=== PATIENT | male | born 1960 | race Caucasian/White ===

== ENCOUNTER 2023-08-14 10:33 | Outpatient (OUT) | payer MEDICAID, SELFPAY ==
--- NOTE | 2023-08-14 | XR_ITS ---
[facility] [id number] Patient Name: MACARENA MEYERS MRN: [id number] date: 1960 Sex: M Assigned Patient Location: [facility] Current Patient Location: [facility] Accession/Order Number: [id number] Exam Date: 08/14/2023 10:15 Report Date: 08/14/2023 11:20 At the request of: CALISTA RODRIGUEZ Procedure: XR ankle LT min 3V PROCEDURE: XR ankle LT min 3V COMPARISON: 07/29/2023. HISTORY: LEFT ANKLE PAIN FINDINGS: BONES:Severe degenerative changes of the midfoot with plantar rotation of the posterior midfoot and hindfoot in relation to the anterior midfoot and midfoot bony destruction of the partial midfoot. Moderate enthesopathic spurring of the calcaneus. SOFT TISSUES:Moderate diffuse soft tissue swelling EFFUSION:None visible. OTHER: Negative. XR/XR ankle LT min 3V IMPRESSION: Severe degenerative changes. No plain film evidence of osteomyelitis Electronically authenticated by: SISSY UPENTES Date: 08/14/2023 11:20
== END 2023-08-14 10:34 | disposition home or self-care (01) ==
LOC: RAD 10:33
PROVIDERS: Visit Provider Podiatrist Foot & Ankle Surgery
DX: S91.002A Unspecified open wound, left ankle, initial encounter (principal)
CPT/HCPCS: 73610

== ENCOUNTER 2023-08-28 07:55 | Outpatient (OUT) | payer MEDICAID, SELFPAY ==
--- OUTSIDE RECORDS SUMMARY | 2023-08-28 08:00 | XMS_ITS | CCD ---
Author Name Unknown Address [id number] [place] [address] Organization [facility] Care Team Providers Care Hide Handler Name Role Phone PLANK, GERARD Unavailable Unavailable PLANK, GERARD Unavailable Unavailable CHARLIE, RENATO Unavailable Unavailable PLANK, GERARD Unavailable Unavailable CHARLIE, RENATO Unavailable Unavailable PLANK, GERARD Unavailable Unavailable HAND, ALLYSON Unavailable Unavailable HAND, ALLYSON Unavailable Unavailable DEXTER, ROMERO Unavailable Unavailable HAND, ALLYSON Unavailable Unavailable DEXTER, ROMERO Unavailable Unavailable HAND, ALLYSON Unavailable Unavailable Dexter, Romero Unavailable Unavailable Hand, Allyson A Unavailable Unavailable Charlie, Renato Chimanbhai Unavailable Unavail able Zahira, Allyson A Primary Care Provider [phone] Allyson Hand MD A Primary Care Provider [phone] Unavailable Primary Care Provider Allyson Rausch MD A Primary Care Provider [phone] Allyson Hand MD A Primary Care Provider [phone] Allyson Hand MD A Primary Care Provider [phone] Allyson Hand MD A Primary Care Provider Zahira Allyson A Unavailable Unavailable Unavailable Unavailable Primary Care Provider Allyson Rausch MD A Primary Care Provider [phone] Dr. Allyson Hand Primary Care Delmi Briscoe Jr, Dr. Mitch Martínez Attending Leisa Hand, Dr. Allsyon Anthony Primary Care Delmi Briscoe Jr, Dr. Mitch Martínez Attending Leisa Hand, Dr. Allyson Anthony Primary Care Unavailabl e Luis Felipe Ryder, Dr. Mtich Martínez Attending Unava ilable Luis Felipe Ryder, Dr. Mitch Martínez Attending Unava ilable Zahira, Dr. Allyson Anthony Primary Care Unavailabl e HAND, ALLYSON A Primary Care Unavailable ELY, MARIELOS Referring Unavailable MARIELOS ELY Attending Unavailable VIV LUIS Referring Unavailable HAND, ALLYSON A Primary Care Unavailable ELYMARIELOS PEREZ Referring Unavailable HAND, ALLYSON A Primary Care Unavailable ELYMARIELOS PEREZ Referring Unavailable HAND, ALLYSON A Primary Care Unavailable ELY, MARIELOS Referring Unavailable HAND, ALLYSON A Primary Care Unavailable HAND, ALLYSON A Primary Care Unavailable MARIELOS ELY Referring Unavailable AIDA CANO Attending Unavailable ARASH KRAUSE Referring Unavailable HAND, ALLYSON A Primary Care Unavailable ELY, MARIELOS Referring Unavailable HAND, ALLYSON A Primary Care Unavailable HAND, ALLYSON A Primary Care Unavailable CHO ISAIROCHELLE Attending Unavailable CHO I, ROCHELLE Referring Unavailable HAND, ALLYSON A Primary Care Unavailable CHO I, ROCHELLE Attending Unavailable CHO I, ROCHELLE Referring Unavailable HAND, ALLYSON A Primary Care Unavailable CHO I, ROCHELLE Attending Unavailable CHO I, ROCHELLE Referring Unavailable HAND, ALLYSON A Primary Care Unavailable CHO I, ROCHELLE Referring Unavailable CHO I, ROCHELLE Attending Unavailable ELY, MARIELOS Referring Unavailable HAND, ALLYSON A Primary Care Unavailable ELY, MARIELOS Referring Unavailable HAND, ALLYSON A Primary Care Unavailable SOLIS, MARIELOS Referring Unavailable HAND, ALLYSON A Primary Care Unavailable ELY, MARIELOS Referring Unavailable HAND, ALLYSON A Primary Care Unavailable HAND, ALLYSON A Primary Care Unavailable ELY, MARIELOS Referring Unavailable MARIELOS ELY Attending Unavailable MARIELOS ELY Referring Unavailable HAND, ALLYSON A Primary Care Unavailable ELY, MARIELOS Referring Unavailable HAND, ALLYSON A Primary Care Unavailable ELY, MARIELOS Referring Unavailable HAND, ALLYSON A Primary Care Unavailable HAND, ALLYSON A Primary Care Unavailable DRAIEL ELYNDAN Referring Unavailable TORI MART Referring Unavailable HAND, ALLYSON A Primary Care Unavailable MART, TORI Referring Unavailable HAND, ALLYSON A Primary Care Unavailable MART, TORI Referring Unavailable HAND, ALLYSON A Primary Care Unavailable MART, TORI Referring Unavailable HAND, ALLYSON A Primary Care Unavailable JIMI, ARASH Attending Unavailable JIMI, ARASH Referring Unavailable HAND, ALLYSON A Primary Care Unavailable RACHAEL, LLEOWELL Attending Unavailable HAND, ALLYSON A Primary Care Unavailable ELY, MARIELOS Referring Unavailable MAISHA, GALE Attending Unavailable MAISHA, GALE Referring Unavailable HAND, ALLYSON A Primary Care Unavailable ELY, MARIELOS Attending Unavailable HAND, ALLYSON A Primary Care Unavailable ELY, MARIELOS Referring Unavailable ELY, MARIELOS Attending Unavailable HAND, ALLYSON A Primary Care Unavailable ELY, MARIELOS Referring Unavailable HAND, ALLYSON A Primary Care Unavailable ELY, MARIELOS Attending Unavailable ELY, MARIELOS Referring Unavailable RACHAEL, LLEOWELL Attending Unavailable RACHAEL, LLEOWELL Referring Unavailable HAND, ALLYSON A Primary Care Unavailable ELY, MARIELOS Referring Unavailable HAND, ALLYSON A Primary Care Unavailable HAND, ALLYSON A Primary Care Unavailable ELY, MARIELOS Referring Unavailable HAND, ALLYSON A Primary Care Unavailable ELY, MARIELOS Referring Unavailable ELY, MARIELOS Referring Unavailable HAND, ALLYSON A Primary Care Unavailable Allergies Allergy Classification Reported Allergen(s) Allergy Type Date of Onset Reaction(s) Facility (5 sources) Amoxicillin / Clavulanate; Translations: [Augmentin TABS] Drug Allergy [facility] Work Phone: (5 sources) influenza A virus (H1N1) antigen / influenza A virus (H3N2) antigen / influenza B virus antigen; Translations: [Fluzone SUSP] Drug Allergy [facility] Work Phone: (20 sources) moxifloxacin Drug Allergy 7 Other (See Comments), Nausea, Vomiting [facility] Phone: (20 sources) Amoxicillin-Pot Clavulanate Propensity to adverse reactions to drug 7 Nausea And Vomiting [facility] Work Phone: Medications Current Medications Medication Drug Class(es) Dates Sig (Normalized) Sig (Original) Acetaminophen (1 source) Start: 05-25-2022 acetaminophen (TYLENOL) tablet 650 mg acetaminophen 325 mg / HYDROcodone bitartrate 7.5 mg oral tablet (20 sources) Opioid Agonist Start: 04-20-2023 End: 05-20-2023 HYDROcodone-acetamin ophen (NORCO) 7.5-325 MG per tablet Indications: Chronic pain syndrome , Lumbar radiculopathy , Lumbosacral spondylosis without myelopathy Take 1 tablet by mouth every 6 hours as needed for Pain for up to 30 days. Max Daily Amount: 4 tablets 120 tablet 0 04/20/2023 05/20/2023 Active Start: 08-09-2022 End: 01-26-2023 HYDROcodone-acetaminophen (N ORCO) 7.5-325 MG per tablet Indications: Chronic pain syndrome , Lumbar radiculopathy , Lumbosacral spondylosis without myelopathy Take 1 tablet by mouth 3 times daily as needed for Pain for up to 30 days. Max Daily Amount: 3 tablets 90 tablet 0 12/27/2022 01/26/2023 Active Start: 07-23-2022 End: 08-10-2022 take 1 tablet by mouth every six hours as needed for pain HYDROcodone-acetaminophen (NORCO) 7.5-32 5 MG per tablet Indications: Chronic pain syndrome , Lumbosacral spondylosis without myelopathy , Lumbar radiculopathy Take 1 tablet by mouth every 6 hours as needed for Pain for up to 18 days. 72 tablet 0 07/23/2022 08/10/2022 Active Start: 05-24-2022 End: 05-26-2022 HYDROcodone-acetaminophen (N ORCO) 5-325 MG per tablet 1.5 tablet Start: 05-24-2022 End: 05-31-2022 take 1 tablet by mouth every six hours as needed 1 tablet, Oral, EVERY 6 HOURS PRN, Start ing on 05/26/22 at 0859, Until Discontinued, Pain Severe (7-10), Pain Moderate (4-6) Maximum dose of acetaminophen is 4000 mg from all sources in 24 hours. Start: 04-22-2022 End: 05-22-2022 HYDROcodone-acetaminophen (N ORCO) 7.5-325 MG per tablet Indications: Chronic pain syndrome , Lumbosacral spondylosis without myelopathy , Lumbar radiculopathy Take 1 tablet by mouth every 6 hours as needed for Pain for up to 30 days. Intended supply: 30 days 120 tablet 0 04/22/2022 05/22/2022 Active Start: 01-12-2022 End: 02-11-2022 HYDROcodone-acetaminophen (N ORCO) 5-325 MG per tablet Indications: Spinal stenosis of lumbar region with neurogenic claudication , Acquired spondylolisthesis of lumbosacral region , Paraparesis of both lower limbs (HCC) Take 1 tablet by mouth every 6 hours as needed for Pain for up to 30 days. Intended supply: 30 days 120 tablet 0 01/12/2022 02/11/2022 Active Start: 12-30-2021 End: 01-29-2022 HYDROcodone-acetaminophen (N ORCO) 7.5-325 MG per tablet Indications: Chronic pain syndrome , Lumbosacral spondylosis without myelopathy , Lumbar radiculopathy Take 1 tablet by mouth every 6 hours as needed for Pain for up to 30 days. Intended supply: 30 days 120 tablet 0 12/30/2021 01/29/2022 Active Start: 09-02-2021 End: 10-02-2021 take 1 tablet by mouth every eight hours as needed for pain HYDROcodone-acetaminophen (NORCO) 5-325 MG per tablet Indications: Chronic pain syndrome , Lumbosacral spondylosis without myelopathy , Primary osteoarthritis of right knee , Lumbar radiculopathy , Spinal stenosis of lumbar region, unspecified whether neurogenic claudication present Take 1 tablet by mouth every 8 hours as needed for Pain for up to 30 days. 90 tablet 0 09/02/2021 10/02/2021 Active Start: 11-13-2019 HYDROcodone-Ac etaminophen 5-325 MG Oral Tablet Quantity: 75 Refills: 0 Ordered: 20-Nov-2019 DO Start : 13-Nov-2019 Active Start: 07-29-2006 take 1 tablet by jamie th every four to six hours as needed VICODIN 5-500 MG OR TABS 1 TABLET EVERY 4 TO 6 HOURS NEEDED 60 0 07/29/2006 Active acetaminophen 325 mg / oxyCODONE hydrochloride 5 mg oral tablet (5 sources) Opioid Agonist Start: 05-31-2022 End: 06-03-2022 oxyCODONE-acetaminophen (PERCOCET) 5-325 MG per tablet Indications: Ulcer of left foot, with necrosis of muscle (HCC) Take 1 tablet by mouth every 6 hours as needed for Pain for up to 3 days. Intended supply: 3 days. Take lowest dose possible to manage pain 12 tablet 0 05/31/2022 06/03/2022 Active Start: 01-13-2020 take 1 tablet by jamie every four to six hours as needed for pain oxyCODONE-Acetaminophen 10-325 MG Oral Tablet TAKE 1 TABLET BY MOUTH EVERY 4 TO 6 HOURS NEEDED FOR PAIN Quantity: 8 Refills: 0 Ordered: 13-Jan-2020 DO Start : 13-Jan-2020 Active amLODIPine 5 mg oral tablet (18 sources) Dihydropyridine Calcium Channel [place] Start: 06-12-2021 End: 05-25-2022 amLODIPine (NORVASC) 5 MG tablet Indications: takes with elevated BP reading -- with sx headache & flushed feeling Indications: takes with elevated BP reading -- with sx headache & flushed feeling 0 06/12/2021 Active aspirin 81 mg chewable tablet (2 sources) Platelet Aggregation Inhibitor, Nonsteroidal Anti-inflammatory Drug Start: 05-25-2022 aspirin chewable tablet 81 mg Start: 05-24-2022 End: 05-24-2022 aspirin chewable tablet 324 mg atorvastatin 10 mg oral tablet (2 sources) HMG-CoA Reductase Inhibitor Start: 05-28-2022 atorvastatin (LIPITO R) tablet 10 mg Start: 05-25-2022 End: 05-28-2022 atorvastatin (LIPITOR) table t 20 mg busPIRone hydrochloride 10 mg oral tablet (1 source) Start: 05-26-2022 busPIRone (BUSPAR) tablet 10 mg calcipotriene 0.76240 mg/mg topical ointment (2 sources) Vitamin D Analog Start: 08-26-2006 DOVONEX 0.005 % EX OINT psoriasis BID 50 5 08/26/2006 Active carvedilol 12.5 mg oral tablet (4 sources) alpha-Adrenergic [place], beta-Adrenergic [place] Start: 03-04-2023 take 1 tablet by mouth twice daily carvedilol (COREG) 12.5 MG tablet Take 1 tablet by mouth 2 times daily 180 tablet 3 03/04/2023 Active cephalexin 500 mg oral capsule (12 sources) Cephalosporin Antibacterial Start: 09-20-2022 End: 11-05-2022 take 1 capsule by mouth four times daily cephALEXin (KEFLEX) 500 MG capsule Take 1 capsule by mouth 4 times daily 40 capsule 0 09/20/2022 Active Start: 07-09-2022 End: 08-08-2022 take 10 mL by mouth three times daily cephALEXin (KEFLEX) 250 MG/5ML suspension Take 10 mLs by mouth 3 times daily 900 mL 0 07/09/2022 08/08/2022 Active Start: 05-25-2022 End: 05-26-2022 500 mg, Oral, 4 TIMES DAILY, 28 doses, First dose on Sat05/25/22 at 0900, Last dose on Sat05/31/22 at 2100 Antimicrobial Indications: Skin and Soft Tissue Infection Skin duration of therapy: 7 days Start: 05-18-2022 End: 05-31-2022 cephALEXin (KEFLEX) capsule 500 mg clobetasol propionate 0.0005 mg/mg topical ointment (2 sources) Corticosteroid Start: 08-26-2006 CLOBETASOL PROPIONATE 0.05 % EX OINT to psoriasis s alp and legs BID avoid face armpit groin, under breast 60 g 3 08/26/2006 Active cyclobenzaprine hydrochloride 10 mg oral tablet (20 sources) Muscle Relaxant Start: 04-20-2023 End: 05-20-2023 take 1 tablet by mouth once daily as needed for muscle spasms cyclobenzaprine (FLEXERIL) 10 MG tablet Indications: Chronic pain syndrome Take 1 tablet by mouth daily as needed for Muscle spasms 30 tablet 0 04/20/2023 05/20/2023 Active Start: 02-14-2023 End: 03-16-2023 take 1 tablet by mouth once daily as needed for muscle spasms cyclobenzaprine (FLEXERIL) 10 MG tablet Indications: Chronic pain syndrome Take 1 tablet by mouth daily as needed for Muscle spasms 30 tablet 0 02/14/2023 03/16/2023 Active Start: 07-23-2022 End: 01-26-2023 take 1 tablet by mouth once daily as needed for muscle spasms cyclobenzaprine (FLEXERIL) 10 MG tablet Indications: Chronic pain syndrome Take 1 tablet by mouth daily as needed for Muscle spasms 30 tablet 0 12/27/2022 01/26/2023 Active Start: 2022 End: 06-23-2022 take 1 tablet by mouth once daily as needed for muscle spasms cyclobenzaprine (FLEXERIL) 10 MG tablet Indications: Chronic pain syndrome Take 1 tablet by mouth daily as needed for Muscle spasms 30 tablet 0 05/24/2022 06/23/2022 Active Start: 12-29-2021 End: 02-28-2022 take 1 tablet by mouth once daily as needed for muscle spasms cyclobenzaprine (FLEXERIL) 10 MG tablet Indications: Chronic pain syndrome TAKE 1 TABLET BY MOUTH DAILY NEEDED FOR MUSCLE SPASMS 30 tablet 0 01/29/2022 02/28/2022 Active Start: 08-28-2021 End: 09-27-2021 take 1 tablet by mouth once daily as needed for muscle spasms cyclobenzaprine (FLEXERIL) 10 MG tablet Indications: Chronic pain syndrome Take 1 tablet by mouth daily as needed for Muscle spasms 30 tablet 0 08/28/2021 09/27/2021 Active Start: 05-15-2019 Cyclobenzaprin e HCl - 10 MG Oral Tablet Quantity: 30 Refills: 0 Ordered: 09-Aug-2019 DO Start : 15-May-2019 Active Start: 12-22-2002 take 1 tablet by jamie th three times daily FLEXERIL 10 MG OR TABS 1 TABLET 3 TIMES DAILY 90 0 12/22/2002 Active desonide 0.5 mg/ml topical lotion (2 sources) Corticosteroid Start: 08-26-2006 DESONIDE 0.05 % EX LOTN BID face armpit groin 4 oz 5 08/26/2006 Active ertapenem (INVANZ) infusion (3 sources) Start: 05-31-2022 End: 07-10-2022 take 1000 mg intravenously every twenty-four hours ertapenem (INVANZ) infusion Infuse 1,000 mg intravenously every 24 hours Compound per protocol. 40 g 0 05/31/2022 07/10/2022 Active furosemide 40 mg oral tablet (17 sources) Loop Diuretic Start: 03-04-2023 take 1 tablet by mouth once daily furosemide (LASIX) 40 MG tablet Take 1 tablet by mouth daily 90 tablet 3 03/04/2023 Active Start: 06-02-2022 take 1 tablet by jamie th once daily furosemide (LASIX) 20 MG tablet Take 1 tablet by mouth daily 30 tablet 3 06/02/2022 Active Start: 05-28-2022 furosemide (LA SIX) tablet 20 mg Start: 05-25-2022 End: 05-28-2022 40 mg, IntraVENous, 2 TIMES DAILY, First dose on Sat05/25/22 at 0900, Until Discontinued gabapentin 300 mg oral capsule (18 sources) Anti-epileptic Agent Start: 07-23-2022 End: 01-26-2023 take 1 capsule by mouth three times daily gabapentin (NEURONTIN) 300 MG capsule Indications: Lumbar radiculopathy Take 1 capsule by mouth 3 times daily for 19 days. 57 capsule 0 01/26/2023 Active Start: 05-03-2022 End: 06-02-2022 take 1 capsule by mouth three times daily gabapentin (NEURONTIN) 300 MG capsule Indications: Lumbar radiculopathy Take 1 capsule by mouth 3 times daily for 30 days. 90 capsule 0 05/03/2022 Active Start: 12-30-2021 End: 02-22-2022 take 1 capsule by mouth three times daily gabapentin (NEURONTIN) 300 MG capsule Indications: Lumbar radiculopathy Take 1 capsule by mouth 3 times daily for 30 days. 90 capsule 0 01/23/2022 02/22/2022 Active 1 ml HYDROmorphone hydrochloride 1 mg/ml cartridge (2 sources) Opioid Agonist Start: 05-29-2022 End: 05-29-2022 HYDROmorphone (DILAUDID) injection 0.5 mg sodium hypochlorite 1.25 mg/ml topical spray (9 sources) Start: 10-22-2022 Sodium Hypochlorite 0.0125 % SOLN Apply 10 mLs topically as needed (Cleanse with each dressing change.) 1000 mL 5 10/22/2022 Active 1 ml ketorolac tromethamine 30 mg/ml cartridge (1 source) Nonsteroidal Anti-inflammatory Drug, Cyclooxygenase Inhibitor Start: 05-30-2022 End: 06-01-2022 ketorolac (TORADOL) injection 30 mg 24 hr metoprolol succinate 50 mg extended release oral tablet (16 sources) beta-Adrenergic [place] Start: 05-29-2022 take 1 tablet by mouth once daily metoprolol succinate (TOPROL XL) 50 MG extended release tablet Take 1 tablet by mouth daily 30 tablet 0 06/01/2022 Active Start: 05-25-2022 End: 05-28-2022 metoprolol succinate (TOPROL XL) extended release tablet 25 mg Start: 05-24-2022 End: 05-24-2022 metoprolol (LOPRESSOR) injec tion 5 mg naloxone hydrochloride 40 mg/ml nasal spray (2 sources) Opioid Antagonist Start: 07-05-2021 naloxone 4 MG/0.1ML LIQD nasal spray 1 spray by Nasal route as needed for Opioid Reversal 2 each 1 07/05/2021 Active 24 hr naproxen 500 mg extended release oral tablet (20 sources) Nonsteroidal Anti-inflammatory Drug Start: 09-06-2022 End: 01-26-2023 take 1 tablet by mouth twice daily as needed for pain naproxen (NAPRELAN) 500 MG extended release tablet Take 1 tablet by mouth 2 times daily as needed for Pain 60 tablet 3 12/27/2022 Active Start: 02-20-2022 End: 05-31-2022 take 1 tablet by mouth twice daily as needed for pain naproxen (NAPRELAN) 500 MG extended release tablet Take 1 tablet by mouth 2 times daily as needed for Pain 60 tablet 3 02/20/2022 05/31/2022 Discontinued (Stop Taking at Discharge) Start: 12-29-2021 take 1 tablet by jamie th twice daily at mealtime naproxen (EC NAPROSYN) 500 MG EC tablet Indications: Lumbosacral spondylosis without myelopathy , Primary osteoarthritis of right knee , Spinal stenosis of lumbar region, unspecified whether neurogenic claudication present TAKE 1 TABLET BY MOUTH TWICE DAILY WITH MEALS 60 tablet 0 12/29/2021 Active Start: 08-28-2021 take 1 tablet by jamie th twice daily at mealtime naproxen (EC NAPROSYN) 500 MG EC tablet Indications: Lumbosacral spondylosis without myelopathy , Primary osteoarthritis of right knee , Spinal stenosis of lumbar region, unspecified whether neurogenic claudication present TAKE 1 TABLET BY MOUTH TWICE DAILY WITH MEALS 60 tablet 0 08/28/2021 Active Start: 11-13-2019 Naproxen 500 M G Oral Tablet Delayed Release Quantity: 60 Refills: 0 Ordered: 6-Apr-2020 DO Start : 13-Nov-2019 Active omeprazole 40 mg delayed release oral capsule (20 sources) Proton Pump Inhibitor Start: 12-22-2002 PRILOSEC 40 MG OR CPDR 1 CAPSULE DAILY 30 0 12/22/2002 Active take 1 capsule by mouth once mark ly omeprazole (PRILOSEC) 20 MG delayed release capsule Take 1 capsule by mouth daily 0 Active ondansetron (ZOFRAN-ODT) disintegrating tablet 4 mg (1 source) Start: 05-25-2022 ondansetron (ZOFRAN-ODT) disintegrating tablet 4 mg potassium chloride 20 meq extended release oral tablet (3 sources) take 1 tablet by mouth once daily at breakfast potassium chloride (KLOR-CON M) 20 MEQ TBCR extended release tablet Take 1 tablet by mouth daily (with breakfast) 0 Active spironolactone 25 mg oral tablet (1 source) Aldosterone Antagonist Start: 05-28-2022 spironolactone (ALDACTONE) tablet 25 mg traMADol hydrochloride 50 mg oral tablet (5 sources) Opioid Agonist Start: 09-06-2021 End: 10-06-2021 take 1 tablet by mouth every eight hours as needed for pain traMADol (ULTRAM) 50 MG tablet Indications: Chronic pain syndrome , Lumbosacral spondylosis without myelopathy , Primary osteoarthritis of right knee , Lumbar radiculopathy , Spinal stenosis of lumbar region, unspecified whether neurogenic claudication present Take 1 tablet by mouth every 8 hours as needed for Pain for up to 30 days. Fill date 09/06/21. 90 tablet 0 09/06/2021 10/06/2021 Active Start: 11-13-2019 traMADol HCl - 50 MG Oral Tablet Quantity: 90 Refills: 0 Ordered: 20-Nov-2019 DO Start : 13-Nov-2019 Active Completed/Discontinued Medications Medication Drug Class(es) Dates Sig (Normalized) Sig (Original) azithromycin 250 mg oral tablet (4 sources) Macrolide Antimicrobial Start: 01-01-2020 Azithromycin 250 MG Oral Tablet TAKE 2 TABLETS by mouth today, THEN take 1 TABLET once a day FOR the n Quantity: 6 Refills: 0 Ordered: 01-Jan-2020 DO Start : 01-Jan-2020 Active candesartan cilexetil 32 mg oral tablet (20 sources) Angiotensin 2 Receptor [place] Start: 02-27-2019 Candesartan Cilexetil 32 MG Oral Tablet Quantity: 30 Refills: 0 Ordered: 24-Nov-2019 DO Start : 27-Feb-2019 Active 0.4 ml enoxaparin sodium 100 mg/ml prefilled syringe (1 source) Low Molecular Weight Heparin Start: 05-25-2022 inject 40 mg by subcutaneous injection once daily 40 mg, SubCUTAneous, DAILY, First dose on Sat05/25/22 at 0900, Until Discontinued Indication of Use: Prophylaxis-DVT/PE ertapenem (INVanz) 1000 mg IVPB minibag (1 source) Start: 05-31-2022 End: 05-31-2022 ertapenem (INVanz) 1000 mg IVPB minibag famotidine 40 mg oral tablet (4 sources) Histamine-2 Receptor Antagonist Start: 04-04-2019 Famotidine 40 MG Oral Tablet Quantity: 30 Refills: 0 Ordered: 11-Aug-2019 DO Start : 04-Apr-2019 Active 2 ml fentaNYL 0.05 mg/ml injection (3 sources) Opioid Agonist Start: 05-29-2022 End: 05-29-2022 fentaNYL (SUBLIMAZE) injection 50 mcg Start: 01-13-2022 End: 02-12-2022 fentaNYL (DURAGESIC) 25 MCG/ HR Indications: Spinal stenosis of lumbar region with neurogenic claudication , Acquired spondylolisthesis of lumbosacral region Place 1 patch onto the skin every 3 days for 30 days. Intended supply: 30 days 10 patch 0 01/13/2022 02/12/2022 Active Start: 01-13-2022 End: 02-12-2022 fentaNYL (DURAGESIC) 25 MCG/ HR Indications: Acquired spondylolisthesis of lumbosacral region , Spinal stenosis of lumbar region with neurogenic claudication Place 1 patch onto the skin every 72 hours for 30 days. 10 patch 0 01/13/2022 02/12/2022 Active gadoteridol (PROHANCE) injec tion 20 mL (1 source) Start: 05-27-2022 End: 05-27-2022 gadoteridol (PROHANCE) injection 20 mL 2 ml sodium hyaluronate 10 m g/ml prefilled syringe (3 sources) Start: 04-25-2023 Euflexxa 20 MG /2ML Intra-articular Solution Prefilled Syringe Right knee Quantity: 0 Refills: 0 Ordered: 25-Apr-2023 Mitch Briscoe MD Start : 25-Apr-2023 Complete Start: 04-18-2023 Euflexxa 20 MG /2ML Intra-articular Solution Prefilled Syringe Right knee Quantity: 0 Refills: 0 Ordered: 18-Apr-2023 Mitch Briscoe MD Start : 18-Apr-2023 Complete Start: 04-11-2023 Euflexxa 20 MG /2ML Intra-articular Solution Prefilled Syringe Right knee Quantity: 0 Refills: 0 Ordered: 11-Apr-2023 Mitch Briscoe MD Start : 11-Apr-2023 Complete ibuprofen 600 mg oral tablet (4 sources) Nonsteroidal Anti-inflammatory Drug Start: 01-12-2020 Ibuprofen 600 MG Oral Tablet Quantity: 30 Refills: 0 Ordered: 13-Jan-2020 DO Start : 12-Jan-2020 Active iopamidol (ISOVUE-300) 61 % injection 125 mL (1 source) Start: 05-30-2022 End: 05-30-2022 iopamidol (ISOVUE-300) 61 % injection 125 mL iopamidol (ISOVUE-300) 61 % injection 75 mL (1 source) Start: 05-24-2022 End: 05-24-2022 iopamidol (ISOVUE-300) 61 % injection 75 mL lidocaine hydrochloride 0.02 mg/mg topical gel (20 sources) Antiarrhythmic, Amide Local Anesthetic Start: 05-06-2023 End: 05-06-2023 lidocaine (XYLOCAINE) 2 % uro-jet Start: 04-29-2023 lidocaine (LID ODERM) 5 % Indications: Lumbar radiculopathy Place 2 patches onto the skin daily 12 hours on, 12 hours off. 60 patch 2 04/29/2023 Active Start: 01-14-2023 End: 01-14-2023 lidocaine (LMX) 4 % cream Start: 12-17-2022 End: 12-17-2022 lidocaine (LMX) 4 % cream Start: 12-03-2022 End: 12-03-2022 lidocaine (LMX) 4 % cream Start: 11-05-2022 End: 11-05-2022 lidocaine (LMX) 4 % cream Start: 10-22-2022 End: 10-22-2022 lidocaine (LMX) 4 % cream Start: 10-08-2022 End: 10-08-2022 lidocaine (LMX) 4 % cream Start: 09-17-2022 End: 09-17-2022 lidocaine (LMX) 4 % cream Start: 09-03-2022 End: 09-03-2022 lidocaine (XYLOCAINE) 2 % ur o-jet Start: 05-28-2022 End: 05-28-2022 lidocaine 2 % injection 5 mL Start: 05-25-2022 apply 1 dose topical ly once daily 1 patch, Topical, Administer over 12 Hours, DAILY, First dose on Sat05/25/22 at 0900 Substituted for Lidocaine 5% Patch. Start: 2022 lidocaine (LID ODERM) 5 % Indications: Lumbar radiculopathy Place 2 patches onto the skin daily 12 hours on, 12 hours off. 60 patch 2 2022 Active Start: 01-23-2022 lidocaine (LID ODERM) 5 % Indications: Lumbar radiculopathy Place 2 patches onto the skin daily 12 hours on, 12 hours off. 60 patch 2 01/23/2022 Active Start: 11-30-2021 lidocaine (LID ODERM) 5 % Indications: Lumbar radiculopathy Place 2 patches onto the skin daily 12 hours on, 12 hours off. 60 patch 2 11/30/2021 Active Start: 08-10-2021 lidocaine (LID ODERM) 5 % Indications: Lumbar radiculopathy Place 2 patches onto the skin daily 12 hours on, 12 hours off. 60 patch 2 08/10/2021 Active Start: 06-15-2020 Lidocaine 5 % External Patch Quantity: 60 Refills: 0 Ordered: 15-Jun-2020 DO Start : 15-Jun-2020 Active melatonin 5 mg disintegrating oral tablet (1 source) Start: 05-26-2022 take 5 mg by mouth once daily 5 mg, Oral, NIGHTLY, First dose on Sat05/26/22 at 2100, Until Discontinued meloxicam 15 mg oral tablet (4 sources) Nonsteroidal Anti-inflammator y Drug Start: 08-03-2020 take 1 tablet by mouth once daily as needed Meloxicam 15 MG Oral Tablet TAKE 1 TABLET DAILY NEEDED. Quantity: 30 Refills: 2 Ordered: 03-Aug-2020 Romero Renteria MD Start : 03-Aug-2020 Active methylPREDNISolone 4 MG Oral Tablet Therapy Pack (4 sources) Start: 12-03-2019 methylPREDNISolone 4 MG Oral Tablet Therapy Pack Quantity: 21 Refills: 0 Ordered: 03-Dec-2019 DO Start : 03-Dec-2019 Active ondansetron 4 mg oral tablet (7 sources) Serotonin-3 Receptor Antagonist Start: 09-07-2019 Ondansetron HCl - 4 MG Oral Tablet Quantity: 30 Refills: 0 Ordered: 07-Sep-2019 DO Start : 07-Sep-2019 Active take 1 tablet by jamie th every six hours as needed for nausea ondansetron (ZOFRAN) 4 MG tablet Take 4 mg by mouth every 6 hours as needed for Nausea or Vomiting 0 Active pantoprazole 40 mg delayed release oral tablet (1 source) Proton Pump Inhibitor Start: 05-25-2022 take 40 mg by mouth once daily before breakfast 40 mg, Oral, DAILY BEFORE BREAKFAST, First dose on Sat05/25/22 at 0700, Until Discontinued Do not crush or break. Substituted for Omeprazole (PRILOSEC). piperacillin-tazoba ctam (ZOSYN) 3,375 mg in dextrose 5 % 50 mL IVPB extended infusion (mini-bag) (1 source) Start: 05-26-2022 End: 05-31-2022 piperacillin-tazob actam (ZOSYN) 3,375 mg in dextrose 5 % 50 mL IVPB extended infusion (mini-bag) polyethylene glycol 3350 26153 mg powder for oral solution (1 source) Osmotic Laxative Start: 05-25-2022 17 g, Oral, D AILY PRN, Starting on Sat05/25/22 at 0128, Until Discontinued, Constipation First line therapy for constipation 1000 ml sodium chloride 9 mg/ml injection (9 sources) Start: 05-28-2022 End: 05-28-2022 0.9 % sodium chloride infusion Start: 05-27-2022 sodium chlorid e flush 0.9 % injection 5-40 mL Start: 05-25-2022 take 1 dose intraven ously twice daily 5-40 mL, IntraVENous, EVERY 12 HOURS SCHEDULED (2 times per day), First dose on Sat05/25/22 at 0900, Until Discontinued For Line Patency: Peripheral IV = 5 mL; Midline or Central Line = 10 mL/lumen. If following IV push medication, administer flush at same rate as the IV push. Flush volume is determined by type of infusion therapy being given. For non-viscous solutions use: Peripheral IV = 5 mL Midline or Central Line = 10 mL/lumen For viscous solutions (i.e. blood components, parenteral nutrition, contrast media, or after obtaining blood sample) use: Peripheral IV = 10 mL Midline or Central Line = 20 mL/lumen Start: 05-25-2022 IntraVENous, a t 5-250 mL/hr, PRN, if patient receiving piggyback infusions and maintenance fluids are not ordered OR KVO fluids to protect IV site / prevent frequent line interruptions/ long duration, Starting on Sat05/25/22 at 0128 For piggyback infusion, administer at same rate as piggyback for a total of 25 mL. Enter 25 mL into dose field and piggyback rate into rate field of order. If piggyback is infusing at a rate less than 100 mL/hr, enter 25 mL into dose field and 100 mL/hr into rate field of order. For KVO fluids, enter rate of 20 mL/hr or less into rate field of order. Start: 05-25-2022 take 5-40 mL intrave nously once as needed 5-40 mL, IntraVENous, PRN, Starting on Sat05/25/22 at 0128, Until Discontinued, Line Care, After every IV line use For Line Patency: Peripheral IV = 5 mL; Midline or Central Line = 10 mL/lumen. If following IV push medication, administer flush at same rate as the IV push. Flush volume is determined by type of infusion therapy being given. For non-viscous solutions use: Peripheral IV = 5 mL Midline or Central Line = 10 mL/lumen For viscous solutions (i.e. blood components, parenteral nutrition, contrast media, or after obtaining blood sample) use: Peripheral IV = 10 mL Midline or Central Line = 20 mL/lumen sulfamethoxazole 800 mg / trimethoprim 160 mg oral tablet (3 sources) Dihydrofolate Reductase Inhibitor Antibacterial, Sulfonamide Antimicrobial Start: 05-24-2022 End: 05-24-2022 sulfamethoxazole-trimethopri m (BACTRIM DS;SEPTRA DS) 800-160 MG per tablet 1 tablet Start: 05-18-2022 End: 06-01-2022 take 1 tablet by mouth twice daily 1 tablet, Oral, 2 TIMES DAILY, 14 doses, First dose on Sat05/25/22 at 0900, Last dose on Sat05/31/22 at 2100 Antimicrobial Indications: Skin and Soft Tissue Infection Skin duration of therapy: 7 days traZODone hydrochloride 100 mg oral tablet (20 sources) Serotonin Reuptake Inhibitor Start: 05-24-2022 take 100 mg by mouth once daily 100 mg, Oral, NIGHTLY, First dose on Sat05/26/22 at 2100, Until Discontinued Start: 06-03-2019 traZODone HCl - 100 MG Oral Tablet Quantity: 30 Refills: 0 Ordered: 03-Aug-2019 DO Start : 03-Jun-2019 Active valsartan 80 mg oral tablet (1 source) Angiotensin 2 Receptor [place] Start: 05-25-2022 take 80 mg by mouth once daily 80 mg, Oral, DAILY, First dose on Sat05/25/22 at 0900, Until Discontinued Substituted for Candesartan (ATACAND) Problems Active Problems Problem Classification Problem Date Documented Date Episodic/Chronic Chronic ulcer of skin (20 sources) Non-pressure chronic ulcer of other part of left foot with unspecified severity; Translations: [Ulcer of other part of foot] Onset: 2 Chronic Congestive heart failure; nonhypertensive (20 sources) Acute heart failure co-occurrent with normal ejection fraction; Translations: [Acute diastolic (congestive) heart failure] Onset: 2 Chronic Essential hypertension (20 sources) Essential (primary) hypertension; Translations: [Hypertensive disorder] Onset: 8 11-11-2011 Chronic Essential hypertension (2 sources) Essential hypertension Onset: 8 Infective arthritis and osteomyelitis (except that caused by tuberculosis or sexually transmitted disease) (18 sources) Acute osteomyelitis of ankle and/or foot; Translations: [Other acute osteomyelitis, left ankle and foot] Onset: 2 Chronic Osteoarthritis (20 sources) Exacerbation of osteoarthritis; Translations: [Unspecified osteoarthritis, unspecified site] Onset: 1 07-05-2021 Chronic Other acquired deformities (1 source) Varus deformity, not elsewhere classified, right knee; Translations: [Varus deformity, not elsewhere classified, right knee] Onset: 3 Episodic Other and unspecified benign neoplasm (1 source) Lipoma of trunk; Translations: [Lipoma of torso] Onset: 8 04-29-2018 Other circulatory disease (5 sources) H/O: hypertension; Translations: [Personal history of other diseases of circulatory system] Episodic Other connective tissue disease (5 sources) H/O: arthritis; Translations: [Personal history of arthritis] Episodic Other connective tissue disease (1 source) Swelling of limb; Translations: [Swelling of limb] Episodic Other diseases of veins and lymphatics (8 sources) Lymphedema; Translations: [Lymphedema, not elsewhere classified] Onset: 3 11-19-2022 Chronic Other diseases of veins and lymphatics (1 source) Lymphedema, not elsewhere classified; Translations: [Lymphedema, not elsewhere classified] Onset: 3 Chronic Other diseases of veins and lymphatics (1 source) Venous insufficiency (chronic) (peripheral); Translations: [Venous insufficiency (chronic) (peripheral)] Onset: 3 Episodic Other inflammatory condition of skin (2 sources) Psoriasis; Translations: [Other psoriasis] Onset: 7 08-26-2006 Chronic Other nervous system disorders (20 sources) Chronic pain syndrome; Translations: [Chronic pain syndrome] Onset: 7 12-26-2016 Chronic Other nervous system disorders (20 sources) Hydrocephalus; Translations: [Hydrocephalus, unspecified] Onset: 5 08-31-2021 Chronic Other nervous system disorders (2 sources) Obstructive hydrocephalus; Translations: [Obstructive hydrocephalus] Onset: 5 03-12-2005 Chronic Other nervous system disorders (20 sources) Idiopathic peripheral neuropathy; Translations: [Hereditary and idiopathic neuropathy, unspecified] Onset: 2 Chronic Other nervous system disorders (17 sources) Ventriculoperitoneal shunt in situ; Translations: [Presence of cerebrospinal fluid drainage device] 11-11-2011 Chronic Other nervous system disorders (1 source) Hereditary and idiopathic neuropathy, unspecified; Translations: [Hereditary and idiopathic neuropathy, unspecified] Onset: 3 Chronic Other nervous system disorders (1 source) Other chronic pain; Translations: [Other chronic pain] Onset: 3 Chronic Other nervous system disorders (1 source) Chronic pain syndrome; Translations: [Chronic pain syndrome] Onset: 7 Chronic Other nervous system disorders (1 source) Presence of cerebrospinal fluid drainage device; Translations: [Presence of cerebrospinal fluid drainage device] Onset: 3 Chronic Other nervous system disorders (5 sources) Numbness and tingling sensation of skin; Translations: [Disturbance of skin sensation] Episodic Other non-traumatic joint disorders (20 sources) Charcot's joint of foot; Translations: [Charcot's joint, left ankle and foot] Onset: 2 02-15-2022 Chronic Other non-traumatic joint disorders (1 source) Charcot's joint, left ankle and foot; Translations: [Charcot's joint, left ankle and foot] Onset: 3 Chronic Other non-traumatic joint disorders (1 source) Knee pain; Translations: [Knee pain] Episodic Other nutritional; endocrine; and metabolic disorders (20 sources) Body mass index 30+ - obesity; Translations: [Obesity, unspecified] 11-11-2011 Chronic Other nutritional; endocrine; and metabolic disorders (1 source) Obesity, unspecified; Translations: [Obesity, unspecified] Onset: 2 Chronic Paralysis (20 sources) Paraparesis; Translations: [Paraplegia, unspecified] Onset: 2 Chronic Residual codes; unclassified (1 source) H/O: surgery; Translations: [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 (ventriculoperitoneal) shunt status] 11-11-2011 Episodic Spondylosis; intervertebral disc disorders; other back problems (20 sources) Lumbosacral spondylosis without myelopathy; Translations: [Spondylosis without myelopathy or radiculopathy, lumbosacral region] Onset: 5 04-20-2015 Chronic Sprains and strains (4 sources) Sprain of knee; Translations: [Sprains and strains of unspecified site of knee and leg] Episodic Unclassified (2 sources) Encntr for general adult medical exam w/o abnormal findings / Z00.00(ICD-9) Onset: 8 Unclassified (2 sources) Complex tear of medial mensc, current injury, r knee, subs / S83.231D(ICD-9) Onset: 8 Unclassified (2 sources) Unilateral primary osteoarthritis, right knee / M17.11(ICD-9) Onset: 8 Unclassified (1 source) Pain in right knee / M25.561(ICD-9) Onset: 8 Unclassified (2 sources) Hypokalemia / E87.6(ICD-9) Onset: 8 Unclassified (1 source) Encounter for screening for malignant neoplasm of prostate / Z12.5(ICD-9) Onset: 8 Unclassified (1 source) Encounter for screening for lipoid disorders / Z13.220(ICD-9) Onset: 8 Unclassified (1 source) Encounter for screening for oth suspected endocrine disorder / Z13.29(ICD-9) Onset: 8 Unclassified (1 source) Transfusion-associated dyspnea (tad); Translations: [Transfusion-associated dyspnea (tad)] Onset: 2 Past or Other Problems Problem Classification Problem Date Documented Date Episodic/Chronic Abdominal hernia (20 sources) Umbilical hernia; Translations: [Umbilical hernia without obstruction or gangrene] Onset: 07-30-2006 07-05-2021 Episodic Deficiency and other anemia (17 sources) Anemia; Translations: [Anemia, unspecified] Onset: 05-25-2022 Episodic Headache; including migraine (2 sources) Headache; Translations: [Headache] Onset: 03-12-2005 11-17-2018 Episodic Other acquired deformities (20 sources) Acquired spondylolisthesis; Translations: [Spondylolisthesis, lumbosacral region] Onset: 08-31-2021 Episodic Other acquired deformities (1 source) Spondylolisthesis, lumbosacral region; Translations: [Spondylolisthesis, lumbosacral region] Onset: 01-12-2022 Episodic Other and unspecified benign neoplasm (20 sources) Lipoma of trunk; Translations: [Benign lipomatous neoplasm of skin and subcutaneous tissue of trunk] Onset: 04-29-2018 04-29-2018 Episodic Other and unspecified benign neoplasm (2 sources) Lipoma (clinical); Translations: [Benign lipomatous neoplasm of other sites] Onset: 08-26-2006 08-26-2006 Episodic Other and unspecified benign neoplasm (1 source) Benign lipomatous neoplasm of skin and subcutaneous tissue of trunk; Translations: [Benign lipomatous neoplasm of skin and subcutaneous tissue of trunk] Onset: 04-29-2018 Episodic Other connective tissue disease (4 sources) History of lumbar fusion; Translations: [Arthrodesis status] Onset: 01-31-2023 01-31-2023 Episodic Other connective tissue disease (1 source) Arthrodesis status; Translations: [Arthrodesis status] Onset: 01-31-2023 Episodic Other diseases of veins and lymphatics (10 sources) Peripheral venous insufficiency; Translations: [Venous insufficiency (chronic) (peripheral)] Onset: 11-19-2022 Episodic Other hematologic conditions (17 sources) Raised cardiac enzyme or marker; Translations: [Other specified abnormalities of plasma proteins] Onset: 05-25-2022 Resolved: 06-24-2022 Episodic Other inflammatory condition of skin (2 sources) Seborrheic dermatitis; Translations: [Seborrheic dermatitis, unspecified] Onset: 08-26-2006 08-26-2006 Episodic Other lower respiratory disease (17 sources) Dyspnea; Translations: [Dyspnea, unspecified] Onset: 05-25-2022 Episodic Other nervous system disorders (1 source) Chronic pain syndrome; Translations: [Chronic pain syndrome] Onset: 12-26-2016 12-26-2016 Episodic Other non-traumatic joint disorders (20 sources) Pain in right knee; Translations: [Pain in joint, lower leg] Onset: 02-15-2022 02-15-2022 Episodic Other non-traumatic joint disorders (1 source) Pain in left knee; Translations: [Pain in left knee] Onset: 03-07-2023 Episodic Other skin disorders (2 sources) Sebaceous cyst of skin; Translations: [Sebaceous cyst] Onset: 08-26-2006 08-26-2006 Episodic Residual codes; unclassified (17 sources) Peripheral edema; Translations: [Edema, unspecified] Onset: 05-26-2022 Episodic Residual codes; unclassified (1 source) Edema, unspecified; Translations: [Edema, unspecified] Onset: 05-26-2022 Episodic Residual codes; unclassified (1 source) Pain, unspecified; Translations: [Pain, unspecified] Onset: 04-01-2023 Episodic Respiratory failure; insufficiency; arrest (adult) (18 sources) Acute respiratory failure; Translations: [Acute respiratory failure with hypoxia] Onset: 05-25-2022 Episodic Spondylosis; intervertebral disc disorders; other back problems (20 sources) Spinal stenosis of lumbar region; Translations: [Spinal stenosis, lumbar region with neurogenic claudication] Onset: 08-31-2021 Episodic Unclassified (1 source) Encntr for general adult medical exam w/o abnormal findings; Translations: [Encntr for general adult medical exam w/o abnormal findings] Onset: 02-11-2018 Unclassified (1 source) Unilateral primary osteoarthritis, right knee; Translations: [Unilateral primary osteoarthritis, right knee] Onset: 05-27-2018 Unclassified (1 source) Complex tear of medial mensc, current injury, r knee, subs; Translations: [Complex tear of medial mensc, current injury, r knee, subs] Onset: 06-18-2018 Unclassified (1 source) Other and unspecified misadventures during medical care; Translations: [Hypokalemia] Onset: 04-15-2018 NEGATED: Highlighted row has not occurred!Residual codes; unclassified (2 sources) Disease Episodic Results Test Name Value Interpretation Reference Range Facility MRI FOOT LEFT W WO CONTRASTo n 08-06-2023 MRI FOOT LEFT W WO CONTRAST EXAMINATION: MRI OF THE LEFT FOOT WITH AND WITHOUT CONTRAST, 08/06/2023 6:24 pm TECHNIQUE: Multiplanar multisequence MRI of the left foot was performed with and without the administration of intravenous contrast. COMPARISON: Radiographs from July 29, 2023 and MRI from 05/27/2022 HISTORY: ORDERING SYSTEM PROVIDED HISTORY: Chronic ulcer of left foot, with necrosis of bone ([facility]) TECHNOLOGIST PROVIDED HISTORY: STAT Creatinine as needed:->Yes Reason for exam:->osteomyelitis What reading provider will be dictating this exam?->CRC FINDINGS: LISFRANC JOINT: Visualized Lisfranc ligament is intact. No significant Lisfranc interval widening or significant periligamentous edema. BONE MARROW: Severe patchy bone marrow edema throughout the midfoot. Patchy bone fragments demonstrating low T1 signal adjacent best seen on page 15 of series 3, favoring sequela of chronic osteomyelitis at the dorsal midfoot bones with adjacent bony destruction. This involves the fragmented cuneiforms. Some marrow replacement seen at the base of the 5th metatarsal on page 33 of series 4 and some sclerosis at the base of the 4th metatarsal. Osseous coalition at the medial cuneiform and navicular. GREATER AND LESSER MTP JOINTS: Severe degenerative disease as above at the midfoot. SOFT TISSUES: Generalized soft tissue edema. Large sinus tract extending from the plantar lateral midfoot towards the midfoot soft tissues. Possible associated phlegmon. Previous resection in this location with postoperative change and granulation tissue is also possible. TENDONS: Low-grade partial-thickness tear of the distal Achilles tendon without high-grade tear or rupture. Grossly intact peroneal tendons, posterior tibial, flexor digitorum and flexor hallucis longus tendons. Grossly intact anterior tendons. Grossly intact lateral collateral ligaments of the ankle. Postcontrast imaging demonstrates heterogeneous enhancement of the subcutaneous soft tissues. There is some enhancement at the dorsum aspect of the talonavicular joint and soft tissues near the fragmented bones at the lateral hindfoot. This may be soft tissue ulcer and or postoperative in nature. No well-defined drainable abscess. Possible phlegmon coursing from the plantar surface of the hindfoot towards the peroneal tendons best seen on page 21 of series 11 extending to 24 of series 11. IMPRESSION: Heterogeneous enhancement with soft tissue ulcer at the plantar lateral hindfoot with multiple adjacent bone fragments demonstrating abnormal marrow replacement, sclerosis and enhancement. Findings favor chronic osteomyelitis of what remains of the cuneiforms and cuboid, base of the 4th and 5th metatarsals. Additional foci of fragmentation, disorganization and edema throughout what remains of the midfoot is favored to be related to Charcot arthropathy. Interpreted by: Ghazal Corley DO Signed by: Ghazal Corley DO 08/09/23 Final result Normal [facility] Basic Metabolic Panelon 12-2 Anion gap [Moles/Vol] 13 mmol/L Normal 9-15 [facility] Comment on above: Performed By: #### B MP #### [facility] [address] [facility] [address] Calcium [Mass/Vol] 9.1 mg/dL Normal 8.5-9.9 [facility] Comment on above: Performed By: #### B MP #### [facility] [address] [place] [address] Chloride [Moles/Vol] 98 mmol/L Normal 95-107 [facility] Comment on above: Performed By: #### B MP #### [facility] [address] [place] [address] CO2 [Moles/Vol] 28 mmol/L Normal 20-31 [facility] Comment on above: Performed By: #### B MP #### [facility] [address] [place] [address] Creatinine [Mass/Vol] 0.70 mg/dL Normal 0.70-1.20 [facility] Comment on above: Performed By: #### B MP #### [facility] [address] [place] [address] GFR >60.0 Normal >60 [facility] Comment on above: Result Comment: Pedi atric calculator link [email or web address].[email or web address].org/professionals/kdoqi/gfr_[email or web address] Effective May 14, 2022 These results are not intended for use in patients <18 years of age. eGFR results are calculated without a race factor using the 2020 CKD-EPI equation. Careful clinical correlation is recommended, particularly when comparing to results calculated using previous equations. The CKD-EPI equation is less accurate in patients with extremes of muscle mass, extra-renal metabolism of creatinine, excessive creatinine ingestion, or following therapy that affects renal tubular secretion. Performed By: #### B MP #### [facility] [address] [place] [address] Glucose [Mass/Vol] 119 mg/dL Critically high 70-99 [facility] Comment on above: Performed By: #### B MP #### [facility] [address] [place] [address] Potassium [Moles/Vol] 4.1 mmol/L Normal 3.4-4.9 [facility] Comment on above: Performed By: #### B MP #### [facility] [address] [place] [address] Sodium [Moles/Vol] 139 mmol/L Normal 135-144 [facility] Comment on above: Performed By: #### B MP #### [facility] [address] [place] [address] Urea nitrogen [Mass/Vol] 12 mg/dL Normal 8-23 [facility] Comment on above: Performed By: #### B MP #### [facility] [address] [place] [address] Bacterial susceptibility camacho el by [facility] 07-29-2023 Bacterial susceptibility panel JULIANA (Isol) ORDER#: [id number] ORDERED BY: YASHIRA CANO SOURCE: Foot COLLECTED: 07/29/23 09:44 ANTIBIOTICS AT [facility].: RECEIVED : 07/29/23 09:44 Culture, Wound Aerobic, Anaerobic FINAL 08/04/23 07:25 Direct Exam: MODERATE GRAM POSITIVE COCCI IN PAIRS Direct Exam: FEW NEUTROPHILS Cult,Aerobe/Anaerobe: NORMAL SKIN ANITA Cult,Aerobe/Anaerobe: No anaerobic organisms isolated at 5 days. Performed at [address] [address] ([phone] Enterococcus faecalis MODERATE GROWTH __ E. faecalis ANTIBIOTICS [facility]ULIANA Interp __ Ampicillin <=2 S Vancomycin 1 S __ S=SUSCEPTIBLE I=INTERMEDIATE R=RESISTANT __ Normal [facility] Comment on above: Performed By: #### 5 0545-3 #### [facility] [address] [place] [address] Culture, Wound Aerobic, Anae robicon 07-29-2023 Culture, Wound Aerobic, Anaerobic ORDER#: [id number] ORDERED BY: YASHIRA CANO SOURCE: Foot COLLECTED: 07/29/23 09:44 ANTIBIOTICS AT [facility].: RECEIVED : 07/29/23 09:44 Culture, Wound Aerobic, Anaerobic PRELIM 07/31/23 13:23 Direct Exam: MODERATE GRAM POSITIVE COCCI IN PAIRS Direct Exam: FEW NEUTROPHILS Cult,Aerobe/Anaerobe: CULTURE IN [place] [address] Normal [facility] Comment on above: Performed By: #### I CWAN #### [facility] [address] [place] [address] XR FOOT LEFT (MIN 3 VIEWS)on 07-29-2023 XR FOOT LEFT (MIN 3 VIEWS) EXAMINATION: THREE XRAY VIEWS OF THE LEFT FOOT 07/29/2023 2:41 pm COMPARISON: None. HISTORY: ORDERING SYSTEM PROVIDED HISTORY: osteo TECHNOLOGIST PROVIDED HISTORY: Reason for exam:->osteo What reading provider will be dictating this exam?->CRC FINDINGS: Three views of the left foot reveal amputation of the 5th digit including the distal aspect of the 5th metatarsal. There is irregularity identified of the bases of the metatarsals with surgical removal of the cuboid. There is irregularity seen of the tarsal bones. Chronic osteomyelitis cannot be completely excluded. Findings suggesting early Charcot joint formation. Consider MRI or 3 phase bone scan for further evaluation. Calcaneal spurring present. IMPRESSION: Removal the cuboid with 5th digit amputation. There is severe degenerative changes seen within the midfoot suggesting possible early Charcot joint formation. There is sclerosis with some cortical irregularity favoring erosive degenerative change however mild chronic osteomyelitis cannot be completely excluded. Consider three-phase bone scan or MRI for further evaluation if clinical symptoms exist. Interpreted by: Jerrica Chávez MD Signed by: Jerrica Chávez MD 07/30/23 Final result Normal [facility] Culture, Wound Aerobicon Culture, Wound Aerobic ORDER#: [id number] ORDERED BY: MARIELOS ELY SOURCE: Foot L COLLECTED: 07/12/23 10:35 ANTIBIOTICS AT [facility].: RECEIVED : 07/12/23 12:58 Culture, Wound Aerobic FINAL 07/14/23 08:13 Direct Exam: NO NEUTROPHILS SEEN Direct Exam: NO ORGANISMS SEEN Cult,Wound: NORMAL SKIN ANITA Performed at [address] [address] ([phone] Normal [facility] Comment on above: Performed By: #### C XWND #### [facility] [address] [place] [address] FL GUIDED FOR SPINE INJECTon 07-01-2023 FL GUIDED FOR SPINE INJECT Final result Normal [facility] Established Visit (Orthopaed ic Surgery)on 04-25-2023 Established Visit (Orthopaedic Surgery) Chief Complaint Right knee Euflexxa injection #3 History of Present Illness History of Present Illness The patient is here for the third Euflexxa on the right, he is tolerated the first 2 Review of Systems GENERAL: Negative for malaise, significant weight loss, fever MUSCULOSKELETAL: see HPI NEURO: Negative Physical Exam This is a male in no acute distress Right knee: The skin is intact, there is no erythema or warmth Imaging None today Assessment Osteoarthrosis right knee Plan Third Euflexxa injection Follow-up in 2 months for recheck, sooner if there is any problems Questions answered Procedure: Right knee Euflexxa injection Timeout performed. Patient identified and site confirmed. Allergies reviewed. Potential risks including but not limited to infection,pseudoseptic response, injection site pain and/or local reaction were discussed with the patient and they consented to the procedure. After sterilely prepping, using the sterile, no touch technique I aspirated 0 cc of normal-appearing joint fluid from the right knee then injected Euflexxa, (20 mg/ 2 mL) into the right knee. The patient tolerated the procedure well. There were no apparent complications. Postinjection instructions were given to the patient to ice the injection site as needed and to avoid strenuous activities for the rest of the day. The patient was instructed to call if any problems arise . Active Problems Problems Exacerbation of osteoarthritis (715.90) (M19.90) Knee pain (719.46) (M25.569) Primary osteoarthritis of right knee (715.16) (M17.11) Right knee sprain (844.9) (S83.91XA) Past Medical History Problems History of arthritis (V13.4) (Z87.39) History of hypertension (V12.59) (Z86.79) History of Numbness and tingling (782.0) (R20.0,R20.2) Family History Mother No pertinent family history Social History Problems Never a smoker Allergies Medication Augmentin TABS Recorded By: Karen Mcmanus MA; 03/16/2020 8:21:31 AM Fluzone SUSP Recorded By: Karen Mcmanus MA; 03/16/2020 8:21:31 AM Current Meds Medication NameInstruction Azithromycin 250 MG Oral TabletTAKE 2 TABLETS by mouth today, THEN take 1 TABLET once a day FOR the n Candesartan Cilexetil 32 MG Oral Tablet Cyclobenzaprine HCl - 10 MG Oral Tablet Famotidine 40 MG Oral Tablet HYDROcodone-Acetaminophen 5-325 MG Oral Tablet Ibuprofen 600 MG Oral Tablet Lidocaine 5 % External Patch Meloxicam 15 MG Oral TabletTAKE 1 TABLET DAILY NEEDED. methylPREDNISolone 4 MG Oral Tablet Therapy Pack Naproxen 500 MG Oral Tablet Delayed Release Ondansetron HCl - 4 MG Oral Tablet oxyCODONE-Acetaminophen 10-325 MG Oral TabletTAKE 1 TABLET BY MOUTH EVERY 4 TO 6 HOURS NEEDED FOR PAIN traMADol HCl - 50 MG Oral Tablet traZODone HCl - 100 MG Oral Tablet Signatures Electronically signed by : Mitch Briscoe MD; Apr 25 2023 8:26AM EST (Author) Normal [facility] No Panel InformationOrdered By: Manuel Garces on 04-19-2023 Baseline Diastolic BP 85 mmHg [employer] [employer] Phone: Baseline HR 81 bpm MADINA SCOTT [employer] Work Phone: Baseline ST Depression 0 mm MADINA SCOTT [employer] Work Phone: Baseline Systolic BP 176 mmHg MADINA SCOTT [employer] Phone: Nuc Stress EF 74 % MADINA SCOTT [employer] Phone: Stress Diastolic BP 95 mmHg [facility]ON [facility] [employer] Work Phone: Stress Estimated Workload 1.0 METS MADINA SCOTT [employer] Phone: Stress Peak HR 90 BPM MADINA STEELE S [employer] Phone: Stress Percent HR Achieved 57 % MADINA SCOTT [employer] Phone: Stress Rate Pressure Product 85867 BPM*mmHg MADINA SCOTT [employer] Phone: Stress ST Depression 0 mm MADINA SCOTT [employer] Work Phone: Stress Systolic BP 184 mmHg [facility]ON [employer] Work Phone: Stress Target HR 159 bpm BON SASK[place] [employer] Work Phone: TID 0.87 MADINA SCOTT [employer] Phone: MADINA [employer] Phone: No Panel Informationon 04-19 Stress Combined Conclusion: Normal pharmacological myocardial perfusion study. Findings suggest a low risk of cardiac events. Stress Function: Left ventricular function post-stress is normal. Post-stress ejection fraction is 74%. Perfusion Comments: LV perfusion is normal. Perfusion Defect: There is a mild severity left ventricular stress perfusion defect that is small in size present in the basal inferior segment(s) that is fixed. The defect appears to be probable artifact. The possibility of ischemia cannot be excluded. Perfusion Conclusion: TID ratio is 0.87. ECG: The ECG was negative for ischemia. Stress Test: A pharmacological stress test was performed using lexiscan. The patient reported no symptoms during the stress test. Blood pressure demonstrated a normal response and heart rate demonstrated a normal response to stress. Resting ECG ECG is normal. Resting ECG shows no ST-segment deviation. Stress Findings A pharmacological stress test was performed using lexiscan. The patient reported no symptoms during the stress test. The patient reached the end of the protocol. Blood pressure demonstrated a normal response and heart rate demonstrated a normal response to stress. Stress ECG There were no arrhythmias during stress. No ST deviation was noted. There were no noted arrhythmias during recovery. There were no ST changes during recovery. The ECG was negative for ischemia. Nuclear Study Quality Nuclear Cardiac SPECT rest then gated stress with tomographic imaging/tomography utilized for the myocardial perfusion procedure. Lexiscan was used as the stressing method and agent. (Lexiscan given via a 10 - 20 sec injection). This Single Photon Emission Computer Tomography (SPECT) study utilized tomographic imaging/tomography for the tomographic myocardial perfusion imaging performed during this study. Overall image quality is good. Perfusion Comments LV perfusion is normal. Perfusion Defect There is a mild severity left ventricular stress perfusion defect that is small in size present in the basal inferior segment(s) that is fixed. The defect appears to be probable artifact. The possibility of ischemia cannot be excluded. Perfusion Defect Conclusion TID ratio is 0.87. Stress Function Comments Left ventricular function post-stress is normal. Post-stress ejection fraction is 74%. Stress Combined Conclusion Normal pharmacological myocardial perfusion study. Findings suggest a low risk of cardiac events. [facility] CV [facility] STRESS Radiology Study observation (narrative) [facility] Established Visit (Orthopaed ic Surgery)on 04-18-2023 Established Visit (Orthopaedic Surgery) Diagnoses/Problems Assessed Primary osteoarthritis of right knee (715.16) (M17.11) Orders Primary osteoarthritis of right knee Administered: Euflexxa 20 MG/2ML Intra-articular Solution Prefilled Syringe You have received a Hyaluronan injection today.; Status:Complete - Retrospective Authorization; Done: 18Apr2023 Chief Complaint Right knee Euflexxa 2 of 3 History of Present Illness History of Present Illness Right knee Euflexxa injection 2 of 3 Review of Systems GENERAL: Negative for malaise, significant weight loss, fever MUSCULOSKELETAL: see HPI NEURO: Negative Physical Exam Right knee Skin is intact without any evidence of erythema ecchymosis or effusion Imaging None today Assessment Right knee osteoarthritis Plan Procedure note: Right knee Euflexxa injection Timeout performed. Patient identified and site confirmed. Allergies reviewed. Potential risks including but not limited to infection,pseudoseptic response, injection site pain and/or local reaction were discussed with the patient and they consented to the procedure. After sterilely prepping, using the sterile, no touch technique I aspirated 0 cc of normal-appearing joint fluid from the right knee then injected Euflexxa, (10 mg/mL) into the left knee. The patient tolerated the procedure well. There were no apparent complications. Postinjection instructions were given to the patient to ice the injection site as needed and to avoid strenuous activities for the rest of the day. The patient was instructed to call if any problems arise Follow-up next week for injection 3 of 3. All questions answered. Active Problems Problems Exacerbation of osteoarthritis (715.90) (M19.90) Knee pain (719.46) (M25.569) Primary osteoarthritis of right knee (715.16) (M17.11) Right knee sprain (844.9) (S83.91XA) Past Medical History Problems History of arthritis (V13.4) (Z87.39) History of hypertension (V12.59) (Z86.79) History of Numbness and tingling (782.0) (R20.0,R20.2) Family History Mother No pertinent family history Social History Problems Never a smoker Allergies Medication Augmentin TABS Recorded By: Karen Mcmanus MA; 03/16/2020 8:21:31 AM Fluzone SUSP Recorded By: Karen Mcmanus MA; 03/16/2020 8:21:31 AM Current Meds Medication NameInstruction Azithromycin 250 MG Oral TabletTAKE 2 TABLETS by mouth today, THEN take 1 TABLET once a day FOR the n Candesartan Cilexetil 32 MG Oral Tablet Cyclobenzaprine HCl - 10 MG Oral Tablet Famotidine 40 MG Oral Tablet HYDROcodone-Acetaminophen 5-325 MG Oral Tablet Ibuprofen 600 MG Oral Tablet Lidocaine 5 % External Patch Meloxicam 15 MG Oral TabletTAKE 1 TABLET DAILY NEEDED. methylPREDNISolone 4 MG Oral Tablet Therapy Pack Naproxen 500 MG Oral Tablet Delayed Release Ondansetron HCl - 4 MG Oral Tablet oxyCODONE-Acetaminophen 10-325 MG Oral TabletTAKE 1 TABLET BY MOUTH EVERY 4 TO 6 HOURS NEEDED FOR PAIN traMADol HCl - 50 MG Oral Tablet traZODone HCl - 100 MG Oral Tablet Signatures Electronically signed by : Mitch Briscoe MD; Apr 18 2023 8:46AM EST (Author) Normal [facility] Established Visit (Orthopaed ic Surgery)on 04-11-2023 Established Visit (Orthopaedic Surgery) Chief Complaint Right knee - #1 Euflexxa History of Present Illness History of Present Illness The patient is here for his first Euflexxa injection to the right knee Review of Systems GENERAL: Negative for malaise, significant weight loss, fever MUSCULOSKELETAL: see HPI NEURO: Negative Physical Exam This is a male in no acute distress Right knee: The skin is intact, there is no erythema or warmth Imaging None today Assessment Osteoarthrosis right knee Plan First Euflexxa injection, follow-up next week for the second Procedure: Right knee Euflexxa injection Timeout performed. Patient identified and site confirmed. Allergies reviewed. Potential risks including but not limited to infection,pseudoseptic response, injection site pain and/or local reaction were discussed with the patient and they consented to the procedure. After sterilely prepping, using the sterile, no touch technique I aspirated 0 cc of normal-appearing joint fluid from the right knee then injected Euflexxa, (20 mg/ 2 mL) into the right knee. The patient tolerated the procedure well. There were no apparent complications. Postinjection instructions were given to the patient to ice the injection site as needed and to avoid strenuous activities for the rest of the day. The patient was instructed to call if any problems arise . Active Problems Problems Exacerbation of osteoarthritis (715.90) (M19.90) Knee pain (719.46) (M25.569) Primary osteoarthritis of right knee (715.16) (M17.11) Right knee sprain (844.9) (S83.91XA) Past Medical History Problems History of arthritis (V13.4) (Z87.39) History of hypertension (V12.59) (Z86.79) History of Numbness and tingling (782.0) (R20.0,R20.2) Family History Mother No pertinent family history Social History Problems Never a smoker Allergies Medication Augmentin TABS Recorded By: Karen Mcmanus MA; 03/16/2020 8:21:31 AM Fluzone SUSP Recorded By: Karen Mcmanus MA; 03/16/2020 8:21:31 AM Current Meds Medication NameInstruction Azithromycin 250 MG Oral TabletTAKE 2 TABLETS by mouth today, THEN take 1 TABLET once a day FOR the n Candesartan Cilexetil 32 MG Oral Tablet Cyclobenzaprine HCl - 10 MG Oral Tablet Famotidine 40 MG Oral Tablet HYDROcodone-Acetaminophen 5-325 MG Oral Tablet Ibuprofen 600 MG Oral Tablet Lidocaine 5 % External Patch Meloxicam 15 MG Oral TabletTAKE 1 TABLET DAILY NEEDED. methylPREDNISolone 4 MG Oral Tablet Therapy Pack Naproxen 500 MG Oral Tablet Delayed Release Ondansetron HCl - 4 MG Oral Tablet oxyCODONE-Acetaminophen 10-325 MG Oral TabletTAKE 1 TABLET BY MOUTH EVERY 4 TO 6 HOURS NEEDED FOR PAIN traMADol HCl - 50 MG Oral Tablet traZODone HCl - 100 MG Oral Tablet Signatures Electronically signed by : Mitch Briscoe MD; Apr 11 2023 8:20AM EST (Author) Normal [facility] [place] GUIDED FOR SPINE INJECTon 04-01-2023 FL GUIDED FOR SPINE INJECT Final result Normal [facility] XR LUMBAR SPINE (MIN 4 VIEWS )on 02-15-2023 XR LUMBAR SPINE (MIN 4 VIEWS) EXAMINATION: XRAY VIEWS OF THE LUMBAR SPINE 02/15/2023 12:46 pm COMPARISON: January 29, 2022 1527 hours. HISTORY: ORDERING SYSTEM PROVIDED HISTORY: Acquired spondylolisthesis of lumbosacral region, History of lumbar fusion TECHNOLOGIST PROVIDED HISTORY: What reading provider will be dictating this exam?->CRC FINDINGS: Four views of the lumbar spine including flexion extension views are submitted. There is a partially visualized ventricular shunt with tip ending in the pelvis noted. There is a diffuse generalized osteopenia superimposed upon a rotatory levoscoliosis. Again note is made of pedicle screw and rona spanning the L4-L5 level with associated interbody fusion and posterior decompression at L4. No significant interval change.. There is some degenerative changes the posterior facets of lower lumbar spine as well some anterior spondylosis. Again note is made of narrowing of the 5 to L2-3 level. In the neutral position there is satisfactory aligned. Flexion and extension view show no significant anterior or retrolisthesis. SI joints are intact Again identified is some anterior wedging of the T11 vertebra. Unchanged. No acute fractures IMPRESSION: STATUS POST PEDICLE SCREW AND RONA L4-L5 WITH INTERBODY FUSION. NO SIGNIFICANT INTERVAL CHANGE. NO SIGNIFICANT LISTHESIS NO SIGNIFICANT INTERVAL CHANGE Interpreted by: Jorge Titus MD Signed by: Jorge Titus MD 02/15/23 Final result Normal [facility] Initial Visit (Orthopaedic [facility])on 01-24-2023 Initial Visit (Orthopaedic Surgery) Diagnoses/Problems Assessed Primary osteoarthritis of right knee (715.16) (M17.11) Orders Right knee sprain Xray Knee Complete 4 or more View; Status:Resulted - Preliminary,Retrospective Authorization; Done: 24Jan2023 09:48AM Laterality : Right Radiologist to Determine Optimal Study : Y What are the patient's signs and symptoms? : , Chief Complaint New pt right knee pain, xrays today History of Present Illness History of Present Illness The patient presents with right knee pain for several years. The patient complains of worsening pain over the past 6 months. Recently there has been concern for falls and instability. There is increasing difficulty with activities of daily living and significant disability related to the knee pain. The patient endorses the following non-operative treatments: Meloxicam, corticosteroid injections. There is increasing frustration with persistent pain and swelling and decreasing distance of ambulation. The patient has difficulty with stairs as well as getting up from the floor. The patient has difficulty putting on their socks and shoes as well as getting in and out of a car. He has a history of a Charcot foot on the left foot with osteomyelitis and wound healing issues. He states the wound is not closed and he is working with podiatry/wound care on getting this resolved. His last corticosteroid injection into the right knee was roughly 30 days ago. Pain is described as aching sore stiff. Location: Anterior medial right knee Pain level: 7 Assistive device: No History of surgery: No Review of Systems GENERAL: Negative for malaise, significant weight loss, fever MUSCULOSKELETAL: see HPI NEURO: Negative Exam Right knee: Skin healthy and intact No gross swelling or ecchymosis Alignment: Varus, partially correctable effusion: Mild ROM: 5 to 110 degrees Moderate crepitus with range of motion Tenderness to palpation over medial and lateral joint line and with patellar compression No laxity to valgus stress No laxity to varus stress Negative Lachmans test Negative posterior drawer test Mild pain with McMurrays test Logrolling of hip negative No pain with internal rotation of the hip Straight leg raise negative Neurovascular exam normal distally 2+ DP pulse and good cap refill Radiographs See dictated report from today. Assessment Osteoarthrosis right knee Plan We discussed with the patient the diagnosis of degenerative joint disease of the knee. We reviewed an evidence-based approach to osteoarthritis of the knee. We strongly encouraged low-impact aerobic activity and non-opioid analgesics. We discussed temporary pain relief with corticosteroid injections and the associated risks. We also discussed the conflicting evidence regarding viscosupplementation and potential long-term risks with NSAIDs. We reviewed the role of bracing for instability and physical therapy for atrophy and gait abnormalities. We reviewed that the only curative process is for a joint arthroplasty. The patient elected for unfortunately his wound healing issues seem to be a priority at this time. I advised he cannot have any future joint arthroplasty surgery until his left foot wound is healed and clear of infection. He wishes to try a round of the viscosupplementation injections. We will submit for these and he will be contacted once they are approved. I will see her in 1 month for recheck, sooner if there is any problems. Questions were answered. Active Problems Problems Exacerbation of osteoarthritis (715.90) (M19.90) Knee pain (719.46) (M25.569) Right knee sprain (844.9) (S83.91XA) Past Medical History Problems History of arthritis (V13.4) (Z87.39) History of hypertension (V12.59) (Z86.79) History of Numbness and tingling (782.0) (R20.0,R20.2) Family History Mother No pertinent family history Social History Problems Never a smoker Allergies Augmentin TABS Recorded By: Karen Mcmanus MA; 03/16/2020 8:21:31 AM Fluzone SUSP Recorded By: Karen Mcmanus MA; 03/16/2020 8:21:31 AM Current Meds Medication NameInstruction Azithromycin 250 MG Oral TabletTAKE 2 TABLETS by mouth today, THEN take 1 TABLET once a day FOR the n Candesartan Cilexetil 32 MG Oral Tablet Cyclobenzaprine HCl - 10 MG Oral Tablet Famotidine 40 MG Oral Tablet HYDROcodone-Acetaminophen 5-325 MG Oral Tablet Ibuprofen 600 MG Oral Tablet Lidocaine 5 % External Patch Meloxicam 15 MG Oral TabletTAKE 1 TABLET DAILY NEEDED. methylPREDNISolone 4 MG Oral Tablet Therapy Pack Naproxen 500 MG Oral Tablet Delayed Release Ondansetron HCl - 4 MG Oral Tablet oxyCODONE-Acetaminophen 10-325 MG Oral TabletTAKE 1 TABLET BY MOUTH EVERY 4 TO 6 HOURS NEEDED FOR PAIN traMADol HCl - 50 MG Oral Tablet traZODone HCl - 100 MG Oral Tablet Results/Data Xray Knee Complete 4 or more [id number] 09:48Mitch Howard Test NameResultFlagReference Xray Knee Complete 4 or more View (more content not included)... Normal [facility] KNEE CMPLT, 4 OR MORE VIEWSo n 01-24-2023 KNEE CMPLT, 4 OR MORE VIEWS Patient Name: MACARENA COLEMAN STUDY: KNEE; COMPLT, 4 OR MORE VIEWS; Right; 01/24/2023 9:48 am INDICATION: , S83.91XA: Right knee sprain. ACCESSION NUMBER(S): [id number] ORDERING CLINICIAN: MITCH BRISCOE FINDINGS: Right knee films are negative for fracture, dislocation or destructive lesion. There is severe medial compartment arthrosis with loss of joint space, [id number] changes spurring. There is a varus deformity. There is moderate to severe degenerative change of the patellofemoral and lateral compartments. Electronically signed by: MITCH BRISCOE MD Normal [facility] Radiologyon 01-24-2023 XR Knee 4 Views Normal [facility] Work Phone: [place] GUIDED NEEDLE PLACEMENTon 12-10-2022 [place] GUIDED NEEDLE PLACEMENT Radiology exam is complete. No Radiologist dictation. Please follow up with ordering provider. Final result Normal [facility] Culture, Wound Aerobicon Culture, Wound Aerobic ORDER#: [id number] ORDERED BY: MARIELOS ELY SOURCE: Foot Foot COLLECTED: 12/03/22 13:31 ANTIBIOTICS AT [facility].: RECEIVED : 12/03/22 13:31 Culture, Wound Aerobic FINAL 12/05/22 07:24 Direct Exam: FEW NEUTROPHILS Direct Exam: FEW GRAM POSITIVE COCCI IN PAIRS Direct Exam: FEW GRAM POSITIVE RODS Direct Exam: RARE GRAM POSITIVE COCCI IN CLUSTERS Cult,Wound: NORMAL SKIN ANITA Performed at [employer] [address] [place] [id number] ([phone] Normal [facility] Comment on above: Performed By: #### C XWND ####[facility] [place] [phone] [place] GUIDED NEEDLE PLACEMENTon 10-29-2022 [place] GUIDED NEEDLE PLACEMENT Radiology exam is complete. No Radiologist dictation. Please follow up with ordering provider. Final result Normal [facility] Culture, Wound Aerobicon Culture, Wound Aerobic ORDER#: [id number] ORDERED BY: MARIELOS ELY SOURCE: Foot COLLECTED: 10/22/22 12:32 ANTIBIOTICS AT [facility].: RECEIVED : 10/22/22 12:32 Culture, Wound Aerobic FINAL 10/24/22 11:37 Direct Exam: FEW NEUTROPHILS Direct Exam: FEW GRAM NEGATIVE RODS Cult,Wound: NORMAL SKIN ANITA Performed at [address] [id number] ([phone] Normal [facility] Comment on above: Performed By: #### C XWND #### [facility] [address] [place] [address] Culture, Wound Aerobicon Culture, Wound Aerobic ORDER#: [id number] ORDERED BY: MARIELOS ELY SOURCE: Foot Left Foot COLLECTED: 09/17/22 12:16 ANTIBIOTICS AT [place].: RECEIVED : 09/17/22 12:16 Culture, Wound Aerobic FINAL 09/19/22 08:51 Direct Exam: NO NEUTROPHILS SEEN Direct Exam: MODERATE GRAM POSITIVE RODS Direct Exam: MODERATE GRAM POSITIVE COCCI IN PAIRS Cult,Wound: NORMAL SKIN ANITA Performed at [address] [id number] ([phone] [facility] Group B (Strep agalacticae) MODERATE GROWTH Normal [facility] Comment on above: Performed By: #### C XWND #### [facility] [address] [place] [address] Basic Metabolic Panelon 05-13 Anion gap [Moles/Vol] 13 mmol/L [facility] Comment on above: Corrected result; pr eviously reported as 12 on 05/31/2022 at 07:54 by FEDE Calcium [Mass/Vol] 8.4 mg/dL Low 8.5 - 9.9 mg/dL [facility] Chloride [Moles/Vol] 96 mmol/L [facility] CO2 [Moles/Vol] 24 mmol/L [facility] Creatinine [Mass/Vol] 0.86 mg/dL 0.70 - 1.20 mg/dL [facility] GFR/1.73 sq M.predicted MDRD (S/P/Bld) [Vol rate/Area] 60 - PINF [facility] Comment on above: Pediatric calculator link https://www.kidney.org/professionals/kdoqi/gfr_calculatorped Effective May 14, 2022 These results are not intended for use in patients <18 years of age. eGFR results are calculated without a race factor using the 2020 CKD-EPI equation. Careful clinical correlation is recommended, particularly when comparing to results calculated using previous equations. The CKD-EPI equation is less accurate in patients with extremes of muscle mass, extra-renal metabolism of creatinine, excessive creatinine ingestion, or following therapy that affects renal tubular secretion. Glucose [Mass/Vol] 113 mg/dL High 70 - 99 mg/dL [facility] Interpretation and review of laboratory results Abnormal [facility] Potassium [Moles/Vol] 3.8 mmol/L [facility] Sodium [Moles/Vol] 133 mmol/L Low [facility] Urea nitrogen (BldV) [Mass/Vol] 11 mg/dL 8 - 23 mg/dL [facility] CBC with Auto Differentialon 05-31-2022 Basophils (Bld) [#/Vol] 0.1 10*3/uL 0.0 - 0.2 K/uL [facility] Basophils/100 WBC (Bld) 1.0 % [facility] Eosinophils (Bld) [#/Vol] 0.3 10*3/uL 0.0 - 0.7 K/uL [facility] Eosinophils/100 WBC (Bld) 3.4 % [facility] Hematocrit (Bld) [Volume fraction] 31.3 % Low 42.0 - 52.0 % [facility] Hemoglobin (Bld) [Mass/Vol] 10.2 g/dL Low 14.0 - 18.0 g/dL [facility] Interpretation and review of laboratory results Abnormal [facility] Lymphocytes (Bld) [#/Vol] 1.1 10*3/uL 1.0 - 4.8 K/uL [facility] Lymphocytes/100 WBC (Bld) 12.9 % [facility] MCH (RBC) [Entitic mass] 24.3 pg Low 27.0 - 31.3 pg [facility] MCHC (RBC) [Mass/Vol] 32.5 % Low 33.0 - 37.0 % [facility] MCV (RBC) [Entitic vol] 74.7 fL Low 79.0 - 92.2 fL [facility] Monocytes (Bld) [#/Vol] 1.0 10*3/uL High 0.2 - 0.8 K/uL [facility] Monocytes/100 WBC (Bld) 12.1 % [facility] Neutrophils Absolute 5.8 K/uL 1.4 - 6 .5 K/uL [facility] Neutrophils/100 WBC (Bld) 70.6 % [facility] Platelet distribution width (Bld) [Ratio] 14.7 % High 11.5 - 14.5 % [facility] Platelets (Bld) [#/Vol] 276 10*3/uL 130 - 400 K/uL [facility] RBC (Bld) [#/Vol] 4.19 10*6/uL Low [facility] WBC (Bld) [#/Vol] 8.2 10*3/uL 4.8 - 10.8 K/uL [facility] Culture, Anaerobic and Aerob icon 05-31-2022 CULTURE WOUND Direct Exam: NO NEUTROPHILS SEEN Cult,Aerobe/Anaerobe: NORMAL SKIN ANITA Cult,Aerobe/Anaerobe: No anaerobic organisms isolated at 5 days. Performed at [employer] [address] [place] [id number] ([phone] [facility] ORDER#: [id number] OR DERED BY: SOURCE: Foot COLLECTED: 05/25/22 16:32 ANTIBIOTICS AT [place].: RECEIVED : 05/25/22 16:32 [facility] CBC with Auto Differentialon 05-30-2022 Basophils (Bld) [#/Vol] 0.1 10*3/uL 0.0 - 0.2 K/uL [facility] Basophils/100 WBC (Bld) 0.9 % [facility] Eosinophils (Bld) [#/Vol] 0.2 10*3/uL 0.0 - 0.7 K/uL [facility] Eosinophils/100 WBC (Bld) 2.4 % [facility] Hematocrit (Bld) [Volume fraction] 30.1 % Low 42.0 - 52.0 % [facility] Hemoglobin (Bld) [Mass/Vol] 10.2 g/dL Low 14.0 - 18.0 g/dL [facility] Interpretation and review of laboratory results Abnormal [facility] Lymphocytes (Bld) [#/Vol] 1.0 10*3/uL 1.0 - 4.8 K/uL [facility] Lymphocytes/100 WBC (Bld) 10.9 % [facility] MCH (RBC) [Entitic mass] 25.3 pg Low 27.0 - 31.3 pg [facility] MCHC (RBC) [Mass/Vol] 33.9 % 33.0 - 37.0 % [facility] MCV (RBC) [Entitic vol] 74.7 fL Low 79.0 - 92.2 fL [facility] Monocytes (Bld) [#/Vol] 1.3 10*3/uL High 0.2 - 0.8 K/uL [facility] Monocytes/100 WBC (Bld) 13.6 % [facility] Neutrophils Absolute 7.0 K/uL High 1.4 - 6 .5 K/uL [facility] Neutrophils/100 WBC (Bld) 72.2 % [facility] Platelet distribution width (Bld) [Ratio] 14.5 % 11.5 - 14.5 % [facility] Platelets (Bld) [#/Vol] 282 10*3/uL 130 - 400 K/uL [facility] RBC (Bld) [#/Vol] 4.03 10*6/uL Low [facility] WBC (Bld) [#/Vol] 9.7 10*3/uL 4.8 - 10.8 K/uL [facility] CTA ABDOMINAL AORTA W BILAT RUNOFF W WO CONTRASTon 05-30-2022 1.There is extensive soft tissue edema and swelling in the left foot and left calf. The osseous structures of the left foot including tarsals and metatarsals demonstrate some lysis with gas pockets, if there is no recent surgery, then this would be concerning for osteomyelitis. 2.Mild ectasia of the infrarenal abdominal aorta with a large plaque mixed calcified and soft plaque leading to 40% luminal stenosis of the distal aorta. 3.Mild ectasia of the right common iliac artery with 50% luminal stenosis due to plaque. 4.The right anterior tibial artery is occluded after the trifurcation in the proximal calf and reconstitutes at the level of the foot through collateral arteries. 5.The right posterior tibial artery becomes diminutive at the level of the ankle and reconstitutes at the calcaneus. 6.The left anterior tibial artery is occluded shortly after the trifurcation. The left posterior tibial artery and peroneal arteries are patent. COMPARISON: No prior studies available for comparison. DIAGNOSIS: Peripheral edema COMMENTS: R60.9 Peripheral edema ICD10 TECHNIQUE: Spiral scanning of the abdomen and pelvis was performed after administration of oral and intravenous contrast. CT Dose-Length Product (estimate related to radiation exposure from this exam): 1711.16 mGy*cm. CTA ABDOMEN, PELVIS AND RUNOFF: The abdominal aorta demonstrates ectasia in the infrarenal region measuring 1.9 cm in diameter. At this level there is a large plaque which is mixed calcified and soft leading to 40% luminal stenosis of the distal aorta. Right lower extremity: The right common iliac artery demonstrates mild ectasia measuring approximately 1.5 cm in diameter. At this location there is a mixed calcified and soft plaque causing approximately 50% luminal stenosis of the right common iliac artery and short segment. The right common femoral artery is patent. The right superficial femoral artery is patent. The right popliteal artery is patent. The right anterior tibial artery becomes occluded shortly after the trifurcation in the proximal calf. The right anterior tibial artery reconstitutes at the level of the foot through collaterals and continues into the dorsum of the foot with the dorsalis pedis widely patent. The right peroneal artery is patent. The right posterior tibial artery becomes diminutive at the level of the ankle with calcifications and reconstitutes at the level of the calcaneus in the heel from collateral arteries. Left lower extremity: There is an extensive amount of soft tissue edema in the left calf and particularly in the left foot. There is extensive degenerative disease and soft tissue and osseous gas seen near the tarsals and metatarsals, findings concerning for osteomyelitis. The left common iliac artery demonstrates mild plaque, though the lumen remains grossly patent. The left external iliac, common femoral artery, and superficial femoral artery are patent. The left anterior tibial artery becomes occluded shortly after the trifurcation. The left posterior tibial artery and peroneal arteries are patent. CT ABDOMEN: The visualized portions of lung bases are clear. The liver is of normal size and attenuation without focal lesions. The spleen is of normal size and attenuation without focal lesions. Pancreas shows no signs of focal mass or peripancreatic fluid collection. Kidneys are normal in size. There is no hydronephrosis. No renal mass is identified. Adrenal glands are unremarkable. No significant retroperitoneal adenopathy or ascites is identified. The visualized bowel loops are unremarkable. Osseous structures demonstrate degenerative change of the visualized spine with fixation screws at the L5 and S1. CT PELVIS: Scanning of the pelvis shows no signs of pelvic mass or pelvic fluid collection. Pelvic bowel loops are unremarkable. A lower pelvic peritoneal shunt is seen, the upper portion of this shunt is not visualized as to the origin. [facility] Ras Mendez MD - 05/30/2022 IMPRESSION: 1.There is extensive soft tissue edema and swelling in the left foot and left calf. The osseous structures of the left foot including tarsals and metatarsals demonstrate some lysis with gas pockets, if there is no recent surgery, then this would be concerning for osteomyelitis. 2.Mild ectasia of the infrarenal abdominal aorta with a large plaque mixed calcified and soft plaque leading to 40% luminal stenosis of the distal aorta. 3.Mild ectasia of the right common iliac artery with 50% luminal stenosis due to plaque. 4.The right anterior tibial artery is occluded after the trifurcation in the proximal calf and reconstitutes at the level of the foot through collateral arteries. 5.The right posterior tibial artery becomes diminutive at the level of the ankle and reconstitutes at the calcaneus. 6.The left anterior tibial artery is occluded shortly after the trifurcation. The left posterior tibial artery and peroneal arteries are patent. COMPARISON: No prior studies available for comparison. DIAGNOSIS: Peripheral edema COMMENTS: R60.9 Peripheral edema ICD10 TECHNIQUE: Spiral scanning of the abdomen and pelvis was performed after administration of oral and intravenous contrast. CT Dose-Length Product (estimate related to radiation exposure from this exam): 1711.16 mGy*cm. CTA ABDOMEN, PELVIS AND RUNOFF: The abdominal aorta demonstrates ectasia in the infrarenal region measuring 1.9 cm in diameter. At this level there is a large plaque which is mixed calcified and soft leading to 40% luminal stenosis of the distal aorta. Right lower extremity: The right common iliac artery demonstrates mild ectasia measuring approximately 1.5 cm in diameter. At this location there is a mixed calcified and soft plaque causing approximately 50% luminal stenosis of the right common iliac artery and short segment. The right common femoral artery is patent. The right superficial femoral artery is patent. The right popliteal artery is patent. The right anterior tibial artery becomes occluded shortly after the trifurcation in the proximal calf. The right anterior tibial artery reconstitutes at the level of the foot through collaterals and continues into the dorsum of the foot with the dorsalis pedis widely patent. The right peroneal artery is patent. The right posterior tibial artery becomes diminutive at the level of the ankle with calcifications and reconstitutes at the level of the calcaneus in the heel from collateral arteries. Left lower extremity: There is an extensive amount of soft tissue edema in the left calf and particularly in the left foot. There is extensive degenerative disease and soft tissue and osseous gas seen near the tarsals and metatarsals, findings concerning for osteomyelitis. The left common iliac artery demonstrates mild plaque, though the lumen remains grossly patent. The left external iliac, common femoral artery, and superficial femoral artery are patent. The left anterior tibial artery becomes occluded shortly after the trifurcation. The left posterior tibial artery and peroneal arteries are patent. CT ABDOMEN: The visualized portions of lung bases are clear. The liver is of normal size and attenuation without focal lesions. The spleen is of normal size and attenuation without focal lesions. Pancreas shows no signs of focal mass or peripancreatic fluid collection. Kidneys are normal in size. There is no hydronephrosis. No renal mass is identified. Adrenal glands are unremarkable. No significant retroperitoneal adenopathy or ascites is identified. The visualized bowel loops are unremarkable. Osseous structures demonstrate degenerative change of the visualized spine with fixation screws at the L5 and S1. CT PELVIS: Scanning of the pelvis shows no signs of pelvic mass or pelvic fluid collection. Pelvic bowel loops are unremarkable. A lower pelvic peritoneal shunt is seen, the upper portion of this shunt is not visualized as to the origin. [employer] Phone: [employer] Phone: Radiology Study observation (narrative) [employer] Phone: Culture, Blood 1on 2 Blood Culture, Routine No growth after 5 days of incubation. [employer] ORDER#: [id number] ORDERED BY: KEVON GERARDO SOURCE: Blood COLLECTED: 05/24/22 23:01 ANTIBIOTICS AT [place].: RECEIVED : 05/24/22 23:07 [facility] Culture, Blood 2on 2 Culture, Blood 2 No growth after 5 da ys of incubation. [employer] ORDER#: [id number] OR DERED BY: KEVON GERARDO SOURCE: Blood COLLECTED: 05/24/22 23:01 ANTIBIOTICS AT [place].: RECEIVED : 05/24/22 23:07 [facility] EKG 12 Leadon 05-30-2022 Atrial Rate 88 BPM [employer] Phone: P [place] 56 degrees [employer] Phone: [phone] P-R Interval 168 ms [employer] Phone: [phone] Q-T Interval 380 ms [employer] Phone: [phone] QRS Duration 94 ms [employer] Phone: [phone] QTc Calculation (Bazett) 459 ms [employer] Phone: [phone] R [place] 15 degrees [employer] Phone: [phone] T [place] 34 degrees [employer] Phone: Ventricular Rate 88 BPM MADINA GARCIA [employer] Work Phone: Normal sinus rhythm Possible Left atrial enlargement Borderline ECG When compared with ECG of 25-MAY-2022 03:09, Minimal criteria for Inferior infarct are no longer present Non-specific change in ST segment in Inferior leads T wave inversion no longer evident in Inferior leads T wave inversion no longer evident in Lateral leads Confirmed by Kirk Motta ([id number]) on 05/30/2022 10:12:35 AM Kirk Rai DO - 05/30/2022 Normal sinus rhythm Possible Left atrial enlargement Borderline ECG When compared with ECG of 25-MAY-2022 03:09, Minimal criteria for Inferior infarct are no longer present Non-specific change in ST segment in Inferior leads T wave inversion no longer evident in Inferior leads T wave inversion no longer evident in Lateral leads Confirmed by Kirk Motta ([id number]) on 05/30/2022 10:12:35 AM [facility] [employer] Work Phone: [employer] Work Phone: No Panel Informationon 05-30 [facility] [employer] Basic Metabolic Panelon 05-12 Anion gap [Moles/Vol] 10 mmol[facility]L [facility] Calcium [Mass/Vol] 9.0 mg/dL 8.5 - 9.9 mg/dL [facility] Chloride [Moles/Vol] 103 mmol/L [facility] [employer] CO2 [Moles/Vol] 27 mmol/L [facility] [employer] Creatinine [Mass/Vol] 0.82 mg/dL 0.70 - 1.20 mg/dL [facility] [employer] GFR/1.73 sq M.predicted MDRD (S/P/Bld) [Vol rate/Area] 60 - PINF [facility] [employer] Comment on above: Pediatric calculator link https://www.kidney.org/professionals/kdoqi/gfr_calculatorped Effective May 14, 2022 These results are not intended for use in patients <18 years of age. eGFR results are calculated without a race factor using the 2020 CKD-EPI equation. Careful clinical correlation is recommended, particularly when comparing to results calculated using previous equations. The CKD-EPI equation is less accurate in patients with extremes of muscle mass, extra-renal metabolism of creatinine, excessive creatinine ingestion, or following therapy that affects renal tubular secretion. Glucose [Mass/Vol] 102 mg/dL High 70 - 99 mg/dL [facility] Interpretation and review of laboratory results Abnormal [facility] Potassium [Moles/Vol] 4.1 mmol/L [facility] Sodium [Moles/Vol] 140 mmol/L [facility] Urea nitrogen (BldV) [Mass/Vol] 16 mg/dL 8 - 23 mg/dL [facility] CBC with Auto Differentialon 05-29-2022 Basophils (Bld) [#/Vol] 0.1 10*3/uL 0.0 - 0.2 K/uL [facility] Basophils/100 WBC (Bld) 1.3 % [facility] Eosinophils (Bld) [#/Vol] 0.3 10*3/uL 0.0 - 0.7 K/uL [facility] Eosinophils/100 WBC (Bld) 3.5 % [facility] Hematocrit (Bld) [Volume fraction] 33.9 % Low 42.0 - 52.0 % [facility] Hemoglobin (Bld) [Mass/Vol] 10.6 g/dL Low 14.0 - 18.0 g/dL [facility] Interpretation and review of laboratory results Abnormal [facility] Lymphocytes (Bld) [#/Vol] 1.3 10*3/uL 1.0 - 4.8 K/uL [facility] Lymphocytes/100 WBC (Bld) 15.4 % [facility] MCH (RBC) [Entitic mass] 23.8 pg Low 27.0 - 31.3 pg [facility] MCHC (RBC) [Mass/Vol] 31.4 % Low 33.0 - 37.0 % [facility] MCV (RBC) [Entitic vol] 75.8 fL Low 80.0 - 100.0 fL [facility] Monocytes (Bld) [#/Vol] 0.9 10*3/uL High 0.2 - 0.8 K/uL [facility] Monocytes/100 WBC (Bld) 10.8 % [facility] Neutrophils Absolute 5.9 K/uL 1.4 - 6 .5 K/uL [facility] Neutrophils/100 WBC (Bld) 69.0 % [facility] Platelet distribution width (Bld) [Ratio] 14.3 % 11.5 - 14.5 % [facility] Platelets (Bld) [#/Vol] 347 10*3/uL 130 - 400 K/uL [facility] RBC (Bld) [#/Vol] 4.47 10*6/uL Low [facility] WBC (Bld) [#/Vol] 8.6 10*3/uL 4.8 - 10.8 K/uL [facility] Collection has been rescheduled by WESTLEY at 05/29/2022 03:08 Reason: Patient has port or line [facility] IR Picc Equal or Greater Vish n 5 Yearson 05-29-2022 EXAMINATION: IR PICC WO SQ PORT/PUMP > 5 YEARS DATE AND TIME:05/28/2022 4:56 PM CLINICAL HISTORY: R60.9 Peripheral edema ICD10 acute osteomyelitis COMPARISON: None available. Radiation dose: 20.98 mGy. After discussing the procedure and possible complications with the patient, informed consent was obtained. The patient was placed on the Special Procedures table. The right upper extremity was sterilely prepared using 2% chlorhexidine and then draped with sterile towels and a body-sized sterile drape. All personnel in the Special Procedures Room donned caps and surgical masks. In addition, the dye machine operator and surgical physician assistant donned sterile gowns and gloves after proper hand cleansing. A pre-procedure time out was performed in order to assure the correct patient and procedure. Local anesthetic was administered. A peripheral vein was accessed with sonographic guidance. A sonographic spot image was obtained for documentation. A guidewire was advanced into the vein with fluoroscopic guidance and a sheath was placed over the guidewire. A 5-Irish dual-lumen PICC was advanced through the sheath, into the basilic vein, up the arm and into the central vasculature. It was positioned appropriately. The sheath was removed. The catheter was shown to aspirate and infuse properly. The flange of the catheter was affixed to the arm using a PICC securement device. A spot image of the chest showed the tip of the PICC line to lie in the right atrium. The patient tolerated the procedure well and without complications. CONCLUSION: SUCCESSFUL PICC PLACEMENT WITHOUT IMMEDIATE COMPLICATIONS. [facility] Ras Mendez MD - 05/29/2022 EXAMINATION: IR PICC WO SQ PORT/PUMP > 5 YEARS DATE AND TIME:05/28/2022 4:56 PM CLINICAL HISTORY: R60.9 Peripheral edema ICD10 acute osteomyelitis COMPARISON: None available. Radiation dose: 20.98 mGy. After discussing the procedure and possible complications with the patient, informed consent was obtained. The patient was placed on the Special Procedures table. The right upper extremity was sterilely prepared using 2% chlorhexidine and then draped with sterile towels and a body-sized sterile drape. All personnel in the Special Procedures Room donned caps and surgical masks. In addition, the dye machine operator and surgical physician assistant donned sterile gowns and gloves after proper hand cleansing. A pre-procedure time out was performed in order to assure the correct patient and procedure. Local anesthetic was administered. A peripheral vein was accessed with sonographic guidance. A sonographic spot image was obtained for documentation. A guidewire was advanced into the vein with fluoroscopic guidance and a sheath was placed over the guidewire. A 5-Irish dual-lumen PICC was advanced through the sheath, into the basilic vein, up the arm and into the central vasculature. It was positioned appropriately. The sheath was removed. The catheter was shown to aspirate and infuse properly. The flange of the catheter was affixed to the arm using a PICC securement device. A spot image of the chest showed the tip of the PICC line to lie in the right atrium. The patient tolerated the procedure well and without complications. CONCLUSION: SUCCESSFUL PICC PLACEMENT WITHOUT IMMEDIATE COMPLICATIONS. [employer] Phone: IR Picc Equal or Greater Vish n 5 YearsOrdered By: Ras Mendez on 05-29-2022 [employer] Phone: Magnesiumon 05-29-2022 Magnesium [Mass/Vol] 2.2 mg/dL 1.7 - 2 .4 mg/dL [facility] No Panel Informationon 05-29 Collection has been rescheduled by WESTLEY at 05/29/2022 03:08 Reason: Patient has port or line [facility] POCT Glucoseon 05-29-2022 Glucose [Mass/Vol] 117 mg/dL High 70 - 99 mg/dl [facility] Interpretation and review of laboratory results Abnormal [facility] Performed on ACCU-CHEK [facility] Basic Metabolic Panelon 05-12 Anion gap [Moles/Vol] 12 mmol/L [facility] Calcium [Mass/Vol] 8.6 mg/dL 8.5 - 9.9 mg/dL [facility] Chloride [Moles/Vol] 100 mmol/L [facility] CO2 [Moles/Vol] 25 mmol/L [facility] Creatinine [Mass/Vol] 0.84 mg/dL 0.70 - 1.20 mg/dL [facility] GFR >60.0 60 - PINF [facility] Comment on above: >60 mL/min/1.73m2 EG FR, calc. for ages 18 and older using the MDRD formula (not corrected for weight), is valid for stable renal function. GFR Non- >60.0 60 - PINF [facility] Comment on above: >60 mL/min/1.73m2 EG FR, calc. for ages 18 and older using the MDRD formula (not corrected for weight), is valid for stable renal function. Glucose [Mass/Vol] 103 mg/dL High 70 - 99 mg/dL [facility] Interpretation and review of laboratory results Abnormal [facility] Potassium [Moles/Vol] 4.0 mmol/L [facility] Sodium [Moles/Vol] 137 mmol/L [facility] Urea nitrogen (BldV) [Mass/Vol] 18 mg/dL 8 - 23 mg/dL [facility] CBC with Auto Differentialon 05-28-2022 Basophils (Bld) [#/Vol] 0.1 10*3/uL 0.0 - 0.2 K/uL [facility] Basophils/100 WBC (Bld) 1.3 % [facility] Eosinophils (Bld) [#/Vol] 0.4 10*3/uL 0.0 - 0.7 K/uL [facility] Eosinophils/100 WBC (Bld) 4.7 % [facility] Hematocrit (Bld) [Volume fraction] 34.2 % Low 42.0 - 52.0 % [facility] Hemoglobin (Bld) [Mass/Vol] 10.9 g/dL Low 14.0 - 18.0 g/dL [facility] Interpretation and review of laboratory results Abnormal [facility] Lymphocytes (Bld) [#/Vol] 1.4 10*3/uL 1.0 - 4.8 K/uL [facility] Lymphocytes/100 WBC (Bld) 17.4 % [facility] MCH (RBC) [Entitic mass] 24.1 pg Low 27.0 - 31.3 pg [facility] MCHC (RBC) [Mass/Vol] 31.7 % Low 33.0 - 37.0 % [facility] MCV (RBC) [Entitic vol] 75.9 fL Low 80.0 - 100.0 fL [facility] Monocytes (Bld) [#/Vol] 1.0 10*3/uL High 0.2 - 0.8 K/uL [facility] Monocytes/100 WBC (Bld) 11.8 % [facility] Neutrophils Absolute 5.3 K/uL 1.4 - 6 .5 K/uL [facility] Neutrophils/100 WBC (Bld) 64.8 % [facility] Platelet distribution width (Bld) [Ratio] 14.5 % 11.5 - 14.5 % [facility] Platelets (Bld) [#/Vol] 372 10*3/uL 130 - 400 K/uL [facility] RBC (Bld) [#/Vol] 4.51 10*6/uL Low [facility] [employer] WBC (Bld) [#/Vol] 8.2 10*3/uL 4.8 - 10.8 K/uL [facility] [employer] [facility] E[facility] 12 leadOrdered By: Kirk major on 05-28-2022 Atrial Rate 91 BPM [employer] Work Phone: P [place] 72 degrees [place] [employer] Work Phone: P-R Interval 152 ms [employer] Work Phone: Q-T Interval 388 ms [employer] Work Phone: QRS Duration 100 ms [employer] Work Phone: QTc Calculation (Bazett) 477 ms [employer] Work Phone: R [place] 72 degrees [employer] Work Phone: T [place] -42 degrees [employer] Work Phone: Ventricular Rate 91 BPM [employer] Work Phone: [employer] Work Phone: EKG 12 leadon 05-28-2022 Normal sinus rhythm Cannot rule out Inferior infarct , age undetermined Abnormal ECG When compared with ECG of 24-MAY-2022 21:12, premature ventricular complexes are no longer present Minimal criteria for Inferior infarct are now present T wave inversion now evident in Inferior leads Confirmed by Kirk Motta ([id number]) on 05/28/2022 8:52:12 AM Kirk Rai DO - 05/28/2022 Normal sinus rhythm Cannot rule out Inferior infarct , age undetermined Abnormal ECG When compared with ECG of 24-MAY-2022 21:12, premature ventricular complexes are no longer present Minimal criteria for Inferior infarct are now present T wave inversion now evident in Inferior leads Confirmed by Kirk Motta ([id number]) on 05/28/2022 8:52:12 AM [employer] Work Phone: IR Picc Equal or Greater Vish n 5 Yearson 05-28-2022 Radiology Study observation (narrative) [employer] Work Phone: Magnesiumon 05-28-2022 Magnesium [Mass/Vol] 2.3 mg/dL 1.7 - 2 .4 mg/dL [employer] No Panel Informationon 05-28 [employer] US DUP LOWER ART/BYPASS ZAIRA TS BILATERAL COMPLETEon 05-28-2022 PREDOMINANT WAVEFORM IS TRIPHASIC. THERE ARE SCATTERED AREAS OF BIPHASIC MORPHOLOGY HOWEVER NO DAMPENING. NO SIGNIFICANT STEPUP IN GRADIENT. DIFFUSE ATHEROSCLEROSIS HOWEVER, NO OBSTRUCTIVE LESIONS NOTED. [facility] EXAMINATION: BILATER AL LOWER EXTREMITY ARTERIAL DUPLEX ULTRASOUND CLINICAL HISTORY: PAD AND FOOT ULCER COMPARISONS: NONE AVAILABLE TECHNIQUE: B-mode, color flow and spectral Doppler FINDINGS: RIGHT LEFT Common Femoral 102 129 FA Prox 105 134 FA Mid 102 129 FA Dst 110 115 Popliteal Mid 70 74 Ant Tib Prx 60 47 Ant Tib Mid 85 59 Ant Tib Dst 109 46 Post Tib Prx 92 126 Post Tib Mid 119 96 Post Tib Dst 44 125 Peroneal Prx 80 49 Peroneal Mid 104 95 Peroneal Dst 91 96 [facility] Rochelle Mccollum MD - 05/28/2022 EXAMINATION: BILATERAL LOWER EXTREMITY ARTERIAL DUPLEX ULTRASOUND CLINICAL HISTORY: PAD AND FOOT ULCER COMPARISONS: NONE AVAILABLE TECHNIQUE: B-mode, color flow and spectral Doppler FINDINGS: RIGHT LEFT Common Femoral 102 129 FA Prox 105 134 FA Mid 102 129 FA Dst 110 115 Popliteal Mid 70 74 Ant Tib Prx 60 47 Ant Tib Mid 85 59 Ant Tib Dst 109 46 Post Tib Prx 92 126 Post Tib Mid 119 96 Post Tib Dst 44 125 Peroneal Prx 80 49 Peroneal Mid 104 95 Peroneal Dst 91 96 IMPRESSION: PREDOMINANT WAVEFORM IS TRIPHASIC. THERE ARE SCATTERED AREAS OF BIPHASIC MORPHOLOGY HOWEVER NO DAMPENING. NO SIGNIFICANT STEPUP IN GRADIENT. DIFFUSE ATHEROSCLEROSIS HOWEVER, NO OBSTRUCTIVE LESIONS NOTED. [employer] Work Phone: [employer] Work Phone: Basic Metabolic Panelon 05-12 Anion gap [Moles/Vol] 12 mmol/L [facility] Calcium [Mass/Vol] 9.2 mg/dL 8.5 - 9.9 mg/dL [facility] Chloride [Moles/Vol] 97 mmol/L [facility] CO2 [Moles/Vol] 30 mmol/L [facility] Creatinine [Mass/Vol] 1.28 mg/dL High 0.70 - 1.20 mg/dL [facility] GFR >60.0 60 - PINF [facility] Comment on above: >60 mL/min/1.73m2 EG FR, calc. for ages 18 and older using the MDRD formula (not corrected for weight), is valid for stable renal function. GFR Non- 57.1 Low 60 - PINF [facility] Comment on above: >60 mL/min/1.73m2 EG FR, calc. for ages 18 and older using the MDRD formula (not corrected for weight), is valid for stable renal function. Glucose [Mass/Vol] 107 mg/dL High 70 - 99 mg/dL [facility] Interpretation and review of laboratory results Abnormal [facility] Potassium [Moles/Vol] 4.7 mmol/L [facility] Sodium [Moles/Vol] 139 mmol/L [facility] Urea nitrogen (BldV) [Mass/Vol] 23 mg/dL 8 - 23 mg/dL [facility] CBC with Auto Differentialon 05-27-2022 Basophils (Bld) [#/Vol] 0.1 10*3/uL 0.0 - 0.2 K/uL [facility] Basophils/100 WBC (Bld) 1.0 % [facility] Eosinophils (Bld) [#/Vol] 0.4 10*3/uL 0.0 - 0.7 K/uL [facility] Eosinophils/100 WBC (Bld) 4.6 % [facility] Hematocrit (Bld) [Volume fraction] 35.4 % Low 42.0 - 52.0 % [facility] Hemoglobin (Bld) [Mass/Vol] 11.4 g/dL Low 14.0 - 18.0 g/dL [facility] Interpretation and review of laboratory results Abnormal [facility] Lymphocytes (Bld) [#/Vol] 1.5 10*3/uL 1.0 - 4.8 K/uL [facility] Lymphocytes/100 WBC (Bld) 18.8 % [facility] MCH (RBC) [Entitic mass] 24.3 pg Low 27.0 - 31.3 pg [facility] MCHC (RBC) [Mass/Vol] 32.3 % Low 33.0 - 37.0 % [facility] MCV (RBC) [Entitic vol] 75.2 fL Low 80.0 - 100.0 fL [facility] Monocytes (Bld) [#/Vol] 1.0 10*3/uL High 0.2 - 0.8 K/uL [facility] Monocytes/100 WBC (Bld) 12.4 % [facility] Neutrophils Absolute 5.2 K/uL 1.4 - 6 .5 K/uL [facility] Neutrophils/100 WBC (Bld) 63.2 % [facility] Platelet distribution width (Bld) [Ratio] 14.6 % High 11.5 - 14.5 % [facility] Platelets (Bld) [#/Vol] 413 10*3/uL High 130 - 400 K/uL [facility] RBC (Bld) [#/Vol] 4.70 10*6/uL [facility] WBC (Bld) [#/Vol] 8.2 10*3/uL 4.8 - 10.8 K/uL [facility] MRI FOOT LEFT W WO CONTRASTo n 05-27-2022 Osteomyelitis of the cuboid. 1.5 cm rim enhancing fluid collection along the plantar margin of the cuboid is concerning for developing abscess with surrounding phlegmon. 1 x 1 x 3 cm abscess within the plantar soft tissues at the level of the head of the 5th metatarsal. Mild bone marrow edema within the base of the 5th metacarpal without definitive hypointense T1 signal, findings compatible with osteitis with early osteomyelitis not excluded. Charcot arthropathy of the midfoot. [facility] EXAMINATION: MRI OF THE LEFT FOOT WITH AND WITHOUT CONTRAST, 05/27/2022 1:56 pm TECHNIQUE: Multiplanar multisequence MRI of the left foot was performed with and without the administration of intravenous contrast. COMPARISON: Foot radiographs May 25, 2022 HISTORY: ORDERING SYSTEM PROVIDED HISTORY: evaluate osteomyelitis versus charcot midfoot. plantar ulcer probing to bone. 5th met OM on xr TECHNOLOGIST PROVIDED HISTORY: Reason for exam:->evaluate osteomyelitis versus charcot midfoot. plantar ulcer probing to bone. 5th met OM on xr What reading provider will be dictating this exam?->CRC FINDINGS: The examination is degraded by motion artifact. There is osseous destruction and disorganization of the midfoot with edema throughout the mid bones of the foot. Hypointense T1 signal is present within the cuboid which is deep to a soft tissue ulcer of the plantar aspect of the foot that appears to extend to the inferior margin of the cuboid. A rim enhancing fluid collection along the plantar margin of the cuboid measures up to approximately 1 cm. There is mild edema within the base of the 5th metatarsal without definitive hypointense T1 signal. There is a rim enhancing soft tissue fluid collection within the plantar soft tissues at the level of the 5th metatarsal head measuring approximately 1 x 1 x 3 cm compatible with abscess. Diffuse subcutaneous soft tissue edema. [facility] Chase Chahal, DO - 05/27/2022 EXAMINATION: MRI OF THE LEFT FOOT WITH AND WITHOUT CONTRAST, 05/27/2022 1:56 pm TECHNIQUE: Multiplanar multisequence MRI of the left foot was performed with and without the administration of intravenous contrast. COMPARISON: Foot radiographs May 25, 2022 HISTORY: ORDERING SYSTEM PROVIDED HISTORY: evaluate osteomyelitis versus charcot midfoot. plantar ulcer probing to bone. 5th met OM on xr TECHNOLOGIST PROVIDED HISTORY: Reason for exam:->evaluate osteomyelitis versus charcot midfoot. plantar ulcer probing to bone. 5th met OM on xr What reading provider will be dictating this exam?->CRC FINDINGS: The examination is degraded by motion artifact. There is osseous destruction and disorganization of the midfoot with edema throughout the mid bones of the foot. Hypointense T1 signal is present within the cuboid which is deep to a soft tissue ulcer of the plantar aspect of the foot that appears to extend to the inferior margin of the cuboid. A rim enhancing fluid collection along the plantar margin of the cuboid measures up to approximately 1 cm. There is mild edema within the base of the 5th metatarsal without definitive hypointense T1 signal. There is a rim enhancing soft tissue fluid collection within the plantar soft tissues at the level of the 5th metatarsal head measuring approximately 1 x 1 x 3 cm compatible with abscess. Diffuse subcutaneous soft tissue edema. IMPRESSION: Osteomyelitis of the cuboid. 1.5 cm rim enhancing fluid collection along the plantar margin of the cuboid is concerning for developing abscess with surrounding phlegmon. 1 x 1 x 3 cm abscess within the plantar soft tissues at the level of the head of the 5th metatarsal. Mild bone marrow edema within the base of the 5th metacarpal without definitive hypointense T1 signal, findings compatible with osteitis with early osteomyelitis not excluded. Charcot arthropathy of the midfoot. [employer] Work Phone: [employer] Work Phone: Radiology Study observation (narrative) [employer] Work Phone: Magnesiumon 05-27-2022 Magnesium [Mass/Vol] 2.2 mg/dL 1.7 - 2 .4 mg/dL [employer] No Panel Informationon 05-27 [employer] US RETROPERITONEAL LIMITEDon 05-27-2022 Borderline mild left hydronephrosis. If there is concern for obstructive uropathy, CT of the abdomen/pelvis without contrast is recommended. [facility] EXAMINATION: ULTRASOUND OF THE KIDNEYS 05/27/2022 1:22 pm COMPARISON: None. HISTORY: ORDERING SYSTEM PROVIDED HISTORY: ZARIA TECHNOLOGIST PROVIDED HISTORY: Reason for exam:->ZAIRA What reading provider will be dictating this exam?->CRC FINDINGS: The right kidney measures 11.6 x 5.6 x 5.1 cm with a cortical thickness of 0.7 cm in the left kidney measures 13.3 x 5.2 x 5.7 cm with a cortex measuring 1.1 cm. Borderline mild left-sided hydronephrosis. No right-sided hydronephrosis. No shadowing calculi. No solid or cystic renal lesions identified by ultrasound. [facility] Chase Chahal DO - 05/27/2022 EXAMINATION: ULTRASOUND OF THE KIDNEYS 05/27/2022 1:22 pm COMPARISON: None. HISTORY: ORDERING SYSTEM PROVIDED HISTORY: ZAIRA TECHNOLOGIST PROVIDED HISTORY: Reason for exam:->ZAIRA What reading provider will be dictating this exam?->CRC FINDINGS: The right kidney measures 11.6 x 5.6 x 5.1 cm with a cortical thickness of 0.7 cm in the left kidney measures 13.3 x 5.2 x 5.7 cm with a cortex measuring 1.1 cm. Borderline mild left-sided hydronephrosis. No right-sided hydronephrosis. No shadowing calculi. No solid or cystic renal lesions identified by ultrasound. IMPRESSION: Borderline mild left hydronephrosis. If there is concern for obstructive uropathy, CT of the abdomen/pelvis without contrast is recommended. [employer] Work Phone: Radiology Study observation (narrative) [employer] Phone: US RETROPERITONEAL LIMITEDOr dered By: Chase Chahal on 05-27-2022 [employer] Phone: Basic Metabolic Panelon 05-12 Anion gap [Moles/Vol] 11 mmol/L [employer] Calcium [Mass/Vol] 8.9 mg/dL 8.5 - 9.9 mg/dL [employer] Chloride [Moles/Vol] 99 mmol/L [employer] CO2 [Moles/Vol] 27 mmol/L [employer] Creatinine [Mass/Vol] 0.89 mg/dL 0.70 - 1.20 mg/dL [employer] GFR >60.0 60 - PINF [employer] Comment on above: >60 mL/min/1.73m2 EG FR, calc. for ages 18 and older using the MDRD formula (not corrected for weight), is valid for stable renal function. GFR Non- >60.0 60 - PINF [employer] Comment on above: >60 mL/min/1.73m2 EG FR, calc. for ages 18 and older using the MDRD formula (not corrected for weight), is valid for stable renal function. Glucose [Mass/Vol] 102 mg/dL High 70 - 99 mg/dL [facility] Potassium [Moles/Vol] 4.0 mmol/L [facility] Sodium [Moles/Vol] 137 mmol/L [facility] Urea nitrogen (BldV) [Mass/Vol] 11 mg/dL 8 - 23 mg/dL [facility] CBC with Auto Differentialon 05-26-2022 Basophils (Bld) [#/Vol] 0.1 10*3/uL 0.0 - 0.2 K/uL [facility] Basophils/100 WBC (Bld) 1.2 % [facility] Eosinophils (Bld) [#/Vol] 0.3 10*3/uL 0.0 - 0.7 K/uL [facility] Eosinophils/100 WBC (Bld) 3.7 % [facility] Hematocrit (Bld) [Volume fraction] 35.1 % Low 42.0 - 52.0 % [facility] Hemoglobin (Bld) [Mass/Vol] 11.1 g/dL Low 14.0 - 18.0 g/dL [facility] Interpretation and review of laboratory results Abnormal [facility] Lymphocytes (Bld) [#/Vol] 1.3 10*3/uL 1.0 - 4.8 K/uL [facility] Lymphocytes/100 WBC (Bld) 14.9 % [facility] MCH (RBC) [Entitic mass] 23.9 pg Low 27.0 - 31.3 pg [facility] MCHC (RBC) [Mass/Vol] 31.7 % Low 33.0 - 37.0 % [facility] MCV (RBC) [Entitic vol] 75.4 fL Low 80.0 - 100.0 fL [facility] Monocytes (Bld) [#/Vol] 1.1 10*3/uL High 0.2 - 0.8 K/uL [facility] Monocytes/100 WBC (Bld) 12.5 % [facility] Neutrophils Absolute 5.8 K/uL 1.4 - 6 .5 K/uL [facility] Neutrophils/100 WBC (Bld) 67.7 % [facility] Platelet distribution width (Bld) [Ratio] 14.5 % 11.5 - 14.5 % [place] [facility] [employer] Platelets (Bld) [#/Vol] 430 10*3/uL High 130 - 400 K/uL [facility] [employer] RBC (Bld) [#/Vol] 4.66 10*6/uL Low [place] [facility] [employer] WBC (Bld) [#/Vol] 8.6 10*3/uL 4.8 - 10.8 K/uL [employer] [facility] [employer] EKG 12 Lead - Chest Painon 1 Atrial Rate 109 BPM [employer] [facility] Work Phone: P [place] 56 degrees [employer] [facility] [employer] Work Phone: P-R Interval 174 ms [employer] [facility] Work Phone: Q-T Interval 338 ms [employer] Work Phone: QRS Duration 92 ms [employer] [facility] Work Phone: QTc Calculation (Bazett) 455 ms [employer] [facility] Work Phone: R [place] 56 degrees [employer] [facility] Work Phone: T [place] 57 degrees [employer] Work Phone: Ventricular Rate 109 BPM [employer] Work Phone: Sinus tachycardia wi th occasional premature ventricular complexes Nonspecific ST abnormality Abnormal ECG When compared with ECG of 05-JAN-2022 10:34, premature ventricular complexes are now present Confirmed by ROCHELLE MCCOLLUM ([id number]) on 05/26/2022 3:55:11 PM Rochelle Ramsay MD - 05/26/2022 Sinus tachycardia with occasional premature ventricular complexes Nonspecific ST abnormality Abnormal ECG When compared with ECG of 05-JAN-2022 10:34, premature ventricular complexes are now present Confirmed by ROCHELLE MCCOLLUM ([id number]) on 05/26/2022 3:55:11 PM [employer] Work Phone: [employer] Work Phone: Lipid Panelon 05-26-2022 Cholesterol [Mass/Vol] 113 mg/dL 0 - 199 mg/dL [employer] Comment on above: ATP III Cholesterol classification is Desirable. Cholesterol in HDL [Mass/Vol] 34 mg/dL Low 40 - 59 mg/dL [employer] Comment on above: ATP III HDL Cholestr ol Classification is low. Expected Values: Males: >55 = No Risk 35-55 = Moderate Risk <35 = High Risk Females: >65 = No Risk 45-65 = Moderate Risk <45 = High Risk NCEP Guidelines: Third Report December 2000 >59 = negative risk factor for CHD <40 = major risk factor for CHD Cholesterol in LDL [Mass/Vol] 63 mg/dL 0 - 129 mg/dL [employer] Comment on above: ATP III LDL Classifi cation is Optimal. Triglyceride [Mass/Vol] 80 mg/dL 0 - 150 mg/dL [employer] Comment on above: ATP III Triglyceride s Classification is Normal. Magnesiumon 05-26-2022 Magnesium [Mass/Vol] 2.2 mg/dL 1.7 - 2 .4 mg/dL [employer] No Panel Informationon 05-26 Interpretation and review of laboratory results Abnormal [employer] US DUP LOWER ART/BYPASS ZAIRA TS BILATERAL COMPLETEon 05-26-2022 Radiology Study observation (narrative) [employer] Work Phone: Basic Metabolic Panelon 05-12 Anion gap [Moles/Vol] 14 mmol/L [employer] Calcium [Mass/Vol] 8.8 mg/dL 8.5 - 9.9 mg/dL [employer] Chloride [Moles/Vol] 99 mmol/L [employer] CO2 [Moles/Vol] 24 mmol/L [employer] Creatinine [Mass/Vol] 0.8 mg/dL 0.70 - 1.20 mg/dL [employer] GFR >60.0 60 - PINF [employer] Comment on above: >60 mL/min/1.73m2 EG FR, calc. for ages 18 and older using the MDRD formula (not corrected for weight), is valid for stable renal function. GFR Non- >60.0 60 - PINF [facility] Comment on above: >60 mL/min/1.73m2 EG FR, calc. for ages 18 and older using the MDRD formula (not corrected for weight), is valid for stable renal function. Glucose [Mass/Vol] 97 mg/dL 70 - 99 mg/dL [facility] Potassium [Moles/Vol] 4.1 mmol/L [facility] Sodium [Moles/Vol] 137 mmol/L [facility] Urea nitrogen (BldV) [Mass/Vol] 9 mg/dL 8 - 23 mg/dL [facility] Brain Natriuretic Peptideon 05-25-2022 Natriuretic peptide B (Bld) [Mass/Vol] 2475 pg/mL [facility] Comment on above: NT-pro BNP ACUTE Int erpretive Guidelines: Age Cutoff for Heart Failure Less than 50 yrs 450 pg/mL 50-75 yrs 900 pg/mL Greater than 75 yrs 1800 pg/mL NT-pro BNP NON-ACUTE Interpretive Guidelines: Age Reference Range Less than 74 yrs 0-125 pg/mL Greater than 74 yrs 0-450 pg/mL Other possible causes of an elevated NT-proBNP include: cardiac ischemia, acute coronary syndrome, COPD, pneumonia, atrial fibrillation, pulmonary emboli, pulmonary hypertension, pericarditis Reference: Billy Smith, et al. NT-proBNP testing for diagnosis and short-term prognosis in acute destabilized HF: an international pooled analysis of 1256 patients. Heart Journal. 2006;27:330-337 [facility] C-Reactive Proteinon 022 CRP [Mass/Vol] 89.4 mg/L High 0.0 - 5.0 mg/L [facility] Interpretation and review of laboratory results Abnormal [facility] CBC with Auto Differentialon 05-25-2022 Anisocytosis Ql (Bld) 1+ [facility] Basophils (Bld) [#/Vol] 0.0 10*3/uL 0.0 - 0.2 K/uL [facility] Basophils/100 WBC (Bld) 1.2 % [facility] Eosinophils (Bld) [#/Vol] 0.2 10*3/uL 0.0 - 0.7 K/uL [facility] Eosinophils/100 WBC (Bld) 3 % [facility] Hematocrit (Bld) [Volume fraction] 32.4 % Low 42.0 - 52.0 % [facility] Hemoglobin (Bld) [Mass/Vol] 10.7 g/dL Low 14.0 - 18.0 g/dL [facility] Interpretation and review of laboratory results Abnormal [facility] Lymphocytes (Bld) [#/Vol] 0.9 10*3/uL Low 1.0 - 4.8 K/uL [facility] Lymphocytes/100 WBC (Bld) 11.0 % [facility] MCH (RBC) [Entitic mass] 24.4 pg Low 27.0 - 31.3 pg [facility] MCHC (RBC) [Mass/Vol] 32.9 % Low 33.0 - 37.0 % [facility] MCV (RBC) [Entitic vol] 74.2 fL Low 80.0 - 100.0 fL [facility] Microcytes 1+ [facility] Monocytes (Bld) [#/Vol] 0.7 10*3/uL 0.2 - 0.8 K/uL [facility] Monocytes/100 WBC (Bld) 8.6 % [facility] Myelocyte Percent 1 % [facility] Neutrophils Absolute 6.1 K/uL 1.4 - 6 .5 K/uL [facility] Neutrophils/100 WBC (Bld) 77.0 % [facility] Ovalocytes 1+ [facility] Platelet distribution width (Bld) [Ratio] 14.6 % High 11.5 - 14.5 % [facility] PLATELET SLIDE REVIEW Normal [facility] Platelets (Bld) [#/Vol] 425 10*3/uL High 130 - 400 K/uL [facility] Poikilocytes 1+ [facility] Polychromasia 1+ [facility] RBC (Bld) [#/Vol] 4.37 10*6/uL Low [facility] WBC (Bld) [#/Vol] 7.8 10*3/uL 4.8 - 10.8 K/uL [facility] Echocardiogram complete 2D w ith doppler with coloron 05-25-2022 Transthoracic Echocardiography Report (TTE) Demographics Patient Name MIRA PRAKASH Gender Male Patient Number [id number] Race Ethnicity Visit Number [id number] Room Number W177 Corporate ID Date of Study 05/25/2022 Accession Number [id number] Referring Physician Date of 1960 Cook Starch [place] Age 62 year(s) Interpreting [facility] Cardiology Physician Jamie Pathak Procedure Type of Study TTE procedure:ECHO COMPLETE 2D W/DOP W/COLOR. Procedure Date Date: 05/25/2022 Start: 09:36 AM Study Location: Portable Indications:Chest pain. Patient Status: Routine Height: 72 inches Weight: 218 pounds BSA: 2.21 m^2 BMI: 29.57 kg/m^2 HR: 108 bpm BP: 152/82 mmHg Conclusions Summary Left ventricular ejection fraction is visually estimated at 50-55%. Normal left ventricular size and function. Moderate concentric left ventricular hypertrophy. Moderate (2+) mitral regurgitation is present. Moderately dilated left atrium. Signature Findings Left Ventricle Left ventricular ejection fraction is visually estimated at 50-55%. Normal left ventricular size and function. Moderate concentric left ventricular hypertrophy. Right Ventricle Normal right ventricular chamber size and function. Left Atrium Moderately dilated left atrium. No evidence of patent foramen ovale. Right Atrium Normal right atrium size. Mitral Valve Mild thickening of both leaflet of mitral valve. Moderate (2+) mitral regurgitation is present. Tricuspid Valve Tricuspid valve is structurally normal. Mild tricuspid regurgitation . Aortic Valve Aortic valve leaflets are mildly thickened. Aortic valve appears to be tricuspid. No evidence of aortic valve regurgitation . Pulmonic Valve The pulmonic valve was not well visualized . Pericardial Effusion No evidence of significant pericardial effusion is noted. Aorta \ Miscellaneous Aortic root dimension within normal limits. M-Mode Measurements (cm) LVIDd: 4.76 cm LVIDs: 3.44 cm IVSd: 1.43 cm IVSs: 1.46 cm LVPWd: 1.44 cm LVPWs: 1.53 cm Rt. Vent. Dimension: 2.68 cm AO Root Dimension: 2.82 cm ACS: 1.9 cm LA: 5.04 cm LVOT: 1.94 cm Doppler Measurements: AV Velocity:0.02 m/s MV Peak E-Wave: 1.07 m/s AV Peak Gradient: 6.2 mmHg AV Mean Gradient: 3.32 mmHg MV P1/2t: 57.7 msec AV Area (Continuity):2.13 cm^2 MVA by PHT3.81 cm^2 TR Velocity:3.34 m/s Estimated RAP:3 mmHg TR Gradient:44.72 mmHg RVSP:47.72 mmHg Valves Mitral Valve Peak E-Wave: 1.07 m/s Peak Gradient: 4.61 mmHg P1/2t: 57.7 msec Area (continuity): 2.41 cm^2 Mean Velocity: 0.73 m/s MR VTI: 146.23 cm Mean Gradient: 2.43 mmHg Area (PHT): 3.81 cm^2 Area (PISA): 0.15 cm^2 MR Velocity: 5.8 m/s GHADA Volumetric: 0.15 cm^2 Aortic Valve Peak Velocity: 1.25 m/s Mean Velocity: 0.87 m/s Peak Gradient: 6.2 mmHg Mean Gradient: 3.32 mmHg Area (continuity): 2.13 cm^2 AV VTI: 22.16 cm Cusp Separation: 1.9 cm Tricuspid Valve Estimated RVSP: 47.72 mmHg Estimated RAP: 3 mmHg TR Velocity: 3.34 m/s TR Gradient: 44.72 mmHg Pulmonic Valve Estimated PASP: 47.72 mmHg LVOT Peak Velocity: 0.89 m/s Mean Velocity: 0.62 m/s Peak Gradient: 2.94 mmHg Mean Gradient: 1.7 mmHg LVOT Diameter: 1.94 cm LVOT VTI: 15.94 cm Structures Left Atrium LA Dimension: 5.04 cm LA Area: 32.14 cm^2 LA/Aorta: 1.79 LA Volume/Index: 95.26 ml /43 m^2 Left Ventricle Diastolic Dimension: 4.76 cm Systolic Dimension: 3.44 cm Septum Diastolic: 1.43 cm Septum Systolic: 1.46 cm PW Diastolic: 1.44 cm PW Systolic: 1.53 cm FS: 27.7 % LV EDV/LV EDV Index: 105.28 ml/48 m^2 LV ESV/LV ESV Index: 48.9 ml/22 m^2 EF Calculated: 53.6 % CI: 2.3 l/min*m^2 CO: 5.09 l/min LVOT Diameter: 1.94 cm Right Atrium RA Systolic Pressure: 3 mmHg Right Ventricle Diastolic Dimension: 2.68 cm RV Systolic Pres (more content not included)... MLOZ CPACS Result, Unknown Prov ider - 05/25/2022 Transthoracic Echocardiography Report (TTE) Demographics Patient Name MIRA PRAKASH Gender Male Patient Number [id number] Race Ethnicity Visit Number [id number] Room Number W177 Corporate ID Date of Study 05/25/2022 Accession Number [id number] Referring Physician Date of 1960 Cook Starch Mali Hidalgo Age 62 year(s) Interpreting [facility] Cardiology Physician Jamie Pathak Procedure Type of Study TTE procedure:ECHO COMPLETE 2D W/DOP W/COLOR. Procedure Date Date: 05/25/2022 Start: 09:36 AM Study Location: Portable Indications:Chest pain. Patient Status: Routine Height: 72 inches Weight: 218 pounds BSA: 2.21 m^2 BMI: 29.57 kg/m^2 HR: 108 bpm BP: 152/82 mmHg Conclusions Summary Left ventricular ejection fraction is visually estimated at 50-55%. Normal left ventricular size and function. Moderate concentric left ventricular hypertrophy. Moderate (2+) mitral regurgitation is present. Moderately dilated left atrium. Signature Findings Left Ventricle Left ventricular ejection fraction is visually estimated at 50-55%. Normal left ventricular size and function. Moderate concentric left ventricular hypertrophy. Right Ventricle Normal right ventricular chamber size and function. Left Atrium Moderately dilated left atrium. No evidence of patent foramen ovale. Right Atrium Normal right atrium size. Mitral Valve Mild thickening of both leaflet of mitral valve. Moderate (2+) mitral regurgitation is present. Tricuspid Valve Tricuspid valve is structurally normal. Mild tricuspid regurgitation . Aortic Valve Aortic valve leaflets are mildly thickened. Aortic valve appears to be tricuspid. No evidence of aortic valve regurgitation . Pulmonic Valve The pulmonic valve was not well visualized . Pericardial Effusion No evidence of significant pericardial effusion is noted. Aorta \ Miscellaneous Aortic root dimension within normal limits. M-Mode Measurements (cm) LVIDd: 4.76 cm LVIDs: 3.44 cm IVSd: 1.43 cm IVSs: 1.46 cm LVPWd: 1.44 cm LVPWs: 1.53 cm Rt. Vent. Dimension: 2.68 cm AO Root Dimension: 2.82 cm ACS: 1.9 cm LA: 5.04 cm LVOT: 1.94 cm Doppler Measurements: AV Velocity:0.02 m/s MV Peak E-Wave: 1.07 m/s AV Peak Gradient: 6.2 mmHg AV Mean Gradient: 3.32 mmHg MV P1/2t: 57.7 msec AV Area (Continuity):2.13 cm^2 MVA by PHT3.81 cm^2 TR Velocity:3.34 m/s Estimated RAP:3 mmHg TR Gradient:44.72 mmHg RVSP:47.72 mmHg Valves Mitral Valve Peak E-Wave: 1.07 m/s Peak Gradient: 4.61 mmHg P1/2t: 57.7 msec Area (continuity): 2.41 cm^2 Mean Velocity: 0.73 m/s MR VTI: 146.23 cm Mean Gradient: 2.43 mmHg Area (PHT): 3.81 cm^2 Area (PISA): 0.15 cm^2 MR Velocity: 5.8 m/s GHADA Volumetric: 0.15 cm^2 Aortic Valve Peak Velocity: 1.25 m/s Mean Velocity: 0.87 m/s Peak Gradient: 6.2 mmHg Mean Gradient: 3.32 mmHg Area (continuity): 2.13 cm^2 AV VTI: 22.16 cm Cusp Separation: 1.9 cm Tricuspid Valve Estimated RVSP: 47.72 mmHg Estimated RAP: 3 mmHg TR Velocity: 3.34 m/s TR Gradient: 44.72 mmHg Pulmonic Valve Estimated PASP: 47.72 mmHg LVOT Peak Velocity: 0.89 m/s Mean Velocity: 0.62 m/s Peak Gradient: 2.94 mmHg Mean Gradient: 1.7 mmHg LVOT Diameter: 1.94 cm LVOT VTI: 15.94 cm Structures Left Atrium LA Dimension: 5.04 cm LA Area: 32.14 cm^2 LA/Aorta: 1.79 LA Volume/Index: 95.26 ml /43 m^2 Left Ventricle Diastolic Dimension: 4.76 cm Systolic Dimension: 3.44 cm Septum Diastolic: 1.43 cm Septum Systolic: 1.46 cm PW Diastolic: 1.44 cm PW Systolic: 1.53 cm FS: 27.7 % LV EDV/LV EDV Index: 105.28 ml/48 m^2 LV ESV/LV ESV Index: 48.9 ml/22 m^2 EF Calculated: 53.6 % CI: 2.3 l/min*m^2 CO: 5.09 l/min LVOT Diameter: 1.94 cm Right Atrium RA Systolic Pressure: 3 mmHg Right Ventricle Diastolic Dimension: 2.68 cm RV Systolic Pressure: 47.72 mmHg Aorta/ Miscellaneous Aorta Aortic Root: 2.82 cm LVOT Diameter: 1.94 cm [employer] Work Phone: [employer] Phone: Ferritinon 05-25-2022 Ferritin [Mass/Vol] 123 ng/mL 30 - 400 ng/mL [facility] Comment on above: [employer] [address] [place], [place] [id number] ([phone] Iron and TIBCon 05-25-2022 Interpretation and review of laboratory results Abnormal [facility] Iron [Mass/Vol] 23 ug/dL Low 59 - 158 ug/dL [facility] Iron Saturation 11 % Low 20 - 55 % [facility] TIBC 219 ug/dL Low 250 - 450 ug/dL [facility] UIBC 196 ug/dL 112 - 347 ug/dL [facility] Comment on above: [employer] [address] [place] [address] ([phone] Magnesiumon 05-25-2022 Magnesium [Mass/Vol] 2.1 mg/dL 1.7 - 2 .4 mg/dL [facility] Microscopic Urinalysison Bacteria, UA Negative Negative /HPF [facility] Epithelial Cells, UA 0-2 [facility] Hyaline Casts, UA 0-1 [facility] Interpretation and review of laboratory results Abnormal [facility] RBC (U) [#/Vol] /uL High [facility] WBC, UA 0-2 [facility] No Panel Informationon 05-25 [facility] POCT Venouson 05-25-2022 Creatinine [Mass/Vol] 1 mg/dL 0.8 - 1.3 mg/dL [facility] GFR >60 60 - PINF [facility] Comment on above: >60 mL/min/1.73m2 EG FR, calc. for ages 18 and older using the MDRD formula (not corrected for weight), is valid for stable renal function. GFR Non- >60 60 - PINF [facility] Comment on above: >60 mL/min/1.73m2 EG FR, calc. for ages 18 and older using the MDRD formula (not corrected for weight), is valid for stable renal function. Performed on SEE BELOW [facility] Comment on above: Performed on POC Sample Type [place] [facility] Sedimentation Rateon 022 Interpretation and review of laboratory results Abnormal [facility] Sed Rate 82 mm High 0 - 20 mm [facility] Troponinon 05-25-2022 Interpretation and review of laboratory results Abnormal [facility] Troponin I.cardiac [Mass/Vol] 0.115 ng/mL Critically high 0.000 - 0.010 ng/mL [facility] Comment on above: Methodology by Renetta Childers. CALL Turner LC1W tel. [phone], trop results called to and read back by kenan stroud, 05/25/2022 06:39, by [facility] Interpretation and review of laboratory results Abnormal [facility] Troponin I.cardiac [Mass/Vol] 0.105 ng/mL Critically high 0.000 - 0.010 ng/mL [facility] Comment on above: Methodology by Renetta Childers. CALL Turner LC1W tel. [phone], trop results called to and read back by see roy, 05/25/2022 03:03, by [facility] Urinalysison 05-25-2022 Bilirubin Urine Negative Negative [facility] Blood, Urine LARGE Abnormal Negative [facility] Clarity, UA Clear Clear [facility] Color, UA ORANGE Abnormal Straw/Yello w [facility] Glucose, Ur Negative Negative mg/dL [facility] Interpretation and review of laboratory results Abnormal [facility] Ketones Ql (U) Negative Negative mg/dL [facility] Leukocyte esterase Test strip Ql (U) Negative Negative [facility] Nitrite, Urine Negative Negative [facility] pH, UA 7.0 5.0 - 9.0 [facility] Protein, UA Negative Negative mg/dL [facility] Specific [place], UA 1.019 1.005 - 1.030 [facility] Urobilinogen, Urine 0.2 [facility] Vitamin B12 & Folateon 05-25 Cobalamin (Vitamin B12) [Mass/Vol] 784 pg/mL 232 - 1245 pg/mL [facility] Folate 10.2 ng/mL 4.8 - PINF ng/mL [facility] Comment on above: [facility] [address] [place], [place] [id number] ([phone] [facility] XR FOOT LEFT (MIN 3 VIEWS)on 05-25-2022 Findings suggestive of 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 Severe Charcot arthropathy with rocker bottom foot deformity. [facility] EXAMINATION: THREE XRAY VIEWS OF THE LEFT FOOT 05/25/2022 4:33 pm COMPARISON: 04/18/2022 HISTORY: ORDERING SYSTEM PROVIDED HISTORY: r/o osteomyelitis. ulcer probes to bone to plantar foot and lateral 5th metatarsal TECHNOLOGIST PROVIDED HISTORY: Reason for exam:->r/o osteomyelitis. ulcer probes to bone to plantar foot and lateral 5th metatarsal What reading provider will be dictating this exam?->CRC FINDINGS: A large plantar foot ulcer is identified with soft tissue swelling. There is osteopenia of the 5th metatarsal head with loss of the cortical margin medially. No acute fracture is identified. Severe Charcot arthropathy of the midfoot is stable compared to the prior exam with rocker bottom foot deformity. Diffuse foot soft tissue swelling is seen. [facility] Luis Reyes MD - 05/25/2022 EXAMINATION: THREE XRAY VIEWS OF THE LEFT FOOT 05/25/2022 4:33 pm COMPARISON: 04/18/2022 HISTORY: ORDERING SYSTEM PROVIDED HISTORY: r/o osteomyelitis. ulcer probes to bone to plantar foot and lateral 5th metatarsal TECHNOLOGIST PROVIDED HISTORY: Reason for exam:->r/o osteomyelitis. ulcer probes to bone to plantar foot and lateral 5th metatarsal What reading provider will be dictating this exam?->CRC FINDINGS: A large plantar foot ulcer is identified with soft tissue swelling. There is osteopenia of the 5th metatarsal head with loss of the cortical margin medially. No acute fracture is identified. Severe Charcot arthropathy of the midfoot is stable compared to the prior exam with rocker bottom foot deformity. Diffuse foot soft tissue swelling is seen. IMPRESSION: Findings suggestive of 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 Severe Charcot arthropathy with rocker bottom foot deformity. [employer] Work Phone: Radiology Study observation (narrative) [employer] Work Phone: XR FOOT LEFT (MIN 3 VIEWS)Or dered By: Luis Reyes on 05-25-2022 [employer] Work Phone: CBC with Auto Differentialon 05-24-2022 Basophils (Bld) [#/Vol] 0.1 10*3/uL 0.0 - 0.2 K/uL [facility] Basophils/100 WBC (Bld) 1.1 % [facility] Eosinophils (Bld) [#/Vol] 0.1 10*3/uL 0.0 - 0.7 K/uL [facility] Eosinophils/100 WBC (Bld) 1.2 % [facility] Hematocrit (Bld) [Volume fraction] 34.6 % Low 42.0 - 52.0 % [facility] Hemoglobin (Bld) [Mass/Vol] 11.1 g/dL Low 14.0 - 18.0 g/dL [facility] Interpretation and review of laboratory results Abnormal [facility] Lymphocytes (Bld) [#/Vol] 0.9 10*3/uL Low 1.0 - 4.8 K/uL [facility] Lymphocytes/100 WBC (Bld) 7.8 % [facility] [employer] MCH (RBC) [Entitic mass] 24.1 pg Low 27.0 - 31.3 pg [facility] MCHC (RBC) [Mass/Vol] 32.0 % Low 33.0 - 37.0 % [facility] MCV (RBC) [Entitic vol] 75.2 fL Low 80.0 - 100.0 fL [facility] Monocytes (Bld) [#/Vol] 1.0 10*3/uL High 0.2 - 0.8 K/uL [facility] Monocytes/100 WBC (Bld) 7.9 % [facility] Neutrophils Absolute 9.9 K/uL High 1.4 - 6 .5 K/uL [facility] Neutrophils/100 WBC (Bld) 82.0 % [facility] Platelet distribution width (Bld) [Ratio] 14.3 % 11.5 - 14.5 % [facility] Platelets (Bld) [#/Vol] 453 10*3/uL High 130 - 400 K/uL [facility] RBC (Bld) [#/Vol] 4.61 10*6/uL Low [facility] WBC (Bld) [#/Vol] 12.1 10*3/uL High 4.8 - 10.8 K/uL [facility] CTA Chest W WO (PE study)on 05-24-2022 No evidence of pulmo nary embolism. Moderate bilateral pleural effusions with associated atelectasis. [facility] EXAMINATION: CTA OF THE CHEST WITH AND WITHOUT CONTRAST 05/24/2022 7:34 pm TECHNIQUE: CTA of the chest was performed before and after the administration of intravenous contrast. Multiplanar reformatted images are provided for review. MIP images are provided for review. Automated exposure control, iterative reconstruction, and/or weight based adjustment of the mA/kV was utilized to reduce the radiation dose to as low as reasonably achievable. COMPARISON: None. HISTORY: ORDERING SYSTEM PROVIDED HISTORY: sob with hx unilateral leg edema TECHNOLOGIST PROVIDED HISTORY: Reason for exam:->sob with hx unilateral leg edema Decision Support Exception - unselect if not a suspected or confirmed emergency medical condition->Emergency Medical Condition (MA) What reading provider will be dictating this exam?->CRC FINDINGS: Pulmonary Arteries: Pulmonary arteries are adequately opacified for evaluation. No evidence of intraluminal filling defect to suggest pulmonary embolism. Main pulmonary artery is normal in caliber. Mediastinum: No evidence of mediastinal lymphadenopathy. The heart and pericardium demonstrate no acute abnormality. There is no acute abnormality of the thoracic aorta. Lungs/pleura: There are moderate bilateral pleural effusions with associated atelectasis. No focal consolidation or mitch edema. No pneumothorax. Upper Abdomen: Limited images of the upper abdomen are unremarkable. Soft Tissues/Bones: No acute bone or soft tissue abnormality. [facility] Britney Garcia MD - 05/24/2022 EXAMINATION: CTA OF THE CHEST WITH AND WITHOUT CONTRAST 05/24/2022 7:34 pm TECHNIQUE: CTA of the chest was performed before and after the administration of intravenous contrast. Multiplanar reformatted images are provided for review. MIP images are provided for review. Automated exposure control, iterative reconstruction, and/or weight based adjustment of the mA/kV was utilized to reduce the radiation dose to as low as reasonably achievable. COMPARISON: None. HISTORY: ORDERING SYSTEM PROVIDED HISTORY: sob with hx unilateral leg edema TECHNOLOGIST PROVIDED HISTORY: Reason for exam:->sob with hx unilateral leg edema Decision Support Exception - unselect if not a suspected or confirmed emergency medical condition->Emergency Medical Condition (MA) What reading provider will be dictating this exam?->CRC FINDINGS: Pulmonary Arteries: Pulmonary arteries are adequately opacified for evaluation. No evidence of intraluminal filling defect to suggest pulmonary embolism. Main pulmonary artery is normal in caliber. Mediastinum: No evidence of mediastinal lymphadenopathy. The heart and pericardium demonstrate no acute abnormality. There is no acute abnormality of the thoracic aorta. Lungs/pleura: There are moderate bilateral pleural effusions with associated atelectasis. No focal consolidation or mitch edema. No pneumothorax. Upper Abdomen: Limited images of the upper abdomen are unremarkable. Soft Tissues/Bones: No acute bone or soft tissue abnormality. IMPRESSION: No evidence of pulmonary embolism. Moderate bilateral pleural effusions with associated atelectasis. [employer] Work Phone: Radiology Study observation (narrative) [employer] Phone: CTA Chest W WO (PE study)Ord ered By: Britney Garcia on 05-24-2022 [employer] Work Phone: Comprehensive Metabolic Pane franklin 05-24-2022 Albumin [Mass/Vol] 3.8 g/dL 3.5 - 4.6 g/dL [employer] ALP (Bld) [Catalytic activity/Vol] 130 U/L High 35 - 104 U/L [employer] ALT [Catalytic activity/Vol] 21 U/L 0 - 41 U/L [employer] Anion gap [Moles/Vol] 11 mmol/L [employer] AST [Catalytic activity/Vol] 23 U/L 0 - 40 U/L [facility] Bilirubin [Mass/Vol] 0.3 mg/dL 0.2 - 0 .7 mg/dL [facility] Calcium [Mass/Vol] 8.9 mg/dL 8.5 - 9.9 mg/dL [facility] Chloride [Moles/Vol] 100 mmol/L [facility] CO2 [Moles/Vol] 25 mmol/L [facility] Creatinine [Mass/Vol] 0.96 mg/dL 0.70 - 1.20 mg/dL [facility] GFR >60.0 60 - PINF [facility] Comment on above: >60 mL/min/1.73m2 EG FR, calc. for ages 18 and older using the MDRD formula (not corrected for weight), is valid for stable renal function. GFR Non- >60.0 60 - PINF [facility] Comment on above: >60 mL/min/1.73m2 EG FR, calc. for ages 18 and older using the MDRD formula (not corrected for weight), is valid for stable renal function. Globulin (S) [Mass/Vol] 4.1 g/dL High 2.3 - 3.5 g/dL [facility] Glucose [Mass/Vol] 119 mg/dL High 70 - 99 mg/dL [facility] Interpretation and review of laboratory results Abnormal [facility] Potassium [Moles/Vol] 4.3 mmol/L [facility] Protein [Mass/Vol] 7.9 g/dL 6.3 - 8.0 g/dL [facility] Sodium [Moles/Vol] 136 mmol/L [facility] Urea nitrogen (BldV) [Mass/Vol] 12 mg/dL 8 - 23 mg/dL [facility] Magnesiumon 05-24-2022 Magnesium [Mass/Vol] 2.2 mg/dL 1.7 - 2 .4 mg/dL [facility] No Panel Informationon 05-24 CALL Johnny HAYDEN tel. [phone], TROP results called to and read back by Vanessa GAMBINO RN, 05/24/2022 20:01, by [facility] POCT CREATININEOrdered By: Fahad Ashby on 05-24-2022 Interpretation and review of laboratory results Normal [facility] POC CREATININE WHOLE BLOOD 1.0 [facility] TSHon 05-24-2022 TSH Qn 1.230 m[IU]/L [facility] Troponinon 05-24-2022 Interpretation and review of laboratory results Abnormal [facility] Troponin I.cardiac [Mass/Vol] 0.118 ng/mL Critically high 0.000 - 0.010 ng/mL [facility] Comment on above: Methodology by Renetta Preston US DUP LOWER EXTREMITY LEFT VENon 05-24-2022 No evidence of DVT i n the left lower extremity. RECOMMENDATIONS: Unavailable [facility] EXAMINATION: DUPLEX VENOUS ULTRASOUND OF THE LEFT LOWER EXTREMITY 05/24/2022 7:08 pm TECHNIQUE: Duplex ultrasound using B-mode/hewitt scaled imaging and Doppler spectral analysis and color flow was obtained of the deep venous structures of the left lower extremity. COMPARISON: None. HISTORY: ORDERING SYSTEM PROVIDED HISTORY: leg swelling with sob TECHNOLOGIST PROVIDED HISTORY: Reason for exam:->leg swelling with sob What reading provider will be dictating this exam?->CRC FINDINGS: The visualized veins of the left lower extremity are patent and free of echogenic thrombus. The veins demonstrate good compressibility with normal color flow study and spectral analysis. [facility] Donato Rangel MD - 05/24/2022 EXAMINATION: DUPLEX VENOUS ULTRASOUND OF THE LEFT LOWER EXTREMITY 05/24/2022 7:08 pm TECHNIQUE: Duplex ultrasound using B-mode/hewitt scaled imaging and Doppler spectral analysis and color flow was obtained of the deep venous structures of the left lower extremity. COMPARISON: None. HISTORY: ORDERING SYSTEM PROVIDED HISTORY: leg swelling with sob TECHNOLOGIST PROVIDED HISTORY: Reason for exam:->leg swelling with sob What reading provider will be dictating this exam?->CRC FINDINGS: The visualized veins of the left lower extremity are patent and free of echogenic thrombus. The veins demonstrate good compressibility with normal color flow study and spectral analysis. IMPRESSION: No evidence of DVT in the left lower extremity. RECOMMENDATIONS: Unavailable [employer] Phone: Radiology Study observation (narrative) [employer] Phone: US DUP LOWER EXTREMITY LEFT VENOrdered By: Donato Rangel on 05-24-2022 [employer] Phone: XR FOOT LEFT (MIN 3 VIEWS)on 04-18-2022 There are degenerati ve changes with destruction of the tarsometatarsal joints worrisome for a neuropathic foot. There is plantar soft tissue swelling consistent with the given history of an ulcer. [facility] EXAMINATION: XR FOOT LEFT (MIN 3 VIEWS), 04/18/2022 12:14 PM CLINICAL HISTORY: L97.529 Ulcer of left foot, unspecified ulcer stage (HCC) ICD10 COMPARISON: None TECHNIQUE: 3 views LEFT FOOT FINDINGS: There are no lytic or sclerotic bone lesions. There are enthesophytes of the insertion of the Achilles tendon and there is a plantar calcaneal spur. There are erosions, destruction of the metatarsophalangeal joints worrisome for a neuropathic foot. There is soft tissue swelling of the plantar surface consistent with given history of ulcer. There are no radiopaque foreign bodies in the soft tissues. [facility] Heron Diggs MD - 04/18/2022 EXAMINATION: XR FOOT LEFT (MIN 3 VIEWS), 04/18/2022 12:14 PM CLINICAL HISTORY: L97.529 Ulcer of left foot, unspecified ulcer stage (HCC) ICD10 COMPARISON: None TECHNIQUE: 3 views LEFT FOOT FINDINGS: There are no lytic or sclerotic bone lesions. There are enthesophytes of the insertion of the Achilles tendon and there is a plantar calcaneal spur. There are erosions, destruction of the metatarsophalangeal joints worrisome for a neuropathic foot. There is soft tissue swelling of the plantar surface consistent with given history of ulcer. There are no radiopaque foreign bodies in the soft tissues. IMPRESSION: There are degenerative changes with destruction of the tarsometatarsal joints worrisome for a neuropathic foot. There is plantar soft tissue swelling consistent with the given history of an ulcer. [employer] Phone: Radiology Study observation (narrative) [employer] Phone: XR FOOT LEFT (MIN 3 VIEWS)Or dered By: Heron Diggs on 04-18-2022 [employer] Phone: XR LUMBAR SPINE (2-3 VIEWS)o n 01-29-2022 Status post L4 posterior decompression with L4-5 discectomy, spacer placement and posterior fusion. There are no acute osseous changes. [facility] EXAMINATION: XR LUMBAR SPINE (2-3 VIEWS) CLINICAL HISTORY: M43.17 Acquired spondylolisthesis of lumbosacral region ICD10 COMPARISONS: None available. TECHNIQUE: LUMBAR SPINE FINDINGS: There are no lytic or sclerotic bone lesions. There is no fracture or subluxation, there is no loss of vertebral body height. Status post L4-5 discectomy and spacer placement with posterior fusion. Status post L4 posterior decompression. There is severe joint space narrowing and vacuum joint phenomena at L2-3. There is mild joint space narrowing at the remaining levels. The spine is in anatomic alignment. The SI joints are symmetric. The prevertebral soft tissues are within normal limits. 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 TECHNIQUE: LUMBAR SPINE FINDINGS: There are no lytic or sclerotic bone lesions. There is no fracture or subluxation, there is no loss of vertebral body height. Status post L4-5 discectomy and spacer placement with posterior fusion. Status post L4 posterior decompression. There is severe joint space narrowing and vacuum joint phenomena at L2-3. There is mild joint space narrowing at the remaining levels. The spine is in anatomic alignment. The SI joints are symmetric. The prevertebral soft tissues are within normal limits. 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 There are no acute osseous changes. [employer] Phone: Radiology Study observation (narrative) [facility] Work Phone: XR LUMBAR SPINE (2-3 VIEWS)O rdered By: Heron Diggs on 01-29-2022 [facility] [employer] Work Phone: Basic Metabolic Panelon 05-2 Anion gap [Moles/Vol] 14 mmol/L [facility] Calcium [Mass/Vol] 8.9 mg/dL 8.5 - 9.9 mg/dL [facility] Chloride [Moles/Vol] 98 mmol/L [facility] CO2 [Moles/Vol] 26 mmol/L [facility] Creatinine [Mass/Vol] 0.66 mg/dL Low 0.70 - 1.20 mg/dL [facility] GFR >60.0 >60 [facility] Comment on above: >60 mL/min/1.73m2 EG FR, calc. for ages 18 and older using the MDRD formula (not corrected for weight), is valid for stable renal function. GFR Non- >60.0 >60 [facility] Comment on above: >60 mL/min/1.73m2 EG FR, calc. for ages 18 and older using the MDRD formula (not corrected for weight), is valid for stable renal function. Glucose [Mass/Vol] 68 mg/dL Low 70 - 99 mg/dL [facility] Interpretation and review of laboratory results Abnormal [facility] Potassium [Moles/Vol] 3.4 mmol/L [facility] Sodium [Moles/Vol] 138 mmol/L [facility] Urea nitrogen (BldV) [Mass/Vol] 9 mg/dL 8 - 23 mg/dL [facility] CBCon 01-05-2022 Hematocrit (Bld) [Volume fraction] 44.9 % 42.0 - 52.0 % [facility] Hemoglobin.gastrointe stinal spec 1 Ql (Stl) 15.1 g/dL 14.0 - 18.0 g/dL [facility] MCH (RBC) [Entitic mass] 27.9 pg 27.0 - 31.3 pg [facility] MCHC (RBC) [Mass/Vol] 33.5 % 33.0 - 37.0 % [facility] MCV (RBC) [Entitic vol] 83.0 fL 80.0 - 100.0 fL [facility] Platelet distribution width (Bld) [Ratio] 13.3 % 11.5 - 14.5 % [facility] Platelets (Bld) [#/Vol] 247 10*3/uL 130 - 400 K/uL [facility] RBC (Bld) [#/Vol] 5.41 10*6/uL [facility] WBC (Bld) [#/Vol] 5.6 10*3/uL 4.8 - 10.8 K/uL [facility] EKG 12 LeadOrdered By: Unkno wn Result on 01-05-2022 Atrial Rate 80 BPM [facility] P [place] 59 degrees [facility] P-R Interval 158 ms [facility] Q-T Interval 396 ms [facility] QRS Duration 90 ms [facility] QTc Calculation (Bazett) 456 ms [facility] R [place] 36 degrees [facility] T [place] 64 degrees [facility] Ventricular Rate 80 BPM [facility] EKG 12 Leadon 01-05-2022 Normal sinus rhythm Normal ECG No previous ECGs available Confirmed by Manuel Garces ([id number]) on 01/05/2022 3:46:38 PM [facility] MUSE Result, Unknown Prov ider - 01/05/2022 Normal sinus rhythm Normal ECG No previous ECGs available Confirmed by Manuel Garces ([id number]) on 01/05/2022 3:46:38 PM [facility] Work Phone: Protime-INRon 01-05-2022 INR Coag (Bld) [Relative time] 1.0 {INR} [facility] PT Coag (PPP) [Time] 13.1 s [facility] TYPE AND SCREENon 01-05-2022 ABO/Rh Positive [facility] XR LUMBAR SPINE (MIN 4 VIEWS )on 09-21-2021 EXAMINATION: XR LUMB AR SPINE (MIN 4 VIEWS) HISTORY: Spinal stenosis of the lumbar region with neurogenic claudication. COMPARISONS: Lumbar spine radiographs August 06, 2012 TECHNIQUE: AP, lateral, bilateral oblique views of the lumbar spine and AP and lateral coned-down views of the lumbosacral junction. FINDINGS: There are 6 nonrib-bearing lumbar-type vertebral bodies as depicted on lumbar spine MRI performed the same date. Grade 1 anterolisthesis of L5 on L6. Lumbar vertebral body heights are maintained. Mild multilevel intervertebral disc height loss. Multilevel facet arthropathy. Multilevel degenerative endplate changes with spurring. Mild levoscoliosis. [facility] [place], DO - 09/21/2021 EXAMINATION: XR LUMBAR SPINE (MIN 4 VIEWS) HISTORY: Spinal stenosis of the lumbar region with neurogenic claudication. COMPARISONS: Lumbar spine radiographs August 06, 2012 TECHNIQUE: AP, lateral, bilateral oblique views of the lumbar spine and AP and lateral coned-down views of the lumbosacral junction. FINDINGS: There are 6 nonrib-bearing lumbar-type vertebral bodies as depicted on lumbar spine MRI performed the same date. Grade 1 anterolisthesis of L5 on L6. Lumbar vertebral body heights are maintained. Mild multilevel intervertebral disc height loss. Multilevel facet arthropathy. Multilevel degenerative endplate changes with spurring. Mild levoscoliosis. IMPRESSION: Degenerative changes of the lumbar spine have progressed since prior radiographs August 06, 2012 [employer] Phone: XR LUMBAR SPINE (MIN 4 VIEWS )Ordered By: Chase Chahal on 09-21-2021 [employer] Phone: XR LUMBAR SPINE (MIN 4 VIEWS )on 09-19-2021 Radiology Study observation (narrative) [employer] Phone: US DUP LOWER EXTREMITY LEFT VENon 11-07-2020 NO LEFT LOWER EXTREM ITY DVT IDENTIFIED. [employer] Phone: US DUP LOWER EXTREMI TY LEFT [place] : 11/07/2020 CLINICAL HISTORY: M79.89 Swelling of limb ICD10. COMPARISON: None available. Grayscale, compression, color and waveform Doppler analysis of the left lower extremity deep venous system was performed with augmentation. FINDINGS: There is no deep venous thrombosis, abnormal masses, organized fluid collections or other findings of concern identified within the left lower extremity. [facility] Work Phone: Deon, Chpo Incoming Radiant Results From [employer] - 11/07/2020 5:38 PM EDT US DUP LOWER EXTREMITY LEFT BR[place] : 11/07/2020 CLINICAL HISTORY: M79.89 Swelling of limb ICD10. COMPARISON: None available. Grayscale, compression, color and waveform Doppler analysis of the left lower extremity deep venous system was performed with augmentation. FINDINGS: There is no deep venous thrombosis, abnormal masses, organized fluid collections or other findings of concern identified within the left lower extremity. IMPRESSION: NO LEFT LOWER EXTREMITY DVT IDENTIFIED. [employer] Phone: Otheron 03-16-2020 XR Knee 4 views Interpreted by: BAY RENTERIA03/16/20 08:27MRN: [id number] Name: MACARENA COLEMAN STUDY:KNEE; COMPLT, 4 OR MORE VIEWS; Right; 03/16/2020 8:24 am INDICATION:pain. ORDERING CLINICIAN:ROMERO RENTERIA FINDINGS:Right knee weightbearing four views severe medial compartmentarthritis with bone on bone articulation varus deformity marginalosteophyte no signs of fracture dislocation or other bonyabnormalities Electronically signed by: ROMERO RENTERIA 03/16/20 08:27 [facility] Work Phone: CNCOon 10-27-2018 [facility] Letter Text Normal [facility] Basic Metabolic Panelon 09-0 Anion gap 3 molar conc 10 mmol/L Normal 10-20 [facility] Comment on above: Performed By: #### 1 [id number] ####[facility] [address] [place] [address] Calcium mass conc 9.2 mg/dL Normal 8.6-10.3 [facility] Comment on above: Performed By: #### 1 694224 ####[facility] Fin[address] [facility] [place] [address] Chloride molar conc 103 mmol/L Normal 98-107 [facility] Comment on above: Performed By: #### 1 975796 ####[facility] N[address] [place] [address] Creatinine mass conc 0.70 mg/dL Normal 0.50-1.30 [facility] Comment on above: Performed By: #### 1 392794 ####[facility] Ytj188 [facility] [place] [address] GFR/1.73 sq M.predicted MDRD vol rate/area mL/min/{1.73_m2} Normal [facility] Comment on above: Result Comment: Inte rpretation for Chronic Kidney Disease:Stages 1&2 >60 Healthy or potential kidney damage.Mild decrease of GFR.Stage 3 30-59 Moderate decrease of GFR.Stage 4 15-29 Severe decrease of GFR.Stage 5 <15 Kidney failure or on dialysis. Performed By: #### 1 838749 ####[facility] Eyh[address] [facility] [place] [address] Glucose mass conc 99 mg/dL Normal 70-100 [facility] Comment on above: Performed By: #### 1 801843 ####[facility] Ugq[address] [place] [address] HCO3 molar conc (Bld) 30 mmol/L Normal 21-32 [facility] Comment on above: Performed By: #### 1 844801 ####[facility] Rhh[address] [place] [address] Potassium molar conc 3.8 mmol/L Normal 3.5-5.1 [facility] Comment on above: Performed By: #### 1 527410 ####[facility] Tr[address] [facility] [place] [address] Sodium molar conc 139 mmol/L Normal 136-145 [facility] Comment on above: Performed By: #### 1 599301 ####[facility] Tcd[address] [place] [address] Urea nitrogen mass conc 9 mg/dL Normal 6-23 [facility] Comment on above: Performed By: #### 1 957191 ####[facility] [address] [place] [address] Urea nitrogen/Creatinine mass ratio 13 mg/mg Normal 5-25 [facility] Comment on above: Performed By: #### 1 223145 ####[facility] Rnc[address] [facility] [place] [address] Lipid Panelon 02-11-2018 Cholesterol in HDL mass conc 46 mg/dL Normal [facility] Comment on above: Result Comment: Norm al Mod Risk High Risk5-9 >48 42-48 <4210- 14 >45 40-45 <4015-19 >38 34-38 <34Adult >39 Performed By: #### 1 955239 ####[address] [place] [address] Cholesterol in LDL mass conc 82 mg/dL Normal <130 [facility] Comment on above: Performed By: #### 1 216133 ####[address] [place] [address] Cholesterol in VLDL mass conc 20 mg/dL Normal <30 [facility] Comment on above: Performed By: #### 1 834788 ####[address] [place] [address] Cholesterol mass conc 148 mg/dL Normal <200 [facility] Comment on above: Performed By: #### 1 301152 ####[address] [place] [address] Cholesterol.total/Cho lesterol in HDL mass ratio 3.2 {ratio} Normal [facility] Comment on above: Performed By: #### 1 333662 ####[address] [place] [address] Triglyceride mass conc 98 mg/dL Normal <150 [facility] Comment on above: Result Comment: 150- 199 Borderline [id number] High>500 Very High Performed By: #### 1 349640 ####[address] [place] [address] CBC With Differentialon 07 Basophils Auto #/vol (Bld) 0.11 10*3/uL High 0.01-0.09 [facility] Comment on above: Performed By: #### 2 561482 ####[facility] [address] [place] [address] Basophils/100 WBC Auto (Bld) 1.3 % Normal 0.0-1.3 [facility] Comment on above: Performed By: #### 2 967451 ####[facility] [address] [place] [address] Eosinophils Auto #/vol (Bld) 0.13 10*3/uL Normal 0.01-0.46 [facility] Comment on above: Performed By: #### 2 691474 ####[facility] [address] [place] [address] Eosinophils/100 WBC Auto (Bld) 1.5 % Normal 0.0-6.7 [facility] Comment on above: Performed By: #### 2 248570 ####[facility] [address] [place] [address] Erythrocyte distribution width Auto Ratio (RBC) 12.3 % Normal 12.0-15.4 [facility] Comment on above: Performed By: #### 2 103003 ####[facility] Q[address] [place] [address] Hematocrit Auto Volume Fraction (Bld) 45.9 % Normal 38.4-54.9 [facility] Comment on above: Performed By: #### 2 937401 ####[facility] [address] [place] [address] Hemoglobin mass conc (Bld) 15.8 g/dL Normal 12.8-17.7 [facility] Comment on above: Performed By: #### 2 380531 ####[facility] [address] [place] [address] Imm Grans Absolute 0.03 10*3/uL Normal 0.00-0.21 [facility] Comment on above: Performed By: #### 2 181479 ####[facility] X[address] [place] [address] Immature granulocytes #/vol (Bld) 0.3 % Normal [facility] Comment on above: Performed By: #### 2 110829 ####[facility] Zjd[address] [facility] [place] [address] Lymphocytes Auto #/vol (Bld) 1.22 10*3/uL Normal 0.40-2.84 [facility] Comment on above: Performed By: #### 2 [id number] ####[facility] [address] [place] [address] Lymphocytes/100 WBC Auto (Bld) 14.1 % Normal 9.4-41.1 [facility] Comment on above: Performed By: #### 2 [id number] ####[facility] [address] [place] [address] MCH Auto Entitic mass (RBC) 28.9 pg Normal 27.5-32.9 [facility] Comment on above: Performed By: #### 2 [id number] ####[facility] [address] [place] [address] MCHC Auto mass conc (RBC) 34.4 g/dL Normal 30.5-35.4 [facility] Comment on above: Performed By: #### 2 258823 ####[facility] [address] [place] [address] MCV Auto Entitic volume (RBC) 83.9 fL Normal 83.3-98.2 [facility] Comment on above: Performed By: #### 2 [id number] ####[facility] [address] [place] [address] Monocytes Auto #/vol (Bld) 0.60 10*3/uL Normal 0.25-1.33 [facility] Comment on above: Performed By: #### 2 [id number] ####[facility] [address] [place] [address] Monocytes/100 WBC Auto (Bld) 6.9 % Normal 3.0-16.2 [facility] Comment on above: Performed By: #### 2 [id number] ####[facility] Qix[address] [facility] [place] [address] Neutrophils Absolute 6.55 10*3/uL Normal 2.22-7.53 [facility] Comment on above: Performed By: #### 2 303617 ####[facility] Pnl[address] [facility] [place] [address] Neutrophils/100 WBC Auto (Bld) 75.9 % Normal 46.2-79.1 [facility] Comment on above: Performed By: #### 2 131663 ####[facility] Fcj[address] [facility] [place] [address] NRBC Absolute 0.00 10*3/uL Normal [facility] Comment on above: Performed By: #### 2 535287 ####[facility] Ubk[address] [facility] [place] [address] NRBC Automated 0.0 /100{WBCs} Normal [facility] Comment on above: Performed By: #### 2 971104 ####[facility] Goz[address] [facility] [place] [address] Platelet mean volume Auto Entitic volume (Bld) 9.6 fL Low 9.9-12.1 [facility] Comment on above: Performed By: #### 2 946726 ####[facility] Vfv[address] [facility] [place] [address] Platelets Auto #/vol (Bld) 241 10*3/uL Normal 155-404 [facility] Comment on above: Performed By: #### 2 027618 ####[facility] Bwx[address] [facility] [place] [address] RBC Auto #/vol (Bld) 5.47 10*6/uL Normal 4.08-6.37 [facility] Comment on above: Performed By: #### 2 166522 ####[facility] [address] [place] [address] RDW SD 37.7 fL Low 39.3-48.6 [facility] Comment on above: Performed By: #### 2 068443 ####[facility] [address] [place] [address] WBC Auto #/vol (Bld) 8.6 10*3/uL Normal 4.2-11.0 [facility] Comment on above: Performed By: #### 2 979956 ####[facility] [address] [place] [address] Comprehensive Metabolic Pane franklin 02-10-2018 Albumin mass conc 4.5 g/dL Normal 3.4-5.0 [facility] Comment on above: Performed By: #### 1 305125 ####[facility] I[address] [place] [address] Albumin/Globulin mass ratio 1.5 {ratio} Normal 0.9-2.4 [facility] Comment on above: Performed By: #### 1 887635 ####[facility] Val[address] [facility] [place] [address] ALP enzyme act/vol 90 U/L Normal 45-117 [facility] Comment on above: Performed By: #### 1 917521 ####[facility] Agh[address] [facility] [place] [address] ALT enzyme act/vol 29 U/L Normal 10-52 [facility] Comment on above: Performed By: #### 1 075703 ####[facility] Eqj[address] [facility] [place] [address] Anion gap 3 molar conc 14 mmol/L Normal 10-20 [facility] Comment on above: Performed By: #### 1 680698 ####[facility] Ivj[address] [facility] [place] [address] AST enzyme act/vol 26 U/L Normal 13-39 [facility] Comment on above: Performed By: #### 1 733280 ####[facility] Hgo[address] [facility] [place] [address] Bilirubin mass conc 0.7 mg/dL Normal 0.0-1.2 [facility] Comment on above: Performed By: #### 1 258060 ####[facility] Ial[address] [place] [address] Calcium mass conc 9.3 mg/dL Normal 8.6-10.3 [facility] Comment on above: Performed By: #### 1 374872 ####[facility] [address] [place] [address] Chloride molar conc 100 mmol/L Normal 98-107 [facility] Comment on above: Performed By: #### 1 030009 ####[facility] Kim[address] [facility] [place] [address] Creatinine mass conc 0.73 mg/dL Normal 0.50-1.30 [facility] Comment on above: Performed By: #### 1 833573 ####[facility] Ytb[address] [facility] [place] [address] GFR/1.73 sq M.predicted MDRD vol rate/area mL/min/{1.73_m2} Normal [facility] Comment on above: Result Comment: Inte rpretation for Chronic Kidney Disease:Stages 1&2 >60 Healthy or potential kidney damage.Mild decrease of GFR.Stage 3 30-59 Moderate decrease of GFR.Stage 4 15-29 Severe decrease of GFR.Stage 5 <15 Kidney failure or on dialysis. Performed By: #### 1 411281 ####[facility] Muh[address] [facility] [place] [address] Glucose mass conc 87 mg/dL Normal 70-100 [facility] Comment on above: Performed By: #### 1 774728 ####[facility] Fwf904 [facility] [place] [address] HCO3 molar conc (Bld) 31 mmol/L Normal 21-32 [facility] Comment on above: Performed By: #### 1 942143 ####[facility] Wq[address] [place] [address] Potassium molar conc 3.4 mmol/L Low 3.5-5.1 [facility] Comment on above: Performed By: #### 1 409021 ####[facility] I[address] [place] [address] Protein mass conc 7.6 g/dL Normal 6.4-8.2 [facility] Comment on above: Performed By: #### 1 614892 ####[facility] Hxs[address] [facility] [place] [address] Sodium molar conc 142 mmol/L Normal 136-145 [facility] Comment on above: Performed By: #### 1 281450 ####[facility] Vvt[address] [facility] [place] [address] Urea nitrogen mass conc 8 mg/dL Normal 6-23 [facility] Comment on above: Performed By: #### 1 509049 ####[facility] Neo[address] [facility] [place] [address] Urea nitrogen/Creatinine mass ratio 11 mg/mg Normal 5-25 [facility] Comment on above: Performed By: #### 1 492174 ####[facility] Twr[address] [facility] [place] [address] LDL Cholesterolon 02-10-2018 Cholesterol in LDL mass conc 97 mg/dL Normal <129 [facility] Comment on above: Performed By: #### 1 870975 ####[facility] Ebn[address] [facility] [place] [address] Prostate Specific Antigen, T otalon 02-10-2018 Protein mass conc 0.7 ng/mL Normal 0.0-4.0 [facility] Comment on above: Result Comment: 5-Al pha Reductase Inhibitors (e.g. Proscar,Finasteride, Avodart, Dutasteride and Casi)may falsely decrease serum total PSA by 50%.To achieve the corrected value, the reportedPSA should be multiplied X 2. Performed By: #### 1 437525 ####[facility] Vzs[address] [facility] [place] [address] Urinalysison 02-10-2018 Appearance Clear Normal Clear [facility] Comment on above: Performed By: #### 1 983386 ####[facility] Mpi[address] [facility] [place] [address] Ascorbic Acid Negative Normal Negative [facility] Comment on above: Performed By: #### 1 705848 ####[facility] Kxz[address] [facility] [place] [address] Automated Urine Microscopy Not indicated Normal [facility] Comment on above: Performed By: #### 1 966153 ####[facility] Yxw[address] [place] [address] Bilirubin Negative Normal Negative [facility] Comment on above: Performed By: #### 1 406432 ####[facility] Gfk[address] [facility] [place] [address] Blood Negative Normal Negative [facility] Comment on above: Performed By: #### 1 148659 ####[facility] [address] [place] [address] Color Yellow Normal [facility] Comment on above: Performed By: #### 1 722094 ####[facility] [address] [place] [address] Glucose Negative Normal Negative [facility] Comment on above: Performed By: #### 1 526590 ####[facility] [address] [place] [address] Ketones Negative Normal Negative [facility] Comment on above: Performed By: #### 1 113047 ####[facility] [address] [place] [address] Leukocytes Esterase Negative Normal Negative [facility] Comment on above: Performed By: #### 1 171197 ####[facility] [address] [facility] [place] [address] Nitrite Negative Normal Negative [facility] Comment on above: Performed By: #### 1 900068 ####[facility] [address] [place] [address] pH 7.0 Normal 5.0-9.0 [facility] Comment on above: Performed By: #### 1 438782 ####[facility] [address] [place] [address] Protein mass conc Negative Normal Negative [facility] Comment on above: Performed By: #### 1 232419 ####[facility] [address] [facility] [place] [address] Specific [place] 1.013 Normal 1.003-1.035 [facility] Comment on above: Performed By: #### 1 451418 ####[facility] [address] [place] [address] Urobilinogen <2.0 Normal Negative [facility] Comment on above: Performed By: #### 1 096165 ####[facility] [address] [place] [address] CBC With Differentialon 08-12 Basophils Auto #/vol (Bld) 0.09 10*3/uL Normal 0.01-0.09 [facility] Comment on above: Performed By: #### 2 227987 ####[address] [address] Basophils/100 WBC Auto (Bld) 1.2 % Normal 0.0-1.3 [facility] Comment on above: Performed By: #### 2 265516 ####[address] [address] Eosinophils Auto #/vol (Bld) 0.28 10*3/uL Normal 0.01-0.46 [facility] Comment on above: Performed By: #### 2 714349 ####[address] [address] Eosinophils/100 WBC Auto (Bld) 3.6 % Normal 0.0-6.7 [facility] Comment on above: Performed By: #### 2 507701 ####[address] [address] Erythrocyte distribution width Auto Ratio (RBC) 12.3 % Normal 12.0-15.4 [facility] Comment on above: Performed By: #### 2 695985 ####[address] [address] Hematocrit Auto Volume Fraction (Bld) 45.8 % Normal 38.4-54.9 [facility] Comment on above: Performed By: #### 2 813831 ####[address] [address] Hemoglobin mass conc (Bld) 15.4 g/dL Normal 12.8-17.7 [facility] Comment on above: Performed By: #### 2 526747 ####[address] [address] Imm Grans Absolute 0.02 10*3/uL Normal 0.00-0.21 [facility] Comment on above: Performed By: #### 2 955886 ####[address] [address] Immature granulocytes #/vol (Bld) 0.3 % Normal [facility] Comment on above: Performed By: #### 2 005369 ####[facility] [address] [place] [address] Lymphocytes Auto #/vol (Bld) 1.57 10*3/uL Normal 0.40-2.84 [facility] Comment on above: Performed By: #### 2 164857 ####[facility] [address]tp[address] [place] [address] Lymphocytes/100 WBC Auto (Bld) 20.3 % Normal 9.4-41.1 [facility] Comment on above: Performed By: #### 2 585180 ####[facility] [address] [place] [address] MCH Auto Entitic mass (RBC) 28.2 pg Normal 27.5-32.9 [facility] Comment on above: Performed By: #### 2 236698 ####[facility] D[address] [place] [address] MCHC Auto mass conc (RBC) 33.6 g/dL Normal 30.5-35.4 [facility] Comment on above: Performed By: #### 2 132667 ####[facility] X[address] [place] [address] MCV Auto Entitic volume (RBC) 83.7 fL Normal 83.3-98.2 [facility] Comment on above: Performed By: #### 2 567132 ####[facility] Xvs[address] [place] [address] Monocytes Auto #/vol (Bld) 0.68 10*3/uL Normal 0.25-1.33 [facility] Comment on above: Performed By: #### 2 802004 ####[facility] R[address] [place] [address] Monocytes/100 WBC Auto (Bld) 8.8 % Normal 3.0-16.2 [facility] Comment on above: Performed By: #### 2 [id number] ####[facility] [address] [place] [address] Neutrophils Absolute 5.11 10*3/uL Normal 2.22-7.53 [facility] Comment on above: Performed By: #### 2 [id number] ####[facility] Lno136 formerly [facility] [place] [address] Neutrophils/100 WBC Auto (Bld) 65.8 % Normal 46.2-79.1 [facility] Comment on above: Performed By: #### 2 [id number] ####[facility] Egz884 formerly [facility] [place] [address] NRBC Absolute 0.00 10*3/uL Normal [facility] Comment on above: Performed By: #### 2 [id number] ####[facility] Lww102 formerly [facility] [place] [address] NRBC Automated 0.0 /100{WBCs} Normal [facility] Comment on above: Performed By: #### 2 [id number] ####[facility] Uzq550 [facility] [place] [address] Platelet mean volume Auto Entitic volume (Bld) 9.5 fL Low 9.9-12.1 [facility] Comment on above: Performed By: #### 2 [id number] ####[facility] Yku955 [facility] [place] [address] Platelets Auto #/vol (Bld) 251 10*3/uL Normal 155-404 [facility] Comment on above: Performed By: #### 2 [id number] ####[facility] Cyz375 [facility] [place] [address] RBC Auto #/vol (Bld) 5.47 10*6/uL Normal 4.08-6.37 [facility] Comment on above: Performed By: #### 2 [id number] ####[facility] Ddl[address] [place] [address] RDW SD 37.6 fL Low 39.3-48.6 [facility] Comment on above: Performed By: #### 2 [id number] ####[facility] Bnz135 [facility] [place] [address] WBC Auto #/vol (Bld) 7.8 10*3/uL Normal 4.2-11.0 [facility] Comment on above: Performed By: #### 2 [id number] ####[facility] [address] [place] [address] Comprehensive Metabolic Pane franklin 08-21-2017 Albumin mass conc 4.6 g/dL Normal 3.4-5.0 [facility] Comment on above: Performed By: #### 1 [id number] ####[facility] [address] [place] [address] Albumin/Globulin mass ratio 1.5 {ratio} Normal 0.9-2.4 [facility] Comment on above: Performed By: #### 1 [id number] ####[facility] [address] [place] [address] ALP enzyme act/vol 93 U/L Normal 45-117 [facility] Comment on above: Performed By: #### 1 [id number] ####[facility] [address] [place] [address] ALT enzyme act/vol 31 U/L Normal 10-52 [facility] Comment on above: Performed By: #### 1 [id number] ####[facility] [address] [place] [address] Anion gap 3 molar conc 11 mmol/L Normal 10-20 [facility] Comment on above: Performed By: #### 1 [id number] ####[facility] [address] [place] [address] AST enzyme act/vol 29 U/L Normal 13-39 [facility] Comment on above: Performed By: #### 1 [id number] ####[facility] [address] [place] [address] Bilirubin mass conc 0.7 mg/dL Normal 0.0-1.2 [facility] Comment on above: Performed By: #### 1 [id number] ####[facility] [address] [place] [address] Calcium mass conc 9.3 mg/dL Normal 8.6-10.3 [facility] Comment on above: Performed By: #### 1 [id number] ####[facility] [address] [place] [address] Chloride molar conc 101 mmol/L Normal 98-107 [facility] Comment on above: Performed By: #### 1 [id number] ####[facility] [address] [place] [address] Creatinine mass conc 0.79 mg/dL Normal 0.50-1.30 [facility] Comment on above: Performed By: #### 1 [id number] ####[facility] [address] [place] [address] GFR/1.73 sq M.predicted MDRD vol rate/area mL/min/{1.73_m2} Normal [facility] Comment on above: Result Comment: Inte rpretation for Chronic Kidney Disease:Stages 1&2 >60 Healthy or potential kidney damage.Mild decrease of GFR.Stage 3 30-59 Moderate decrease of GFR.Stage 4 15-29 Severe decrease of GFR.Stage 5 <15 Kidney failure or on dialysis. Performed By: #### 1 [id number] ####[facility] [address] [place] [address] Glucose mass conc 94 mg/dL Normal 70-100 [facility] Comment on above: Performed By: #### 1 [id number] ####[facility] [address] [place] [address] HCO3 molar conc (Bld) 32 mmol/L Normal 21-32 [facility] Comment on above: Performed By: #### 1 [id number] ####[facility] [address] [place] [address] Potassium molar conc 3.3 mmol/L Low 3.5-5.1 [facility] Comment on above: Performed By: #### 1 [id number] ####[facility] [address] [place] [address] Protein mass conc 7.7 g/dL Normal 6.4-8.2 [facility] Comment on above: Performed By: #### 1 [id number] ####[facility] [address] [place] [address] Sodium molar conc 141 mmol/L Normal 136-145 [facility] Comment on above: Performed By: #### 1 [id number] ####[facility] [address] [place] [address] Urea nitrogen mass conc 12 mg/dL Normal 6-23 [facility] Comment on above: Performed By: #### 1 [id number] ####[facility] [address] [place] [address] Urea nitrogen/Creatinine mass ratio 15 mg/mg Normal 5-25 [facility] Comment on above: Performed By: #### 1 [id number] ####[facility] [address] [place] [address] Lipid Panelon 08-21-2017 Cholesterol in HDL mass conc 45 mg/dL Normal [facility] Comment on above: Result Comment: Norm al Mod Risk High Risk5-9 >48 42-48 <4210- 14 >45 40-45 <4015-19 >38 34-38 <34Adult >39 Performed By: #### 1 [id number] ####[facility] [address] [place] [address] Cholesterol in LDL mass conc 85 mg/dL Normal <130 [facility] Comment on above: Performed By: #### 1 [id number] ####[facility] [address] [place] [address] Cholesterol in VLDL mass conc 22 mg/dL Normal <30 [facility] Comment on above: Performed By: #### 1 [id number] ####[facility] [address] [place] [address] Cholesterol mass conc 152 mg/dL Normal <200 [facility] Comment on above: Performed By: #### 1 [id number] ####[facility] [address] [place] [address] Cholesterol.total/Cho lesterol in HDL mass ratio 3.4 {ratio} Normal [facility] Comment on above: Performed By: #### 1 [id number] ####[facility] [address] [place] [address] Triglyceride mass conc 112 mg/dL Normal <150 [facility] Comment on above: Result Comment: 150- 199 Borderline [id number] High>500 Very High Performed By: #### 1 [id number] ####[facility] [address] [place] [address] TSHon 08-21-2017 Thyrotropin Qn 1.73 mU/L Normal 0.44-3.98 [facility] Comment on above: Performed By: #### 1 [id number] ####[facility] [address] [place] [address] Vital Signs Date Time Vital Sign Value Performing Clinician Fidelia espinoza 05-06-2023 10:00-0400 Body temperature 97.5 [degF] Marielos Beattyy DPM Work Phone: [employer] 05-06-2023 10:00-0400 Diastolic blood pressure 90 mm[Hg] Marielos Ely DPM Work Phone: [employer] 05-06-2023 10:00-0400 Heart rate 82 /min Marielosjabari Beattyy DPM Work Phone: [employer] 05-06-2023 10:00-0400 Respiratory rate 16 /min Marielos Ely DPM Work Phone: [employer] 05-06-2023 10:00-0400 Systolic blood pressure 161 mm[Hg] Marielos Ely DPM Work Phone: [employer] 01-14-2023 09:15-0400 Body temperature 96.3 [degF] Marielosjabari Beattyy DPM Work Phone: [employer] 01-14-2023 09:15-0400 Diastolic blood pressure 78 mm[Hg] Marielos Ely DPM Work Phone: [employer] 01-14-2023 09:15-0400 Heart rate 95 /min Marielos Ely DPM Work Phone: [employer] 01-14-2023 09:15-0400 Respiratory rate 18 /min Marielos Ely DPM Work Phone: [facility] 01-14-2023 09:15-0400 Systolic blood pressure 162 mm[Hg] Marielosjabari Ely DPM Work Phone: [facility] [employer] 12-17-2022 09:00-0400 Body temperature 97.59 [degF] Marielosjabari Beattyy DPM [facility] 12-17-2022 09:00-0400 Diastolic blood pressure 84 mm[Hg] Marielosjabari Beattyy DPM Work Phone: [facility] [employer] 12-17-2022 09:00-0400 Heart rate 103 /min Marielos Ely DPM Work Phone: [facility] 12-17-2022 09:00-0400 Systolic blood pressure 164 mm[Hg] Marielos Ely DPM [facility] 12-03-2022 09:15-0400 Body temperature 97.81 [degF] Marielos Beattyy DPM Work Phone: [facility] [employer] 12-03-2022 09:15-0400 Diastolic blood pressure 86 mm[Hg] Marielos Beattyy DPM [facility] 12-03-2022 09:15-0400 Heart rate 106 /min Marielos Ely DPM Work [facility] 12-03-2022 09:15-0400 Systolic blood pressure 163 mm[Hg] Marielos Beattyy DPM Work Phone: [facility] [employer] 11-05-2022 08:45-0400 Body temperature 97.7 [degF] Marielos Beattyy DPM Work Phone: [facility] [employer] 11-05-2022 08:45-0400 Diastolic blood pressure 85 mm[Hg] Marielos Beattyy DPM Work Phone: [facility] [employer] 11-05-2022 08:45-0400 Heart rate 109 /min Marielosezequiel Beattyy DPM Work Phone: [facility] [employer] 11-05-2022 08:45-0400 Respiratory rate 18 /min Marielosezequiel Beattyy DPM Work Phone: [facility] [employer] 11-05-2022 08:45-0400 Systolic blood pressure 161 mm[Hg] Marielosezequiel Beattyy DPM Work Phone: [facility] [employer] 10-22-2022 09:45-0400 Body temperature 97.9 [degF] Marielosezequiel Beattyy DPM Work Phone: [facility] [employer] 10-22-2022 09:45-0400 Diastolic blood pressure 77 mm[Hg] Marielosjabari Beattyy DPM Work Phone: [facility] [employer] 10-22-2022 09:45-0400 Heart rate 100 /min Marielosezequiel Beattyy DPM Work Phone: [facility] [employer] 10-22-2022 09:45-0400 Respiratory rate 18 /min Marielosezequiel Beattyy DPM Work Phone: [facility] [employer] 10-22-2022 09:45-0400 Systolic blood pressure 150 mm[Hg] Marielosezequiel Beattyy DPM Work Phone: [facility] [employer] 10-08-2022 09:30-0500 Body temperature 97.5 [degF] Marielos Ely DPM Work Phone: [facility] [employer] 10-08-2022 09:30-0500 Diastolic blood pressure 83 mm[Hg] Marielos Ely DPM Work Phone: [facility] [employer] 10-08-2022 09:30-0500 Heart rate 109 /min Marielosezequiel Beattyy DPM Work Phone: [facility] [employer] 10-08-2022 09:30-0500 Respiratory rate 18 /min Marielosezequiel Beattyy DPM Work Phone: [facility] [employer] 10-08-2022 09:30-0500 Systolic blood pressure 157 mm[Hg] Marielos Ely DPM Work Phone: [facility] [employer] 09-17-2022 09:45-0500 Body temperature 97.81 [degF] Marielos Ely DPM Work Phone: [facility] [employer] 09-17-2022 09:45-0500 Diastolic blood pressure 85 mm[Hg] Marielos Ely DPM Work Phone: [facility] [employer] 09-17-2022 09:45-0500 Heart rate 98 /min Marielosezequiel Beattyy DPM Work Phone: [facility] [employer] 09-17-2022 09:45-0500 Respiratory rate 16 /min Marielosezequiel Beattyy DPM Work Phone: [facility] [employer] 09-17-2022 09:45-0500 Systolic blood pressure 163 mm[Hg] Marielos Ely DPM Work Phone: [facility] [employer] 09-03-2022 09:30-0500 Body temperature 97.9 [degF] Marielos Ely DPM Work Phone: [facility] [employer] 09-03-2022 09:30-0500 Diastolic blood pressure 92 mm[Hg] Marielos Ely DPM Work Phone: [facility] [employer] 09-03-2022 09:30-0500 Heart rate 92 /min Marielos Ely DPM Work Phone: [facility] [employer] 09-03-2022 09:30-0500 Respiratory rate 18 /min Marielos Ely DPM Work Phone: [facility] [employer] 09-03-2022 09:30-0500 Systolic blood pressure 171 mm[Hg] Marielosjabari Beattyy DPM Work Phone: [facility] [employer] 06-18-2022 09:15-0500 Body temperature 96.6 [degF] Marielosjabari Beattyy DPM Work Phone: [facility] [employer] 06-18-2022 09:15-0500 Diastolic blood pressure 82 mm[Hg] Marielosjabari Beattyy DPM Work Phone: [facility] [employer] 06-18-2022 09:15-0500 Heart rate 102 /min Marielosjabari Beattyy DPM Work Phone: [facility] [employer] 06-18-2022 09:15-0500 Respiratory rate 16 /min Marielosjabari Beattyy DPM Work Phone: [facility] [employer] 06-18-2022 09:15-0500 Systolic blood pressure 164 mm[Hg] Marielos Beattyy DPM Work Phone: [facility] [employer] 06-04-2022 09:45-0400 Body temperature 97.7 [degF] Marielos Beattyy DPM Work Phone: [facility] [employer] 06-04-2022 09:45-0400 Diastolic blood pressure 76 mm[Hg] Marielos Beattyy DPM Work Phone: [facility] [employer] 06-04-2022 09:45-0400 Heart rate 93 /min Marielos Beattyy DPM Work Phone: [facility] [employer] 06-04-2022 09:45-0400 Respiratory rate 18 /min Marielosjabari Beattyy DPM Work Phone: [facility] [employer] 06-04-2022 09:45-0400 Systolic blood pressure 149 mm[Hg] Marielosjabari Beattyy DPM Work Phone: [facility] [employer] 05-31-2022 14:51-0400 Body temperature 99 [degF] Joslyn Aguirre DO Work Phone: [facility] [employer] 05-31-2022 14:51-0400 Diastolic blood pressure 71 mm[Hg] Joslyn Aguirre DO Work Phone: [facility] [employer] 05-31-2022 14:51-0400 Heart rate 87 /min Joslyn Aguirre DO Work Phone: [facility] [employer] 05-31-2022 14:51-0400 SaO2% (BldA) [Mass fraction] 95 % Joslyn Aguirre DO Work Phone: [facility] [employer] 05-31-2022 14:51-0400 Systolic blood pressure 129 mm[Hg] Joslyn Aguirre DO Work Phone: [facility] [employer] 05-31-2022 06:56-0400 Respiratory rate 16 /min Joslyn Aguirre DO Work Phone: [facility] [employer] 05-28-2022 06:14-0400 Body mass index (BMI) [Ratio] 28.35 kg/m2 Joslyn Aguirre DO Work Phone: [facility] [employer] 05-28-2022 06:14-0400 Body weight 94.8 kg Joslyn Aguirre DO Work Phone: [facility] [employer] 05-24-2022 17:40-0400 Body height 182.9 cm Joslyn Aguirre DO Work Phone: [facility] [employer] 05-14-2022 10:54-0400 Body temperature 97.2 [degF] Marielos Ely DPM Work Phone: [facility] [employer] 05-14-2022 10:54-0400 Diastolic blood pressure 76 mm[Hg] Marielos Ely DPM Work Phone: [facility] [employer] 05-14-2022 10:54-0400 Heart rate 100 /min Marielos Ely DPM Work Phone: [facility] [employer] 05-14-2022 10:54-0400 Respiratory rate 18 /min Marielos Ely DPM Work Phone: [facility] [employer] 05-14-2022 10:54-0400 Systolic blood pressure 151 mm[Hg] Marielos Ely DPM Work Phone: [facility] [employer] 01-05-2022 10:21-0400 Body height 174 cm Mloz 1 [facility] Inf[facility] 01-05-2022 10:21-0400 Body mass index (BMI) [Ratio] 33.17 kg/m2 Mloz 1 [facility] [employer] 01-05-2022 10:21-0400 Body temperature 97.11 [degF] Mloz 1 [facility] [employer] 01-05-2022 10:21-0400 Body weight 100.43 kg Mloz 1 [facility] Infogram 01-05-2022 10:21-0400 Diastolic blood pressure 77 mm[Hg] Mloz 1 [facility] [employer] 01-05-2022 10:21-0400 Heart rate 83 /min Mloz 1 [facility] Infogram 01-05-2022 10:21-0400 Respiratory rate 16 /min Mloz 1 [facility] [employer] 01-05-2022 10:21-0400 SaO2% (BldA) [Mass fraction] 96 % Mloz 1 [facility] [employer] 01-05-2022 10:21-0400 Systolic blood pressure 159 mm[Hg] Mloz 1 [facility] [employer] 03-16-2020 10:09-0400 BMI (Body Mass Index) 29.16 kg/m2 [facility] Work Phone: 03-16-2020 10:09-0400 Body weight 97.52 kg Romero Renteria [facility] Work Phone: 03-16-2020 10:09-0400 BSA (Body Surface Area) 2.2 m2 Romero Renteria [facility] Work Phone: 03-16-2020 10:090400 Height 182.88 cm Romero Renteria [facility] [facility] [place] Work Phone: Encounters Encounter Date Encounter Type Care Provider Facility Start: 08-19-2023 End: 08-20-2023 ambulatory [facility] Start: 08-09-2023 End: 08-10-2023 ambulatory [facility] Start: 08-06-2023 End: 08-09-2023 [facility]: 07-29-2023 End: 08-01-2023 ambulatory [facility] Start: 07-29-2023 End: 07-29-2023 ambulatory [facility] Start: 07-01-2023 End: 07-02-2023 ambulatory [facility] Start: 06-17-2023 End: 06-18-2023 ambulatory [facility] Start: 06-03-2023 End: 06-04-2023 ambulatory [facility] Start: 05-20-2023 End: 05-21-2023 ambulatory [facility] Start: 05-06-2023 End: 05-07-2023 [facility] Start: 05-06-2023 End: 05-06-2023 Subsequent hospital visit by physician Marielos Ely DP Work Phone: [facility] Comment on above: Ulcer of midfoot, le ft, with necrosis of bone (HCC) (Primary Dx) Start: 04-25-2023 Patient encounter procedure Re samm Hand Work Phone: -[facility] [place] Work Phone: Start: 04-25-[address] Allyson Hand Fa cility:[id number] Start: 04-22-2023 End: 2023 ambulatory [facility] Start: 04-19-2023 End: 04-22-2023 ambulatory ALLYSON Renteria [facility] Start: 04-19-2023 End: 04-22-2023 ambulatory ALLYSON Dexter [facility] Start: 04-19-2023 End: 04-22-2023 ambulatory ALLYSON Renteria [facility] Start: 04-19-2023 End: 04-21-2023 Subsequent hospital visit by physician Rochelle Mccollum MD Work Phone: [facility] Non-Invasive Cardiology Comment on above: Arrived Start: 04-18-2023 Patient encounter procedure Re samm Hand [facility] [place] Work Phone: Start: 04-18-[address] Allyson Prakash cility:[id number] Start: 04-11-2023 Patient encounter procedure Re samm Hand Work Phone: [facility] [place] Work Phone: Start: 04-11-[address] Allyson Prakash cility:[id number] Start: 04-08-2023 End: 04-09-2023 ambulatory MARIELOS [facility] Start: 04-01-2023 ambulatory TORI MART [facility] Start: 03-25-2023 End: 03-26-2023 ambulatory MARIELOS [facility] Start: 03-14-2023 End: 03-15-2023 ambulatory VIV LUIS [facility] Start: 03-14-2023 End: 03-14-2023 Subsequent hospital visit by physician [facility] Comment on above: Arrived Start: 03-04-2023 End: 03-05-2023 ambulatory [facility] Start: 02-18-2023 End: 02-19-2023 ambulatory [facility] Start: 02-15-2023 End: 02-18-2023 ambulatory VIV LUIS [facility] Start: 02-03-2023 Letter encounter Jacinta gaffney Start: 01-28-2023 End: 01-29-2023 ambulatory [facility] Start: 01-24-2023 Patient encounter procedure Re samm Hand [facility] Work Phone: Start: 01-24-[address] Mitch rice Luis Felipe Facility:[id number] Start: 01-14-2023 End: 01-15-2023 ambulatory [facility] Start: 01-14-2023 End: 01-14-2023 Subsequent hospital visit by physician Marielos Ely DPM Work Phone: [facility] Comment on above: Ulcer of midfoot, le ft, with necrosis of bone (HCC) (Primary Dx) Start: 12-31-2022 End: 01-01-2023 [facility] Start: 12-17-2022 End: 12-18-2022 [facility] Start: 12-17-2022 End: 12-17-2022 Subsequent hospital visit by physician Marielos Ely DPM Work Phone: [facility] Comment on above: Ulcer of midfoot, le ft, with necrosis of bone (HCC) (Primary Dx) Start: 12-10-2022 ambulatory TORIOLIVA MART [facility] Start: 12-03-2022 End: 12-04-2022 ambulatory [facility] Start: 12-03-2022 End: 12-03-2022 Subsequent hospital visit by physician Marielos Ely DPM Work Phone: [employer] Comment on above: Ulcer of midfoot, le ft, with necrosis of bone (HCC) (Primary Dx) Start: 11-19-2022 End: 11-20-2022 [facility] Start: 11-05-2022 End: 11-06-2022 [facility] Start: 11-05-2022 End: 11-05-2022 Subsequent hospital visit by physician Marielos Ely DPM Work Phone: [facility] Comment on above: Ulcer of midfoot, le ft, with necrosis of bone (HCC) (Primary Dx) Start: 10-29-2022 [facility] TORI MART [facility] Start: 10-22-2022 End: 10-23-2022 [facility] Start: 10-22-2022 End: 10-22-2022 Subsequent hospital visit by physician Marielos Ely DPM Work Phone: [facility] Comment on above: Ulcer of midfoot, le ft, with necrosis of bone (HCC) (Primary Dx) Start: 10-08-2022 End: 10-09-2022 [facility] Start: 10-08-2022 End: 10-08-2022 Subsequent hospital visit by physician Marielos Ely DPM Work Phone: [facility] Comment on above: Ulcer of midfoot, le ft, with necrosis of bone (HCC) (Primary Dx) Start: 09-17-2022 End: 09-18-2022 [facility] Start: 09-17-2022 End: 09-17-2022 Subsequent hospital visit by physician Marielos Ely DPM Work Phone: [facility] Comment on above: Ulcer of midfoot, le ft, with necrosis of bone (HCC) (Primary Dx); Idiopathic peripheral neuropathy; Charcot's joint of left foot Start: 09-03-2022 End: 09-04-2022 [facility] Start: 09-03-2022 End: 09-03-2022 Subsequent hospital visit by physician Marielos Ely DPM Work Phone: [facility] Comment on above: Ulcer of midfoot, le ft, with necrosis of bone (HCC) (Primary Dx) Start: 07-23-2022 End: 07-23-2022 Subsequent hospital visit by physician Marielos Ely DPM Work Phone: [facility] Comment on above: Ulcer of midfoot, le ft, with necrosis of bone (HCC) (Primary Dx) Start: 06-18-2022 End: 06-18-2022 Subsequent hospital visit by physician Marielos Ely DPM Work Phone: [facility] Comment on above: Ulcer of midfoot, le ft, with necrosis of bone (HCC) (Primary Dx) Start: 06-04-2022 End: 06-04-2022 Subsequent hospital visit by physician Marielos Ely DPM Work Phone: [facility] Comment on above: Ulcer of left foot, with necrosis of muscle (HCC) (Primary Dx) Start: 05-24-2022 End: 05-31-2022 Evaluation and management of inpatient Joslyn Aguirre Work Phone: [employer] 1W Telemetry Comment on above: Dyspnea, unspecified type (Primary Dx); Elevated troponin; Peripheral edema; Ulcer of left foot, unspecified ulcer stage (HCC); Ulcer of left foot, with necrosis of muscle (HCC) Start: 05-14-2022 End: 05-14-2022 Subsequent hospital visit by physician Marileos Ely DPM Work Phone: [facility] Comment on above: Idiopathic periphera l neuropathy (Primary Dx); Ulcer of left foot, with necrosis of muscle (HCC) Start: 04-18-2022 End: 04-20-2022 Subsequent hospital visit by physician [place] Xray Room 8 [facility] Radiology Comment on above: Ulcer of left foot, unspecified ulcer stage (HCC) Start: 01-29-2022 End: 01-31-2022 Subsequent hospital visit by physician [place] Xray Room 8 [facility] Rad[facility] Comment on above: Acquired spondylolis thesis of lumbosacral region Start: 01-27-2022 Letter encounter Jacinta gaffney Start: 01-05-2022 End: 01-09-2022 Subsequent hospital visit by physician Philippe Barrow Rm 1 [facility] Pre-Admission Testing Comment on above: Acquired spondylolis thesis of lumbosacral region; Spinal stenosis of lumbar region with neurogenic claudication Start: 09-19-2021 End: 09-21-2021 Subsequent hospital visit by physician [place] Xray Room 7 [facility] Radiology Comment on above: Spinal stenosis of l umbar region with neurogenic claudication; Acquired spondylolisthesis of lumbosacral region; Paraparesis of both lower limbs (HCC) Start: 11-07-2020 End: 11-09-2020 Subsequent hospital visit by physician [place] [facility] 1 [facility] Ultrasound Comment on above: Swelling of limb Start: 03-30-2020 [facility] [place] Work Phone: Start: 03-16-2020 Patient encounter procedure Romero Renteria -[facility] [place] Work Phone: Start: 06-18-2018 Patient encounter procedure ROMERO DEXTER Facility:8 Start: 05-27-2018 Patient encounter procedure ROMERO DEXTER Facility:8 Start: 04-15-2018 Patient encounter procedure ALLYSON HAND Facility:[id number] Start: 02-11-2018 Patient encounter procedure RENATO PA STRY Facility:[id number] Start: 02-10-2018 Patient encounter procedure RENATO PA STRY Facility:7 Start: 08-21-2017 Patient encounter procedure GERARD HONEYCUTT Facility:[id number] Procedures Date Procedure Procedure Detail Performing Clinician Start: 04-19-2023 Myocardial spect multiple studies Rochelle Mccollum MD Work Phone: Start: 10-22-2022 Cul bact xcpt urine blood/stool aerobic isol Marielos Ely DPM Work Phone: Start: 09-17-2022 Cul bact xcpt urine blood/stool aerobic isol Marielos Ely DPM Work Phone: Start: 05-31-2022 Basic metabolic panel calcium total Harini Early DO Work Phone: Start: 05-30-2022 Cta abdl aorta&bi iliofem w/contrast&postp Tara Crenshaw INFORMATICS COORDINATOR - FUR FEEDER Start: 05-30-2022 Blood count complete auto&auto difrntl wbc Sarthak Naik DPM Work Phone: Start: 05-29-2022 End: 05-29-2022 I&d below fascia foot 1 bursal space Marielos Ely DPM Work Phone: Start: 05-29-2022 End: 05-29-2022 Phalangectomy toe each toe Marielos Rucker ty DPM Work Phone: Start: 05-29-2022 Gluc bld gluc mntr dev cleared fda spec home use Unknown Provider Result Start: 05-29-2022 Basic metabolic panel calcium total Ambika Charles INFORMATICS COORDINATOR - LPN [employer] Work Phone: Start: 05-28-2022 Cath, inf, per/cent/midline Debbi Valera MD Work Phone: Start: 05-28-2022 Ecg routine ecg w/least 12 lds i&r only Jami KOLB Work Phone: Start: 05-28-2022 Basic metabolic panel calcium total Ambika Charles INFORMATICS COORDINATOR - LPN [employer] Work Phone: Start: 05-27-2022 Mri lower extrem oth/thn jt w/o & w/contr matr Pratima Garner DPM Work Phone: Start: 05-27-2022 Us retroperitoneal real time w/image limited Mariza Danielle MD Work Phone: Start: 05-27-2022 Basic metabolic panel calcium total Ambika Charles INFORMATICS COORDINATOR - LPN [employer] Work Phone: Start: 05-26-2022 Dup-scan lxtr art/artl bpgs compl bi study Rochelle Mccollum MD Work Phone: Start: 05-26-2022 Basic metabolic panel calcium total Ambika Charles INFORMATICS COORDINATOR - LPN [employer] Work Phone: Start: 05-26-2022 Lipid panel Ambika Charles INFORMATICS COORDINATOR - LPN [employer] Work Phone: Start: 05-25-2022 Radex foot complete minimum 3 views Pratima Pascual DPM Work Phone: Start: 05-25-2022 Cul prsmptv pthgnc organism scrn w/colony estimj Pratima Pascual DPM Work Phone: Start: 05-25-2022 C-reactive protein Pratima Pascual DPM Work Phone: Start: 05-25-2022 Sedimentation rate rbc automated Pratima Pascual DPM Work Phone: Start: 05-25-2022 Echo tthrc r-t 2d w/wom-mode compl spec&colr d Ambika Charles INFORMATICS COORDINATOR - LPN [employer] Work Phone: Start: 05-25-2022 Natriuretic peptide Jami KOLB Work Phone: Start: 05-25-2022 Urinalysis microscopic only Waylon D Sedar DO Work Phone: Start: 05-25-2022 Urnls dip stick/tablet rgnt auto w/o microscopy Waylon D Sedar DO Work Phone: Start: 05-25-2022 Basic metabolic panel calcium total Ambika Charles INFORMATICS COORDINATOR - LPN [employer] Work Phone: Start: 05-25-2022 VITAMIN B12 & FOLATE Ambika Charles INFORMATICS COORDINATOR - LPN [employer] Work Phone: Start: 05-25-2022 Ecg routine ecg w/least 12 lds i&r only Ambika Charles INFORMATICS COORDINATOR - LPN [employer] Work Phone: Start: 05-25-2022 Assay of troponin quantitative Ambika Charles INFORMATICS COORDINATOR - LPN [employer] Work Phone: Start: 05-24-2022 Culture bacterial blood aerobic w/id isolates Kevon Gerardo PA-C Work Phone: Start: 05-24-2022 CULTURE, BLOOD 1 Kevon Gerardo PA-C Work Phone: Start: 05-24-2022 Ecg routine ecg w/least 12 lds i&r only Kevon Gerardo PA-C Work Phone: Start: 05-24-2022 Ct angiography chest w/contrast/noncontrast Kevon Gerardo PA-C Work Phone: Start: 05-24-2022 Dup-scan xtr veins unilateral/limited study Kevon Gerardo PA-C Work Phone: Start: 05-24-2022 POCT VENOUS Joslyn O Portman DO Work Phone: Start: 05-24-2022 End: 05-24-2022 Comprehensive metabolic panel Kevon Gerardo PA-C Work Phone: Start: 05-14-2022 Cul bact xcpt urine blood/stool aerobic isol Marielos Ely DPM Work Phone: Start: 04-18-2022 Radex foot complete minimum 3 views Marielos Ely DPM Work Phone: Start: 01-29-2022 Radex spine lumbosacral 2/3 views Viv Luis MD Work Phone: Start: 01-05-2022 Antibody screen [facility] 1 Start: 01-05-2022 End: 01-05-2022 Basic metabolic panel calcium total Nichole Mistry INFORMATICS COORDINATOR - LPN [employer] Start: 01-05-2022 Blood typing serologic abo Nichole Vinay chan INFORMATICS COORDINATOR - LPN [employer] Start: 01-05-2022 Ecg routine ecg w/least 12 lds w/i&r Nichole Mistry INFORMATICS COORDINATOR - LPN [employer] Start: 09-19-2021 Radex spine lumbosacral minimum 4 views Viv Luis MD Work Phone: Start: 11-07-2020 Dup-scan xtr veins unilateral/limited study Allyson Dexter Hand Work Phone: H/O: surgery 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 (ventriculoperitoneal ) shunt status [place] 7 Plan of Treatment Date Care Activity Detail Author Start: 05-26-2027 Lipid panel Lipids [facility] [employer] [facility] Start: 01-13-2026 [facility] Start: 07-09-2023 Depression Screen [facility] Start: 06-28-2023 FUV, Provider: Luis Felipe,Mitch, Status: Pen, Time: 8:15 AM FUV, Provider: Mitch Briscoe, Status: Pen, Time: 8:15 AM [facility] Work Phone: Start: 05-26-2023 Lipid panel Lipids [facility] Start: 05-23-2023 End: 05-23-2023 Patient encounter procedure [facility] Pain Management Comment on above: FOLLOW UP FOR LUMBAR Start: 05-20-2023 End: 05-20-2023 Patient encounter procedure 05/20/2023 9:00 AM EDT Appointment [facility] [address] [place] [address] Marielos Ely DPM [address] [facility] [address] [place] [address] [facility] Start: 04-25-2023 INJECTION, Provider: Mitch Briscoe, Status: Pen, Time: 8:15 AM INJECTION, Provider: Mitch Briscoe, Status: Pen, Time: 8:15 AM [facility] Work Phone: Start: 04-22-2023 End: 04-22-2023 Patient encounter procedure 04/22/2023 10:00 AM EDT Appointment [facility] [address] [place] [address] Marielos Ely DPM [address] [facility] [address] [place] [address] [facility] Start: 04-18-2023 INJECTION, Provider: Mitch Bricsoe, Status: Pen, Time: 8:15 AM INJECTION, Provider: Mitch Briscoe, Status: Pen, Time: 8:15 AM [facility] Work Phone: Start: 04-04-2023 End: 04-04-2023 Patient encounter procedure 04/04/2023 Appointment Radiology Rochelle Mccollum MD [address] [facility] [address] [place] [address] [facility] Nuclear Medicine Start: 04-04-2023 End: 04-04-2023 Patient encounter procedure [facility] Nuclear Medicine Start: 03-25-2023 End: 03-25-2023 Patient encounter procedure 03/25/2023 Appointment Wound Ostomy Marielos Ely, DPM [address] [facility] [address] [place] [address] [facility] Start: 03-21-2023 End: 03-21-2023 Patient encounter procedure 03/21/2023 Office Visit Pain Management Tori Mart DO [address] [place] [address] [facility] Start: 03-12-2023 Influenza vaccination [facility] Start: 02-22-2023 FUV, Provider: Romero Renteria, Status: Pen, Time: 9:30 AM FUV, Provider: Romero Renteria, Status: Pen, Time: 9:30 AM [facility] Work Phone: Start: 02-14-2023 End: 02-14-2023 Patient encounter procedure 02/14/2023 Office Visit Pain Management Tori Mart DO [address] [place] [address] [facility] Start: 01-28-2023 End: 01-28-2023 Patient encounter procedure 01/28/2023 Appointment Wound Ostomy Marielos Ely, DPM [address] [place] [address] [facility] Start: 12-31-2022 End: 12-31-2022 Patient encounter procedure 12/31/2022 Appointment Wound Ostomy Marielos Ely, DPM [address] [place] [address] [facility] Start: 12-27-2022 End: 12-27-2022 Patient encounter procedure 12/27/2022 Office Visit Pain Management Tori Mart DO [address] [place] [address], [place] [address] [facility] Start: 12-17-2022 End: 12-17-2022 Patient encounter procedure 12/17/2022 Appointment Wound Ostomy Marielos Ely, DPM [address] [facility] [address] [place] [address] [facility] Start: 12-10-2022 End: 12-10-2022 Patient encounter procedure 12/10/2022 Procedure visit Pain Management Tori Mart DO [address] [place] [address], [place] [address] [facility] Start: 11-29-2022 End: 11-29-2022 Patient encounter procedure 11/29/2022 Office Visit Pain Management Tori Mart DO [address] [place] [address], [place] [address] [facility] Start: 11-19-2022 End: 11-19-2022 Patient encounter procedure 11/19/2022 Appointment Wound Ostomy Marielos Ely, DPM [address] [facility] [address] [place] [address] [facility] Start: 11-05-2022 End: 11-05-2022 Patient encounter procedure 11/05/2022 Appointment Wound Ostomy Adrianna Elyan, DPM [address] [facility] [address] [place] [address] [facility] Start: 11-01-2022 End: 11-01-2022 Patient encounter procedure 11/01/2022 Office Visit Pain Management Tori Mart DO [address] [place] [address] [facility] Start: 10-22-2022 End: 10-22-2022 Patient encounter procedure 10/22/2022 Appointment Wound Ostomy Marielos Ely, ARIANE [address] [facility] [address] [place] [address] [facility] Start: 10-08-2022 End: 10-08-2022 Patient encounter procedure 10/08/2022 Appointment Wound Marielos Acevedo DPM [address] [facility] [address] [place] [address] [facility] Start: 09-19-2022 End: 09-19-2022 Patient encounter procedure 09/19/2022 Appointment [place] [address] [facility] [address] Gaming [address] [place] [address] [facility] Start: 09-17-2022 End: 09-17-2022 Patient encounter procedure 09/17/2022 Appointment Wound OstMarielos Buchanan DPM [address] [facility] [address] [place] [address] [facility] Start: 09-06-2022 End: 09-06-2022 Patient encounter procedure 09/06/2022 Office Visit Pain Management Tori Mart DO [address] [place] [address] [facility] Start: 08-20-2022 End: 08-20-2022 Patient encounter procedure 08/20/2022 Appointment Wound Ostomy Ely, Marielos, ARIANE [address] [facility] [address] [place] [address] [facility] Start: 08-09-2022 End: 08-09-2022 Patient encounter procedure 08/09/2022 Office Visit Pain Management Tori Mart DO [address] [facility] [address] [place] [address] [facility] Start: 07-19-2022 End: 07-19-2022 Patient encounter procedure 07/19/2022 Office Visit Pain Management Tori Mart DO [address] [facility] [address] [place] [address] [facility] Start: 07-09-2022 End: 07-09-2022 Patient encounter procedure 07/09/2022 Appointment Wound Ostomy Marielos Ely, ARIANE [address] [facility] [address] [place] [address] [facility] Start: 06-19-2022 End: 06-19-2022 Patient encounter procedure 06/19/2022 Office Visit Infectious Diseases Sharad العلي MD [address] [facility] [address] [place] [address] [facility] Infectious Disease Start: 06-18-2022 End: 06-18-2022 Patient encounter procedure 06/18/2022 Appointment Wound Ostomy Marielos Ely, ARIANE [address] [facility] [address] [place] [address] [facility] Start: 06-14-2022 End: 06-14-2022 Patient encounter procedure 06/14/2022 Office Visit Cardiology Jami Artis PA [address] [facility] [address] [facility] [place] [address] [facility] Failure Center Start: 05-28-2022 End: 05-28-2022 Patient encounter procedure 05/28/2022 Appointment Wound Ostomy Marielos Ely, ARIANE [address] [place] [address] [facility] Start: 05-24-2022 End: 05-24-2022 Patient encounter procedure 05/24/2022 Office Visit Pain Management Tori Mart DO [address] [address] [facility] Start: 05-18-2022 End: 05-18-2022 Patient encounter procedure [facility] Nuclear Medicine Start: 2022 End: 2022 Patient encounter procedure 2022 Office Visit Pain Management Cara Abel, INFORMATICS COORDINATOR - LPN [employer] [address] [address] [facility] Start: 04-12-2022 Influenza vaccination [facility] Start: 03-12-2022 End: 03-12-2022 Patient encounter procedure 03/12/2022 Office Visit Pain Management Cara Abel INFORMATICS COORDINATOR - LPN [employer] [address] [address] [facility] Start: 03-12-2022 Influenza vaccination Flu vaccine (#1) [facility] Start: 02-15-2022 End: 02-15-2022 Patient encounter procedure 02/15/2022 Office Visit Neurosurgery Viv Luis MD [address] [address] [facility] Neurosurgery Start: 01-30-2022 End: 01-30-2022 Patient encounter procedure 01/30/2022 Office Visit Pain Management Cara Abel, INFORMATICS COORDINATOR - LPN [employer] [address] [facility] [address] [place] [address] [facility] Start: 01-25-2022 End: 01-25-2022 Patient encounter procedure 01/25/2022 Office Visit Pain Management Tori Mart DO [address] [facility] [address] [place] [address] [facility] Start: 01-13-2022 Creatinine measurement Creatinine monitoring [facility] Start: 01-13-2022 Potassium monitoring Potassium monitoring [facility] Start: 01-13-2022 Prostate specific antigen measurement Prostate Specific Antigen (PSA) Screening or Monitoring [facility] Start: 01-12-2022 End: 01-12-2022 Admission to same day surgery center 01/12/2022 Surgery IP Unit Viv Luis MD [address] [address] BILATERAL L4-5 LAMINECTOMIES MICRODISSECTIONS DECOMPRESSIONS INTERBODY CAGE POSTEROLATERAL ALLOGRAFT AUTOGENOUS BONE PEDICLE SCREW FUSION-IGS 3 HOURS/ 2 C-ARMS/ NUVASIVE/ IGS/ HDEZ CATH/ ROOM 1/ POWER RONGEUR/ NEW MICROSCOPE 1ST CASE [facility] Comment on above: BILATERAL L4-5 LAMINECTOMIES MICRODISSEC TIONS DECOMPRESSIONS INTERBODY CAGE POSTEROLATERAL ALLOGRAFT AUTOGENOUS BONE PEDICLE SCREW FUSION-IGS 3 HOURS/ 2 C-ARMS/ NUVASIVE/ IGS/ HDEZ CATH/ ROOM 1/ POWER RONGEUR/ NEW MICROSCOPE 1ST CASE Start: 01-12-2022 End: 01-12-2022 Arthrodesis posterior interbody lumbar LUMBAR LAMINECTOMY FUSION POSTERIOR Lumbar spondylolysis 01/12/2022 7:30 AM EDT [facility] Start: 01-12-2022 Subsequent hospital visit by physician 01/12/2022 Hospital Encounter IP Unit Viv Luis MD [address] [address] [facility] Start: 10-12-2021 End: 10-12-2021 Patient encounter procedure 10/12/2021 Office Visit Neurosurgery Viv Luis MD [address] [address] [facility] Neurosurgery Start: 09-28-2021 End: 09-28-2021 Patient encounter procedure 09/28/2021 Office Visit Pain Management Allyson Vickers, INFORMATICS COORDINATOR - LPN [employer] [address] [id number] [facility] Pain Management Start: 04-12-2021 Influenza vaccination Flu vaccine (#1) [facility] [employer] Start: 12-07-2020 End: 12-07-2020 Office Visit 12/07/2020 Office Visit Pain Management Tori Mart DO [address] [phone] [facility] [facility] Start: 04-12-2020 Influenza vaccination Flu vaccine (#1) [facility] Start: 10-31-2018 Lipid panel Lipid screen [facility] Phone: Start: 10-31-2014 Creatinine measurement Creatinine monitoring [facility] Phone: Start: 10-31-2014 Potassium monitoring Potassium monitoring [facility] [employer] Phone: Start: 2011 Measurement of occult blood in single stool specimen FIT [facility] Start: 2011 Screening for malignant neoplasm of colon [facility] Start: 2011 Shingles (RZV) Vaccine (1 of 2) Shingles (RZV) Vaccine (1 of 2) [facility] Start: 2011 Shingles Vaccine (1 of 2) Shingles Vaccine (1 of 2) [facility] Start: 2006 Screening for malignant neoplasm of colon [facility] Start: 2001 Diabetes screen Diabetes screen [facility] [employer] Phone: Start: 1996 Diabetes screen Diabetes screen [facility] Start: 1996 Lipid panel Cholesterol [facility] Start: 1980 DTaP/Tdap/Td vaccine (1 - Tdap) DTaP/Tdap/Td vaccine (1 - Tdap) [facility] Start: 1980 Tetanus vaccination Tetanus (Td or Tdap) [facility] Start: 1979 Hepatitis C screening [facility] [employer] Start: 1979 Tetanus + diphtheria + acellular pertussis vaccine (product) Tdap Booster [facility] Start: 1977 COVID-19 Vaccine (1) COVID-19 Vaccine (1) [facility] [employer] Phone: Start: 1976 HIV screening [facility] Start: 1973 Depression Screen Depression Screen [facility] Start: 1967 Pneumococcal 0-64 years Vaccine (1 - PCV) Pneumococcal 0-64 years Vaccine (1 - PCV) [facility] [employer] Start: 1966 COVID-19 Vaccine (#1) COVID-19 Vaccine (#1) [facility] Start: 1966 COVID-19 Vaccine (1) COVID-19 Vaccine (1) [facility] Start: 1961 COVID-19 Vaccine (#1) COVID-19 Vaccine (#1) [facility] [employer] Start: 1961 Hepatitis C screening Hepatitis C screen [facility] Start: 1961 Screening for malignant neoplasm of colon Colonoscopy [facility] End: 06-06-2022 Basic metabolic 2000 panel - Serum or Plasma Basic Metabolic Panel Lab Routine Tomorrow AM for 7 Days starting 05/31/2022 until 06/06/2022, 1 completed [facility] Phone: Comment on above: Tomorrow AM for 7 Days starting 05/31/20 until 06/06/2022, 1 completed End: 06-06-2022 CBC W Auto Differential panel - Blood CBC with Auto Differential Lab Routine Tomorrow AM for 7 Occurrences starting 05/31/2022 until 06/06/2022, 1 completed [employer] Phone: Comment on above: Tomorrow AM for 7 Occurrences starting 1 until 06/06/2022, 1 completed Culture, Wound Aerob ic Only Culture, Wound Aerobic Only Microbiology Routine 05/14/2022 12:08 PM EDT [employer] Phone: Culture, Wound Aerob ic Only Culture, Wound Aerobic Only Microbiology Routine 09/17/2022 12:16 PM EST [employer] Phone: Culture, Wound Aerob ic Only Culture, Wound Aerobic Only Microbiology Routine 10/22/2022 12:32 PM EDT [employer] Phone: End: 12-03-2022 Culture, Wound Aerobic Only [employer] Phone: Comment on above: One Time for 1 Occurrences starting 11/11 until 12/03/2022 Oxygen therapy [[facility] Data Set] Initiate Oxygen Therapy Protocol Respiratory Care Routine As Needed until discontinued starting 05/25/2022 [employer] Phone: Comment on above: As Needed until discontinued starting End: 05-29-2022 Surgical Pathology [employer] Phone: Comment on above: Release Upon Ordering for 1 Occurrences starting 05/29/2022 Once for 1 Occurrenc es starting 05/29/2022 until 05/29/2022 Surgical Pathology Surgical Path ology Lab Routine 05/29/2022 12:00 AM EDT [employer] Phone: Payers Date Payer Category Payer Medicaid [id number] 2017 Unknown [id number] 2001 Unknown [id number] 1961 Unknown [id number] 2.16.8 40.1.316562.3.579.2.355 1961 Unknown [id number] 2.16.8 40.1.143970.3.579.2.355 1961 Unknown [id number] 2.16.8 40.1.792276.3.579.2.355 1961 Unknown [id number] 2.16.8 40.1.888778.3.579.2.355 1961 Unknown [id number] 2.16.8 40.1.419469.3.579.2.355 1961 Unknown [id number] 2.16.8 40.1.019351.3.579.2.355 1961 Unknown [id number] 2.16.8 40.1.592397.3.579.2.1067 1961 Unknown [id number] 2.16.8 40.1.669935.3.579.2.1068 1961 Unknown [id number] 2.16.8 40.1.514926.3.579.2.8 1961 Unknown [id number] 2.16.8 40.1.667738.3.579.2.8 1961 Unknown [id number] 2.16.8 40.1.658110.3.579.2.182 1961 Unknown [id number] 2.16.8 40.1.279503.3.579.2.182 1961 Unknown [id number] 2.16.8 40.1.614642.3.579.2.182 1961 Unknown [id number] 2.16.8 40.1.653312.3.579.2.182 1961 Unknown [id number] 2.16.8 40.1.124258.3.579.2.182 1961 Unknown [id number] 2.16.8 40.1.491398.3.579.2.182 1961 Unknown [id number] 2.16.8 40.1.142556.3.579.2.182 1961 Unknown [id number] 2.16.8 40.1.256173.3.579.2.182 1961 Unknown [id number] 2.16.8 40.1.760300.3.579.2.182 1961 Unknown [id number] 2.16.8 40.1.385002.3.579.2.182 1961 Unknown [id number] 2.16.8 40.1.103054.3.579.2.182 1961 Unknown [id number] 2.16.8 40.1.650750.3.579.2.182 1961 Unknown [id number] 2.16.8 40.1.964917.3.579.2.182 1961 Unknown [id number] 2.16.8 40.1.015495.3.579.2.182 1961 Unknown [id number] 2.16.8 40.1.412908.3.579.2.182 1961 Unknown [id number] 2.16.8 40.1.797056.3.579.2.182 1961 Unknown [id number] 2.16.8 40.1.056021.3.579.2.182 1961 Unknown [id number] 2.16.8 40.1.304081.3.579.2.182 1961 Unknown [id number] 2.16.8 40.1.105012.3.579.2.182 1961 Unknown [id number] 2.16.8 40.1.396501.3.579.2.182 1961 Unknown [id number] 2.16.8 40.1.412886.3.579.2.182 1961 Unknown [id number] 2.16.8 40.1.006929.3.579.2.182 1961 Unknown [id number] 2.16.8 40.1.969746.3.579.2.182 1961 Unknown [id number] 2.16.8 40.1.332733.3.579.2.182 1961 Unknown [id number] 2.16.8 40.1.039704.3.579.2.182 1961 Unknown [id number] 2.16.8 40.1.503541.3.579.2.182 1961 Unknown [id number] 2.16.8 40.1.262203.3.579.2.182 1961 Unknown [id number] 2.16.8 40.1.174010.3.579.2.182 1961 Unknown [id number] 2.16.8 40.1.809124.3.579.2.182 1961 Unknown [id number] 2.16.8 40.1.380849.3.579.2.182 1961 Unknown [id number] 2.16.8 40.1.785157.3.579.2.182 1961 Unknown [id number] 2.16.8 40.1.711879.3.579.2.182 1961 Unknown [id number] 2.16.8 40.1.109175.3.579.2.182 1961 Unknown [id number] 2.16.8 40.1.344002.3.579.2.182 1961 Unknown [id number] 2.16.8 40.1.538328.3.579.2.182 1961 Unknown [id number] 2.16.8 40.1.729885.3.579.2.182 Social History Date Type Detail Facility Start: 11-09-2011 End: 07-13-2020 Tobacco smoking status IDIS Never smoker [employer] Phone: Start: 07-13-2020 End: 03-12-2022 Tobacco use and exposure Never used [employer] Phone: Start: 07-13-2020 End: 07-05-2021 Alcohol intake Current non-drinker of alcohol (finding) [employer] Phone: Start: 1960 Sex Assigned At Not on file [employer] Phone: Start: 12-26-2021 End: 12-03-2022 Exposure to SARS-CoV-2 (event) Not sure [employer] Phone: Start: 01-05-2022 End: 03-12-2022 Tobacco smoking status [facility] Ex-smoker [employer] Phone: Start: 01-05-1977 End: 01-05-1981 History of tobacco use Current smoker [employer] Work Phone: Start: 01-05-2022 End: 05-06-2023 Alcohol intake Current drinker of alcohol (finding) [employer] Phone: Start: 01-05-2022 History SDOH Alcohol Comment social [employer] Phone: Start: 01-05-1977 End: 01-05-1981 History of tobacco use Cigarette Smoker [employer] Phone: Start: 03-12-2022 End: 07-09-2022 Cigarettes smoked current (pack per day) - Reported 1 [employer] Start: 07-09-2022 End: 04-19-2023 Gender identity Not on file [employer] Patient Health Questionnaire 9 item (PHQ-9) total score [Reported] 0 [employer] NEGATED: Highlighted row - - -[facility] [place] Work Phone: Medical Equipment Procedure Code Equipment Code Equipment Origin al Text Equipment Identifier Dates Graft Chip Canc Osteocel 10cc - [id number] Start: 01-12-2022 Kit Graft Bone S m Rhbmp-2 4.2mg Inj 5ml Contain Ndl 20ga - [id number] Start: 01-12-2022 Screw Spnl L50mm Od6.5mm 2c Reduc Reline - [id number] Start: 01-12-2022 Screw Spnl Dia5. 5mm Opn Tulip Brinda Reline - [id number] Start: 01-12-2022 Functional Status Date Assessment Result Facility NEGATED: Highlighted row Functional performance Functional status health issues are not documented [facility] Work Phone: Mental Status Date Assessment Result Facility NEGATED: Highlighted row Cognitive function [Interpretation] Cognitive status health issues are not documented [facility] Work Phone: Clinical Notes 09-21-2021 to 05-06-2023 Discharge InstructionsMarielos Ely DPM - 05/06/2023 9:30 AM EDTCshane Abbott PT - 03/14/2023 9:00 AM EDTDischarge InstructionsMarielos Ely DPM - 01/14/2023 9:00 AM EDTDischarge Instructions Note Date & Type Note Facility 05-06-2023 Hospital Discharge instructions Marielos Ely DPM - 05/06/2023 10:16 AM EDT [facility] Medicine Physician Orders and Discharge Instructions [address] [address] FAX [phone] NAME: Macarena Coleman DATE OF : 1960 Your Supervisory Historian is: Ivana Mount [place] Care/Facility: [facility] Wound Location:Left plantar foot Dressing orders:1.Cleanse wound(s) with Dakins 2. Apply SILVERCEL to wound bed 3. Cover with double layer of Drawtex and wrap with gauze (mary or kerlix) 4. Change dressing three times a week. Compression: Apply medium compression hose to left lower leg(s), may remove at bedtime, reapply first thing in the morning, avoid prolonged standing, elevate legs when sitting.(42) Offloading Device: Non weight bearing to left foot as much as possible. Wear the boot on left foot only when you have to be on your foot. Use your knee scooter as much as possible. Other Instructions: Elevate left leg as much as possible. Do not get the wound wet in the shower. Can get a cast cover at [facility]. Keep all dressings clean, dry and intact. Keep pressure off the wound(s) at all times. Follow up visit 2 Weeks Saturday May 20, 2023 at Please give 24 hour notice if unable to keep appointment. [phone] If you experience any of the following, please call the Wound Care Service at [phone] or go to the nearest emergency room. *Increase in pain *Temperature over 101 *Increase in drainage from your wound or a foul odor *Uncontrolled swelling *Need for compression bandage changes due to slippage, breakthrough drainage PLEASE NOTE: IF YOU ARE UNABLE TO OBTAIN WOUND SUPPLIES, CONTINUE TO USE THE SUPPLIES YOU HAVE AVAILABLE UNTIL YOU ARE ABLE TO REACH US. IT IS MOST IMPORTANT TO KEEP THE WOUND COVERED AT ALL TIMES documented in this encounter [facility] 05-06-2023 History of Present illness Narrative Images from the original note were not included. [facility] Progress Note and Procedure Note Macarena Coleman AGE: 63 y.o. GENDER: male : 1960 EPISODE DATE: 05/06/2023 Subjective: Chief Complaint Patient presents with Wound Check HISTORY of PRESENT ILLNESS HPI Macarena Coleman is a 63 y.o. male who presents today for wound/ulcer evaluation. 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 He is improving. Denies nausea, vomiting, fevers, or chills. Wound/Ulcer Pain Timing/Severity: intermittent Quality of pain: throbbing Severity: Modifying Factors: Pain is relieved/improved with rest Associated Signs/Symptoms: edema, drainage, and numbness Ulcer Identification: Ulcer Type: neuropathic Contributing Factors: shear force and obesity Wound: N/A PAST MEDICAL HISTORY Diagnosis Date Arthritis spine HTN (hypertension) meds since age 41. 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 PAST SURGICAL HISTORY Past Surgical History: Procedure Laterality Date ENDOSCOPY, COLON, DIAGNOSTIC FOOT DEBRIDEMENT Left 05/29/2022 INCISION AND DRAINAGE LEFT FOOT performed by Marielos Ely DPM at [facility] [place] HERNIA REPAIR 2007 umbilical hernia (Dr Hall) INGUINAL HERNIA REPAIR Bilateral 1971 LUMBAR FUSION N/A 01/12/2022 BILATERAL L4-5 LAMINECTOMIES MICRODISSECTIONS DECOMPRESSIONS INTERBODY CAGE POSTEROLATERAL ALLOGRAFT AUTOGENOUS BONE PEDICLE SCREW FUSION performed by Viv Luis MD at [facility] OR TOE AMPUTATION Left 05/29/2022 LEFT FOOT PARTIAL 5TH RAY AMPUTATION AND MIDFOOT BONE EXCISION LEFT FOOT performed by Marielos Ely DPM at [facility] OR VENTRICULOPERITONEAL SHUNT 12/12 hydrocephalous FAMILY HISTORY Family History Problem Relation Age of Onset Cancer Mother lung cancer Cancer Father stomack cancer High Blood Pressure Father Coronary Art Dis Neg Hx SOCIAL HISTORY Social History Tobacco Use Smoking status: Former Packs/day: 1.00 Years: 4.00 Additional pack years: 0.00 Total pack years: 4.00 Types: Cigarettes Start date: 01/05/1977 Quit date: 01/05/1981 Years since quittin.3 Smokeless tobacco: Never Vaping Use Vaping Use: Never used Substance Use Topics Alcohol use: Yes Comment: social Drug use: No ALLERGIES Allergies Allergen Reactions Avelox [Moxifloxacin Hcl In Nacl] Other (See Comments) Altered heart rate Amoxicillin-Pot Clavulanate Nausea And Vomiting MEDICATIONS Current Outpatient Medications on File Prior to Encounter Medication Sig Dispense Refill lidocaine (LIDODERM) 5 % Place 2 patches onto the skin daily 12 hours on, 12 hours off. 60 patch 2 HYDROcodone-acetaminophen (NORCO) 7.5-325 MG per tablet Take 1 tablet by mouth every 6 hours as needed for Pain for up to 30 days. Max Daily Amount: 4 tablets 120 tablet 0 cyclobenzaprine (FLEXERIL) 10 MG tablet Take 1 tablet by mouth daily as needed for Muscle spasms 30 tablet 0 carvedilol (COREG) 12.5 MG tablet Take 1 tablet by mouth 2 times daily 180 tablet 3 furosemide (LASIX) 40 MG tablet Take 1 tablet by mouth daily 90 tablet 3 gabapentin (NEURONTIN) 300 MG capsule Take 1 capsule by mouth 3 times daily for 19 days. (Patient taking differently: Take 1 capsule by mouth 4 times daily. 1 cap in AM, 2 caps at 12 and dinner, 1 cap at HS) 57 capsule 0 naproxen (NAPRELAN) 500 MG extended release tablet Take 1 tablet by mouth 2 times daily as needed for Pain 60 tablet 3 Sodium Hypochlorite 0.0125 % SOLN Apply 10 mLs topically as needed (Cleanse with each dressing change.) 1000 mL 5 HYDROcodone-acetaminophen (NORCO) 7.5-325 MG per tablet Take 1 tablet by mouth every 6 hours as needed for Pain. omeprazole (PRILOSEC) 20 MG delayed release capsule Take 1 capsule by mouth daily traZODone (DESYREL) 100 MG tablet Take 1 tablet by mouth nightly candesartan (ATACAND) 32 MG tablet Take 1 tablet by mouth every evening No current facility-administered medications on file prior to encounter. REVIEW OF SYSTEMS Pertinent items are noted in HPI. Objective: BP (!) 161/90 Pulse 82 Temp 97.5 F (36.4 C) (Temporal) Resp 16 Wt Readings from Last 3 Encounters: 04/04/23 235 lb (106.6 kg) 03/21/23 226 lb (102.5 kg) 03/07/23 226 lb (102.5 kg) PHYSICAL EXAM General Appearance: alert and oriented to person, place and time, well-developed and well-nourished, in no acute distress Cardiovascular: normal rate and intact distal pulses Extremities: no cyanosis and no clubbing Musculoskeletal: Charcot foot, left Neurologic: gait and coordination normal, speech normal, and protective sensation is absent to the left foot. Assessment: Active Hospital Problems Diagnosis Date Noted Idiopathic peripheral neuropathy [G60.9] 05/14/2022 Priority: Medium Ulcer of midfoot, left, with necrosis of bone (HCC) [L97.424] 05/14/2022 Priority: Medium Charcot's joint of left foot [M14.672] 02/15/2022 Priority: Medium Procedure Note Indications: Based on my examination of this patient's wound(s)/ulcer(s) today, debridement is required to promote healing and evaluate the wound base. Performed by: Marielos Ely DPM Consent obtained: Yes Time out taken: Yes Pain Control: Anesthetic Anesthetic: 2% Lidocaine Gel Topical Debridement:Excisional Debridement Using tissue nippers the wound(s)/ulcer(s) was/were sharply debrided down through and including the removal of epidermis, dermis, subcutaneous tissue, and muscle/fascia. Devitalized Tissue Debrided: fibrin, biofilm, slough, and muscle/fascia Pre Debridement Measurements: Are located in the Wound/Ulcer Documentation Flow Sheet Wound/Ulcer #: 1 Post Debridement Measurements: Wound/Ulcer Descriptions are Pre Debridement except measurements: Wound 05/14/22 Foot Left;Plantar #1 (Active) Wound Image 05/06/23 1002 Wound Etiology Non-Healing Surgical 05/06/23 1002 Wound Cleansed Cleansed with saline 05/06/23 1002 Dressing/Treatment Alginate with Ag 05/06/23 1029 Offloading for Diabetic Foot Ulcers Offloading ordered 04/08/23 1005 Wound Length (cm) 3 cm 05/06/23 1002 Wound Width (cm) 1.5 cm 05/06/23 1002 Wound Depth (cm) 2.4 cm 05/06/23 1002 Wound Surface Area (cm^2) 4.5 cm^2 05/06/23 1002 Change in Wound Size % (l*w) -87.5 05/06/23 1002 Wound Volume (cm^3) 10.8 cm^3 05/06/23 1002 Wound Healing % -50 05/06/23 1002 Post-Procedure Length (cm) 3 cm 05/06/23 1028 Post-Procedure Width (cm) 1.5 cm 05/06/23 1028 Post-Procedure Depth (cm) 2.4 cm 05/06/23 1028 Post-Procedure Surface Area (cm^2) 4.5 cm^2 05/06/23 1028 Post-Procedure Volume (cm^3) 10.8 cm^3 05/06/23 1028 Undermining Starts ___ O'Clock 10. 05/06/23 1002 Undermining Ends___ O'Clock 3 05/06/23 1002 Undermining Maxium Distance (cm) 0.6 05/06/23 1002 Wound Assessment Granulation tissue 05/06/231001 Drainage Amount Large (50-75% saturated) 05/06/231001 Drainage Description Green;Yellow 05/06/23 1002 Odor Mild 05/06/231001 Brisa-wound Assessment Maceration 05/06/231001 Margins Defined edges 05/06/231001 Wound Thickness Description not for Pressure Injury Full thickness 05/06/23 1002 Number of days: 357 Incision 01/12/22 Back Medial (Active) Number of days: 479 Percent of Wound/Ulcer Debrided: 100% Total Surface Area Debrided: 4.5 sq cm Diabetic/Pressure/Non Pressure Ulcers: Ulcer: Non-Pressure ulcer, muscle necrosis , Bleeding: Minimal Hemostasis Achieved: by pressure and by silver nitrate stick Procedural Pain: 0 / 10 Post Procedural Pain: 0 / 10 Response to treatment: Well tolerated by patient. Plan: Continue offloading and current dressings. Plan of care was discussed with patient and he is in agreement. Treatment Note please see attached Discharge Instructions In my professional opinion this patient would benefit from HBO Therapy: No Written patient dismissal instructions given to patient and signed by patient or POA. Discharge Instructions [facility] W[facility] and [facility] Medicine Physician Orders and Discharge Instructions [place] [id number] FAX [phone] NAME: Macarena Coleman DATE OF : 1960 Your Supervisory Historian is: Ivana [place] Care/Facility: [facility] Wound Location:Left plantar foot Dressing orders:1.Cleanse wound(s) with Dakins 2. Apply SILVERCEL to wound bed 3. Cover with double layer of Drawtex and wrap with gauze (mary or kerlix) 4. Change dressing three times a week. Compression: Apply medium compression hose to left lower leg(s), may remove at bedtime, reapply first thing in the morning, avoid prolonged standing, elevate legs when sitting.(42) Offloading Device: Non weight bearing to left foot as much as possible. Wear the boot on left foot only when you have to be on your foot. Use your knee scooter as much as possible. Other Instructions: Elevate left leg as much as possible. Do not get the wound wet in the shower. Can get a cast cover at [facility]. Keep all dressings clean, dry and intact. Keep pressure off the wound(s) at all times. Follow up visit 2 Weeks Saturday May 20, 2023 at Please give 24 hour notice if unable to keep appointment. [phone] If you experience any of the following, please call the Wound Care Service at [phone] or go to the nearest emergency room. *Increase in pain *Temperature over 101 *Increase in drainage from your wound or a foul odor *Uncontrolled swelling *Need for compression bandage changes due to slippage, breakthrough drainage PLEASE NOTE: IF YOU ARE UNABLE TO OBTAIN WOUND SUPPLIES, CONTINUE TO USE THE SUPPLIES YOU HAVE AVAILABLE UNTIL YOU ARE ABLE TO REACH US. IT IS MOST IMPORTANT TO KEEP THE WOUND COVERED AT ALL TIMES documented in this encounter [facility] 03-14-2023 History of Present illness Narrative Images from the original note were not included. FUNCTIONAL CAPACITIES EVALUATION DISABILITY CLIENT: Macarena Coleman DATE: 03/14/2023 DIAGNOSIS: Paraparesis of both lower limbs (HCC) [G82.20] Hydrocephalus, unspecified type (HCC) [G91.9] Charcot's joint of left foot [M14.672] History of lumbar fusion [Z98.1] Chronic pain of right knee [M25.561, G89.29] Chronic pain of left knee [M25.562, G89.29] Idiopathic peripheral neuropathy [G60.9] Ulcer of midfoot, left, with necrosis of bone (HCC) [L97.424] 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 (ventriculoperitoneal) shunt status [Z98.2] REFERRAL SOURCE: Viv Luis MD PAYMENT SOURCE: Payor: [employer] / Plan: [employer] [address] / Product Type: *No Product type* / DATE OF : 1960 MEDICAL HISTORY Age: 62 y.o. Medical History: Past Medical History: Diagnosis Date Arthritis spine HTN (hypertension) meds since age 41. 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 Previous injuries or surgery: Past Surgical History: Procedure Laterality Date ENDOSCOPY, COLON, DIAGNOSTIC FOOT DEBRIDEMENT Left 05/29/2022 INCISION AND DRAINAGE LEFT FOOT performed by Marielos Ely DPM at [facility] OR HERNIA REPAIR 2007 umbilical hernia (Dr Hall) INGUINAL HERNIA REPAIR Bilateral 1971 LUMBAR FUSION N/A 01/12/2022 BILATERAL L4-5 LAMINECTOMIES MICRODISSECTIONS DECOMPRESSIONS INTERBODY CAGE POSTEROLATERAL ALLOGRAFT AUTOGENOUS BONE PEDICLE SCREW FUSION performed by Viv Luis MD at [facility] OR TOE AMPUTATION Left 05/29/2022 LEFT FOOT PARTIAL 5TH RAY AMPUTATION AND MIDFOOT BONE EXCISION LEFT FOOT performed by Marielos Ely DPM at [facility] OR VENTRICULOPERITONEAL SHUNT 12/12 hydrocephalous Past medical problems: Client reports back surgery January 2022. Charcot foot on left foot May 2022 with surgery, wound not healing, still wearing boot per surgeon. Able to use knee scooter indoors without boot as long as he stays NWB. Client reports difficulty with bending & lifting, needs UE support. Client denies any restrictions from back surgeon other than 'not doing anything he can't do.' [facility] nurse comes out x3 week to manage wounds on foot currently. Since back surgery in 2021, client reports bilateral digits numbness on distal ends ~1/4. Current Medications: Current Outpatient Medications Medication Sig Dispense Refill carvedilol (COREG) 12.5 MG tablet Take 1 tablet by mouth 2 times daily 180 tablet 3 furosemide (LASIX) 40 MG tablet Take 1 tablet by mouth daily 90 tablet 3 cyclobenzaprine (FLEXERIL) 10 MG tablet Take 1 tablet by mouth daily as needed for Muscle spasms 30 tablet 0 gabapentin (NEURONTIN) 300 MG capsule Take 1 capsule by mouth 3 times daily for 19 days. 57 capsule 0 naproxen (NAPRELAN) 500 MG extended release tablet Take 1 tablet by mouth 2 times daily as needed for Pain 60 tablet 3 Sodium Hypochlorite 0.0125 % SOLN Apply 10 mLs topically as needed (Cleanse with each dressing change.) 1000 mL 5 HYDROcodone-acetaminophen (NORCO) 7.5-325 MG per tablet Take 1 tablet by mouth every 6 hours as needed for Pain. lidocaine (LIDODERM) 5 % Place 2 patches onto the skin daily 12 hours on, 12 hours off. 60 patch 2 omeprazole (PRILOSEC) 20 MG delayed release capsule Take 1 capsule by mouth daily traZODone (DESYREL) 100 MG tablet Take 1 tablet by mouth nightly candesartan (ATACAND) 32 MG tablet Take 1 tablet by mouth every evening No current facility-administered medications for this encounter. 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) How long at current job: 25 & 34 years Off work since: May 08, 2022 Previous work: N/A Educational Background: High School Diploma; 'some' college classes; [employer] REPORTED FUNCTIONAL STATUS Home: Lives with spouse in a 1 level home Self-Care Dressing Independent; unable to currently takes baths Bathing Independent Home Management Cooking Independent with spouse; splits duties with Cleaning Independent with spouse; splits duties with Laundry Dependent ; laundry in basement - hard to navigate stairs due to boot Sleep Good: 6 hours Bad:4 hours Driving Distance Independent NON-MATERIAL HANDLING ACTIVITIES Activity Never Rarely Occasional (1-33% of day) Frequent (34-66% of day) Constant (67-100% of day) Sitting [] [] [] [x] [] Standing [] [] [x] [] [] Bending [] [] [x] [] [] Reaching (forward) [] [] [] [x] [] Reaching (overhead) [] [] [x] [] [] Stairs [] [x] [] [] [] Ladders [] [x] [] [] [] Squatting [] [x] [] [] [] Kneeling [] [x] [] [] [] Walking [] [] [x] [] [] Balancing [] [x] [] [] [] Repetitive leg [] [] [x] [] [] Repetitive arm [] [] [x] [] [] Hand controls [] [] [x] [] [] Foot controls [] [] [x] [] [] Comments: Non-material handling projections are based upon patient report and observation during the evaluation. SIT AND STAND TOLERANCE Reported sit: 30 minutes increments; 'needs to stand up' Reported stand: 7-8 minutes Reported walk: 7-8 minutes Actual sit: 45 minutes Actual stand: 5-10 minutes with rest breaks Actual walk: 5-10 minutes with rest breaks MUSCULOSKELETAL SCREENING right handed RANGE OF MOTION/FLEXIBILITY Upper Extremity WNL - Within Normal Limits WFL - Within Functional Limits *Strength grades: 0=Absent 1=Trace 2=Poor 3=Fair 4=Good 5=Normal* RIGHT ROM STRENGTH LEFT ROM STRENGTH Shoulder Shoulder Flexion WFL 4+/5 Flexion WFL 4+/5 Extension WNL 4+/5 Extension WNL 4+/5 Abduction WFL 4+/5 Abduction WFL 4/5 Ext. Rot. WFL 4+/5 Ext. Rot. WFL 4/5 Int. Rot. WFL 4/5 Int. Rot. WFL 4-/5 Elbow Elbow Flexion WNL 5/5 Flexion WNL 4+/5 Extension WNL 5/5 Extension WNL 4-/5 Forearm Forearm Supination WNL 4+/5 Supination WNL 4+/5 Pronation WNL 4+/5 Pronation WNL 4/5 Wrist Wrist Flexion WFL 4+/5 Flexion WFL 4+/5 Extension WFL 4+/5 Extension WFL 4+/5 Radial Dev WFL 4+/5 Radial Dev WFL 4+/5 Ulnar Dev WFL 4+/5 Ulnar Dev WFL 4+/5 Hand Hand Finger flex/ext. WFL 4+/5 Finger flex/ext. WFL 4+/5 Lower Extremity RIGHT ROM STRENGTH LEFT ROM STRENGTH Hip Hip SLR WFL 4-/5 SLR WFL 4-/5 Flexion 90* 5/5 Flexion 90* 5/5 Extension WFL 4/5 Extension WFL 4-/5 Abduction WFL 4+/5 Abduction WFL 4+/5 Knee Knee Flexion WFL 5/5 Flexion WFL 4/5 Extension WFL 5/5 Extension WFL 4/5 Ankle Ankle Dorsiflexion WFL 4+/5 Dorsiflexion WFL 4+/5 Plantarflexion WFL 4+/5 Plantarflexion WFL NT (wound on bottom of foot) Trunk Cervical Flexion WFL Flexion WFL Extension Limited Extension WFL Rotation R WFL L WFL Rotation R WFL L WFL Side bend R WFL L WFL Side bend R WFL L WFL Abdominals: 3-/5 Extensors: 3-/5 Radioactivity Technician Strength (pounds) Radioactivity Technician Setting Right Norm Left Norm #1 16 18 #2 42 Male age 60-64: 90 lbs 36 Male age 60-64: 82 lbs #3 44 36 #4 40 26 #5 37 22 Average 35.3 27.6 Rapid Exchange Radioactivity Technician: Right: 52 lbs. Left: 50 lbs. Interpretation: With maximal effort, the curve should be a modified holcomb-shaped curve. With true weakness, the holcomb curve is lower, and with simulated weakness, the curve will be that or somewhat curved, but distinguishable from the modified holcomb-shaped curve of the unaffected hand. Right Norm Left Norm Palmar Pinch (3 pt) - pounds 8 Male age 60-64: 17.0 lbs 5 Male age 60-64: 16.0 lbs Lateral Pinch - pounds 15 Male age 60-64: 19.0 lbs 14 Male age 60-64: 17.5 lbs Comments: Client did/did not demonstrate maximal effort with casino floor walker and pinch testing. COORDINATION/DEXTERITY Test Right Norm Left Norm 9 Hole Peg Test (seconds) 20.92 Male age 60-64: 20.3 s 31.12 Male age 60-64: 21.0 s Box/Blocks Test/Blocks per minute (In Standing) 57 Male age 60-64: 71.3 58 Male age 60-64: 70.5 Comments: N/A POSTURE A postural screen revealed: Fair; As patient fatigued, postural awareness decreased: increased trunk flexion, increased cervical flexion. MATERIAL HANDLING ACTIVITIES (Weight in pounds) Lifting Occasional (1-33% of day) Frequent (34-55% of day) Constant (67-100% of day) 12 to knuckle 40 20 10 Knuckle to waist 40 20 10 Waist to chest 40 20 10 Waist to overhead 25 12.5 6.25 Carrying 25 12.5 6.25 Horizontal 40 20 10 Pushing 85 42.5 21.25 Pulling 85 42.5 21.25 For frequent and constant figures, data is extrapolated. The occasional lift is tested by one maximal lift. Client demonstrated Fair body mechanics with lifting tasks. Physical Demand Classification: medium FUNCTIONAL ASSETS Prompt to evaluation Cooperative and able to follow directions, verbalize concerns Good/Fair upper and lower extremity range of motion and flexibility Good/Fair upper and lower extremity strength Fair lift and carry tolerance for medium physical demand classification Fair knowledge and application of body mechanics with lifting tasks Good sit tolerance PROBLEMS INTERFERING WITH VOCATIONAL PERFORMANCE Decreased workplace tolerance Decreased upper, lower, and trunk strength Decreased trunk motion Decreased cardiovascular endurance Decreased lift and carry tolerance Decreased knowledge and application of body mechanics with lifting tasks Decreased standing tolerancee Decreased casino floor walker and pinch strength Decreased knowledge of coping skills for RTW Decreased ability to manage pain symptoms Decreased knowledge and/or application of appropriate pain management PHYSICAL ABILITIES AND LIMITATIONS STAND at one time []None [x]15 min []30 min []60 min []2 hrs. []4 hrs STAND total per 8hr day []None []60 min [x]2 hrs []4 hrs. []6 hrs []8 hrs. SIT at one time []None []15 min []30 min [x]60 min []2 hrs. []4 hrs. SIT total per 8hr day []None []15 min []30 min []60 min []2 hrs. [x]4 hrs. LIFT & CARRY occasionally [] 0-5 lbs. [] 10 lbs. [x] 20 lbs. [] 50 lbs. LIFT & CARRY frequently [] 0-5 lbs. [x] 10 lbs. [] 20 lbs. [] 50 lbs. 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 Client is currently limited secondary to NWB of LLE due to unhealing left foot wound from foot surgery in May 2022, requiring a walking boot in community & knee scooter at home. Recommendations: Client is recommended to follow-up with MD regarding back deficits post-surgery as well as non-healing left foot ulcer. Client may benefit from OT/PT for decreased bilateral LE & UE strength & ROM as well as coordination/dexterity issues. PT Individual Minutes Time In: 0850 Time Out: 1020 Minutes: 90 Timed Code Treatment Minutes: 90 Minutes Plan of Care: Goals Current/ Discharge status Status STG 1: Complete FCE to determine abilities FCE completed this date Met PLAN: Discharge, Recommend pt follow up with MD. Therapist Signature Industrial Rehabilitation Physician Signature documented in this encounter MADINA [facility] 01-14-2023 Hospital Discharge instructions Marielos Ely DPM - 01/14/2023 9:04 AM EDT [facility] Medicine Physician Orders [place] [address] FAX [phone] NAME: Macarena Coleman DATE OF : 1960 Your Supervisory Historian is: Ivana Mount Royal Care/Facility: [facility] Wound Location:Left plantar foot Dressing orders:1.Cleanse wound(s) with Dakins 2. Apply SILVERCEL to wound bed 3. Cover with double layer of Drawtex and wrap with gauze (mary or kerlix) 4. Change dressing three times a week. Compression: Apply medium compression hose to left lower leg(s), may remove at bedtime, reapply first thing in the morning, avoid prolonged standing, elevate legs when sitting. Offloading Device: Non weight bearing to left foot as much as possible. Wear the boot on left foot only when you have to be on your foot. Use your knee scooter as much as possible. Other Instructions: Elevate left leg as much as possible. Do not get the wound wet in the shower. Can get a cast cover at [facility]. Keep all dressings clean, dry and intact. Keep pressure off the wound(s) at all times. Follow up visit 2 Weeks Saturday January 28, 2023 at 9:00am Please give 24 hour notice if unable to keep appointment. [phone] If you experience any of the following, please call the Wound Care Service at [phone] or go to the nearest emergency room. *Increase in pain *Temperature over 101 *Increase in drainage from your wound or a foul odor *Uncontrolled swelling *Need for compression bandage changes due to slippage, breakthrough drainage PLEASE NOTE: IF YOU ARE UNABLE TO OBTAIN WOUND SUPPLIES, CONTINUE TO USE THE SUPPLIES YOU HAVE AVAILABLE UNTIL YOU ARE ABLE TO REACH US. IT IS MOST IMPORTANT TO KEEP THE WOUND COVERED AT ALL TIMES documented in this encounter [employer] [employer] Work Phone: 01-14-2023 History of Present illness Narrative Images from the original note were not included. [facility] Progress Note and Procedure Note Macarena Coleman AGE: 62 y.o. GENDER: male : 1960 EPISODE DATE: 01/14/2023 Subjective: Chief Complaint Patient presents with Wound Check Left foot HISTORY of PRESENT ILLNESS HPI Macarena Coleman is a 62 y.o. male who presents today for wound/ulcer evaluation. 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 Admits to non compliance staying off his foot. Denies nausea, vomiting, fevers, or chills. Wound/Ulcer Pain Timing/Severity: waxing and waning Quality of pain: squeezing, throbbing Severity: 2 / 10 Modifying Factors: Pain is relieved/improved with rest Associated Signs/Symptoms: edema, drainage, numbness, and pain Ulcer Identification: Ulcer Type: neuropathic Contributing Factors: edema, venous stasis, lymphedema, shear force, obesity, and non-adherence Wound: N/A PAST MEDICAL HISTORY Diagnosis Date Arthritis spine HTN (hypertension) meds since age 41. 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 PAST SURGICAL HISTORY Past Surgical History: Procedure Laterality Date ENDOSCOPY, COLON, DIAGNOSTIC FOOT DEBRIDEMENT Left 05/29/2022 INCISION AND DRAINAGE LEFT FOOT performed by Marielos Ely DPM at [facility] [place]PA[place] 2007 umbilical hernia (Dr Hall) INGUINAL HERNIA REPAIR Bilateral 1971 LUMBAR FUSION N/A 01/12/2022 BILATERAL L4-5 LAMINECTOMIES MICRODISSECTIONS DECOMPRESSIONS INTERBODY CAGE POSTEROLATERAL ALLOGRAFT AUTOGENOUS BONE PEDICLE SCREW FUSION performed by Viv Luis MD at [facility] [place] OR TOE AMPUTATION Left 05/29/2022 LEFT FOOT PARTIAL 5TH RAY AMPUTATION AND MIDFOOT BONE EXCISION LEFT FOOT performed by Marielos Ely DPM at [facility] [place] OR VENTRICULOPERITONEAL SHUNT 12/12 hydrocephalous FAMILY HISTORY Family History Problem Relation Age of Onset Cancer Mother lung cancer Cancer Father stomack cancer High Blood Pressure Father Coronary Art Dis Neg Hx SOCIAL HISTORY Social History Tobacco Use Smoking status: Former Packs/day: 1.00 Years: 4.00 Pack years: 4.00 Types: Cigarettes Start date: 01/05/1977 Quit date: 01/05/1981 Years since quittin.0 Smokeless tobacco: Never Vaping Use Vaping Use: Never used Substance Use Topics Alcohol use: Yes Comment: social Drug use: No ALLERGIES Allergies Allergen Reactions Avelox [Moxifloxacin Hcl In Nacl] Other (See Comments) Altered heart rate Amoxicillin-Pot Clavulanate Nausea And Vomiting MEDICATIONS Current Outpatient Medications on File Prior to Encounter Medication Sig Dispense Refill naproxen (NAPRELAN) 500 MG extended release tablet Take 1 tablet by mouth 2 times daily as needed for Pain 60 tablet 3 cyclobenzaprine (FLEXERIL) 10 MG tablet Take 1 tablet by mouth daily as needed for Muscle spasms 30 tablet 0 gabapentin (NEURONTIN) 300 MG capsule Take 1 capsule by mouth 3 times daily for 30 days. 90 capsule 0 HYDROcodone-acetaminophen (NORCO) 7.5-325 MG per tablet Take 1 tablet by mouth 3 times daily as needed for Pain for up to 30 days. Max Daily Amount: 3 tablets 90 tablet 0 potassium chloride (KLOR-CON M) 20 MEQ TBCR extended release tablet Take 1 tablet by mouth daily (with breakfast) Sodium Hypochlorite 0.0125 % SOLN Apply 10 mLs topically as needed (Cleanse with each dressing change.) 1000 mL 5 naproxen (NAPRELAN) 500 MG extended release tablet Take 1 tablet by mouth 2 times daily as needed for Pain 60 tablet 3 cephALEXin (KEFLEX) 500 MG capsule Take 1 capsule by mouth 4 times daily 40 capsule 0 HYDROcodone-acetaminophen (NORCO) 7.5-325 MG per tablet Take 1 tablet by mouth every 6 hours as needed for Pain. furosemide (LASIX) 20 MG tablet Take 1 tablet by mouth daily 30 tablet 3 metoprolol succinate (TOPROL XL) 50 MG extended release tablet Take 1 tablet by mouth daily 30 tablet 0 lidocaine (LIDODERM) 5 % Place 2 patches onto the skin daily 12 hours on, 12 hours off. 60 patch 2 omeprazole (PRILOSEC) 20 MG delayed release capsule Take 1 capsule by mouth daily amLODIPine (NORVASC) 5 MG tablet Indications: takes with elevated BP reading -- with sx headache & flushed feeling traZODone (DESYREL) 100 MG tablet Take 1 tablet by mouth nightly candesartan (ATACAND) 32 MG tablet Take 1 tablet by mouth every evening No current facility-administered medications on file prior to encounter. REVIEW OF SYSTEMS Pertinent items are noted in HPI. Objective: BP (!) 162/78 Pulse 95 Temp (!) 96.3 F (35.7 C) (Temporal) Resp 18 Wt Readings from Last 3 Encounters: 11/29/22 200 lb (90.7 kg) 09/06/22 200 lb (90.7 kg) 08/09/22 195 lb (88.5 kg) PHYSICAL EXAM General Appearance: alert and oriented to person, place and time, well-developed and well-nourished, in no acute distress Cardiovascular: normal rate and intact distal pulses Extremities: no cyanosis and no clubbing Musculoskeletal: Charcot foot, left Neurologic: speech normal and protective sensation is absent to the left foot. Assessment: Active Hospital Problems Diagnosis Date Noted Ulcer of midfoot, left, with necrosis of bone (HCC) [L97.424] 05/14/2022 Priority: Medium Idiopathic peripheral neuropathy [G60.9] 05/14/2022 Priority: Medium Charcot's joint of left foot [M14.672] 02/15/2022 Priority: Medium Peripheral venous insufficiency [I87.2] 11/19/2022 Lymphedema [I89.0] 11/19/2022 Procedure Note Indications: Based on my examination of this patient's wound(s)/ulcer(s) today, debridement is required to promote healing and evaluate the wound base. Performed by: Marielos Ely DPM Consent obtained: Yes Time out taken: Yes Pain Control: Debridement:Excisional Debridement Using tissue nippers the wound(s)/ulcer(s) was/were sharply debrided down through and including the removal of epidermis, dermis, subcutaneous tissue, and muscle/fascia. Devitalized Tissue Debrided: fibrin, biofilm, slough, and muscle/fascia. Pre Debridement Measurements: Are located in the Wound/Ulcer Documentation Flow Sheet Wound/Ulcer #: 1 Post Debridement Measurements: Wound/Ulcer Descriptions are Pre Debridement except measurements: Wound 05/14/22 Foot Left;Plantar #1 (Active) Wound Image 01/14/23 0915 Wound Etiology Non-Healing Surgical 01/14/23 0915 Wound Cleansed Cleansed with saline 01/14/23 0915 Dressing/Treatment Alginate with Ag;Dry dressing;Other (comment) 12/31/22 1024 Offloading for Diabetic Foot Ulcers Offloading ordered;Offloading boot 11/19/22 1032 Wound Length (cm) 2.4 cm 01/14/23 0915 Wound Width (cm) 2.5 cm 01/14/23 0915 Wound Depth (cm) 2.5 cm 01/14/23 0915 Wound Surface Area (cm^2) 6 cm^2 01/14/23 0915 Change in Wound Size % (l*w) -150 01/14/23 0915 Wound Volume (cm^3) 15 cm^3 01/14/23 0915 Wound Healing % -108 01/14/23 0915 Post-Procedure Length (cm) 2.4 cm 01/14/23 0959 Post-Procedure Width (cm) 2.5 cm 01/14/23 0959 Post-Procedure Depth (cm) 2.5 cm 01/14/2359 Post-Procedure Surface Area (cm^2) 6 cm^2 01/14/23 0959 Post-Procedure Volume (cm^3) 15 cm^3 01/14/23 0959 Undermining Starts ___ O'Clock 6 12/31/22 0921 Undermining Ends___ O'Clock 3 05/22/23 0921 Undermining Maxium Distance (cm) 0.6 12/31/22920 Wound Assessment Granulation tissue 01/14/23914 Drainage Amount Large 01/14/23914 Drainage Description Brown;Yellow;Serosanguinous 01/14/23914 Odor Mild 01/14/23914 Brisa-wound Assessment Maceration 01/14/23914 Margins Defined edges 01/14/23914 Wound Thickness Description not for Pressure Injury Full thickness 01/14/23914 Number of days: 245 Incision 01/12/22 Back Medial (Active) Number of days: 367 Percent of Wound/Ulcer Debrided: 100% Total Surface Area Debrided: 6 sq cm Diabetic/Pressure/Non Pressure Ulcers: Ulcer: Non-Pressure ulcer, muscle necrosis , Bleeding: Estimated amount of blood loss is 3 ml. Hemostasis Achieved: by pressure and by silver nitrate stick Procedural Pain: Post Procedural Pain: Response to treatment: Well tolerated by patient. Plan: Again emphasized the importance of staying off his foot. Plan of care was discussed with patient and he is in agreement. Treatment Note please see attached Discharge Instructions In my professional opinion this patient would benefit from HBO Therapy: No Written patient dismissal instructions given to patient and signed by patient or POA. Discharge Instructions [facility] Wound Center and Hyperbaric Medicine Physician Orders and Discharge Instructions [place] [id number] FAX [phone] NAME: Macarena Coleman DATE OF : 1960 Your Supervisory Historian is: Ivana Mount Royal Care/Facility: [facility] Wound Location:Left plantar foot Dressing orders:1.Cleanse wound(s) with Dakins 2. Apply SILVERCEL to wound bed 3. Cover with double layer of Drawtex and wrap with gauze (mary or kerlix) 4. Change dressing three times a week. Compression: Apply medium compression hose to left lower leg(s), may remove at bedtime, reapply first thing in the morning, avoid prolonged standing, elevate legs when sitting. Offloading Device: Non weight bearing to left foot as much as possible. Wear the boot on left foot only when you have to be on your foot. Use your knee scooter as much as possible. Other Instructions: Elevate left leg as much as possible. Do not get the wound wet in the shower. Can get a cast cover at [facility]. Keep all dressings clean, dry and intact. Keep pressure off the wound(s) at all times. Follow up visit 2 Weeks Saturday January 28, 2023 at 9:00am Please give 24 hour notice if unable to keep appointment. [phone] If you experience any of the following, please call the Wound Care Service at [phone] or go to the nearest emergency room. *Increase in pain *Temperature over 101 *Increase in drainage from your wound or a foul odor *Uncontrolled swelling *Need for compression bandage changes due to slippage, breakthrough drainage PLEASE NOTE: IF YOU ARE UNABLE TO OBTAIN WOUND SUPPLIES, CONTINUE TO USE THE SUPPLIES YOU HAVE AVAILABLE UNTIL YOU ARE ABLE TO REACH US. IT IS MOST IMPORTANT TO KEEP THE WOUND COVERED AT ALL TIMES documented in this encounter [facility] [employer] [facility] Work Phone: 12-17-2022 Hospital Discharge instructions Marielos Ely DPM - 12/17/2022 9:03 AM EDT [facility] W[facility] Center and Hyperbaric Medicine Physician Orders and Discharge Instructions [place] [id number] FAX [phone] NAME: Macarena Coleman DATE OF : 1960 Your Supervisory Historian is: Ivana Mount Royal Care/Facility: [facility] Wound Location:Left plantar foot Dressing orders:1.Cleanse wound(s) with Dakins 2. Apply SILVERCEL to wound bed 3. Cover with double layer of Drawtex and wrap with gauze (mary or kerlix) 4. Change dressing three times a week. Compression: Apply medium compression hose to left lower leg(s), may remove at bedtime, reapply first thing in the morning, avoid prolonged standing, elevate legs when sitting. Offloading Device: Non weight bearing to left foot as much as possible. Wear the boot on left foot only when you have to be on your foot. Use your knee scooter as much as possible. Other Instructions: Elevate left leg as much as possible. Do not get the wound wet in the shower. Can get a cast cover at [facility]. Referral put in today for lymphedema pumps. The company will contact you about this. Keep all dressings clean, dry and intact. Keep pressure off the wound(s) at all times. Follow up visit 2 Weeks Saturday December 31, 2022 at 9:00am Please give 24 hour notice if unable to keep appointment. [phone] If you experience any of the following, please call the Wound Care Service at [phone] or go to the nearest emergency room. *Increase in pain *Temperature over 101 *Increase in drainage from your wound or a foul odor *Uncontrolled swelling *Need for compression bandage changes due to slippage, breakthrough drainage PLEASE NOTE: IF YOU ARE UNABLE TO OBTAIN WOUND SUPPLIES, CONTINUE TO USE THE SUPPLIES YOU HAVE AVAILABLE UNTIL YOU ARE ABLE TO REACH US. IT IS MOST IMPORTANT TO KEEP THE WOUND COVERED AT ALL TIMES documented in this encounter MADINA [facility] Work Phone: 12-17-2022 History of Present illness Narrative Images from the original note were not included. [facility] Progress Note and Procedure Note Macarena Coleman AGE: 62 y.o. GENDER: male : 1960 EPISODE DATE: 12/17/2022 Subjective: Chief Complaint Patient presents with Wound Check Left plantar HISTORY of PRESENT ILLNESS HPI Macarena Coleman is a 62 y.o. male who presents today for wound/ulcer evaluation. 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 ++ hypergranulation. Denies nausea, vomiting, fevers, or chills. Wound/Ulcer Pain Timing/Severity: none Quality of pain: N/A Severity: 0 / 10 Modifying Factors: None Associated Signs/Symptoms: edema, drainage, and numbness Ulcer Identification: Ulcer Type: neuropathic Contributing Factors: edema, venous stasis, shear force, obesity, and non-adherence Wound: N/A PAST MEDICAL HISTORY Diagnosis Date Arthritis spine HTN (hypertension) meds since age 41. 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 PAST SURGICAL HISTORY Past Surgical History: Procedure Laterality Date ENDOSCOPY, COLON, DIAGNOSTIC FOOT DEBRIDEMENT Left 05/29/2022 INCISION AND DRAINAGE LEFT FOOT performed by Marielos Ely DPM at [facility] [place] HERN[place] REPAIR 2007 umbilical hernia (Dr Hall) INGUINAL HERNIA REPAIR Bilateral 1971 LUMBAR FUSION N/A 01/12/2022 BILATERAL L4-5 LAMINECTOMIES MICRODISSECTIONS DECOMPRESSIONS INTERBODY CAGE POSTEROLATERAL ALLOGRAFT AUTOGENOUS BONE PEDICLE SCREW FUSION performed by Viv Luis MD at [facility] [place] OR TOE AMPUTATION Left 05/29/2022 LEFT FOOT PARTIAL 5TH RAY AMPUTATION AND MIDFOOT BONE EXCISION LEFT FOOT performed by Marielos Ely DPM at [facility] [place] OR VENTRICULOPERITONEAL SHUNT 12/12 hydrocephalous FAMILY HISTORY Family History Problem Relation Age of Onset Cancer Mother lung cancer Cancer Father stomack cancer High Blood Pressure Father Coronary Art Dis Neg Hx SOCIAL HISTORY Social History Tobacco Use Smoking status: Former Packs/day: 1.00 Years: 4.00 Pack years: 4.00 Types: Cigarettes Start date: 01/05/1977 Quit date: 01/05/1981 Years since quittin.9 Smokeless tobacco: Never Vaping Use Vaping Use: Never used Substance Use Topics Alcohol use: Yes Comment: social Drug use: No ALLERGIES Allergies Allergen Reactions Avelox [Moxifloxacin Hcl In Nacl] Other (See Comments) Altered heart rate Amoxicillin-Pot Clavulanate Nausea And Vomiting MEDICATIONS Current Outpatient Medications on File Prior to Encounter Medication Sig Dispense Refill potassium chloride (KLOR-CON M) 20 MEQ TBCR extended release tablet Take 1 tablet by mouth daily (with breakfast) HYDROcodone-acetaminophen (NORCO) 7.5-325 MG per tablet Take 1 tablet by mouth 3 times daily as needed for Pain for up to 30 days. Max Daily Amount: 3 tablets 90 tablet 0 gabapentin (NEURONTIN) 300 MG capsule Take 1 capsule by mouth 3 times daily for 30 days. 90 capsule 0 cyclobenzaprine (FLEXERIL) 10 MG tablet Take 1 tablet by mouth daily as needed for Muscle spasms 30 tablet 0 naproxen (NAPRELAN) 500 MG extended release tablet Take 1 tablet by mouth 2 times daily as needed for Pain 60 tablet 3 Sodium Hypochlorite 0.0125 % SOLN Apply 10 mLs topically as needed (Cleanse with each dressing change.) 1000 mL 5 naproxen (NAPRELAN) 500 MG extended release tablet Take 1 tablet by mouth 2 times daily as needed for Pain 60 tablet 3 cephALEXin (KEFLEX) 500 MG capsule Take 1 capsule by mouth 4 times daily 40 capsule 0 HYDROcodone-acetaminophen (NORCO) 7.5-325 MG per tablet Take 1 tablet by mouth every 6 hours as needed for Pain. furosemide (LASIX) 20 MG tablet Take 1 tablet by mouth daily 30 tablet 3 metoprolol succinate (TOPROL XL) 50 MG extended release tablet Take 1 tablet by mouth daily 30 tablet 0 lidocaine (LIDODERM) 5 % Place 2 patches onto the skin daily 12 hours on, 12 hours off. 60 patch 2 omeprazole (PRILOSEC) 20 MG delayed release capsule Take 1 capsule by mouth daily amLODIPine (NORVASC) 5 MG tablet Indications: takes with elevated BP reading -- with sx headache & flushed feeling traZODone (DESYREL) 100 MG tablet Take 1 tablet by mouth nightly candesartan (ATACAND) 32 MG tablet Take 1 tablet by mouth every evening No current facility-administered medications on file prior to encounter. REVIEW OF SYSTEMS Pertinent items are noted in HPI. Objective: BP (!) 164/84 Pulse (!) 103 Temp 97.6 F (36.4 C) (Temporal) Wt Readings from Last 3 Encounters: 11/29/22 200 lb (90.7 kg) 09/06/22 200 lb (90.7 kg) 08/09/22 195 lb (88.5 kg) PHYSICAL EXAM General Appearance: alert and oriented to person, place and time, well-developed and well-nourished, in no acute distress Cardiovascular: normal rate and intact distal pulses Extremities: no cyanosis and no clubbing Musculoskeletal: Charcot foot, left Neurologic: speech normal and protective sensation is absent to the left foot. Assessment: Active Hospital Problems Diagnosis Date Noted Ulcer of midfoot, left, with necrosis of bone (HCC) [L97.424] 05/14/2022 Priority: Medium Idiopathic peripheral neuropathy [G60.9] 05/14/2022 Priority: Medium Charcot's joint of left foot [M14.672] 02/15/2022 Priority: Medium Peripheral venous insufficiency [I87.2] 11/19/2022 Procedure Note Indications: Based on my examination of this patient's wound(s)/ulcer(s) today, debridement is required to promote healing and evaluate the wound base. Performed by: Marielos Ely DPM Consent obtained: Yes Time out taken: Yes Pain Control: Debridement:Excisional Debridement Using #15 blade scalpel and tissue nippers the wound(s)/ulcer(s) was/were sharply debrided down through and including the removal of epidermis, dermis, subcutaneous tissue, and muscle/fascia. Devitalized Tissue Debrided: fibrin, biofilm, slough, and muscle/fascia Pre Debridement Measurements: Are located in the Wound/Ulcer Documentation Flow Sheet Wound/Ulcer #: 1 Post Debridement Measurements: Wound/Ulcer Descriptions are Pre Debridement except measurements: Wound 05/14/22 Foot Left;Plantar #1 (Active) Wound Image 12/17/22 0906 Wound Etiology Non-Healing Surgical 12/17/22 09 Wound Cleansed Cleansed with saline 12/17/22 0906 Dressing/Treatment Alginate with Ag;Dry dressing;Other (comment) 12/03/22 1049 Offloading for Diabetic Foot Ulcers Offloading ordered;Offloading boot 11/19/22 1032 Wound Length (cm) 2.7 cm 12/17/22 0906 Wound Width (cm) 2.3 cm 12/17/22 0906 Wound Depth (cm) 1.9 cm 12/17/22 0906 Wound Surface Area (cm^2) 6.21 cm^2 12/17/22 0906 Change in Wound Size % (l*w) -158.75 12/17/22 09 Wound Volume (cm^3) 11.799 cm^3 12/17/22 09 Wound Healing % -64 12/17/22 905 Post-Procedure Length (cm) 2.7 cm 12/17/22936 Post-Procedure Width (cm) 2.3 cm 12/17/22936 Post-Procedure Depth (cm) 1.9 cm 12/17/22936 Post-Procedure Surface Area (cm^2) 6.21 cm^2 12/17/22936 Post-Procedure Volume (cm^3) 11.799 cm^3 12/17/22936 Undermining Starts ___ O'Clock 9 12/17/22905 Undermining Ends___ O'Clock 4 12/17/22905 Undermining Maxium Distance (cm) 1.2 12/17/22905 Wound Assessment [place]/red;Slough 12/17/22905 Drainage Amount Moderate 12/17/22905 Drainage Description Brown;[place];Thick 12/17/22905 Odor Moderate 12/17/22905 Brisa-wound Assessment Maceration;Hyperkeratosis (callous) 12/17/22905 Margins Defined edges 12/17/22905 Wound Thickness Description not for Pressure Injury Full thickness 12/17/22905 Number of days: 217 Incision 01/12/22 Back Medial (Active) Number of days: 339 Percent of Wound/Ulcer Debrided: 100% Total Surface Area Debrided: 6.21 sq cm Diabetic/Pressure/Non Pressure Ulcers: Ulcer: Non-Pressure ulcer, muscle necrosis , Bleeding: Estimated amount of blood loss is 5ml. Hemostasis Achieved: by pressure and by silver nitrate stick Procedural Pain: 0 / 10 Post Procedural Pain: 0 / 10 Response to treatment: Well tolerated by patient. Plan: Discussed total contact cast. Plan of care was discussed with patient and he is in agreement. Treatment Note please see attached Discharge Instructions In my professional opinion this patient would benefit from HBO Therapy: No Written patient dismissal instructions given to patient and signed by patient or POA. Discharge Instructions [facility] Wound Center and Hyperbaric Medicine Physician Orders and Discharge Instructions [address] [address] FAX [phone] NAME: Macarena Coleman DATE OF : 1960 Your Supervisory Historian is: Ivana Mount Royal Care/Facility: [facility] Wound Location:Left plantar foot Dressing orders:1.Cleanse wound(s) with Dakins 2. Apply SILVERCEL to wound bed 3. Cover with double layer of Drawtex and wrap with gauze (mary or kerlix) 4. Change dressing three times a week. Compression: Apply medium compression hose to left lower leg(s), may remove at bedtime, reapply first thing in the morning, avoid prolonged standing, elevate legs when sitting. Offloading Device: Non weight bearing to left foot as much as possible. Wear the boot on left foot only when you have to be on your foot. Use your knee scooter as much as possible. Other Instructions: Elevate left leg as much as possible. Do not get the wound wet in the shower. Can get a cast cover at [facility]. Referral put in today for lymphedema pumps. The company will contact you about this. Keep all dressings clean, dry and intact. Keep pressure off the wound(s) at all times. Follow up visit 2 Weeks Saturday December 31, 2022 at 9:00am Please give 24 hour notice if unable to keep appointment. [phone] If you experience any of the following, please call the Wound Care Service at [phone] or go to the nearest emergency room. *Increase in pain *Temperature over 101 *Increase in drainage from your wound or a foul odor *Uncontrolled swelling *Need for compression bandage changes due to slippage, breakthrough drainage PLEASE NOTE: IF YOU ARE UNABLE TO OBTAIN WOUND SUPPLIES, CONTINUE TO USE THE SUPPLIES YOU HAVE AVAILABLE UNTIL YOU ARE ABLE TO REACH US. IT IS MOST IMPORTANT TO KEEP THE WOUND COVERED AT ALL TIMES documented in this encounter [facility] [employer] Work Phone: 12-03-2022 History of Present illness Narrative Images from the original note were not included. [facility] [place] Progress Note and Procedure Note Macarena Coleman AGE: 62 y.o. GENDER: male : 1960 EPISODE DATE: 12/03/2022 Subjective: Chief Complaint Patient presents with Wound Check Left Plantar foot HISTORY of PRESENT ILLNESS HPI Macarena Coleman is a 62 y.o. male who presents today for wound/ulcer evaluation. 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 He is improving. Brown drainage today. Denies nausea, vomiting, fevers, or chills. Wound/Ulcer Pain Timing/Severity: intermittent Quality of pain: shooting Severity: 2 / 10 Modifying Factors: Pain is relieved/improved with rest Associated Signs/Symptoms: edema, drainage, numbness, and pain Ulcer Identification: Ulcer Type: neuropathic Contributing Factors: venous stasis, shear force, and obesity Wound: N/A PAST MEDICAL HISTORY Diagnosis Date Arthritis spine HTN (hypertension) meds since age 41. 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 PAST SURGICAL HISTORY Past Surgical History: Procedure Laterality Date ENDOSCOPY, COLON, DIAGNOSTIC FOOT DEBRIDEMENT Left 05/29/2022 INCISION AND DRAINAGE LEFT FOOT performed by Marielos Ely DPM at [facility]PAIR 2007 umbilical hernia (Dr Hall) INGUINAL HERNIA REPAIR Bilateral 1971 LUMBAR FUSION N/A 01/12/2022 BILATERAL L4-5 LAMINECTOMIES MICRODISSECTIONS DECOMPRESSIONS INTERBODY CAGE POSTEROLATERAL ALLOGRAFT AUTOGENOUS BONE PEDICLE SCREW FUSION performed by Viv Luis MD at [facility] TOE AMPUTATION Left 05/29/2022 LEFT FOOT PARTIAL 5TH RAY AMPUTATION AND MIDFOOT BONE EXCISION LEFT FOOT performed by Marielos Ely DPM at [facility] OR VENTRICULOPERITONEAL SHUNT 12/12 hydrocephalous FAMILY HISTORY Family History Problem Relation Age of Onset Cancer Mother lung cancer Cancer Father stomack cancer High Blood Pressure Father Coronary Art Dis Neg Hx SOCIAL HISTORY Social History Tobacco Use Smoking status: Former Packs/day: 1.00 Years: 4.00 Pack years: 4.00 Types: Cigarettes Start date: 01/05/1977 Quit date: 01/05/1981 Years since quittin.9 Smokeless tobacco: Never Vaping Use Vaping Use: Never used Substance Use Topics Alcohol use: Yes Comment: social Drug use: No ALLERGIES Allergies Allergen Reactions Avelox [Moxifloxacin Hcl In Nacl] Other (See Comments) Altered heart rate Amoxicillin-Pot Clavulanate Nausea And Vomiting MEDICATIONS Current Outpatient Medications on File Prior to Encounter Medication Sig Dispense Refill potassium chloride (KLOR-CON M) 20 MEQ TBCR extended release tablet Take 1 tablet by mouth daily (with breakfast) HYDROcodone-acetaminophen (NORCO) 7.5-325 MG per tablet Take 1 tablet by mouth 3 times daily as needed for Pain for up to 30 days. Max Daily Amount: 3 tablets 90 tablet 0 gabapentin (NEURONTIN) 300 MG capsule Take 1 capsule by mouth 3 times daily for 30 days. 90 capsule 0 cyclobenzaprine (FLEXERIL) 10 MG tablet Take 1 tablet by mouth daily as needed for Muscle spasms 30 tablet 0 naproxen (NAPRELAN) 500 MG extended release tablet Take 1 tablet by mouth 2 times daily as needed for Pain 60 tablet 3 Sodium Hypochlorite 0.0125 % SOLN Apply 10 mLs topically as needed (Cleanse with each dressing change.) 1000 mL 5 naproxen (NAPRELAN) 500 MG extended release tablet Take 1 tablet by mouth 2 times daily as needed for Pain 60 tablet 3 cephALEXin (KEFLEX) 500 MG capsule Take 1 capsule by mouth 4 times daily 40 capsule 0 HYDROcodone-acetaminophen (NORCO) 7.5-325 MG per tablet Take 1 tablet by mouth every 6 hours as needed for Pain. furosemide (LASIX) 20 MG tablet Take 1 tablet by mouth daily 30 tablet 3 metoprolol succinate (TOPROL XL) 50 MG extended release tablet Take 1 tablet by mouth daily 30 tablet 0 lidocaine (LIDODERM) 5 % Place 2 patches onto the skin daily 12 hours on, 12 hours off. 60 patch 2 omeprazole (PRILOSEC) 20 MG delayed release capsule Take 1 capsule by mouth daily amLODIPine (NORVASC) 5 MG tablet Indications: takes with elevated BP reading -- with sx headache & flushed feeling traZODone (DESYREL) 100 MG tablet Take 1 tablet by mouth nightly candesartan (ATACAND) 32 MG tablet Take 1 tablet by mouth every evening No current facility-administered medications on file prior to encounter. REVIEW OF SYSTEMS Pertinent items are noted in HPI. Objective: BP (!) 163/86 Pulse (!) 106 Temp 97.8 F (36.6 C) (Temporal) Wt Readings from Last 3 Encounters: 11/29/22 200 lb (90.7 kg) 09/06/22 200 lb (90.7 kg) 08/09/22 195 lb (88.5 kg) PHYSICAL EXAM General Appearance: alert and oriented to person, place and time, well-developed and well-nourished, in no acute distress Cardiovascular: normal rate and intact distal pulses Extremities: no cyanosis and no clubbing Musculoskeletal: normal range of motion, no joint swelling, deformity or tenderness Neurologic: gait and coordination normal and speech normal Assessment: Active Hospital Problems Diagnosis Date Noted Ulcer of midfoot, left, with necrosis of bone (HCC) [L97.424] 05/14/2022 Priority: Medium Idiopathic peripheral neuropathy [G60.9] 05/14/2022 Priority: Medium Peripheral venous insufficiency [I87.2] 11/19/2022 Procedure Note Indications: Based on my examination of this patient's wound(s)/ulcer(s) today, debridement is required to promote healing and evaluate the wound base. Performed by: Marielos Ely DPM Consent obtained: Yes Time out taken: Yes Pain Control: Debridement:Excisional Debridement Using tissue nippers the wound(s)/ulcer(s) was/were sharply debrided down through and including the removal of epidermis, dermis, subcutaneous tissue, and muscle/fascia. Devitalized Tissue Debrided: fibrin, biofilm, slough, and muscle/fascia Pre Debridement Measurements: Are located in the Wound/Ulcer Documentation Flow Sheet Wound/Ulcer #: 1 Post Debridement Measurements: Wound/Ulcer Descriptions are Pre Debridement except measurements: Wound 05/14/22 Foot Left;Plantar #1 (Active) Wound Image 12/03/22 09 Wound Etiology Non-Healing Surgical 12/03/22922 Wound Cleansed Cleansed with saline 12/03/22922 Dressing/Treatment Alginate with Ag 11/19/22 103 Offloading for Diabetic Foot Ulcers Offloading ordered;Offloading boot 11/19/22 103 Wound Length (cm) 2.2 cm 12/03/22922 Wound Width (cm) 2.1 cm 12/03/22922 Wound Depth (cm) 1 cm 12/03/22922 Wound Surface Area (cm^2) 4.62 cm^2 12/03/22 09 Change in Wound Size % (l*w) -92.5 12/03/2223 Wound Volume (cm^3) 4.62 cm^3 12/03/2223 Wound Healing % 36 12/03/2223 Post-Procedure Length (cm) 2.2 cm 12/03/22 1011 Post-Procedure Width (cm) 2.1 cm 12/03/22 1011 Post-Procedure Depth (cm) 1 cm 12/03/22 1011 Post-Procedure Surface Area (cm^2) 4.62 cm^2 12/03/22 1011 Post-Procedure Volume (cm^3) 4.62 cm^3 12/03/22 1011 Wound Assessment [place]/red 11/19/2213 Drainage Amount Large 12/03/22922 Drainage Description Purulent;Yellow;[place];Brown 12/03/22922 Odor Malodorous/putrid 12/03/22922 Brisa-wound Assessment Maceration 12/03/22922 Margins Defined edges 12/03/22922 Wound Thickness Description not for Pressure Injury Full thickness 12/03/22922 Number of days: 203 Incision 01/12/22 Back Medial (Active) Number of days: 325 Percent of Wound/Ulcer Debrided: 100% Total Surface Area Debrided: 4.62 sq cm Diabetic/Pressure/Non Pressure Ulcers: Ulcer: Non-Pressure ulcer, muscle necrosis , Bleeding: Minimal Hemostasis Achieved: by pressure Procedural Pain: 0 / 10 Post Procedural Pain: 0 / 10 Response to treatment: Well tolerated by patient. Plan: Wound culture taken. Continue offloading. Plan of care was discussed with patient and he is in agreement. Treatment Note please see attached Discharge Instructions In my professional opinion this patient would benefit from HBO Therapy: No Written patient dismissal instructions given to patient and signed by patient or POA. Discharge Instructions [facility] Wound [facility] and Hyper[facility]ic Medicine Physician Orders and Discharge Instructions [place] [id number] [place] [id number] FAX [phone] NAME: Macarena Coleman DATE OF : 1960 Your Supervisory Historian is: Ivana [place] Care/Facility: [facility] Wound Location:Left plantar foot Dressing orders:1.Cleanse wound(s) with Dakins 2. Apply SILVERCEL to wound bed 3. Cover with double layer of Drawtex and wrap with gauze (mary or kerlix) 4. Change dressing three times a week. Compression: Apply medium compression hose to left lower leg(s), may remove at bedtime, reapply first thing in the morning, avoid prolonged standing, elevate legs when sitting. Offloading Device: Non weight bearing to left foot as much as possible. Wear the boot on left foot only when you have to be on your foot. Use your knee scooter as much as possible. Other Instructions: Wound culture taken today. We will call you if you need an antibiotic. Elevate left leg as much as possible. Do not get the wound wet in the shower. Can get a cast cover at [facility]. Referral put in today for lymphedema pumps. The company will contact you about this. Keep all dressings clean, dry and intact. Keep pressure off the wound(s) at all times. Follow up visit 2 Weeks Saturday December 17, 2022 at 9:00am Please give 24 hour notice if unable to keep appointment. [phone] If you experience any of the following, please call the Wound Care Service at [phone] or go to the nearest emergency room. *Increase in pain *Temperature over 101 *Increase in drainage from your wound or a foul odor *Uncontrolled swelling *Need for compression bandage changes due to slippage, breakthrough drainage PLEASE NOTE: IF YOU ARE UNABLE TO OBTAIN WOUND SUPPLIES, CONTINUE TO USE THE SUPPLIES YOU HAVE AVAILABLE UNTIL YOU ARE ABLE TO REACH US. IT IS MOST IMPORTANT TO KEEP THE WOUND COVERED AT ALL TIMES documented in this encounter [facility] Work Phone: 12-03-2022 Hospital Discharge instructions Marielos Ely DPM - 12/03/2022 8:49 AM EDT [facility] Wound [facility] and Hyperbaric Medicine Physician Orders and Discharge Instructions [facility] [address] [place] [address] FAX [phone] NAME: Macarena Coleman DATE OF : 1960 Your Supervisory Historian is: Ivana [facility] Care/Facility: [facility] Wound Location:Left plantar foot Dressing orders:1.Cleanse wound(s) with Dakins 2. Apply SILVERCEL to wound bed 3. Cover with double layer of Drawtex and wrap with gauze (mary or kerlix) 4. Change dressing three times a week. Compression: Apply medium compression hose to left lower leg(s), may remove at bedtime, reapply first thing in the morning, avoid prolonged standing, elevate legs when sitting. Offloading Device: Non weight bearing to left foot as much as possible. Wear the boot on left foot only when you have to be on your foot. Use your knee scooter as much as possible. Other Instructions: Wound culture taken today. We will call you if you need an antibiotic. Elevate left leg as much as possible. Do not get the wound wet in the shower. Can get a cast cover at [facility]. Referral put in today for lymphedema pumps. The company will contact you about this. Keep all dressings clean, dry and intact. Keep pressure off the wound(s) at all times. Follow up visit 2 Weeks Saturday December 17, 2022 at 9:00am Please give 24 hour notice if unable to keep appointment. [phone] If you experience any of the following, please call the Wound Care Service at [phone] or go to the nearest emergency room. *Increase in pain *Temperature over 101 *Increase in drainage from your wound or a foul odor *Uncontrolled swelling *Need for compression bandage changes due to slippage, breakthrough drainage PLEASE NOTE: IF YOU ARE UNABLE TO OBTAIN WOUND SUPPLIES, CONTINUE TO USE THE SUPPLIES YOU HAVE AVAILABLE UNTIL YOU ARE ABLE TO REACH US. IT IS MOST IMPORTANT TO KEEP THE WOUND COVERED AT ALL TIMES documented in this encounter [facility] Work Phone: 11-05-2022 Hospital Discharge instructions Marielos Ely DPM - 11/05/2022 9:09 AM EDT [facility] Wound Center and Hyperbaric Medicine Physician Orders and Discharge Instructions [place] [id number] [place] [id number] FAX [phone] NAME: Macarena Coleman DATE OF : 1960 Your Supervisory Historian is: [facility] Care[facility]Facility: [facility] Wound Location:Left plantar foot Dressing orders:1.Cleanse wound(s) with Dakins 2. Apply SILVERCEL to wound bed 3. Cover with Drawtex and wrap with gauze (mary or kerlix) 4. Change dressing three times a week. Compression: Apply medium compression hose to left lower leg(s), may remove at bedtime, reapply first thing in the morning, avoid prolonged standing, elevate legs when sitting. Offloading Device: Non weight bearing to left foot as much as possible. Wear the boot on left foot only when you have to be on your foot. Use your knee scooter as much as possible. Other Instructions: Continue taking your antibiotic as prescribed. Elevate left leg as much as possible. Do not get the wound wet in the shower. Can get a cast cover at [facility]. Keep all dressings clean, dry and intact. Keep pressure off the wound(s) at all times. Follow up visit 2 Weeks Saturday November 19, 2022 at Please give 24 hour notice if unable to keep appointment. [phone] If you experience any of the following, please call the Wound Care Service at [phone] or go to the nearest emergency room. *Increase in pain *Temperature over 101 *Increase in drainage from your wound or a foul odor *Uncontrolled swelling *Need for compression bandage changes due to slippage, breakthrough drainage PLEASE NOTE: IF YOU ARE UNABLE TO OBTAIN WOUND SUPPLIES, CONTINUE TO USE THE SUPPLIES YOU HAVE AVAILABLE UNTIL YOU ARE ABLE TO REACH US. IT IS MOST IMPORTANT TO KEEP THE WOUND COVERED AT ALL TIMES documented in this encounter [facility] [employer] Work Phone: 11-05-2022 History of Present illness Narrative Images from the original note were not included. [facility] Progress Note and Procedure Note Macarena Coleman AGE: 62 y.o. GENDER: male : 1960 EPISODE DATE: 11/05/2022 Subjective: Chief Complaint Patient presents with Wound Check Left foot HISTORY of PRESENT ILLNESS HPI Macarena Coleman is a 62 y.o. male who presents today for wound/ulcer evaluation. 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 States he is still getting a lot of drainage from the area. States has been more compliant staying off his foot recently. Denies nausea, vomiting, fevers, or chills. Wound/Ulcer Pain Timing/Severity: intermittent Quality of pain: sharp Severity: Modifying Factors: Pain is relieved/improved with rest Associated Signs/Symptoms: edema, drainage, numbness, and pain Ulcer Identification: Ulcer Type: neuropathic Contributing Factors: edema, venous stasis, shear force, obesity, and non-adherence Wound: N/A PAST MEDICAL HISTORY Diagnosis Date Arthritis spine HTN (hypertension) meds since age 41. 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 PAST SURGICAL HISTORY Past Surgical History: Procedure Laterality Date ENDOSCOPY, COLON, DIAGNOSTIC FOOT DEBRIDEMENT Left 05/29/2022 INCISION AND DRAINAGE LEFT FOOT performed by Marielos Ely DPM at [facility] [place] HERNIA REPAIR 2007 umbilical hernia (Dr Hall) INGUINAL HERNIA REPAIR Bilateral 1971 LUMBAR FUSION N/A 01/12/2022 BILATERAL L4-5 LAMINECTOMIES MICRODISSECTIONS DECOMPRESSIONS INTERBODY CAGE POSTEROLATERAL ALLOGRAFT AUTOGENOUS BONE PEDICLE SCREW FUSION performed by Viv Luis MD at [facility] [place] OR TOE AMPUTATION Left 05/29/2022 LEFT FOOT PARTIAL 5TH RAY AMPUTATION AND MIDFOOT BONE EXCISION LEFT FOOT performed by Marielos Ely DPM at [facility] [place] OR VENTRICULOPERITONEAL SHUNT 12/12 hydrocephalous FAMILY HISTORY Family History Problem Relation Age of Onset Cancer Mother lung cancer Cancer Father stomack cancer High Blood Pressure Father Coronary Art Dis Neg Hx SOCIAL HISTORY Social History Tobacco Use Smoking status: Former Packs/day: 1.00 Years: 4.00 Pack years: 4.00 Types: Cigarettes Start date: 01/05/1977 Quit date: 01/05/1981 Years since quittin.8 Smokeless tobacco: Never Vaping Use Vaping Use: Never used Substance Use Topics Alcohol use: Yes Comment: social Drug use: No ALLERGIES Allergies Allergen Reactions Avelox [Moxifloxacin Hcl In Nacl] Other (See Comments) Altered heart rate Amoxicillin-Pot Clavulanate Nausea And Vomiting MEDICATIONS Current Outpatient Medications on File Prior to Encounter Medication Sig Dispense Refill HYDROcodone-acetaminophen (NORCO) 7.5-325 MG per tablet Take 1 tablet by mouth 3 times daily as needed for Pain for up to 30 days. Max Daily Amount: 3 tablets 90 tablet 0 gabapentin (NEURONTIN) 300 MG capsule Take 1 capsule by mouth 3 times daily for 30 days. 90 capsule 0 cyclobenzaprine (FLEXERIL) 10 MG tablet Take 1 tablet by mouth daily as needed for Muscle spasms 30 tablet 0 cephALEXin (KEFLEX) 500 MG capsule Take 1 capsule by mouth 4 times daily for 14 days 56 capsule 0 Sodium Hypochlorite 0.0125 % SOLN Apply 10 mLs topically as needed (Cleanse with each dressing change.) 1000 mL 5 naproxen (NAPRELAN) 500 MG extended release tablet Take 1 tablet by mouth 2 times daily as needed for Pain 60 tablet 3 cephALEXin (KEFLEX) 500 MG capsule Take 1 capsule by mouth 4 times daily 40 capsule 0 HYDROcodone-acetaminophen (NORCO) 7.5-325 MG per tablet Take 1 tablet by mouth every 6 hours as needed for Pain. furosemide (LASIX) 20 MG tablet Take 1 tablet by mouth daily 30 tablet 3 metoprolol succinate (TOPROL XL) 50 MG extended release tablet Take 1 tablet by mouth daily 30 tablet 0 lidocaine (LIDODERM) 5 % Place 2 patches onto the skin daily 12 hours on, 12 hours off. 60 patch 2 omeprazole (PRILOSEC) 20 MG delayed release capsule Take 20 mg by mouth daily amLODIPine (NORVASC) 5 MG tablet Indications: takes with elevated BP reading -- with sx headache & flushed feeling traZODone (DESYREL) 100 MG tablet Take 100 mg by mouth nightly candesartan (ATACAND) 32 MG tablet Take 32 mg by mouth every evening No current facility-administered medications on file prior to encounter. REVIEW OF SYSTEMS Pertinent items are noted in HPI. Objective: BP (!) 161/85 Pulse (!) 109 Temp 97.7 F (36.5 C) (Temporal) Resp 18 Wt Readings from Last 3 Encounters: 09/06/22 200 lb (90.7 kg) 08/09/22 195 lb (88.5 kg) 07/09/22 208 lb (94.3 kg) PHYSICAL EXAM General Appearance: alert and oriented to person, place and time, well-developed and well-nourished, in no acute distress Cardiovascular: normal rate and intact distal pulses Extremities: no cyanosis and no clubbing Musculoskeletal: Charcot foot, left Neurologic: speech normal and protective sensation is absent to the left foot. Assessment: Active Hospital Problems Diagnosis Date Noted Ulcer of midfoot, left, with necrosis of bone (HCC) [L97.424] 05/14/2022 Priority: Medium Idiopathic peripheral neuropathy [G60.9] 05/14/2022 Priority: Medium Procedure Note Indications: Based on my examination of this patient's wound(s)/ulcer(s) today, debridement is required to promote healing and evaluate the wound base. Performed by: Marielos Ely DPM Consent obtained: Yes Time out taken: Yes Pain Control: Debridement:Excisional Debridement Using tissue nippers the wound(s)/ulcer(s) was/were sharply debrided down through and including the removal of epidermis, dermis, subcutaneous tissue, and muscle/fascia. Devitalized Tissue Debrided: fibrin, biofilm, slough, and muscle/fascia. Pre Debridement Measurements: Are located in the Wound/Ulcer Documentation Flow Sheet Wound/Ulcer #: 1 Post Debridement Measurements: Wound/Ulcer Descriptions are Pre Debridement except measurements: Wound 05/14/22 Foot Left;Plantar #1 (Active) Wound Image 11/05/22 0857 Wound Etiology Non-Healing Surgical 11/05/22 0857 Wound Cleansed Cleansed with saline 11/05/22 0857 Dressing/Treatment Collagen with Ag;Alginate with Ag;Other (comment);Dry dressing 10/22/22 1048 Offloading for Diabetic Foot Ulcers Offloading ordered;Offloading boot 10/22/22 1048 Wound Length (cm) 2.1 cm 11/05/22 0857 Wound Width (cm) 1.8 cm 11/05/22 0857 Wound Depth (cm) 1.6 cm 10/22/22 0937 Wound Surface Area (cm^2) 3.78 cm^2 11/05/22 0857 Change in Wound Size % (l*w) -57.5 11/05/22 0857 Wound Volume (cm^3) 2.88 cm^3 10/22/22 0937 Wound Healing % 60 10/22/22 0937 Post-Procedure Length (cm) 2.1 cm 11/05/22 0925 Post-Procedure Width (cm) 1.8 cm 11/05/22 0925 Post-Procedure Depth (cm) 1.6 cm 10/22/22 1031 Post-Procedure Surface Area (cm^2) 3.78 cm^2 11/05/22 0925 Post-Procedure Volume (cm^3) 2.88 cm^3 10/22/22 1031 Wound Assessment [place]/red 11/05/22 0857 Drainage Amount Large 11/05/22 0857 Drainage Description Serosanguinous;Brown;Yellow 11/05/22 0857 Odor Moderate 11/05/22 0857 Brisa-wound Assessment Maceration 11/05/22 0857 Margins Defined edges 11/05/22 0857 Wound Thickness Description not for Pressure Injury Full thickness 11/05/22 0857 Number of days: 175 Incision 01/12/22 Back Medial (Active) Number of days: 297 Percent of Wound/Ulcer Debrided: 100% Total Surface Area Debrided: 3.78 sq cm Diabetic/Pressure/Non Pressure Ulcers: Ulcer: Non-Pressure ulcer, muscle necrosis , Bleeding: Minimal Hemostasis Achieved: by pressure Procedural Pain: 0 / 10 Post Procedural Pain: 0 / 10 Response to treatment: Well tolerated by patient. Plan: Continue offloading. Will add compression. Plan of care was discussed with patient and he is in agreement. Treatment Note please see attached Discharge Instructions In my professional opinion this patient would benefit from HBO Therapy: Undecided Written patient dismissal instructions given to patient and signed by patient or POA. Discharge Instructions [facility] Wound Center and Hyperbaric Medicine Physician Orders and Discharge Instructions [facility] [address] [place] [address] FAX [phone] NAME: Macarena Coleman DATE OF : 1960 Your Supervisory Historian is: Ivana [place] Care/Facility: [facility] Wound Location:Left plantar foot Dressing orders:1.Cleanse wound(s) with Dakins 2. Apply SILVERCEL to wound bed 3. Cover with Drawtex and wrap with gauze (mary or kerlix) 4. Change dressing three times a week. Compression: Apply medium compression hose to left lower leg(s), may remove at bedtime, reapply first thing in the morning, avoid prolonged standing, elevate legs when sitting. Offloading Device: Non weight bearing to left foot as much as possible. Wear the boot on left foot only when you have to be on your foot. Use your knee scooter as much as possible. Other Instructions: Continue taking your antibiotic as prescribed. Elevate left leg as much as possible. Do not get the wound wet in the shower. Can get a cast cover at [facility]. Keep all dressings clean, dry and intact. Keep pressure off the wound(s) at all times. Follow up visit 2 Weeks Saturday November 19, 2022 at Please give 24 hour notice if unable to keep appointment. [phone] If you experience any of the following, please call the Wound Care Service at [phone] or go to the nearest emergency room. *Increase in pain *Temperature over 101 *Increase in drainage from your wound or a foul odor *Uncontrolled swelling *Need for compression bandage changes due to slippage, breakthrough drainage PLEASE NOTE: IF YOU ARE UNABLE TO OBTAIN WOUND SUPPLIES, CONTINUE TO USE THE SUPPLIES YOU HAVE AVAILABLE UNTIL YOU ARE ABLE TO REACH US. IT IS MOST IMPORTANT TO KEEP THE WOUND COVERED AT ALL TIMES documented in this encounter MADINA SCOTT Dianwoba Work Phone: 10-22-2022 History of Present illness Narrative Images from the original note were not included. [facility] Progress Note and Procedure Note Macarena Coleman AGE: 62 y.o. GENDER: male : 1960 EPISODE DATE: 10/22/2022 Subjective: Chief Complaint Patient presents with Wound Check Left plantar foot HISTORY of PRESENT ILLNESS HPI Macarena Coleman is a 62 y.o. male who presents today for wound/ulcer evaluation. History of Wound Context: Left foot neuropathic ulcer with Charcot foot. Admits to non compliance with staying off his foot. States he has noticed an increase in odor and drainage over the past few days. Denies nausea, vomiting, fevers, or chills. Wound/Ulcer Pain Timing/Severity: intermittent Quality of pain: sharp Severity: Modifying Factors: Pain is relieved/improved with rest Associated Signs/Symptoms: edema, drainage, and numbness Ulcer Identification: Ulcer Type: neuropathic Contributing Factors: shear force, obesity, and non-adherence Wound: N/A PAST MEDICAL HISTORY Diagnosis Date Arthritis spine HTN (hypertension) meds since age 41. 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 PAST SURGICAL HISTORY Past Surgical History: Procedure Laterality Date ENDOSCOPY, COLON, DIAGNOSTIC FOOT DEBRIDEMENT Left 05/29/2022 INCISION AND DRAINAGE LEFT FOOT performed by Marielos Ely DPM at [facility] [place]PA[place] 2007 umbilical hernia (Dr Hall) INGUINAL HERNIA REPAIR Bilateral 1971 LUMBAR FUSION N/A 01/12/2022 BILATERAL L4-5 LAMINECTOMIES MICRODISSECTIONS DECOMPRESSIONS INTERBODY CAGE POSTEROLATERAL ALLOGRAFT AUTOGENOUS BONE PEDICLE SCREW FUSION performed by Viv Luis MD at [facility] [place] OR TOE AMPUTATION Left 05/29/2022 LEFT FOOT PARTIAL 5TH RAY AMPUTATION AND MIDFOOT BONE EXCISION LEFT FOOT performed by Marielos Ely DPM at [facility] [place] OR VENTRICULOPERITONEAL SHUNT 12/12 hydrocephalous FAMILY HISTORY Family History Problem Relation Age of Onset Cancer Mother lung cancer Cancer Father stomack cancer High Blood Pressure Father Coronary Art Dis Neg Hx SOCIAL HISTORY Social History Tobacco Use Smoking status: Former Packs/day: 1.00 Years: 4.00 Pack years: 4.00 Types: Cigarettes Start date: 01/05/1977 Quit date: 01/05/1981 Years since quittin.8 Smokeless tobacco: Never Vaping Use Vaping Use: Never used Substance Use Topics Alcohol use: Yes Comment: social Drug use: No ALLERGIES Allergies Allergen Reactions Avelox [Moxifloxacin Hcl In Nacl] Other (See Comments) Altered heart rate Amoxicillin-Pot Clavulanate Nausea And Vomiting MEDICATIONS Current Outpatient Medications on File Prior to Encounter Medication Sig Dispense Refill HYDROcodone-acetaminophen (NORCO) 7.5-325 MG per tablet Take 1 tablet by mouth 3 times daily as needed for Pain for up to 30 days. Max Daily Amount: 3 tablets 90 tablet 0 gabapentin (NEURONTIN) 300 MG capsule Take 1 capsule by mouth 3 times daily for 30 days. 90 capsule 0 cyclobenzaprine (FLEXERIL) 10 MG tablet Take 1 tablet by mouth daily as needed for Muscle spasms 30 tablet 0 naproxen (NAPRELAN) 500 MG extended release tablet Take 1 tablet by mouth 2 times daily as needed for Pain 60 tablet 3 cephALEXin (KEFLEX) 500 MG capsule Take 1 capsule by mouth 4 times daily 40 capsule 0 HYDROcodone-acetaminophen (NORCO) 7.5-325 MG per tablet Take 1 tablet by mouth every 6 hours as needed for Pain. furosemide (LASIX) 20 MG tablet Take 1 tablet by mouth daily 30 tablet 3 metoprolol succinate (TOPROL XL) 50 MG extended release tablet Take 1 tablet by mouth daily 30 tablet 0 lidocaine (LIDODERM) 5 % Place 2 patches onto the skin daily 12 hours on, 12 hours off. 60 patch 2 omeprazole (PRILOSEC) 20 MG delayed release capsule Take 20 mg by mouth daily amLODIPine (NORVASC) 5 MG tablet Indications: takes with elevated BP reading -- with sx headache & flushed feeling traZODone (DESYREL) 100 MG tablet Take 100 mg by mouth nightly candesartan (ATACAND) 32 MG tablet Take 32 mg by mouth every evening No current facility-administered medications on file prior to encounter. REVIEW OF SYSTEMS Pertinent items are noted in HPI. Objective: BP (!) 150/77 Pulse 100 Temp 97.9 F (36.6 C) (Temporal) Resp 18 Wt Readings from Last 3 Encounters: 09/06/22 200 lb (90.7 kg) 08/09/22 195 lb (88.5 kg) 07/09/22 208 lb (94.3 kg) PHYSICAL EXAM General Appearance: alert and oriented to person, place and time, well-developed and well-nourished, in no acute distress Cardiovascular: normal rate and intact distal pulses Extremities: no cyanosis and no clubbing Musculoskeletal: Charcot foot, left. Neurologic: speech normal and protective sensation is absent to the left foot. Assessment: Active Hospital Problems Diagnosis Date Noted Ulcer of midfoot, left, with necrosis of bone (HCC) [L97.424] 05/14/2022 Priority: Medium Idiopathic peripheral neuropathy [G60.9] 05/14/2022 Priority: Medium Procedure Note Indications: Based on my examination of this patient's wound(s)/ulcer(s) today, debridement is required to promote healing and evaluate the wound base. Performed by: Marielos Ely DPM Consent obtained: Yes Time out taken: Yes Pain Control: Debridement:Excisional Debridement Using tissue nippers the wound(s)/ulcer(s) was/were sharply debrided down through and including the removal of epidermis, dermis, subcutaneous tissue, and muscle/fascia. Devitalized Tissue Debrided: fibrin, biofilm, slough, and muscle/fascia. Pre Debridement Measurements: Are located in the Wound/Ulcer Documentation Flow Sheet Wound/Ulcer #: 1 Post Debridement Measurements: Wound/Ulcer Descriptions are Pre Debridement except measurements: Wound 05/14/22 Foot Left;Plantar #1 (Active) Wound Image 10/22/22 0937 Wound Etiology Non-Healing Surgical 10/22/22 0937 Wound Cleansed Cleansed with saline 10/22/22 0937 Dressing/Treatment Collagen with Ag;Alginate with Ag;Dry dressing 10/08/22 1011 Offloading for Diabetic Foot Ulcers Offloading ordered 10/08/22 1011 Wound Length (cm) 1.5 cm 10/22/22 0937 Wound Width (cm) 1.2 cm 10/22/22 0937 Wound Depth (cm) 1.6 cm 10/22/22 0937 Wound Surface Area (cm^2) 1.8 cm^2 10/22/22 0937 Change in Wound Size % (l*w) 25 10/22/22 0937 Wound Volume (cm^3) 2.88 cm^3 10/22/22 0937 Wound Healing % 60 10/22/22 0937 Post-Procedure Length (cm) 1.5 cm 10/22/22 1031 Post-Procedure Width (cm) 1.2 cm 10/22/22 1031 Post-Procedure Depth (cm) 1.6 cm 10/22/22 1031 Post-Procedure Surface Area (cm^2) 1.8 cm^2 10/22/22 1031 Post-Procedure Volume (cm^3) 2.88 cm^3 10/22/22 1031 Wound Assessment [place]/red 10/22/22 0937 Drainage Amount Large 10/22/2237 Drainage Description Serosanguinous;Sanguinous;Brown 10/22/2237 Odor Moderate 10/22/22936 Brisa-wound Assessment Maceration 10/22/22936 Margins Undefined edges 10/22/22936 Wound Thickness Description not for Pressure Injury Full thickness 10/22/22936 Number of days: 161 Incision 01/12/22 Back Medial (Active) Number of days: 283 Percent of Wound/Ulcer Debrided: 100% Total Surface Area Debrided: 1.8 sq cm Diabetic/Pressure/Non Pressure Ulcers: Ulcer: Non-Pressure ulcer, muscle necrosis , Bleeding: Minimal Hemostasis Achieved: by pressure Procedural Pain: 1 / 10 Post Procedural Pain: 1 / 10 Response to treatment: Well tolerated by patient. Plan: Wound culture taken. Rx: Keflex 500mg four times daily. Again emphasized the importance of compliance with staying off his foot and using the knee walker. Plan of care was discussed with patient and he is in agreement. Treatment Note please see attached Discharge Instructions In my professional opinion this patient would benefit from HBO Therapy: Undecided Written patient dismissal instructions given to patient and signed by patient or POA. Discharge Instructions [facility] Physician Orders and Discharge Instructions [id number] [place] [address] FAX [phone] NAME: Macarena Coleman DATE OF : 1960 Your Supervisory Historian is: [facility] Care[facility]Facility: [facility] Wound Location:Left plantar foot Dressing orders:1.Cleanse wound(s) with Dakins 2. Apply RICKEY then SILVERCEL to wound bed 3. Cover with Drawtex and wrap with gauze (mary or kerlix) 4. Change dressing three times a week. Compression: Offloading Device: Non weight bearing to left foot as much as possible. Wear the boot on left foot only when you have to be on your foot. Use your knee scooter as much as possible. Other Instructions: Wound culture taken today. 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 Start taking the antibiotic as prescribed. We will call you if you need a different or additional antibiotic. Elevate left leg as much as possible. Do not get the wound wet in the shower. Can get a cast cover at [facility]. Keep all dressings clean, dry and intact. Keep pressure off the wound(s) at all times. Follow up visit 2 Weeks Saturday November 05, 2022 at 9:00am Please give 24 hour notice if unable to keep appointment. [phone] If you experience any of the following, please call the Wound Care Service at [phone] or go to the nearest emergency room. *Increase in pain *Temperature over 101 *Increase in drainage from your wound or a foul odor *Uncontrolled swelling *Need for compression bandage changes due to slippage, breakthrough drainage PLEASE NOTE: IF YOU ARE UNABLE TO OBTAIN WOUND SUPPLIES, CONTINUE TO USE THE SUPPLIES YOU HAVE AVAILABLE UNTIL YOU ARE ABLE TO REACH US. IT IS MOST IMPORTANT TO KEEP THE WOUND COVERED AT ALL TIMES documented in this encounter BON Giggem [facility] Work Phone: 10-22-2022 Hospital Discharge instructions Marielos Ely DPM - 10/22/2022 9:25 AM EDT [facility] Physician Orders and Discharge Instructions [address] [address] FAX [phone] NAME: Macarena Coleman DATE OF : 1960 Your Supervisory Historian is: Ivana [facility] Care/Facility: [facility] Wound Location:Left plantar foot Dressing orders:1.Cleanse wound(s) with Dakins 2. Apply RICKEY then SILVERCEL to wound bed 3. Cover with Drawtex and wrap with gauze (mary or kerlix) 4. Change dressing three times a week. Compression: Offloading Device: Non weight bearing to left foot as much as possible. Wear the boot on left foot only when you have to be on your foot. Use your knee scooter as much as possible. Other Instructions: Wound culture taken today. 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 Start taking the antibiotic as prescribed. We will call you if you need a different or additional antibiotic. Elevate left leg as much as possible. Do not get the wound wet in the shower. Can get a cast cover at [facility]. Keep all dressings clean, dry and intact. Keep pressure off the wound(s) at all times. Follow up visit 2 Weeks Saturday November 05, 2022 at 9:00am Please give 24 hour notice if unable to keep appointment. [phone] If you experience any of the following, please call the Wound Care Service at [phone] or go to the nearest emergency room. *Increase in pain *Temperature over 101 *Increase in drainage from your wound or a foul odor *Uncontrolled swelling *Need for compression bandage changes due to slippage, breakthrough drainage PLEASE NOTE: IF YOU ARE UNABLE TO OBTAIN WOUND SUPPLIES, CONTINUE TO USE THE SUPPLIES YOU HAVE AVAILABLE UNTIL YOU ARE ABLE TO REACH US. IT IS MOST IMPORTANT TO KEEP THE WOUND COVERED AT ALL TIMES documented in this encounter BON Hively Phone: 10-08-2022 History of Present illness Narrative Images from the original note were not included. [facility] Progress Note and Procedure Note Macarena Coleman AGE: 62 y.o. GENDER: male : 1960 EPISODE DATE: 10/08/2022 Subjective: Chief Complaint Patient presents with Wound Check Left foot wound HISTORY of PRESENT ILLNESS HPI Macarena Coleman is a 62 y.o. male who presents today for wound/ulcer evaluation. 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 States he is tolerating the PO Keflex well. Admits to non compliance wearing his offloading boot. States he only uses the knee walker at home. Denies nausea, vomiting, fevers, or chills. Wound/Ulcer Pain Timing/Severity: intermittent Quality of pain: sharp Severity: 2 / 10 Modifying Factors: Pain is relieved/improved with rest Associated Signs/Symptoms: edema, drainage, numbness, and pain Ulcer Identification: Ulcer Type: neuropathic Contributing Factors: edema, shear force, obesity, and charcot foot. Wound: N/A PAST MEDICAL HISTORY Diagnosis Date Arthritis spine HTN (hypertension) meds since age 41. 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 PAST SURGICAL HISTORY Past Surgical History: Procedure Laterality Date ENDOSCOPY, COLON, DIAGNOSTIC FOOT DEBRIDEMENT Left 05/29/2022 INCISION AND DRAINAGE LEFT FOOT performed by Marielos Ely DPM at [facility] [place] HERN[place] REPAIR 2007 umbilical hernia (Dr Hall) INGUINAL HERNIA REPAIR Bilateral 1971 LUMBAR FUSION N/A 01/12/2022 BILATERAL L4-5 LAMINECTOMIES MICRODISSECTIONS DECOMPRESSIONS INTERBODY CAGE POSTEROLATERAL ALLOGRAFT AUTOGENOUS BONE PEDICLE SCREW FUSION performed by Viv Luis MD at [facility] [place] TOE AMPUTATION Left 05/29/2022 LEFT FOOT PARTIAL 5TH RAY AMPUTATION AND MIDFOOT BONE EXCISION LEFT FOOT performed by Marielos Ely DPM at [facility] [place] OR VENTRICULOPERITONEAL SHUNT 12/12 hydrocephalous FAMILY HISTORY Family History Problem Relation Age of Onset Cancer Mother lung cancer Cancer Father stomack cancer High Blood Pressure Father Coronary Art Dis Neg Hx SOCIAL HISTORY Social History Tobacco Use Smoking status: Former Packs/day: 1.00 Years: 4.00 Pack years: 4.00 Types: Cigarettes Start date: 01/05/1977 Quit date: 01/05/1981 Years since quittin.7 Smokeless tobacco: Never Vaping Use Vaping Use: Never used Substance Use Topics Alcohol use: Yes Comment: social Drug use: No ALLERGIES Allergies Allergen Reactions Avelox [Moxifloxacin Hcl In Nacl] Other (See Comments) Altered heart rate Amoxicillin-Pot Clavulanate Nausea And Vomiting MEDICATIONS Current Outpatient Medications on File Prior to Encounter Medication Sig Dispense Refill HYDROcodone-acetaminophen (NORCO) 7.5-325 MG per tablet Take 1 tablet by mouth 3 times daily as needed for Pain for up to 30 days. Max Daily Amount: 3 tablets 90 tablet 0 gabapentin (NEURONTIN) 300 MG capsule Take 1 capsule by mouth 3 times daily for 30 days. 90 capsule 0 cyclobenzaprine (FLEXERIL) 10 MG tablet Take 1 tablet by mouth daily as needed for Muscle spasms 30 tablet 0 naproxen (NAPRELAN) 500 MG extended release tablet Take 1 tablet by mouth 2 times daily as needed for Pain 60 tablet 3 cephALEXin (KEFLEX) 500 MG capsule Take 1 capsule by mouth 4 times daily 40 capsule 0 HYDROcodone-acetaminophen (NORCO) 7.5-325 MG per tablet Take 1 tablet by mouth every 6 hours as needed for Pain. furosemide (LASIX) 20 MG tablet Take 1 tablet by mouth daily 30 tablet 3 metoprolol succinate (TOPROL XL) 50 MG extended release tablet Take 1 tablet by mouth daily 30 tablet 0 lidocaine (LIDODERM) 5 % Place 2 patches onto the skin daily 12 hours on, 12 hours off. 60 patch 2 omeprazole (PRILOSEC) 20 MG delayed release capsule Take 20 mg by mouth daily amLODIPine (NORVASC) 5 MG tablet Indications: takes with elevated BP reading -- with sx headache & flushed feeling traZODone (DESYREL) 100 MG tablet Take 100 mg by mouth nightly candesartan (ATACAND) 32 MG tablet Take 32 mg by mouth every evening No current facility-administered medications on file prior to encounter. REVIEW OF SYSTEMS Pertinent items are noted in HPI. Objective: BP (!) 157/83 Pulse (!) 109 Temp 97.5 F (36.4 C) (Temporal) Resp 18 Wt Readings from Last 3 Encounters: 09/06/22 200 lb (90.7 kg) 08/09/22 195 lb (88.5 kg) 07/09/22 208 lb (94.3 kg) PHYSICAL EXAM General Appearance: alert and oriented to person, place and time, well-developed and well-nourished, in no acute distress Cardiovascular: normal rate and intact distal pulses Extremities: no cyanosis and no clubbing Musculoskeletal: Charcot foot, left Neurologic: speech normal and protective sensation is absent to the left foot. Assessment: Active Hospital Problems Diagnosis Date Noted Idiopathic peripheral neuropathy [G60.9] 05/14/2022 Priority: Medium Ulcer of midfoot, left, with necrosis of bone (HCC) [L97.424] 05/14/2022 Priority: Medium Charcot's joint of left foot [M14.672] 02/15/2022 Priority: Medium Procedure Note Indications: Based on my examination of this patient's wound(s)/ulcer(s) today, debridement is required to promote healing and evaluate the wound base. Performed by: Marielos Ely DPM Consent obtained: Yes Time out taken: Yes Pain Control: Debridement:Excisional Debridement Using tissue nippers the wound(s)/ulcer(s) was/were sharply debrided down through and including the removal of epidermis, dermis, subcutaneous tissue, and muscle/fascia. Devitalized Tissue Debrided: fibrin, biofilm, slough, and muscle/fascia. Pre Debridement Measurements: Are located in the Wound/Ulcer Documentation Flow Sheet Wound/Ulcer #: 1 Post Debridement Measurements: Wound/Ulcer Descriptions are Pre Debridement except measurements: Wound 05/14/22 Foot Left;Plantar #1 (Active) Wound Image 10/08/22 09 Wound Etiology Non-Healing Surgical 10/08/22 0946 Wound Cleansed Cleansed with saline 10/08/22 0946 Dressing/Treatment Collagen with Ag;Alginate with Ag;Other (comment);Dry dressing 09/17/22 1036 Offloading for Diabetic Foot Ulcers Offloading ordered 08/20/22 1046 Wound Length (cm) 2.7 cm 10/08/22 0946 Wound Width (cm) 1.2 cm 10/08/22 0946 Wound Depth (cm) 1.6 cm 10/08/22 0946 Wound Surface Area (cm^2) 3.24 cm^2 10/08/22 0946 Change in Wound Size % (l*w) -35 10/08/22 09 Wound Volume (cm^3) 5.184 cm^3 10/08/22945 Wound Healing % 28 10/08/22945 Post-Procedure Length (cm) 2.7 cm 10/08/22957 Post-Procedure Width (cm) 1.2 cm 10/08/22957 Post-Procedure Depth (cm) 0.6 cm 10/08/22957 Post-Procedure Surface Area (cm^2) 3.24 cm^2 10/08/22957 Post-Procedure Volume (cm^3) 1.944 cm^3 10/08/22957 Wound Assessment [place]/red;Slough 10/08/22945 Drainage Amount Moderate 10/08/22945 Drainage Description Yellow;Serosanguinous;Brown 10/08/22945 Odor Moderate 10/08/22945 Brisa-wound Assessment Maceration;Hyperkeratosis (callous) 10/08/22945 Margins Undefined edges 10/08/22945 Wound Thickness Description not for Pressure Injury Full thickness 10/08/22945 Number of days: 147 Incision 01/12/22 Back Medial (Active) Number of days: 269 Percent of Wound/Ulcer Debrided: 100% Total Surface Area Debrided: 3.24 sq cm Diabetic/Pressure/Non Pressure Ulcers: Ulcer: Non-Pressure ulcer, muscle necrosis , Bleeding: Minimal Hemostasis Achieved: by pressure Procedural Pain: 1 / 10 Post Procedural Pain: 1 / 10 Response to treatment: Well tolerated by patient. Plan: Again emphasized the importance of compliance in non wt bearing to the left with an offloading boot/knee walker. We discussed total contact cast. Patient did not like the idea. Will reassess next visit. Plan of care was discussed with patient and he is in agreement. Treatment Note please see attached Discharge Instructions In my professional opinion this patient would benefit from HBO Therapy: Undecided Written patient dismissal instructions given to patient and signed by patient or POA. Discharge Instructions [facility] Physician Orders and Discharge Instructions [address] [address] FAX [phone] NAME: Macarena Coleman DATE OF : 1960 Your Supervisory Historian is: Ivana Home Care/Facility: [facility] Wound Location:Left plantar foot Dressing orders:1.Cleanse wound(s) with normal saline. 2. Apply RICKEY then SILVERCEL to wound bed 3. Cover with Drawtex and wrap with gauze (mary or kerlix) 4. Change dressing three times a week. Compression: Offloading Device: Non weight bearing to left foot as much as possible. Wear the boot on left foot only when you have to be on your foot. Use your knee scooter as much as possible. Other Instructions: Elevate left leg as much as possible. Do not get the wound wet in the shower. Can get a cast cover at [facility]. Keep all dressings clean, dry and intact. Keep pressure off the wound(s) at all times. Follow up visit 2 Weeks Saturday October 22, 2022 at 9:30am Please give 24 hour notice if unable to keep appointment. [phone] If you experience any of the following, please call the Wound Care Service at [phone] or go to the nearest emergency room. *Increase in pain *Temperature over 101 *Increase in drainage from your wound or a foul odor *Uncontrolled swelling *Need for compression bandage changes due to slippage, breakthrough drainage PLEASE NOTE: IF YOU ARE UNABLE TO OBTAIN WOUND SUPPLIES, CONTINUE TO USE THE SUPPLIES YOU HAVE AVAILABLE UNTIL YOU ARE ABLE TO REACH US. IT IS MOST IMPORTANT TO KEEP THE WOUND COVERED AT ALL TIMES documented in this encounter BON SONIA [facility] Work Phone: 10-08-2022 Hospital Discharge instructions Marielos Ely DPM - 10/08/2022 9:27 AM EST [facility] Physician Orders and Discharge Instructions [address] [address] FAX [phone] NAME: Macarena Coleman DATE OF : 1960 Your Supervisory Historian is: Ivana Home Care/Facility: [facility] Wound Location:Left plantar foot Dressing orders:1.Cleanse wound(s) with normal saline. 2. Apply RICKEY then SILVERCEL to wound bed 3. Cover with Drawtex and wrap with gauze (mary or kerlix) 4. Change dressing three times a week. Compression: Offloading Device: Non weight bearing to left foot as much as possible. Wear the boot on left foot only when you have to be on your foot. Use your knee scooter as much as possible. Other Instructions: Elevate left leg as much as possible. Do not get the wound wet in the shower. Can get a cast cover at [facility]. Keep all dressings clean, dry and intact. Keep pressure off the wound(s) at all times. Follow up visit 2 Weeks Saturday October 22, 2022 at 9:30am Please give 24 hour notice if unable to keep appointment. [phone] If you experience any of the following, please call the Wound Care Service at [phone] or go to the nearest emergency room. *Increase in pain *Temperature over 101 *Increase in drainage from your wound or a foul odor *Uncontrolled swelling *Need for compression bandage changes due to slippage, breakthrough drainage PLEASE NOTE: IF YOU ARE UNABLE TO OBTAIN WOUND SUPPLIES, CONTINUE TO USE THE SUPPLIES YOU HAVE AVAILABLE UNTIL YOU ARE ABLE TO REACH US. IT IS MOST IMPORTANT TO KEEP THE WOUND COVERED AT ALL TIMES documented in this encounter [facility] Work Phone: 09-17-2022 History of Present illness Narrative Images from the original note were not included. [facility] Progress Note and Procedure Note Macarena Coleman AGE: 62 y.o. GENDER: male : 1960 EPISODE DATE: 09/17/2022 Subjective: Chief Complaint Patient presents with Wound Check Left foot wound HISTORY of PRESENT ILLNESS MIRIAM Zafar is a 62 y.o. male who presents today for wound/ulcer evaluation. 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 States he noticed an odor a couple days ago coming from the wound area. Denies nausea, vomiting, fevers, or chills. Wound/Ulcer Pain Timing/Severity: intermittent Quality of pain: sharp Severity: Modifying Factors: Pain is relieved/improved with rest Associated Signs/Symptoms: edema, drainage, numbness, and pain Ulcer Identification: Ulcer Type: neuropathic Contributing Factors: shear force, obesity, non-adherence, and charcot foot deformity. Wound: N/A PAST MEDICAL HISTORY Diagnosis Date Arthritis spine HTN (hypertension) meds since age 41. 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 PAST SURGICAL HISTORY Past Surgical History: Procedure Laterality Date ENDOSCOPY, COLON, DIAGNOSTIC FOOT DEBRIDEMENT Left 05/29/2022 INCISION AND DRAINAGE LEFT FOOT performed by Marielos Ely DPM at [facility] [place]PA[place] 2007 umbilical hernia (Dr Hall) INGUINAL HERNIA REPAIR Bilateral 1971 LUMBAR FUSION N/A 01/12/2022 BILATERAL L4-5 LAMINECTOMIES MICRODISSECTIONS DECOMPRESSIONS INTERBODY CAGE POSTEROLATERAL ALLOGRAFT AUTOGENOUS BONE PEDICLE SCREW FUSION performed by Viv Luis MD at [facility] [place] TOE AMPUTATION Left 05/29/2022 LEFT FOOT PARTIAL 5TH RAY AMPUTATION AND MIDFOOT BONE EXCISION LEFT FOOT performed by Marielos Ely DPM at [facility] [place] OR VENTRICULOPERITONEAL SHUNT 12/12 hydrocephalous FAMILY HISTORY Family History Problem Relation Age of Onset Cancer Mother lung cancer Cancer Father stomack cancer High Blood Pressure Father Coronary Art Dis Neg Hx SOCIAL HISTORY Social History Tobacco Use Smoking status: Former Packs/day: 1.00 Years: 4.00 Pack years: 4.00 Types: Cigarettes Start date: 01/05/1977 Quit date: 01/05/1981 Years since quittin.7 Smokeless tobacco: Never Vaping Use Vaping Use: Never used Substance Use Topics Alcohol use: Yes Comment: social Drug use: No ALLERGIES Allergies Allergen Reactions Avelox [Moxifloxacin Hcl In Nacl] Other (See Comments) Altered heart rate Amoxicillin-Pot Clavulanate Nausea And Vomiting MEDICATIONS Current Outpatient Medications on File Prior to Encounter Medication Sig Dispense Refill HYDROcodone-acetaminophen (NORCO) 7.5-325 MG per tablet Take 1 tablet by mouth 3 times daily as needed for Pain for up to 30 days. Max Daily Amount: 3 tablets 90 tablet 0 gabapentin (NEURONTIN) 300 MG capsule Take 1 capsule by mouth 3 times daily for 30 days. 90 capsule 0 cyclobenzaprine (FLEXERIL) 10 MG tablet Take 1 tablet by mouth daily as needed for Muscle spasms 30 tablet 0 naproxen (NAPRELAN) 500 MG extended release tablet Take 1 tablet by mouth 2 times daily as needed for Pain 60 tablet 3 HYDROcodone-acetaminophen (NORCO) 7.5-325 MG per tablet Take 1 tablet by mouth every 6 hours as needed for Pain. furosemide (LASIX) 20 MG tablet Take 1 tablet by mouth daily 30 tablet 3 metoprolol succinate (TOPROL XL) 50 MG extended release tablet Take 1 tablet by mouth daily 30 tablet 0 lidocaine (LIDODERM) 5 % Place 2 patches onto the skin daily 12 hours on, 12 hours off. 60 patch 2 omeprazole (PRILOSEC) 20 MG delayed release capsule Take 20 mg by mouth daily amLODIPine (NORVASC) 5 MG tablet Indications: takes with elevated BP reading -- with sx headache & flushed feeling traZODone (DESYREL) 100 MG tablet Take 100 mg by mouth nightly candesartan (ATACAND) 32 MG tablet Take 32 mg by mouth every evening No current facility-administered medications on file prior to encounter. REVIEW OF SYSTEMS Pertinent items are noted in HPI. Objective: BP (!) 163/85 Pulse 98 Temp 97.8 F (36.6 C) (Temporal) Resp 16 Wt Readings from Last 3 Encounters: 09/06/22 200 lb (90.7 kg) 08/09/22 195 lb (88.5 kg) 07/09/22 208 lb (94.3 kg) PHYSICAL EXAM General Appearance: alert and oriented to person, place and time, well-developed and well-nourished, in no acute distress Cardiovascular: normal rate and intact distal pulses Extremities: no cyanosis and no clubbing Musculoskeletal: charcot foot deformity, left. Neurologic: speech normal and protective sensation is absent to the left foot. Assessment: Active Hospital Problems Diagnosis Date Noted Idiopathic peripheral neuropathy [G60.9] 05/14/2022 Priority: Medium Ulcer of midfoot, left, with necrosis of bone (HCC) [L97.424] 05/14/2022 Priority: Medium Charcot's joint of left foot [M14.672] 02/15/2022 Priority: Medium Procedure Note Indications: Based on my examination of this patient's wound(s)/ulcer(s) today, debridement is required to promote healing and evaluate the wound base. Performed by: Marielos Ely DPM Consent obtained: Yes Time out taken: Yes Pain Control: Debridement:Excisional Debridement Using tissue nippers the wound(s)/ulcer(s) was/were sharply debrided down through and including the removal of epidermis, dermis, subcutaneous tissue, and muscle/fascia. Devitalized Tissue Debrided: fibrin, biofilm, slough, and muscle/fascia. Pre Debridement Measurements: Are located in the Wound/Ulcer Documentation Flow Sheet Wound/Ulcer #: 1 Post Debridement Measurements: Wound/Ulcer Descriptions are Pre Debridement except measurements: Wound 05/14/22 Foot Left;Plantar #1 (Active) Wound Image 09/17/22 0950 Wound Etiology Non-Healing Surgical 09/17/22 0950 Wound Cleansed Cleansed with saline 09/17/22 0950 Dressing/Treatment Collagen with Ag;Alginate with Ag;Other (comment);Dry dressing 09/17/22 1036 Offloading for Diabetic Foot Ulcers Offloading ordered 08/20/22 1046 Wound Length (cm) 2 cm 09/17/22 0950 Wound Width (cm) 1.1 cm 09/17/22 0950 Wound Depth (cm) 0.9 cm 09/17/22 0950 Wound Surface Area (cm^2) 2.2 cm^2 09/17/22 0950 Change in Wound Size % (l*w) 8.33 09/17/22 0950 Wound Volume (cm^3) 1.98 cm^3 09/17/22 0950 Wound Healing % 73 09/17/22 0950 Post-Procedure Length (cm) 2 cm 09/17/22 1021 Post-Procedure Width (cm) 1.1 cm 09/17/22 1021 Post-Procedure Depth (cm) 0.9 cm 09/17/22 1021 Post-Procedure Surface Area (cm^2) 2.2 cm^2 09/17/22 1021 Post-Procedure Volume (cm^3) 1.98 cm^3 09/17/22 1021 Wound Assessment [place]/red 09/17/22 0950 Drainage Amount Large 09/17/22 0950 Drainage Description Yellow;Serosanguinous 09/17/22 0950 Odor Mild 09/17/22 0950 Brisa-wound Assessment Maceration;Hyperkeratosis (callous) 09/17/22 0950 Margins Undefined edges 09/17/22 0950 Wound Thickness Description not for Pressure Injury Full thickness 09/17/22 0950 Number of days: 126 Incision 01/12/22 Back Medial (Active) Number of days: 248 Percent of Wound/Ulcer Debrided: 100% Total Surface Area Debrided: 2.2 sq cm Diabetic/Pressure/Non Pressure Ulcers: Ulcer: Non-Pressure ulcer, muscle necrosis , Bleeding: Minimal Hemostasis Achieved: by pressure Procedural Pain: 0 / 10 Post Procedural Pain: 0 / 10 Response to treatment: Well tolerated by patient. Plan: Consult HBO. Wound culture taken. Emphasized the importance of offloading. Plan of care was discussed with patient and he is in agreement. Treatment Note please see attached Discharge Instructions In my professional opinion this patient would benefit from HBO Therapy: Yes Written patient dismissal instructions given to patient and signed by patient or POA. Discharge Instructions [facility] Wound Center and Hyperbaric Medicine Physician Orders and Discharge Instructions [place] [id number] FAX [phone] NAME: Macarena Coleman DATE OF : 1960 Your Supervisory Historian is: Ivana [place] Care/Facility: [facility] Wound Location:Left plantar foot Dressing orders:1.Cleanse wound(s) with normal saline. 2. Apply RICKEY then SILVERCEL to wound bed 3. Cover with Drawtex and wrap with gauze (mary or kerlix) 4. Change dressing three times a week. Compression: Offloading Device: Non weight bearing to left foot as much as possible. Wear the boot on left foot only when you have to be on your foot. Use your knee scooter as much as possible. Other Instructions: Wound Culture taken today. We will call you if you need an antibiotic. Referral for Hyperbaric Oxygen Therapy put in today. Elevate left leg as much as possible. Do not get the wound wet in the shower. Can get a cast cover at [facility]. Keep all dressings clean, dry and intact. Keep pressure off the wound(s) at all times. Follow up visit 3 Weeks Saturday October 08, 2022 at 9:30am Please give 24 hour notice if unable to keep appointment. [phone] If you experience any of the following, please call the Wound Care Service at [phone] or go to the nearest emergency room. *Increase in pain *Temperature over 101 *Increase in drainage from your wound or a foul odor *Uncontrolled swelling *Need for compression bandage changes due to slippage, breakthrough drainage PLEASE NOTE: IF YOU ARE UNABLE TO OBTAIN WOUND SUPPLIES, CONTINUE TO USE THE SUPPLIES YOU HAVE AVAILABLE UNTIL YOU ARE ABLE TO REACH US. IT IS MOST IMPORTANT TO KEEP THE WOUND COVERED AT ALL TIMES documented in this encounter [facility] [employer] Work Phone: 09-17-2022 Hospital Discharge instructions Marielos Ely DPM - 09/17/2022 9:47 AM EST [facility] Wound Center and Hyperbaric Medicine Physician Orders and Discharge Instructions [place] [id number] FAX [phone] NAME: Macarena Coleman DATE OF : 1960 Your Supervisory Historian is: Ivana [place] Care/Facility: [facility] Wound Location:Left plantar foot Dressing orders:1.Cleanse wound(s) with normal saline. 2. Apply RICKEY then SILVERCEL to wound bed 3. Cover with Drawtex and wrap with gauze (mary or kerlix) 4. Change dressing three times a week. Compression: Offloading Device: Non weight bearing to left foot as much as possible. Wear the boot on left foot only when you have to be on your foot. Use your knee scooter as much as possible. Other Instructions: Wound Culture taken today. We will call you if you need an antibiotic. Referral for Hyperbaric Oxygen Therapy put in today. Elevate left leg as much as possible. Do not get the wound wet in the shower. Can get a cast cover at [facility]. Keep all dressings clean, dry and intact. Keep pressure off the wound(s) at all times. Follow up visit 3 Weeks Saturday October 08, 2022 at 9:30am Please give 24 hour notice if unable to keep appointment. [phone] If you experience any of the following, please call the Wound Care Service at [phone] or go to the nearest emergency room. *Increase in pain *Temperature over 101 *Increase in drainage from your wound or a foul odor *Uncontrolled swelling *Need for compression bandage changes due to slippage, breakthrough drainage PLEASE NOTE: IF YOU ARE UNABLE TO OBTAIN WOUND SUPPLIES, CONTINUE TO USE THE SUPPLIES YOU HAVE AVAILABLE UNTIL YOU ARE ABLE TO REACH US. IT IS MOST IMPORTANT TO KEEP THE WOUND COVERED AT ALL TIMES documented in this encounter [employer] Work Phone: 09-03-2022 History of Present illness Narrative Images from the original note were not included. [facility] Progress Note and Procedure Note Macarena Coleman AGE: 62 y.o. GENDER: male : 1960 EPISODE DATE: 09/03/2022 Subjective: Chief Complaint Patient presents with Wound Check Left foot wound HISTORY of PRESENT ILLNESS HPI Macarena Coleman is a 62 y.o. male who presents today for wound/ulcer evaluation. 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 He is improving. Denies nausea, vomiting, fevers, or chills. Wound/Ulcer Pain Timing/Severity: intermittent Quality of pain: throbbing Severity: 2 / 10 Modifying Factors: Pain worsens with walking Associated Signs/Symptoms: drainage, numbness, and pain Ulcer Identification: Ulcer Type: neuropathic Contributing Factors: shear force, obesity, and charcot foot deformity Wound: N/A PAST MEDICAL HISTORY Diagnosis Date Arthritis spine HTN (hypertension) meds since age 41. 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 PAST SURGICAL HISTORY Past Surgical History: Procedure Laterality Date ENDOSCOPY, COLON, DIAGNOSTIC FOOT DEBRIDEMENT Left 05/29/2022 INCISION AND DRAINAGE LEFT FOOT performed by Marielos Ely DPM at [facility] [place] HERNIA REPAIR 2007 umbilical hernia (Dr Hall) INGUINAL HERNIA REPAIR Bilateral 1971 LUMBAR FUSION N/A 01/12/2022 BILATERAL L4-5 LAMINECTOMIES MICRODISSECTIONS DECOMPRESSIONS INTERBODY CAGE POSTEROLATERAL ALLOGRAFT AUTOGENOUS BONE PEDICLE SCREW FUSION performed by Viv Luis MD at [facility] [place] TOE AMPUTATION Left 05/29/2022 LEFT FOOT PARTIAL 5TH RAY AMPUTATION AND MIDFOOT BONE EXCISION LEFT FOOT performed by Marielos Ely DPM at [facility] [place] OR VENTRICULOPERITONEAL SHUNT 12/12 hydrocephalous FAMILY HISTORY Family History Problem Relation Age of Onset Cancer Mother lung cancer Cancer Father stomack cancer High Blood Pressure Father Coronary Art Dis Neg Hx SOCIAL HISTORY Social History Tobacco Use Smoking status: Former Packs/day: 1.00 Years: 4.00 Pack years: 4.00 Types: Cigarettes Start date: 01/05/1977 Quit date: 01/05/1981 Years since quittin.6 Smokeless tobacco: Never Vaping Use Vaping Use: Never used Substance Use Topics Alcohol use: Yes Comment: social Drug use: No ALLERGIES Allergies Allergen Reactions Avelox [Moxifloxacin Hcl In Nacl] Other (See Comments) Altered heart rate Amoxicillin-Pot Clavulanate Nausea And Vomiting MEDICATIONS Current Outpatient Medications on File Prior to Encounter Medication Sig Dispense Refill HYDROcodone-acetaminophen (NORCO) 7.5-325 MG per tablet Take 1 tablet by mouth 3 times daily as needed for Pain for up to 30 days. Max Daily Amount: 3 tablets 90 tablet 0 gabapentin (NEURONTIN) 300 MG capsule Take 1 capsule by mouth 3 times daily for 30 days. 90 capsule 0 cyclobenzaprine (FLEXERIL) 10 MG tablet Take 1 tablet by mouth daily as needed for Muscle spasms 30 tablet 0 HYDROcodone-acetaminophen (NORCO) 7.5-325 MG per tablet Take 1 tablet by mouth every 6 hours as needed for Pain. furosemide (LASIX) 20 MG tablet Take 1 tablet by mouth daily 30 tablet 3 metoprolol succinate (TOPROL XL) 50 MG extended release tablet Take 1 tablet by mouth daily 30 tablet 0 lidocaine (LIDODERM) 5 % Place 2 patches onto the skin daily 12 hours on, 12 hours off. 60 patch 2 omeprazole (PRILOSEC) 20 MG delayed release capsule Take 20 mg by mouth daily amLODIPine (NORVASC) 5 MG tablet Indications: takes with elevated BP reading -- with sx headache & flushed feeling traZODone (DESYREL) 100 MG tablet Take 100 mg by mouth nightly candesartan (ATACAND) 32 MG tablet Take 32 mg by mouth every evening No current facility-administered medications on file prior to encounter. REVIEW OF SYSTEMS Pertinent items are noted in HPI. Objective: BP (!) 171/92 Pulse 92 Temp 97.9 F (36.6 C) (Temporal) Resp 18 Wt Readings from Last 3 Encounters: 08/09/22 195 lb (88.5 kg) 07/09/22 208 lb (94.3 kg) 06/19/22 194 lb (88 kg) PHYSICAL EXAM General Appearance: alert and oriented to person, place and time, well-developed and well-nourished, in no acute distress Cardiovascular: normal rate and intact distal pulses Extremities: no cyanosis and no clubbing Musculoskeletal: Charcot foot deformity, left Neurologic: speech normal and protective sensation is absent to the left foot. Assessment: Active Hospital Problems Diagnosis Date Noted Idiopathic peripheral neuropathy [G60.9] 05/14/2022 Priority: Medium Ulcer of midfoot, left, with necrosis of bone (HCC) [L97.424] 05/14/2022 Priority: Medium Charcot's joint of left foot [M14.672] 02/15/2022 Priority: Medium Procedure Note Indications: Based on my examination of this patient's wound(s)/ulcer(s) today, debridement is required to promote healing and evaluate the wound base. Performed by: Marielos Ely DPM Consent obtained: Yes Time out taken: Yes Pain Control: Debridement:Excisional Debridement Using tissue nippers the wound(s)/ulcer(s) was/were sharply debrided down through and including the removal of epidermis, dermis, subcutaneous tissue, and muscle/fascia. Devitalized Tissue Debrided: fibrin, biofilm, slough, and muscle/fascia. Pre Debridement Measurements: Are located in the Wound/Ulcer Documentation Flow Sheet Wound/Ulcer #: 1 Post Debridement Measurements: Wound/Ulcer Descriptions are Pre Debridement except measurements: Wound 05/14/22 Foot Left;Plantar #1 (Active) Wound Image 09/03/22941 Wound Etiology Non-Healing Surgical 09/03/22941 Wound Cleansed Cleansed with saline 09/03/22941 Dressing/Treatment Collagen with Ag;Alginate with Ag 08/20/22 104 Offloading for Diabetic Foot Ulcers Offloading ordered 08/20/22 104 Wound Length (cm) 1.8 cm 09/03/22941 Wound Width (cm) 0.7 cm 09/03/22941 Wound Depth (cm) 1.2 cm 09/03/22941 Wound Surface Area (cm^2) 1.26 cm^2 09/03/22941 Change in Wound Size % (l*w) 47.5 09/03/22941 Wound Volume (cm^3) 1.512 cm^3 09/03/2242 Wound Healing % 79 09/03/22941 Post-Procedure Length (cm) 1.8 cm 09/03/22 1012 Post-Procedure Width (cm) 0.7 cm 09/03/22 1012 Post-Procedure Depth (cm) 1.2 cm 09/03/22 1012 Post-Procedure Surface Area (cm^2) 1.26 cm^2 09/03/22 1012 Post-Procedure Volume (cm^3) 1.512 cm^3 09/03/22 1012 Wound Assessment [place]/red 09/03/22941 Drainage Amount Moderate 09/03/22941 Drainage Description Serosanguinous 09/03/22941 Odor None 09/03/22941 Brisa-wound Assessment Hyperkeratosis (callous);Maceration 09/03/22941 Margins Defined edges 09/03/22941 Wound Thickness Description not for Pressure Injury Full thickness 09/03/22941 Number of days: 112 Incision 01/12/22 Back Medial (Active) Number of days: 234 Percent of Wound/Ulcer Debrided: 100% Total Surface Area Debrided: 1.26 sq cm Diabetic/Pressure/Non Pressure Ulcers: Ulcer: Non-Pressure ulcer, muscle necrosis , Bleeding: Minimal Hemostasis Achieved: by pressure Procedural Pain: 0 / 10 Post Procedural Pain: 0 / 10 Response to treatment: Well tolerated by patient. Plan: Continue current dressings and offloading. Plan of care was discussed with patient and he is in agreement. Treatment Note please see attached Discharge Instructions In my professional opinion this patient would benefit from HBO Therapy: Undecided Written patient dismissal instructions given to patient and signed by patient or POA. Discharge Instructions [facility] Wound Center and Hyperbaric Medicine Physician Orders and Discharge Instructions [place] [id number] [place] [address] FAX [phone] NAME: Macarena Coleman DATE OF : 1960 Your Supervisory Historian is: [facility] Care[facility] Wound Location:Left plantar foot Dressing orders:1.Cleanse wound(s) with normal saline. 2. Apply RICKEY then SILVERCEL to wound bed 3. Cover with Drawtex and wrap with gauze (mary or kerlix) 4. Change dressing three times a week. Compression: Offloading Device: Non weight bearing to left foot as much as possible. Wear the boot on left foot only when you have to be on your foot. Use your knee scooter as much as possible. Other Instructions: Elevate left leg as much as possible. Do not get the wound wet in the shower. Can get a cast cover at [facility]. Keep all dressings clean, dry and intact. Keep pressure off the wound(s) at all times. Follow up visit 2 Weeks Saturday September 17, 2022 at 10:00am Please give 24 hour notice if unable to keep appointment. [phone] If you experience any of the following, please call the Wound Care Service at [phone] or go to the nearest emergency room. *Increase in pain *Temperature over 101 *Increase in drainage from your wound or a foul odor *Uncontrolled swelling *Need for compression bandage changes due to slippage, breakthrough drainage PLEASE NOTE: IF YOU ARE UNABLE TO OBTAIN WOUND SUPPLIES, CONTINUE TO USE THE SUPPLIES YOU HAVE AVAILABLE UNTIL YOU ARE ABLE TO REACH US. IT IS MOST IMPORTANT TO KEEP THE WOUND COVERED AT ALL TIMES documented in this encounter [employer] [facility] Work Phone: 09-03-2022 Hospital Discharge instructions Marielos Ely DPM - 09/03/2022 9:24 AM EST [facility] Wound Center and Hyperbaric Medicine Physician Orders and Discharge Instructions [address] [address] FAX [phone] NAME: Macarena Coleman DATE OF : 1960 Your Supervisory Historian is: Ivana [place] Care/Facility: [facility] Wound Location:Left plantar foot Dressing orders:1.Cleanse wound(s) with normal saline. 2. Apply RICKEY then SILVERCEL to wound bed 3. Cover with Drawtex and wrap with gauze (mary or kerlix) 4. Change dressing three times a week. Compression: Offloading Device: Non weight bearing to left foot as much as possible. Wear the boot on left foot only when you have to be on your foot. Use your knee scooter as much as possible. Other Instructions: Elevate left leg as much as possible. Do not get the wound wet in the shower. Can get a cast cover at [facility]. Keep all dressings clean, dry and intact. Keep pressure off the wound(s) at all times. Follow up visit 2 Weeks Saturday September 17, 2022 at 10:00am Please give 24 hour notice if unable to keep appointment. [phone] If you experience any of the following, please call the Wound Care Service at [phone] or go to the nearest emergency room. *Increase in pain *Temperature over 101 *Increase in drainage from your wound or a foul odor *Uncontrolled swelling *Need for compression bandage changes due to slippage, breakthrough drainage PLEASE NOTE: IF YOU ARE UNABLE TO OBTAIN WOUND SUPPLIES, CONTINUE TO USE THE SUPPLIES YOU HAVE AVAILABLE UNTIL YOU ARE ABLE TO REACH US. IT IS MOST IMPORTANT TO KEEP THE WOUND COVERED AT ALL TIMES documented in this encounter [employer] Work Phone: 07-26-2022 History of Present illness Narrative History of Present IllnessThe patient presents with right knee pain for several years. The patient complains of worsening pain over the past 6 months. Recently there has been concern for falls and instability. There is increasing difficulty with activities of daily living and significant disability related to the knee pain. The patient endorses the following non-operative treatments: Meloxicam, corticosteroid injections. There is increasing frustration with persistent pain and swelling and decreasing distance of ambulation. The patient has difficulty with stairs as well as getting up from the floor. The patient has difficulty putting on their socks and shoes as well as getting in and out of a car.He has a history of a Charcot foot on the left foot with osteomyelitis and wound healing issues. He states the wound is not closed and he is working with podiatry/wound care on getting this resolved.His last corticosteroid injection into the right knee was roughly 30 days ago.Pain is described as aching sore stiff.Location: Anterior medial right kneePain level: 7Assistive device: NoHistory of surgery: NoReview of SystemsGENERAL: Negative for malaise, significant weight loss, feverMUSCULOSKELETAL: see HPINEURO: NegativeExamRight knee:Skin healthy and intactNo gross swelling or ecchymosisAlignment: Varus, partially correctable effusion: Mild ROM: 5 to 110 degreesModerate crepitus with range of motionTenderness to palpation over medial and lateral joint line and with patellar compressionNo laxity to valgus stressNo laxity to varus stressNegative Issa s testNegative posterior drawer testMild pain with Greta s testLogrolling of hip negativeNo pain with internal rotation of the hipStraight leg raise negativeNeurovascular exam normal distally2+ DP pulse and good cap refillRadiographsSee dictated report from today.AssessmentOsteoarthrosis right kneePlanWe discussed with the patient the diagnosis of degenerative joint disease of the knee. We reviewed an evidence-based approach to osteoarthritis of the knee.We strongly encouraged low-impact aerobic activity and non-opioid analgesics.We discussed temporary pain relief with corticosteroid injections and the associated risks. We also discussed the conflicting evidence regarding viscosupplementation and potential long-term risks with NSAID s. We reviewed the role of bracing for instability and physical therapy for atrophy and gait abnormalities. We reviewed that the only curative process is for a joint arthroplasty.The patient elected for unfortunately his wound healing issues seem to be a priority at this time. I advised he cannot have any future joint arthroplasty surgery until his left foot wound is healed and clear of infection. He wishes to try a round of the viscosupplementation injections. We will submit for these and he will be contacted once they are approved.I will see her in 1 month for recheck, sooner if there is any problems. Questions were answered. [facility] Work Phone: 07-23-2022 History of Present illness Narrative Images from the original note were not included. [facility] Progress Note and Procedure Note Macarena Coleman AGE: 62 y.o. GENDER: male : 1960 EPISODE DATE: 07/23/2022 Subjective: Chief Complaint Patient presents with Wound Check Left foot wounds HISTORY of PRESENT ILLNESS HPI Macarena Coleman is a 62 y.o. male who presents today for wound/ulcer evaluation. 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 He is improving. Currently on PO Keflex per ID. Denies nausea, vomiting, fevers, or chills. Wound/Ulcer Pain Timing/Severity: none Quality of pain: N/A Severity: 0 / 10 Modifying Factors: None Associated Signs/Symptoms: edema, drainage, and numbness Ulcer Identification: Ulcer Type: neuropathic Contributing Factors: edema, shear force, and obesity Wound: N/A PAST MEDICAL HISTORY Diagnosis Date Arthritis spine HTN (hypertension) meds since age 41. 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 PAST SURGICAL HISTORY Past Surgical History: Procedure Laterality Date ENDOSCOPY, COLON, DIAGNOSTIC FOOT DEBRIDEMENT Left 05/29/2022 INCISION AND DRAINAGE LEFT FOOT performed by Marielos Ely DPM at [facility] [place] HERN[place] REPAIR 2007 umbilical hernia (Dr Hall) INGUINAL HERNIA REPAIR Bilateral 1971 LUMBAR FUSION N/A 01/12/2022 BILATERAL L4-5 LAMINECTOMIES MICRODISSECTIONS DECOMPRESSIONS INTERBODY CAGE POSTEROLATERAL ALLOGRAFT AUTOGENOUS BONE PEDICLE SCREW FUSION performed by Viv Luis MD at [facility] OR TOE AMPUTATION Left 05/29/2022 LEFT FOOT PARTIAL 5TH RAY AMPUTATION AND MIDFOOT BONE EXCISION LEFT FOOT performed by Marielos Ely DPM at [facility] OR VENTRICULOPERITONEAL SHUNT 12/12 hydrocephalous FAMILY HISTORY Family History Problem Relation Age of Onset Cancer Mother lung cancer Cancer Father stomack cancer High Blood Pressure Father Coronary Art Dis Neg Hx SOCIAL HISTORY Social History Tobacco Use Smoking status: Former Packs/day: 1.00 Years: 4.00 Pack years: 4.00 Types: Cigarettes Start date: 01/05/1977 Quit date: 01/05/1981 Years since quittin.5 Smokeless tobacco: Never Vaping Use Vaping Use: Never used Substance Use Topics Alcohol use: Yes Comment: social Drug use: No ALLERGIES Allergies Allergen Reactions Avelox [Moxifloxacin Hcl In Nacl] Other (See Comments) Altered heart rate Amoxicillin-Pot Clavulanate Nausea And Vomiting MEDICATIONS Current Outpatient Medications on File Prior to Encounter Medication Sig Dispense Refill HYDROcodone-acetaminophen (NORCO) 7.5-325 MG per tablet Take 1 tablet by mouth every 6 hours as needed for Pain for up to 18 days. 72 tablet 0 cyclobenzaprine (FLEXERIL) 10 MG tablet Take 1 tablet by mouth daily as needed for Muscle spasms 18 tablet 0 gabapentin (NEURONTIN) 300 MG capsule Take 1 capsule by mouth 3 times daily for 18 days. 54 capsule 0 cephALEXin (KEFLEX) 250 MG/5ML suspension Take 10 mLs by mouth 3 times daily 900 mL 0 HYDROcodone-acetaminophen (NORCO) 7.5-325 MG per tablet Take 1 tablet by mouth every 6 hours as needed for Pain. furosemide (LASIX) 20 MG tablet Take 1 tablet by mouth daily 30 tablet 3 metoprolol succinate (TOPROL XL) 50 MG extended release tablet Take 1 tablet by mouth daily 30 tablet 0 lidocaine (LIDODERM) 5 % Place 2 patches onto the skin daily 12 hours on, 12 hours off. 60 patch 2 omeprazole (PRILOSEC) 20 MG delayed release capsule Take 20 mg by mouth daily amLODIPine (NORVASC) 5 MG tablet Indications: takes with elevated BP reading -- with sx headache & flushed feeling traZODone (DESYREL) 100 MG tablet Take 100 mg by mouth nightly candesartan (ATACAND) 32 MG tablet Take 32 mg by mouth every evening No current facility-administered medications on file prior to encounter. REVIEW OF SYSTEMS Pertinent items are noted in HPI. Objective: There were no vitals taken for this visit. Wt Readings from Last 3 Encounters: 07/09/22 208 lb (94.3 kg) 06/19/22 194 lb (88 kg) 05/28/22 209 lb (94.8 kg) PHYSICAL EXAM General Appearance: alert and oriented to person, place and time, well-developed and well-nourished, in no acute distress Cardiovascular: normal rate and intact distal pulses Extremities: no cyanosis and no clubbing Musculoskeletal: Charcot foot, left Neurologic: speech normal and protective sensation is absent to the left foot. Assessment: Active Hospital Problems Diagnosis Date Noted Ulcer of midfoot, left, with necrosis of bone (HCC) [L97.424] 05/14/2022 Priority: Medium Idiopathic peripheral neuropathy [G60.9] 05/14/2022 Priority: Medium Charcot's joint of left foot [M14.672] 02/15/2022 Priority: Medium Procedure Note Indications: Based on my examination of this patient's wound(s)/ulcer(s) today, debridement is required to promote healing and evaluate the wound base. Performed by: Marielos Ely DPM Consent obtained: Yes Time out taken: Yes Pain Control: Debridement:Excisional Debridement Using tissue nippers the wound(s)/ulcer(s) was/were sharply debrided down through and including the removal of epidermis, dermis, subcutaneous tissue, and muscle/fascia. Devitalized Tissue Debrided: fibrin, biofilm, slough, and muscle/fascia. Pre Debridement Measurements: Are located in the Wound/Ulcer Documentation Flow Sheet Wound/Ulcer #: 1 Post Debridement Measurements: Wound/Ulcer Descriptions are Pre Debridement except measurements: Wound 05/14/22 Foot Left;Plantar #1 (Active) Wound Image 07/23/22 1013 Wound Etiology Non-Healing Surgical 07/23/22 1013 Wound Cleansed Cleansed with saline 07/23/22 1013 Dressing/Treatment Alginate with Ag 07/09/22 1057 Offloading for Diabetic Foot Ulcers Offloading ordered;Offloading boot 07/09/22 1057 Wound Length (cm) 1.7 cm 07/23/22 1013 Wound Width (cm) 0.8 cm 07/23/22 1013 Wound Depth (cm) 1.7 cm 07/23/22 1013 Wound Surface Area (cm^2) 1.36 cm^2 07/23/22 1013 Change in Wound Size % (l*w) 43.33 07/23/22 1013 Wound Volume (cm^3) 2.312 cm^3 07/23/22 1013 Wound Healing % 68 07/23/22 1013 Post-Procedure Length (cm) 1.7 cm 07/23/22 1049 Post-Procedure Width (cm) 0.8 cm 07/23/22 1049 Post-Procedure Depth (cm) 1.7 cm 07/23/22 1049 Post-Procedure Surface Area (cm^2) 1.36 cm^2 07/23/22 1049 Post-Procedure Volume (cm^3) 2.312 cm^3 07/23/22 1049 Wound Assessment [place]/red;Slough 07/23/22 1013 Drainage Amount Moderate 07/23/22 1013 Drainage Description Brown;Serosanguinous 07/23/22 1013 Odor None 07/23/22 1013 Brisa-wound Assessment Maceration;Hyperkeratosis (callous) 07/23/22 1013 Margins Defined edges 07/23/22 1013 Wound Thickness Description not for Pressure Injury Full thickness 07/23/22 1013 Number of days: 70 Incision 01/12/22 Back Medial (Active) Number of days: 192 Percent of Wound/Ulcer Debrided: 100% Total Surface Area Debrided: 1.36 sq cm Diabetic/Pressure/Non Pressure Ulcers: Ulcer: Non-Pressure ulcer, muscle necrosis , Bleeding: Minimal Hemostasis Achieved: by pressure Procedural Pain: 0 / 10 Post Procedural Pain: 0 / 10 Response to treatment: Well tolerated by patient. Plan: Continue offloading and current dressings. Plan of care was discussed with patient and he is in agreement. Treatment Note please see attached Discharge Instructions In my professional opinion this patient would benefit from HBO Therapy: No Written patient dismissal instructions given to patient and signed by patient or POA. Discharge Instructions [facility] Physician Orders and Discharge Instructions [id number] [place] [address] FAX [phone] NAME: Macarena Coleman DATE OF : 1960 Your [facility] Wound Location:Left plantar foot Dressing orders:1.Cleanse wound(s) with normal saline. 2. Gently pack wound with Silvercel rope. 3. Cover with Drawtex and wrap with gauze (mary or kerlix) then COBAN 4. Change dressing three times a week. Compression: Offloading Device: Non weight bearing to left foot Use your knee scooter Other Instructions: Continue antibiotics per Infectious Disease. Elevate left leg as much as possible. Do not get the wound wet in the shower. Can get a cast cover at [facility] [place]. Keep all dressings clean, dry and intact. Keep pressure off the wound(s) at all times. Follow up visit 4 Weeks Saturday August 20, 2022 at 9:30am Please give 24 hour notice if unable to keep appointment. [phone] If you experience any of the following, please call the Wound Care Service at [phone] or go to the nearest emergency room. *Increase in pain *Temperature over 101 *Increase in drainage from your wound or a foul odor *Uncontrolled swelling *Need for compression bandage changes due to slippage, breakthrough drainage PLEASE NOTE: IF YOU ARE UNABLE TO OBTAIN WOUND SUPPLIES, CONTINUE TO USE THE SUPPLIES YOU HAVE AVAILABLE UNTIL YOU ARE ABLE TO REACH US. IT IS MOST IMPORTANT TO KEEP THE WOUND COVERED AT ALL TIMES documented in this encounter [facility] [employer] Work Phone: 07-23-2022 Hospital Discharge instructions Marielos Ely DPM - 07/23/2022 9:43 AM EST [facility] Physician Orders and Discharge Instructions [id number] FAX [phone] NAME: Macarena Coleman DATE OF : 1960 Your Supervisory Historian is: Ivana [place] [facility]/Facility: [facility] Wound Location:Left plantar foot Dressing orders:1.Cleanse wound(s) with normal saline. 2. Gently pack wound with Silvercel rope. 3. Cover with Drawtex and wrap with gauze (mary or kerlix) then COBAN 4. Change dressing three times a week. Compression: Offloading Device: Non weight bearing to left foot Use your knee scooter Other Instructions: Continue antibiotics per Infectious Disease. Elevate left leg as much as possible. Do not get the wound wet in the shower. Can get a cast cover at [facility] [place]. Keep all dressings clean, dry and intact. Keep pressure off the wound(s) at all times. Follow up visit 4 Weeks Saturday August 20, 2022 at 9:30am Please give 24 hour notice if unable to keep appointment. [phone] If you experience any of the following, please call the Wound Care Service at [phone] or go to the nearest emergency room. *Increase in pain *Temperature over 101 *Increase in drainage from your wound or a foul odor *Uncontrolled swelling *Need for compression bandage changes due to slippage, breakthrough drainage PLEASE NOTE: IF YOU ARE UNABLE TO OBTAIN WOUND SUPPLIES, CONTINUE TO USE THE SUPPLIES YOU HAVE AVAILABLE UNTIL YOU ARE ABLE TO REACH US. IT IS MOST IMPORTANT TO KEEP THE WOUND COVERED AT ALL TIMES documented in this encounter [facility] Work Phone: 06-18-2022 History of Present illness Narrative Images from the original note were not included. [facility] Progress Note and Procedure Note Macarena Coleman AGE: 62 y.o. GENDER: male : 1960 EPISODE DATE: 06/18/2022 Subjective: Chief Complaint Patient presents with Wound Check LEFT FOOT WOUNDS HISTORY of PRESENT ILLNESS HPI Macarena Coleman is a 62 y.o. male who presents today for wound/ulcer evaluation. History of Wound Context: Left foot ulcerations. He is s/p I&D, removal of infected bone cuboid and partial 5th ray amp. He is on IV abx per ID. Denies nausea, vomiting, fevers, or chills. Wound/Ulcer Pain Timing/Severity: intermittent Quality of pain: sharp Severity: Modifying Factors: Pain is relieved/improved with rest Associated Signs/Symptoms: edema, drainage, and numbness Ulcer Identification: Ulcer Type: neuropathic Contributing Factors: edema, shear force, obesity, and charcot foot. Wound: N/A PAST MEDICAL HISTORY Diagnosis Date Arthritis spine HTN (hypertension) meds since age 41. 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 PAST SURGICAL HISTORY Past Surgical History: Procedure Laterality Date ENDOSCOPY, COLON, DIAGNOSTIC FOOT DEBRIDEMENT Left 05/29/2022 INCISION AND DRAINAGE LEFT FOOT performed by Marielos Ely DPM at [facility] HERNIA REPAIR 2007 umbilical hernia (Dr Hall) INGUINAL HERNIA REPAIR Bilateral 1971 LUMBAR FUSION N/A 01/12/2022 BILATERAL L4-5 LAMINECTOMIES MICRODISSECTIONS DECOMPRESSIONS INTERBODY CAGE POSTEROLATERAL ALLOGRAFT AUTOGENOUS BONE PEDICLE SCREW FUSION performed by Viv Luis MD at [facility] OR TOE AMPUTATION Left 05/29/2022 LEFT FOOT PARTIAL 5TH RAY AMPUTATION AND MIDFOOT BONE EXCISION LEFT FOOT performed by Marielos Ely DPM at [facility] OR VENTRICULOPERITONEAL SHUNT 12/12 hydrocephalous FAMILY HISTORY Family History Problem Relation Age of Onset Cancer Mother lung cancer Cancer Father stomack cancer High Blood Pressure Father Coronary Art Dis Neg Hx SOCIAL HISTORY Social History Tobacco Use Smoking status: Former Packs/day: 1.00 Years: 4.00 Pack years: 4.00 Types: Cigarettes Start date: 01/05/1977 Quit date: 01/05/1981 Years since quittin.4 Smokeless tobacco: Never Vaping Use Vaping Use: Never used Substance Use Topics Alcohol use: Yes Comment: social Drug use: No ALLERGIES Allergies Allergen Reactions Avelox [Moxifloxacin Hcl In Nacl] Other (See Comments) Altered heart rate Amoxicillin-Pot Clavulanate Nausea And Vomiting MEDICATIONS Current Outpatient Medications on File Prior to Encounter Medication Sig Dispense Refill HYDROcodone-acetaminophen (NORCO) 7.5-325 MG per tablet Take 1 tablet by mouth every 6 hours as needed for Pain. furosemide (LASIX) 20 MG tablet Take 1 tablet by mouth daily 30 tablet 3 ertapenem (INVANZ) infusion Infuse 1,000 mg intravenously every 24 hours Compound per protocol. 40 g 0 metoprolol succinate (TOPROL XL) 50 MG extended release tablet Take 1 tablet by mouth daily 30 tablet 0 cyclobenzaprine (FLEXERIL) 10 MG tablet Take 1 tablet by mouth daily as needed for Muscle spasms 30 tablet 0 gabapentin (NEURONTIN) 300 MG capsule Take 1 capsule by mouth 3 times daily for 30 days. 90 capsule 0 lidocaine (LIDODERM) 5 % Place 2 patches onto the skin daily 12 hours on, 12 hours off. 60 patch 2 omeprazole (PRILOSEC) 20 MG delayed release capsule Take 20 mg by mouth daily amLODIPine (NORVASC) 5 MG tablet Indications: takes with elevated BP reading -- with sx headache & flushed feeling traZODone (DESYREL) 100 MG tablet Take 100 mg by mouth nightly candesartan (ATACAND) 32 MG tablet Take 32 mg by mouth every evening No current facility-administered medications on file prior to encounter. REVIEW OF SYSTEMS Pertinent items are noted in HPI. Objective: BP (!) 164/82 Pulse (!) 102 Temp (!) 96.6 F (35.9 C) (Temporal) Resp 16 Wt Readings from Last 3 Encounters: 05/28/22 209 lb (94.8 kg) 05/24/22 218 lb (98.9 kg) 04/23/22 220 lb (99.8 kg) PHYSICAL EXAM General Appearance: alert and oriented to person, place and time, well-developed and well-nourished, in no acute distress Cardiovascular: normal rate and intact distal pulses Extremities: no cyanosis and no clubbing Musculoskeletal: Charcot foot, left. Neurologic: speech normal and protective sensation is absent to the left foot. Assessment: Active Hospital Problems Diagnosis Date Noted Ulcer of midfoot, left, with necrosis of bone (HCC) [L97.424] 05/14/2022 Priority: Medium Idiopathic peripheral neuropathy [G60.9] 05/14/2022 Priority: Medium Charcot's joint of left foot [M14.672] 02/15/2022 Priority: Medium Procedure Note Indications: Based on my examination of this patient's wound(s)/ulcer(s) today, debridement is required to promote healing and evaluate the wound base. Performed by: Marielos Ely DPM Consent obtained: Yes Time out taken: Yes Pain Control: Debridement:Excisional Debridement Using tissue nippers the wound(s)/ulcer(s) was/were sharply debrided down through and including the removal of epidermis, dermis, and subcutaneous tissue. Devitalized Tissue Debrided: fibrin, biofilm, and slough Pre Debridement Measurements: Are located in the Wound/Ulcer Documentation Flow Sheet Wound/Ulcer #: 1,2 Post Debridement Measurements: Wound/Ulcer Descriptions are Pre Debridement except measurements: Wound 05/14/22 Foot Left;Plantar #1 (Active) Wound Image 06/18/22940 Wound Etiology Non-Healing Surgical 06/18/22940 Dressing Status Intact 05/31/22799 Wound Cleansed Cleansed with saline 06/18/22940 Dressing/Treatment Alginate with Ag 06/04/22 1039 Offloading for Diabetic Foot Ulcers Offloading ordered 05/31/22799 Dressing Change Due 06/01/22 05/31/22799 Wound Length (cm) 5.8 cm 06/18/22940 Wound Width (cm) 1 cm 06/18/22940 Wound Depth (cm) 0.7 cm 06/18/22940 Wound Surface Area (cm^2) 5.8 cm^2 06/18/22940 Change in Wound Size % (l*w) -141.67 06/18/22940 Wound Volume (cm^3) 4.06 cm^3 06/18/22940 Wound Healing % 44 06/18/22940 Post-Procedure Length (cm) 5.8 cm 06/18/221022 Post-Procedure Width (cm) 1 cm 06/18/221022 Post-Procedure Depth (cm) 0.7 cm 06/18/221022 Post-Procedure Surface Area (cm^2) 5.8 cm^2 06/18/221022 Post-Procedure Volume (cm^3) 4.06 cm^3 06/18/22 1023 Wound Assessment [place]/red 06/04/22935 Drainage Amount Moderate 06/18/22940 Drainage Description Sanguinous 06/18/22940 Odor None 06/18/22940 Brisa-wound Assessment Maceration 06/18/22940 Margins Defined edges 06/18/22940 Wound Thickness Description not for Pressure Injury Full thickness 06/04/22935 Number of days: 35 Wound 05/14/22 Foot Left;Lateral #2 (Active) Wound Image 06/18/22940 Wound Etiology Non-Healing Surgical 06/18/22940 Dressing Status Clean;Dry;Intact 05/31/22799 Wound Cleansed Cleansed with saline 06/18/22940 Dressing/Treatment Alginate with Ag 06/04/221038 Offloading for Diabetic Foot Ulcers Offloading ordered;Offloading boot 05/31/22799 Dressing Change Due 06/01/22 05/31/22799 Wound Length (cm) 7 cm 06/18/22940 Wound Width (cm) 0.2 cm 06/18/22940 Wound Depth (cm) 0.1 cm 06/18/22940 Wound Surface Area (cm^2) 1.4 cm^2 06/18/22940 Change in Wound Size % (l*w) 6.67 06/18/22940 Wound Volume (cm^3) 0.14 cm^3 06/18/22940 Wound Healing % 91 06/18/22940 Post-Procedure Length (cm) 7 cm 06/18/22 102 Post-Procedure Width (cm) 0.2 cm 06/18/221021 Post-Procedure Depth (cm) 0.1 cm 06/18/221021 Post-Procedure Surface Area (cm^2) 1.4 cm^2 06/18/22 1022 Post-Procedure Volume (cm^3) 0.14 cm^3 06/18/22 1022 Wound Assessment [place]/red 06/04/22 0936 Drainage Amount Small 06/18/22940 Drainage Description Sanguinous 06/18/22940 Odor None 06/18/22940 Brisa-wound Assessment Intact 06/18/22940 Margins Defined edges 06/18/22940 Wound Thickness Description not for Pressure Injury Full thickness 06/18/22940 Number of days: 35 Incision 01/12/22 Back Medial (Active) Number of days: 157 Percent of Wound/Ulcer Debrided: 100% Total Surface Area Debrided: 7.2 sq cm Diabetic/Pressure/Non Pressure Ulcers: Ulcer: Non-Pressure ulcer, fat layer exposed Bleeding: Minimal Hemostasis Achieved: by pressure Procedural Pain: Post Procedural Pain: Response to treatment: Well tolerated by patient. Plan: Continue strict non wt bearing on the left LE with knee walker. Plan of care was discussed with patient and he is in agreement. Treatment Note please see attached Discharge Instructions In my professional opinion this patient would benefit from HBO Therapy: No Written patient dismissal instructions given to patient and signed by patient or POA. Discharge Instructions [facility] Medicine Physician Orders and Discharge Instructions [place] [id number] FAX [phone] NAME: Macarena Coleman DATE OF : 1960 Your Supervisory Historian is: Ivana [place] [facility]/Facility: [facility] Wound Location:Left plantar foot, Left lateral foot. Dressing orders:1.Cleanse wound(s) with normal saline. 2. Apply dry SILVERCEL OR CALCIUM ALGINATE WITH Ag or eqivalent to wound bed. 3. Cover with Drawtex and wrap with gauze (mary or kerlix) then COBAN 4. Change dressing three times a week. Compression: Offloading Device: Non weight bearing to left foot Use your knee scooter as much as you can Other Instructions: Continue antibiotics per Infectious Disease. Elevate left leg as much as possible. Keep all dressings clean, dry and intact. Keep pressure off the wound(s) at all times. Follow up visit 3 Weeks Saturday July 09, 2022 at Please give 24 hour notice if unable to keep appointment. [phone] If you experience any of the following, please call the Wound Care Service at [phone] or go to the nearest emergency room. *Increase in pain *Temperature over 101 *Increase in drainage from your wound or a foul odor *Uncontrolled swelling *Need for compression bandage changes due to slippage, breakthrough drainage PLEASE NOTE: IF YOU ARE UNABLE TO OBTAIN WOUND SUPPLIES, CONTINUE TO USE THE SUPPLIES YOU HAVE AVAILABLE UNTIL YOU ARE ABLE TO REACH US. IT IS MOST IMPORTANT TO KEEP THE WOUND COVERED AT ALL TIMES documented in this encounter [facility] [employer] Work Phone: 06-18-2022 Hospital Discharge instructions Marielos Ely DPM - 06/18/2022 9:31 AM EST [facility] Medicine Physician Orders and Discharge Instructions [place] [id number] FAX [phone] NAME: Macarena Coleman DATE OF : 1960 Your Supervisory Historian is: [facility] Care/Facility: [facility] Wound Location:Left plantar foot, Left lateral foot. Dressing orders:1.Cleanse wound(s) with normal saline. 2. Apply dry SILVERCEL OR CALCIUM ALGINATE WITH Ag or eqivalent to wound bed. 3. Cover with Drawtex and wrap with gauze (mary or kerlix) then COBAN 4. Change dressing three times a week. Compression: Offloading Device: Non weight bearing to left foot Use your knee scooter as much as you can Other Instructions: Continue antibiotics per Infectious Disease. Elevate left leg as much as possible. Keep all dressings clean, dry and intact. Keep pressure off the wound(s) at all times. Follow up visit 3 Weeks Saturday July 09, 2022 at Please give 24 hour notice if unable to keep appointment. [phone] If you experience any of the following, please call the Wound Care Service at [phone] or go to the nearest emergency room. *Increase in pain *Temperature over 101 *Increase in drainage from your wound or a foul odor *Uncontrolled swelling *Need for compression bandage changes due to slippage, breakthrough drainage PLEASE NOTE: IF YOU ARE UNABLE TO OBTAIN WOUND SUPPLIES, CONTINUE TO USE THE SUPPLIES YOU HAVE AVAILABLE UNTIL YOU ARE ABLE TO REACH US. IT IS MOST IMPORTANT TO KEEP THE WOUND COVERED AT ALL TIMES documented in this encounter [facility] Work Phone: 06-04-2022 Hospital Discharge instructions Ivana Murrell RN - 06/04/2022 9:25 AM EDT [facility] Medicine Physician Orders and Discharge Instructions [address] [address] FAX [phone] NAME: Macarena Coleman DATE OF : 1960 Your Supervisory Historian is: Ivana [place] Care/Facility: [facility] Wound Location:Left plantar foot, Left lateral foot. Dressing orders:1.Cleanse wound(s) with normal saline. 2. Apply dry SILVERCEL OR CALCIUM ALGINATE WITH Ag or eqivalent to wound bed. 3. Cover with Drawtex and wrap with gauze (mary or kerlix) then COBAN 4. Change dressing twice weekly. Compression: Offloading Device: Non weight bearing to left foot Use your knee scooter as much as you can Other Instructions: Continue antibiotics per Infectious Disease. Call Infectious Disease to make follow up appointment. Elevate left leg as much as possible. Keep all dressings clean, dry and intact. Keep pressure off the wound(s) at all times. Follow up visit 2 Weeks Saturday June 18, 2022 at 10:00am Please give 24 hour notice if unable to keep appointment. [phone] If you experience any of the following, please call the Wound Care Service at [phone] or go to the nearest emergency room. *Increase in pain *Temperature over 101 *Increase in drainage from your wound or a foul odor *Uncontrolled swelling *Need for compression bandage changes due to slippage, breakthrough drainage PLEASE NOTE: IF YOU ARE UNABLE TO OBTAIN WOUND SUPPLIES, CONTINUE TO USE THE SUPPLIES YOU HAVE AVAILABLE UNTIL YOU ARE ABLE TO REACH US. IT IS MOST IMPORTANT TO KEEP THE WOUND COVERED AT ALL TIMES documented in this encounter [employer] Work Phone: 06-04-2022 History of Present illness Narrative Images from the original note were not included. [facility] [place] Progress Note and Procedure Note Macarena Coleman AGE: 62 y.o. GENDER: male : 1960 EPISODE DATE: 06/04/2022 Subjective: Chief Complaint Patient presents with Wound Check Left foot wounds HISTORY of PRESENT ILLNESS HPI Macarena Coleman is a 62 y.o. male who presents today for wound/ulcer evaluation. 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 He is s/p I&D with partial 5th ray amp, excision of prominent cuboid. He is on IV abx per ID. States he has been better about staying off his foot and using the knee walker since his discharge from the hospital. Denies nausea, vomiting, fevers, or chills. Wound/Ulcer Pain Timing/Severity: intermittent Quality of pain: sharp Severity: / 10 Modifying Factors: Pain is relieved/improved with rest Associated Signs/Symptoms: edema, drainage, numbness, and pain Ulcer Identification: Ulcer Type: non-healing surgical and neuropathic Contributing Factors: edema and shear force Wound: N/A PAST MEDICAL HISTORY Diagnosis Date Arthritis spine HTN (hypertension) meds since age 41. 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 PAST SURGICAL HISTORY Past Surgical History: Procedure Laterality Date ENDOSCOPY, COLON, DIAGNOSTIC FOOT DEBRIDEMENT Left 05/29/2022 INCISION AND DRAINAGE LEFT FOOT performed by Marielos Ely DPM at [facility] [place] HERN[place]PAIR 2007 umbilical hernia (Dr Hall) INGUINAL HERNIA REPAIR Bilateral 1971 LUMBAR FUSION N/A 01/12/2022 BILATERAL L4-5 LAMINECTOMIES MICRODISSECTIONS DECOMPRESSIONS INTERBODY CAGE POSTEROLATERAL ALLOGRAFT AUTOGENOUS BONE PEDICLE SCREW FUSION performed by Viv Luis MD at [facility] TOE AMPUTATION Left 05/29/2022 LEFT FOOT PARTIAL 5TH RAY AMPUTATION AND MIDFOOT BONE EXCISION LEFT FOOT performed by Marielos Ely DPM at [facility] OR VENTRICULOPERITONEAL SHUNT 12/12 hydrocephalous FAMILY HISTORY Family History Problem Relation Age of Onset Cancer Mother lung cancer Cancer Father stomack cancer High Blood Pressure Father Coronary Art Dis Neg Hx SOCIAL HISTORY Social History Tobacco Use Smoking status: Former Packs/day: 1.00 Years: 4.00 Pack years: 4.00 Types: Cigarettes Start date: 01/05/1977 Quit date: 01/05/1981 Years since quittin.4 Smokeless tobacco: Never Vaping Use Vaping Use: Never used Substance Use Topics Alcohol use: Yes Comment: social Drug use: No ALLERGIES Allergies Allergen Reactions Avelox [Moxifloxacin Hcl In Nacl] Other (See Comments) Altered heart rate Amoxicillin-Pot Clavulanate Nausea And Vomiting MEDICATIONS Current Outpatient Medications on File Prior to Encounter Medication Sig Dispense Refill HYDROcodone-acetaminophen (NORCO) 7.5-325 MG per tablet Take 1 tablet by mouth every 6 hours as needed for Pain. furosemide (LASIX) 20 MG tablet Take 1 tablet by mouth daily 30 tablet 3 ertapenem (INVANZ) infusion Infuse 1,000 mg intravenously every 24 hours Compound per protocol. 40 g 0 metoprolol succinate (TOPROL XL) 50 MG extended release tablet Take 1 tablet by mouth daily 30 tablet 0 cyclobenzaprine (FLEXERIL) 10 MG tablet Take 1 tablet by mouth daily as needed for Muscle spasms 30 tablet 0 gabapentin (NEURONTIN) 300 MG capsule Take 1 capsule by mouth 3 times daily for 30 days. 90 capsule 0 lidocaine (LIDODERM) 5 % Place 2 patches onto the skin daily 12 hours on, 12 hours off. 60 patch 2 omeprazole (PRILOSEC) 20 MG delayed release capsule Take 20 mg by mouth daily amLODIPine (NORVASC) 5 MG tablet Indications: takes with elevated BP reading -- with sx headache & flushed feeling traZODone (DESYREL) 100 MG tablet Take 100 mg by mouth nightly candesartan (ATACAND) 32 MG tablet Take 32 mg by mouth every evening No current facility-administered medications on file prior to encounter. REVIEW OF SYSTEMS Pertinent items are noted in HPI. Objective: BP (!) 149/76 Pulse 93 Temp 97.7 F (36.5 C) (Temporal) Resp 18 Wt Readings from Last 3 Encounters: 05/28/22 209 lb (94.8 kg) 05/24/22 218 lb (98.9 kg) 04/23/22 220 lb (99.8 kg) PHYSICAL EXAM General Appearance: alert and oriented to person, place and time, well-developed and well-nourished, in no acute distress Cardiovascular: normal rate and intact distal pulses Extremities: no cyanosis and no clubbing Musculoskeletal: Charcot foot, left. S/p partial 5th ray amp, left. Neurologic: speech normal and protective sensation is absent to the left foot. Assessment: Active Hospital Problems Diagnosis Date Noted Ulcer of midfoot, left, with necrosis of bone (HCC) [L97.424] 05/14/2022 Priority: Medium Idiopathic peripheral neuropathy [G60.9] 05/14/2022 Priority: Medium Wound/Ulcer Descriptions/Measurements: Wound 05/14/22 Foot Left;Plantar #1 (Active) Wound Image 06/04/22935 Wound Etiology Non-Healing Surgical 06/04/22935 Dressing Status Intact 05/31/22799 Wound Cleansed Cleansed with saline 06/04/22935 Dressing/Treatment Dry dressing;Drew wrap 05/31/22 08 Offloading for Diabetic Foot Ulcers Offloading ordered 05/31/22 08 Dressing Change Due 06/01/22 05/31/22799 Wound Length (cm) 0.2 cm 06/04/22935 Wound Width (cm) 7.4 cm 10/24/22 0936 Wound Depth (cm) 0.1 cm 06/04/22935 Wound Surface Area (cm^2) 1.48 cm^2 06/04/22935 Change in Wound Size % (l*w) 38.33 06/04/22935 Wound Volume (cm^3) 0.148 cm^3 06/04/22935 Wound Healing % 98 06/04/22935 Post-Procedure Length (cm) 1.6 cm 05/14/221145 Post-Procedure Width (cm) 1.5 cm 05/14/22 114 Post-Procedure Depth (cm) 3 cm 05/14/22 114 Post-Procedure Surface Area (cm^2) 2.4 cm^2 05/14/22 114 Post-Procedure Volume (cm^3) 7.2 cm^3 05/14/22 114 Wound Assessment [place]/red 06/04/22935 Drainage Amount Large 06/04/22935 Drainage Description Sanguinous;Serosanguinous 06/04/22935 Odor None 06/04/22935 Brisa-wound Assessment Hyperkeratosis (callous) 06/04/22935 Margins Defined edges 06/04/22935 Wound Thickness Description not for Pressure Injury Full thickness 06/04/22935 Number of days: 21 Wound 05/14/22 Foot Left;Lateral #2 (Active) Wound Image 06/04/22935 Wound Etiology Non-Healing Surgical 06/04/22935 Dressing Status Clean;Dry;Intact 05/31/22799 Wound Cleansed Cleansed with saline 06/04/22935 Dressing/Treatment Dry dressing;Drew wrap 05/31/22799 Offloading for Diabetic Foot Ulcers Offloading ordered;Offloading boot 05/31/22799 Dressing Change Due 06/01/22 05/31/22799 Wound Length (cm) 6.9 cm 06/04/22935 Wound Width (cm) 0.1 cm 06/04/22935 Wound Depth (cm) 0.1 cm 06/04/22935 Wound Surface Area (cm^2) 0.69 cm^2 06/04/22935 Change in Wound Size % (l*w) 54 06/04/22935 Wound Volume (cm^3) 0.069 cm^3 06/04/22 0936 Wound Healing % 95 06/04/22 0936 Wound Assessment [place]/red 06/04/22 0936 Drainage Amount Large 06/04/22 0936 Drainage Description Sanguinous;Serosanguinous 06/04/22 0936 Odor None 06/04/22 0936 Brisa-wound Assessment Intact 06/04/22 0936 Margins Defined edges 06/04/22 0936 Wound Thickness Description not for Pressure Injury Full thickness 06/04/22 0936 Number of days: 21 Incision 01/12/22 Back Medial (Active) Number of days: 143 Incision 05/29/22 Toe (Comment which one) Anterior;Left (Active) Dressing Status Clean;Dry;Intact 05/31/22 08 Dressing Change Due 06/01/22 05/31/22 08 Incision Cleansed Wound cleanser 05/31/22 08 Dressing/Treatment Dry dressing;Drew wrap 05/31/22 08 Closure Sutures 05/29/22 1349 Margins Approximated 05/29/22 1349 Drainage Amount None 05/31/22 0800 Odor None 05/30/22 2235 Number of days: 6 Plan: Continue non wt bearing with knee walker on the left. He is to schedule f/u appt with ID. Plan of care was discussed with patient and he is in agreement. Treatment Note please see attached Discharge Instructions In my professional opinion this patient would benefit from HBO Therapy: Undecided Written patient dismissal instructions given to patient and signed by patient or POA. Discharge Instructions [facility] Medicine Physician Orders and Discharge Instructions [place] [id number] FAX [phone] NAME: Macarena Coleman DATE OF : 1960 Your Supervisory Historian is: IvanaAusten [facility] Care/Facility: [facility] Wound Location:Left plantar foot, Left lateral foot. Dressing orders:1.Cleanse wound(s) with normal saline. 2. Apply dry SILVERCEL OR CALCIUM ALGINATE WITH Ag or eqivalent to wound bed. 3. Cover with Drawtex and wrap with gauze (mary or kerlix) then COBAN 4. Change dressing twice weekly. Compression: Offloading Device: Non weight bearing to left foot Use your knee scooter as much as you can Other Instructions: Continue antibiotics per Infectious Disease. Call Infectious Disease to make follow up appointment. Elevate left leg as much as possible. Keep all dressings clean, dry and intact. Keep pressure off the wound(s) at all times. Follow up visit 2 Weeks Saturday June 18, 2022 at 10:00am Please give 24 hour notice if unable to keep appointment. [phone] If you experience any of the following, please call the Wound Care Service at [phone] or go to the nearest emergency room. *Increase in pain *Temperature over 101 *Increase in drainage from your wound or a foul odor *Uncontrolled swelling *Need for compression bandage changes due to slippage, breakthrough drainage PLEASE NOTE: IF YOU ARE UNABLE TO OBTAIN WOUND SUPPLIES, CONTINUE TO USE THE SUPPLIES YOU HAVE AVAILABLE UNTIL YOU ARE ABLE TO REACH US. IT IS MOST IMPORTANT TO KEEP THE WOUND COVERED AT ALL TIMES documented in this encounter [employer] Work Phone: 05-31-2022 History of Present illness Narrative MUSIC THERAPY NOTE Referred to pt by Micky of spiritual care. Found pt sitting on side of bed. Pt is very pleasant. Began by having conversation with pt about his mood and how he was feeling. Pt shared that he had a good day and is hopeful after a positive Physical Therapy session. 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 Pt shared that he enjoyed popular country music and uatsdin music. To bring pt comfort, MT facilitated an intervention of live guitar and vocal music, namely [employer] by Adriel Marmolejo. During intervention, pt smiled, listened intently and was grateful/complimentary. Pt affect was brighter by close of session. Will follow until d/c for mood and comfort while hospitalized. Physical Therapy Med Surg Initial Assessment Facility/Department: [address] TELEMETRY Room: [facility]/[id number] NAME: Macarena Coleman : 1960 (62 y.o.) CODE STATUS: Full Code Date of Service: 05/31/2022 Patient Diagnosis(es): Peripheral edema [R60.9] Heart failure (HCC) [I50.9] Elevated troponin [R77.8] Acute respiratory failure with hypoxia (HCC) [J96.01] Dyspnea, unspecified type [R06.00] Ulcer of left foot, unspecified ulcer stage ([facility]) [L97.529] Chief Complaint Patient presents with Leg Pain Left leg below knee to ankle and states edema to leg and ankle. Pt has a boot in place due to ulcers. Pt is on a ATB for wounds and has home care. Sent by PCP for ultrasound of leg to R/O blood clot. Shortness of Breath Started last week and has seen Dr. Hand. Pt was given albuterol inhaler. Pt does not use O2 Patient Active Problem List Diagnosis Date Noted Dyspnea 05/25/2022 Acute heart failure with preserved ejection fraction (HCC) 05/25/2022 Acute osteomyelitis of ankle and foot, left (HCC) 05/28/2022 Peripheral edema 05/26/2022 Acute respiratory failure with hypoxia (HCC) 05/25/2022 Heart failure (HCC) 05/25/2022 Anemia 05/25/2022 Elevated troponin 05/25/2022 Idiopathic peripheral neuropathy 05/14/2022 Ulcer of left foot, with necrosis of muscle (HCC) 05/14/2022 Chronic pain of right knee 02/15/2022 Charcot's joint of left foot 02/15/2022 Spinal stenosis of lumbar region with neurogenic claudication 08/31/2021 Acquired spondylolisthesis of lumbosacral region 08/31/2021 Paraparesis of both lower limbs (HCC) 08/31/2021 Exacerbation of osteoarthritis 07/05/2021 Lipoma of torso 04/29/2018 Chronic pain syndrome 12/26/2016 Lumbosacral spondylosis without myelopathy 04/20/2015 HTN (hypertension) Obesity (BMI 30-39.9) 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 Past Surgical History: Procedure Laterality Date ENDOSCOPY, COLON, DIAGNOSTIC FOOT DEBRIDEMENT Left 05/29/2022 INCISION AND DRAINAGE LEFT FOOT performed by Marielos Ely DPM at [facility] [place] HERNIA REPAIR 2007 umbilical hernia (Dr Hall) INGUINAL HERNIA REPAIR Bilateral 1971 LUMBAR FUSION N/A 01/12/2022 BILATERAL L4-5 LAMINECTOMIES MICRODISSECTIONS DECOMPRESSIONS INTERBODY CAGE POSTEROLATERAL ALLOGRAFT AUTOGENOUS BONE PEDICLE SCREW FUSION performed by Viv Luis MD at [facility] [place] OR TOE AMPUTATION Left 05/29/2022 LEFT FOOT PARTIAL 5TH RAY AMPUTATION AND MIDFOOT BONE EXCISION LEFT FOOT performed by Marielos Ely DPM at [facility] OR VENTRICULOPERITONEAL SHUNT 12/12 hydrocephalous Chart Reviewed: Yes Family / Caregiver Present: No Restrictions: Restrictions/Precautions: Fall Risk, Weight Bearing Lower Extremity Weight Bearing Restrictions Left Lower Extremity Weight Bearing: Non Weight Bearing (post surgery - knee walker approved to utilize) SUBJECTIVE: Subjective: Pt reported pain at 3-4/10 level in right LE at beginning and end of session. He did not want pain medication at this time Prior Level of Function: Social/Functional History Lives With: Spouse (pt cares for due to had TBI) Type of Home: House Home Layout: One level, Laundry in basement Home Access: Stairs to enter without rails Entrance Stairs - Number of Steps: 4 in back or 1 plus one in the front Bathroom Shower/Tub: Tub/Shower unit Bathroom Equipment: Shower chair Home Equipment: Walker, standard, Cane (puchased knee walker and wheels for home walker) ADL Assistance: Independent Homemaking Assistance: Independent (assists with balance with bathing, making meals, grocery shopping) Homemaking Responsibilities: Yes (caregiver for ) Ambulation Assistance: Independent Transfer Assistance: Independent Active Electronics Engineer: Yes Additional Comments: pt has worn boot X 3 months OBJECTIVE: Vision Vision: Impaired Vision Exceptions: Wears glasses for distance;Wears glasses for reading Hearing: Within functional limits Cognition: Overall Orientation Status: Within Normal Limits Follows Commands: Within Functional Limits Overall Cognitive Status: WFL ROM: AROM: Within functional limits Strength: Strength: Within functional limits Neuro: Balance Standing - Static: Fair (with BUE support) Standing - Dynamic: Fair;- (mildly unsteady in movement tasks) Coordination: Within functional limits Sensation: Impaired Bed mobility Rolling to Left: Independent Rolling to Right: Independent Supine to Sit: Independent Sit to Supine: Independent Transfers Sit to Stand: Supervision;Minimal Assistance (mildly unsteady with standing to knee walker wuth min assist required. following initial education and trial pt demonstrated ability to perform with supervision. Supervision and occasional cues for standing to ww) Stand to Sit: Supervision (decreased control of descent intermittently - cues for approach to chair required) Bed to Chair: Supervision Car Transfer: (demonstrated to pt technique to use. Pt and therapist feel trial not necessary) Comment: mildly unsteady with intermittent cues for improving technique for control of descent Ambulation Surface: Level tile Device: Rolling Walker (and knee walker/scooter) Assistance: Stand by assistance;Supervision;Minimal assistance (initial min assist with each device required. Following instruction and trials pt progressed to SBA with cueing and mild safety a concern) Quality of Gait: able to maintain NWB with ww and with knee walker, able to maneuver each device following education, mildly unsteady lat with each device with initial assistance required Distance: 20 feet x 3 with ww; 60 feet x2 with knee walker Comments: Pt with cues needed for approach to chair with improved quality in subsequent trials noted Stairs/Curb Stairs?: No Stairs Curbs: 2 (twice) Device: Rolling walker Assistance: Stand by assistance;Contact guard assistance Comment: Pt additionally trialsed sitting on chair on a 4 inch curb step to turn to enter home. Following instruction pt performed this with SBA with ww to approach surface Patient Education Education Given To: Patient Education Provided: Energy Conservation;Equipment;Transfer Training Education Provided Comments: Pt provided with multiple opportunities for trials of gait with ww and knee walker. Reviewed method for car transfer and bed mobility with home limitation of tight space. Education Method: Verbal;Demonstration Barriers to Learning: None Education Outcome: Verbalized understanding;Demonstrated understanding;Continued education needed ASSESSMENT: Body Structures, Functions, Activity Limitations Requiring Skilled Therapeutic Intervention: Decreased functional mobility ;Decreased balance Decision Making: Low Complexity History: high Exam: low Clinical Presentation: low Specific Instructions for Next Treatment: knee walker, ww, curb with ww and with chair, DISCHARGE RECOMMENDATIONS: Discharge Recommendations: Continue to assess pending progress No Skilled PT: Independent with functional mobility Assessment: Pt underwent surgical procedure resulting in a now NWB status on LLE. Pt performed tasks with ww and knee walker progressively attaining SBA/supervised level. Pt could benefit from further practice prior to return to home to ensure safe mobility Requires PT Follow-Up: Yes PLAN OF CARE: Physcial Therapy Plan General Plan: 2 times a day 7 days a week Specific Instructions for Next Treatment: knee walker, ww, curb with ww and with chair, Current Treatment Recommendations: Functional mobility training, Transfer training, Gait training Additional Comments: pt indep; no continued PT indicated Safety Devices Type of Devices: Call light within reach, Left in bed Goals: Short Term Goals Short Term Goal 1: indep sit to stand to knee walker and ww - and with car transfers if needed Short Term Goal 2: indep gait with ww and knee walker 20 feet with good approach to surface Short Term Goal 3: SBA with curb step performance to enter home - with ww over 2 inch and chair on 4 inch step [facility] (6 CLICK) BASIC MOBILITY AM-PAC Inpatient Mobility Raw Score : 19 Therapy Time: Individual Time In 1323 Time Out 1440 Minutes 77 Eval 12 min Transfer train: 10 Gait train: 55 Deyanira Mahmood PT, 05/31/22 at 3:05 PM Definitions for assistance levels Independent = pt does not require any physical supervision or assistance from another person for activity completion. Device may be needed. Stand by assistance = pt requires verbal cues or instructions from another person, close to but not touching, to perform the activity Minimal assistance= pt performs 75% or more of the activity; assistance is required to complete the activity Moderate assistance= pt performs 50% of the activity; assistance is required to complete the activity Maximal assistance = pt performs 25% of the activity; assistance is required to complete the activity Dependent = pt requires total physical assistance to accomplish the task Infectious Disease Patient Name: Macarena Coleman Date: 05/31/2022 Date of : 1960 Left foot osteomyelitis Charcot joint MSSA infection Status post surgical excision of fifth metatarsal head 05/29/2022 Pre-Op Diagnosis: ULCER LEFT FOOT, charcot left foot, osteomyelitis 5th metatarsal head Post-Op Diagnosis: Same Procedure(s): LEFT FOOT PARTIAL 5TH RAY AMPUTATION AND MIDFOOT BONE EXCISION LEFT FOOT INCISION AND DRAINAGE LEFT FOOT No fevers chills sweats no significant pain Growing MSSA from prior culture Review of Systems Constitutional: Negative for chills, diaphoresis and fatigue. Respiratory: Negative. Cardiovascular: Negative. Gastrointestinal: Negative. Skin: Positive for wound. Physical Exam Constitutional: Appearance: He is not ill-appearing. Cardiovascular: Heart sounds: No murmur heard. Pulmonary: Effort: Pulmonary effort is normal. No respiratory distress. Breath sounds: Normal breath sounds. No wheezing, rhonchi or rales. Abdominal: General: Abdomen is flat. Bowel sounds are normal. There is no distension. Palpations: There is no mass. Tenderness: There is no abdominal tenderness. There is no guarding or rebound. Hernia: No hernia is present. Musculoskeletal: General: No swelling or tenderness. Comments: Foot rwrapped Skin: General: Skin is dry. Coloration: Skin is not jaundiced. Blood pressure (!) 122/100, pulse 96, temperature 98.8 F (37.1 C), temperature source Oral, resp. rate 16, height 6' (1.829 m), weight 209 lb (94.8 kg), SpO2 98 %. . Lab Results Component Value Date WBC 8.2 05/31/2022 HGB 10.2 (L) 05/31/2022 HCT 31.3 (L) 05/31/2022 MCV 74.7 (L) 05/31/2022 PLT 276 05/31/2022 Lab Results Component Value Date/Time NA 133 05/31/2022 06:49 AM K 3.8 05/31/2022 06:49 AM K 3.6 01/14/2022 06:21 AM CL 96 05/31/2022 06:49 AM CO2 24 05/31/2022 06:49 AM BUN 11 05/31/2022 06:49 AM CREATININE 0.86 05/31/2022 06:49 AM GLUCOSE 113 05/31/2022 06:49 AM GLUCOSE 99 01/11/2012 08:35 AM CALCIUM 8.4 05/31/2022 06:49 AM 05/14/22 1208 WOUND/ABSCESS Abnormal Direct Exam: RARE NEUTROPHILS Direct Exam: RARE GRAM POSITIVE COCCI IN PAIRS Performed at [facility] [place] [address] Organism Staphylococcus aureus Abnormal WOUND/ABSCESS SCANT GROWTH This isolate is methicillin susceptible. Resulting Agency [facility] Lab Susceptibility Staphylococcus aureus (1) Antibiotic Interpretation Microscan Method Status clindamycin Sensitive <=0.25 mcg/mL BACTERIAL SUSCEPTIBILITY PANEL BY JULIANA erythromycin Sensitive <=0.25 mcg/mL BACTERIAL SUSCEPTIBILITY PANEL BY JULIANA gentamicin Sensitive <=0.5 mcg/mL BACTERIAL SUSCEPTIBILITY PANEL BY JULIANA Gentamicin is used only in combination with other active agents that test susceptible. oxacillin Sensitive <=0.25 mcg/mL BACTERIAL SUSCEPTIBILITY PANEL BY JULIANA is a therapeutic consideration. 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 Lumbosacral spondylosis without myelopathy Chronic pain syndrome Lipoma of torso Exacerbation of osteoarthritis Hydrocephalus (HCC) Umbilical hernia Spinal stenosis of lumbar region with neurogenic claudication Acquired spondylolisthesis of lumbosacral region Paraparesis of both lower limbs (HCC) Chronic pain of right knee Charcot's joint of left foot Idiopathic peripheral neuropathy Ulcer of left foot, with necrosis of muscle (HCC) Acute respiratory failure with hypoxia (HCC) Heart failure (HCC) Anemia Elevated troponin Dyspnea Acute heart failure with preserved ejection fraction (HCC) Peripheral edema Acute osteomyelitis of ankle and foot, left (HCC) PLAN: Left foot osteomyelitis Charcot joint MSSA infection Switch to Invanz for 6 weeks No cultures from surgery on 05/29/2022 in chart Cardiology Follow up Note Subjective: 62 y.o. old male patient admitted with acute diastolic CHF, elevated troponin and foot ulcer. He is status post foot surgery without cardiac event. He denies any chest pain or SOB. Review of Systems: General: Feels better. Cardiovascular: See HPI. No orthopnea or PND. Respiratory: Dyspnea is present with mild to moderate degrees of activity. Gastrointestinal: No melena or hematochezia. Genitourinary: No hematuria. Hematological: No easy bruising or bleeding. Vascular: + improving lower extremity edema. No claudication. Neurological: No TIA or CVA symptoms. No paresthesias. Musculoskeletal: No chest wall pain. + foot ulcer; pain + osteomyelitis Psychiatric: No anxiety. *All other systems were reviewed and found to be negative unless otherwise noted in the HPI* Objective: BP (!) 143/72 Pulse 95 Temp 98.4 F (36.9 C) (Oral) Resp 18 Ht 6' (1.829 m) Wt 209 lb (94.8 kg) SpO2 97% BMI 28.35 kg/m Vitals stable. Constitutional: alert, cooperative, in no distress Eyes: Conjunctiva clear; no scleral icturus. PERRLA Respiratory: clear to auscultation bilaterally Musculoskeletal: No chest wall tenderness. No clubbing or cyanosis. Cardiovascular: regular rate and rhythm, S1, S2 normal, no murmur, click, rub or gallop. No carotid bruit. No JVD. Pulses 2+ and symmetric. No significant pre-tibial edema. GI: soft, non-tender, non-distended. Bowel sounds normal. No masses, no organomegaly MSK: No chest wall pain. Left foot dressing. Neurologic: Grossly normal Skin: No rashes or lesions. No cyanosis. Intake/Output Summary (Last 24 hours) at 05/30/2022 1805 Last data filed at 05/30/2022 1800 Gross per 24 hour Intake 440 ml Output 775 ml Net -335 ml Medications: furosemide, 20 mg, Daily spironolactone, 25 mg, Daily metoprolol succinate, 50 mg, Daily atorvastatin, 10 mg, Nightly sodium chloride flush, 5-40 mL, 2 times per day melatonin, 5 mg, Nightly piperacillin-tazobactam, 3,375 mg, Q8H traZODone, 100 mg, Nightly cyclobenzaprine, 10 mg, Nightly [Held by provider] busPIRone, 10 mg, TID sodium chloride flush, 5-40 mL, 2 times per day enoxaparin, 40 mg, Daily valsartan, 80 mg, Daily lidocaine, 1 patch, Daily sulfamethoxazole-trimethoprim, 1 tablet, BID pantoprazole, 40 mg, QAM AC gabapentin, 300 mg, TID aspirin, 81 mg, Daily sodium chloride, Last Rate: 100 mL/hr at 05/30/22 1556 sodium chloride sodium chloride Recent Labs 05/28/22 0517 05/29/22 0604 05/30/22 0531 HGB 10.9* 10.6* 10.2* WBC 8.2 8.6 9.7 PLT 372 347 282 NA 137 140 -- K 4.0 4.1 -- CO2 25 27 -- BUN 18 16 -- MG 2.3 2.2 -- Telemetry: Sinus rhythm Echocardiogram; EF 50-55%. Moderate LVH. Moderate mitral regurgitation. Assessment: Acute decompensated HFPEF, possibly exacerbated by hypertension, now stable. Low normal LV systolic function, EF 50-55% Hypertension with hypertensive heart disease Mild nonspecific troponin elevation Left foot ulcer /osteomyelitis PAD Recommendations: Remains euvolemic on exam. Continue oral Lasix. Podiatry surgery planned for today. Outpatient stress test per patient preference. Cardiac status stable at this time. Should any new cardiac issues arise, please re notify our service. Follow up with CHF clinic in 1 week after discharge. Follow up with me in 4 weeks after discharge. Thank you for allowing me to participate in your patient's cardiac care. Should you have questions, please do not hesitate to contact me. Lawson Silva DO, [facility], [facility] Heart [facility] V[facility] Infectious Disease Patient Name: Macarena Coleman Date: 05/30/2022 Date of : 1960 Left foot osteomyelitis Charcot joint MSSA infection Status post surgical excision of fifth metatarsal head 05/29/2022 Pre-Op Diagnosis: ULCER LEFT FOOT, charcot left foot, osteomyelitis 5th metatarsal head Post-Op Diagnosis: Same Procedure(s): LEFT FOOT PARTIAL 5TH RAY AMPUTATION AND MIDFOOT BONE EXCISION LEFT FOOT INCISION AND DRAINAGE LEFT FOOT No fevers chills sweats no significant pain Growing MSSA from prior culture Review of Systems Constitutional: Negative for chills, diaphoresis and fatigue. Respiratory: Negative. Cardiovascular: Negative. Gastrointestinal: Negative. Skin: Positive for wound. Review of Systems: All 14 review of systems negative other than as stated above Social History Tobacco Use Smoking status: Former Packs/day: 1.00 Years: 4.00 Pack years: 4.00 Types: Cigarettes Start date: 01/05/1977 Quit date: 01/05/1981 Years since quittin.4 Smokeless tobacco: Never Vaping Use Vaping Use: Never used Substance Use Topics Alcohol use: Yes Comment: social Drug use: No Past Medical History: Diagnosis Date Arthritis spine HTN (hypertension) meds since age 41. 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 Past Surgical History: Procedure Laterality Date ENDOSCOPY, COLON, DIAGNOSTIC FOOT DEBRIDEMENT Left 05/29/2022 INCISION AND DRAINAGE LEFT FOOT performed by Marielos Ely DPM at [facility] HERNIA REPAIR 2007 umbilical hernia (Dr Hall) INGUINAL HERNIA REPAIR Bilateral 1971 LUMBAR FUSION N/A 01/12/2022 BILATERAL L4-5 LAMINECTOMIES MICRODISSECTIONS DECOMPRESSIONS INTERBODY CAGE POSTEROLATERAL ALLOGRAFT AUTOGENOUS BONE PEDICLE SCREW FUSION performed by Viv Luis MD at [facility] [place] TOE AMPUTATION Left 05/29/2022 LEFT FOOT PARTIAL 5TH RAY AMPUTATION AND MIDFOOT BONE EXCISION LEFT FOOT performed by Marielos Ely DPM at [facility] [place] VENTRICULOPERITONEAL SHUNT 12/12 hydrocephalous No current facility-administered medications on file prior to encounter. Current Outpatient Medications on File Prior to Encounter Medication Sig Dispense Refill HYDROcodone-acetaminophen (NORCO) 7.5-325 MG per tablet Take 1 tablet by mouth every 6 hours as needed for Pain for up to 30 days. Intended supply: 30 days 120 tablet 0 cyclobenzaprine (FLEXERIL) 10 MG tablet Take 1 tablet by mouth daily as needed for Muscle spasms 30 tablet 0 sulfamethoxazole-trimethoprim (BACTRIM DS;SEPTRA DS) 800-160 MG per tablet Take 1 tablet by mouth 2 times daily for 14 days 28 tablet 0 cephALEXin (KEFLEX) 500 MG capsule Take 1 capsule by mouth 4 times daily 40 capsule 0 gabapentin (NEURONTIN) 300 MG capsule Take 1 capsule by mouth 3 times daily for 30 days. 90 capsule 0 lidocaine (LIDODERM) 5 % Place 2 patches onto the skin daily 12 hours on, 12 hours off. 60 patch 2 naproxen (NAPRELAN) 500 MG extended release tablet Take 1 tablet by mouth 2 times daily as needed for Pain 60 tablet 3 omeprazole (PRILOSEC) 20 MG delayed release capsule Take 20 mg by mouth daily amLODIPine (NORVASC) 5 MG tablet Indications: takes with elevated BP reading -- with sx headache & flushed feeling traZODone (DESYREL) 100 MG tablet Take 100 mg by mouth nightly candesartan (ATACAND) 32 MG tablet Take 32 mg by mouth every evening Allergies Allergen Reactions Avelox [Moxifloxacin Hcl In Nacl] Other (See Comments) Altered heart rate Amoxicillin-Pot Clavulanate Nausea And Vomiting Family History Problem Relation Age of Onset Cancer Mother lung cancer Cancer Father stomack cancer High Blood Pressure Father Coronary Art Dis Neg Hx Physical Exam: Physical Exam Constitutional: Appearance: He is not ill-appearing. Cardiovascular: Heart sounds: No murmur heard. Pulmonary: Effort: Pulmonary effort is normal. No respiratory distress. Breath sounds: Normal breath sounds. No wheezing, rhonchi or rales. Abdominal: General: Abdomen is flat. Bowel sounds are normal. There is no distension. Palpations: There is no mass. Tenderness: There is no abdominal tenderness. There is no guarding or rebound. Hernia: No hernia is present. Musculoskeletal: General: No swelling or tenderness. Comments: Foot rwrapped Skin: General: Skin is dry. Coloration: Skin is not jaundiced. Blood pressure (!) 143/72, pulse 95, temperature 98.4 F (36.9 C), temperature source Oral, resp. rate 18, height 6' (1.829 m), weight 209 lb (94.8 kg), SpO2 97 %. . Lab Results Component Value Date WBC 9.7 05/30/2022 HGB 10.2 (L) 05/30/2022 HCT 30.1 (L) 05/30/2022 MCV 74.7 (L) 05/30/2022 PLT 282 05/30/2022 Lab Results Component Value Date/Time NA 140 05/29/2022 06:04 AM K 4.1 05/29/2022 06:04 AM K 3.6 01/14/2022 06:21 AM CL 103 05/29/2022 06:04 AM CO2 27 05/29/2022 06:04 AM BUN 16 05/29/2022 06:04 AM CREATININE 0.82 05/29/2022 06:04 AM GLUCOSE 102 05/29/2022 06:04 AM GLUCOSE 99 01/11/2012 08:35 AM CALCIUM 9.0 05/29/2022 06:04 AM 05/14/22 1208 WOUND/ABSCESS Abnormal Direct Exam: RARE NEUTROPHILS Direct Exam: RARE GRAM POSITIVE COCCI IN PAIRS Performed at [facility] [place] [address] ([phone] Organism Staphylococcus aureus Abnormal WOUND/ABSCESS SCANT GROWTH This isolate is methicillin susceptible. Resulting Agency [facility] Lab Susceptibility Staphylococcus aureus (1) Antibiotic Interpretation Microscan Method Status clindamycin Sensitive <=0.25 mcg/mL BACTERIAL SUSCEPTIBILITY PANEL BY JULIANA erythromycin Sensitive <=0.25 mcg/mL BACTERIAL SUSCEPTIBILITY PANEL BY JULIANA gentamicin Sensitive <=0.5 mcg/mL BACTERIAL SUSCEPTIBILITY PANEL BY JULIANA Gentamicin is used only in combination with other active agents that test susceptible. oxacillin Sensitive <=0.25 mcg/mL BACTERIAL SUSCEPTIBILITY PANEL BY JULIANA is a therapeutic consideration. 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 Lumbosacral spondylosis without myelopathy Chronic pain syndrome Lipoma of torso Exacerbation of osteoarthritis Hydrocephalus (HCC) Umbilical hernia Spinal stenosis of lumbar region with neurogenic claudication Acquired spondylolisthesis of lumbosacral region Paraparesis of both lower limbs (HCC) Chronic pain of right knee Charcot's joint of left foot Idiopathic peripheral neuropathy Ulcer of left foot, with necrosis of muscle (HCC) Acute respiratory failure with hypoxia (HCC) Heart failure (HCC) Anemia Elevated troponin Dyspnea Acute heart failure with preserved ejection fraction (HCC) Peripheral edema Acute osteomyelitis of ankle and foot, left (HCC) PLAN: Left foot osteomyelitis Charcot joint MSSA infection Continuing Zosyn plan for extended course of antibiotics Await surgical cultures to determine final choice Progress Note Date:05/30/2022 Room:[facility]/[place] [address] Patient Name:Macarena Coleman Date of :1960 Age:62 y.o. Subjective Underwent surgery 05/29, no immediate complications. Moderate post-op pain control, and analgesic regimen per surgical team. Pain beginning to improve this morning. Patient has questions for surgical team, but states he has not seen them since he returned to his room from surgery yesterday. Objective Vitals Last 24 Hours: TEMPERATURE: Temp Av.6 F (37 C) Min: 97.9 F (36.6 C) Max: 99 F (37.2 C) RESPIRATIONS RANGE: Resp Av.1 Min: 10 Max: 21 PULSE OXIMETRY RANGE: SpO2 Av.3 % Min: 91 % Max: 98 % PULSE RANGE: Pulse Av.7 Min: 82 Max: 101 BLOOD PRESSURE RANGE: Systolic (24hrs), Av , Min:113 , Max:159 ; Diastolic (24hrs), Av, Min:62, Max:92 I/O (24Hr): Intake/Output Summary (Last 24 hours) at 05/30/2022 1227 Last data filed at 05/29/2022 2358 Gross per 24 hour Intake 1020 ml Output 785 ml Net 235 ml Objective: General Appearance: Well-appearing, in no acute distress and uncomfortable. Vital signs: (most recent): Blood pressure 113/62, pulse (!) 101, temperature 99 F (37.2 C), temperature source Oral, resp. rate 18, height 6' (1.829 m), weight 209 lb (94.8 kg), SpO2 92 %. HEENT: Normal HEENT exam. Lungs: Normal effort. Heart: Normal rate. Regular rhythm. Abdomen: Abdomen is soft. Bowel sounds are normal. There is no epigastric area or suprapubic area tenderness. Extremities: There is deformity (Bilateral baseline foot arch collapse. Left foot wrap in place overlying open lesion.). (Postoperative left foot wrap, external dressing C/D/I.) Neurological: Patient is alert and oriented to person, place and time. (Grossly alert and oriented. Depressed affect. ). Pupils: Pupils are equal, round, and reactive to light. Skin: Warm and dry. Labs/Imaging/Diagnostics Labs: CBC: Recent Labs 05/28/2251605/29/22 0604 05/30/22 0531 WBC 8.2 8.6 9.7 RBC 4.51* 4.47* 4.03* HGB 10.9* 10.6* 10.2* HCT 34.2* 33.9* 30.1* MCV 75.9* 75.8* 74.7* RDW 14.5 14.3 14.5 PLT 372 347 282 CHEMISTRIES: Recent Labs 05/28/2251605/29/22 06 NA 137 140 K 4.0 4.1 CL 100 103 CO2 25 27 BUN 18 16 CREATININE 0.84 0.82 GLUCOSE 103* 102* MG 2.3 2.2 PT/INR:No results for input(s): PROTIME, INR in the last 72 hours. APTT:No results for input(s): APTT in the last 72 hours. LIVER PROFILE: No results for input(s): AST, ALT, BILIDIR, BILITOT, ALKPHOS in the last 72 hours. Imaging Last 24 Hours: XR FOOT LEFT (MIN 3 VIEWS) Result Date: 05/25/2022 EXAMINATION: THREE XRAY VIEWS OF THE LEFT FOOT 05/25/2022 4:33 pm COMPARISON: 04/18/2022 HISTORY: ORDERING SYSTEM PROVIDED HISTORY: r/o osteomyelitis. ulcer probes to bone to plantar foot and lateral 5th metatarsal TECHNOLOGIST PROVIDED HISTORY: Reason for exam:->r/o osteomyelitis. ulcer probes to bone to plantar foot and lateral 5th metatarsal What reading provider will be dictating this exam?->CRC FINDINGS: A large plantar foot ulcer is identified with soft tissue swelling. There is osteopenia of the 5th metatarsal head with loss of the cortical margin medially. No acute fracture is identified. Severe Charcot arthropathy of the midfoot is stable compared to the prior exam with rocker bottom foot deformity. Diffuse foot soft tissue swelling is seen. Findings suggestive of 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 Severe Charcot arthropathy with rocker bottom foot deformity. CTA Chest W WO (PE study) Result Date: 05/24/2022 EXAMINATION: CTA OF THE CHEST WITH AND WITHOUT CONTRAST 05/24/2022 7:34 pm TECHNIQUE: CTA of the chest was performed before and after the administration of intravenous contrast. Multiplanar reformatted images are provided for review. MIP images are provided for review. Automated exposure control, iterative reconstruction, and/or weight based adjustment of the mA/kV was utilized to reduce the radiation dose to as low as reasonably achievable. COMPARISON: None. HISTORY: ORDERING SYSTEM PROVIDED HISTORY: sob with hx unilateral leg edema TECHNOLOGIST PROVIDED HISTORY: Reason for exam:->sob with hx unilateral leg edema Decision Support Exception - unselect if not a suspected or confirmed emergency medical condition->Emergency Medical Condition (MA) What reading provider will be dictating this exam?->CRC FINDINGS: Pulmonary Arteries: Pulmonary arteries are adequately opacified for evaluation. No evidence of intraluminal filling defect to suggest pulmonary embolism. Main pulmonary artery is normal in caliber. Mediastinum: No evidence of mediastinal lymphadenopathy. The heart and pericardium demonstrate no acute abnormality. There is no acute abnormality of the thoracic aorta. Lungs/pleura: There are moderate bilateral pleural effusions with associated atelectasis. No focal consolidation or mitch edema. No pneumothorax. Upper Abdomen: Limited images of the upper abdomen are unremarkable. Soft Tissues/Bones: No acute bone or soft tissue abnormality. No evidence of pulmonary embolism. Moderate bilateral pleural effusions with associated atelectasis. US DUP LOWER EXTREMITY LEFT BR[place]ON Result Date: 05/24/2022 EXAMINATION: DUPLEX VENOUS ULTRASOUND OF THE LEFT LOWER EXTREMITY 05/24/2022 7:08 pm TECHNIQUE: Duplex ultrasound using B-mode/hewitt scaled imaging and Doppler spectral analysis and color flow was obtained of the deep venous structures of the left lower extremity. COMPARISON: None. HISTORY: ORDERING SYSTEM PROVIDED HISTORY: leg swelling with sob TECHNOLOGIST PROVIDED HISTORY: Reason for exam:->leg swelling with sob What reading provider will be dictating this exam?->CRC FINDINGS: The visualized veins of the left lower extremity are patent and free of echogenic thrombus. The veins demonstrate good compressibility with normal color flow study and spectral analysis. No evidence of DVT in the left lower extremity. RECOMMENDATIONS: Unavailable Assessment//Plan Hospital Problems Last Modified POA * (Principal) Acute respiratory failure with hypoxia (HCC) 05/25/2022 Yes Dyspnea 05/25/2022 Yes Acute heart failure with preserved ejection fraction (HCC) 05/25/2022 Yes Ulcer of left foot, with necrosis of muscle (HCC) 05/25/2022 Yes Anemia 05/25/2022 Yes Elevated troponin 05/25/2022 Yes Peripheral edema 05/26/2022 Yes Acute osteomyelitis of ankle and foot, left (HCC) 05/28/2022 Yes Osteomyelitis of left toe Acute HFPEF exacerbation Acute respiratory failure Renal insuffiency RBC in the urine Assessment & Plan 05/26: Change Keflex to IV Zosyn, ID evaluation for osteomyelitis of the left foot. Patient possibly will benefit from stress test inpatient. Lower extremity swelling is down. Spoke with the patient. Taper down oxygen as tolerated. 05/27: He upon entering the room patient states that he is getting discharged today. States that infectious disease told him that later on today he could be discharged. Spoke with patient that culture has not been back, MRI has not been done, vascular duplex that was done yesterday has not been reported. Patient has modest renal insufficiency. We will have to hold losartan and Lasix. Cardiology also wants to monitor patient till tomorrow. Pt states he will stay till tomorrow to get the test done, FU renal u/s. Pt needs repeat UA for RBC in the urine as outpt and if positive needs to see urology as outpt, no visible hematuria noted in gross examination of the urine 05/28: Confirmed OM, and confirmed [id number] abscess of left foot on MRI. Will needs Podiatry and ID recs regarding management, which may need surgery prior to DC, and will likely require IV antibiotics following DC. Not medically cleared for DC at this time. Podiatry planning for surgical intervention 05/29 or 05/30. Appreciate ID recommendations regarding antibiotic regimen. 05/29: Anticipate likely podiatric surgery today. Morning labs WNL. PICC placement per infectious disease service. Plan for outpatient IV ABX. 05/30: Moderate pain control postoperatively overnight. Pain control beginning to improve this morning s/p extra analgesics (Toradol) administered overnight in addition to previously ordered postoperative pain medications. Patient feels his postoperative dressing may be wrapped a little bit too tight. He states that his was contacted by the surgical team postoperatively who informed her that they did not get all of the infection , he is very concerned by that statement to monitor what exactly that means. States he has not yet seen surgical pain since his return to medical floor postoperatively, and wants to have them clarify that statement. Vascular surgery planning for bilateral CT angiogram runoff for vascular evaluation later this afternoon. Cardiology service has completed their evaluation of the patient, and are reportedly signing off the case with no further interventions required at this time from cardiac perspective. Patient returned to rm [id number] after surgical procedure. Cardiology Follow up Note Subjective: 62 y.o. old male patient admitted with acute diastolic CHF, elevated troponin and foot ulcer. He is going for surgery today with Podiatry. He denies any chest pain or SOB. Leg edema significantly improved after IV diuresis. Review of Systems: General: Feels better. Cardiovascular: See HPI. No orthopnea or PND. Respiratory: Dyspnea is present with mild to moderate degrees of activity. Gastrointestinal: No melena or hematochezia. Genitourinary: No hematuria. Hematological: No easy bruising or bleeding. Vascular: + improving lower extremity edema. No claudication. Neurological: No TIA or CVA symptoms. No paresthesias. Musculoskeletal: No chest wall pain. + foot ulcer; pain Psychiatric: No anxiety. *All other systems were reviewed and found to be negative unless otherwise noted in the HPI* Objective: BP (!) 144/72 Pulse 82 Temp 97.9 F (36.6 C) (Temporal) Resp 14 Ht 6' (1.829 m) Wt 209 lb (94.8 kg) SpO2 97% BMI 28.35 kg/m Vitals stable. Constitutional: alert, cooperative, in no distress Eyes: Conjunctiva clear; no scleral icturus. PERRLA Respiratory: clear to auscultation bilaterally Musculoskeletal: No chest wall tenderness. No clubbing or cyanosis. Cardiovascular: regular rate and rhythm, S1, S2 normal, no murmur, click, rub or gallop. No carotid bruit. No JVD. Pulses 2+ and symmetric. No significant pre-tibial edema. GI: soft, non-tender, non-distended. Bowel sounds normal. No masses, no organomegaly MSK: extremities normal, atraumatic, no clubbing. No chest wall pain. Left foot dressing. Neurologic: Grossly normal Skin: No rashes or lesions. No cyanosis. Intake/Output Summary (Last 24 hours) at 05/29/2022 1624 Last data filed at 05/29/2022 1447 Gross per 24 hour Intake 1740 ml Output 1310 ml Net 430 ml Medications: sodium chloride flush, 5-40 mL, 2 times per day furosemide, 20 mg, Daily spironolactone, 25 mg, Daily metoprolol succinate, 50 mg, Daily atorvastatin, 10 mg, Nightly sodium chloride flush, 5-40 mL, 2 times per day melatonin, 5 mg, Nightly piperacillin-tazobactam, 3,375 mg, Q8H traZODone, 100 mg, Nightly cyclobenzaprine, 10 mg, Nightly [Held by provider] busPIRone, 10 mg, TID sodium chloride flush, 5-40 mL, 2 times per day enoxaparin, 40 mg, Daily valsartan, 80 mg, Daily lidocaine, 1 patch, Daily sulfamethoxazole-trimethoprim, 1 tablet, BID pantoprazole, 40 mg, QAM AC gabapentin, 300 mg, TID aspirin, 81 mg, Daily sodium chloride sodium chloride sodium chloride Recent Labs 05/27/22 0520 05/28/22 0517 05/29/22 0604 HGB 11.4* 10.9* 10.6* WBC 8.2 8.2 8.6 PLT 413* 372 347 NA 139 137 140 K 4.7 4.0 4.1 CO2 30 25 27 BUN 23 18 16 MG 2.2 2.3 2.2 Telemetry: Sinus rhythm Echocardiogram; EF 50-55%. Moderate LVH. Moderate mitral regurgitation. Assessment: Acute decompensated HFPEF, possibly exacerbated by hypertension, now stable. Low normal LV systolic function, EF 50-55% Hypertension with hypertensive heart disease Mild nonspecific troponin elevation Left foot ulcer /osteomyelitis Recommendations: Remains euvolemic on exam. Continue oral Lasix. Podiatry surgery planned for today. Outpatient stress test per patient preference. Thank you for allowing me to participate in your patient's cardiac care. Should you have questions, please do not hesitate to contact me. Lawson Silva DO, FACC, [facility] Page put out to podiatry resident pineapple plantation manager. RH Call put out to Dr. Ely concerning pts pain. RH. Call put out to Dr. Rajan concerning pts pain to the left outer foot. Block was brought up. He felt Foot block from podiatry would be enough . RH Off unit to procedure Went to see this consult but patient had already gone to surgery with podiatry Dr. Cano reviewed duplex and feels a CTA with runoff should be done Full consult will follow tomorrow Progress Note Date:05/29/2022 Room:[place] [address] Patient Name:Macarena Coleman Date of :1960 Age:62 y.o. Subjective No acute events overnight. Plan for likely podiatric surgery today. Objective Vitals Last 24 Hours: TEMPERATURE: Temp Av.2 F (36.8 C) Min: 98.1 F (36.7 C) Max: 98.3 F (36.8 C) RESPIRATIONS RANGE: Resp Av Min: 18 Max: 18 PULSE OXIMETRY RANGE: SpO2 Av.5 % Min: 96 % Max: 97 % PULSE RANGE: Pulse Av.7 Min: 87 Max: 97 BLOOD PRESSURE RANGE: Systolic (24hrs), Av , Min:141 , Max:150 ; Diastolic (24hrs), Av, Min:82, Max:97 I/O (24Hr): Intake/Output Summary (Last 24 hours) at 05/29/2022 1033 Last data filed at 05/29/2022 0225 Gross per 24 hour Intake 740 ml Output 2700 ml Net -1960 ml Objective: General Appearance: Comfortable, well-appearing and in no acute distress. Vital signs: (most recent): Blood pressure 115/74, pulse 95, temperature 98.8 F (37.1 C), resp. rate 18, height 6' (1.829 m), weight 209 lb (94.8 kg), SpO2 96 %. HEENT: Normal HEENT exam. Lungs: Normal effort. Heart: Normal rate. S1 normal. Abdomen: Abdomen is soft. Bowel sounds are normal. There is no epigastric area or suprapubic area tenderness. Extremities: There is deformity (Bilateral baseline foot arch collapse. Left foot wrap in place overlying open lesion.). Pulses: (Palpable foot dorsalis pedis) Neurological: Patient is alert and oriented to person, place and time. (Grossly alert and oriented. Depressed affect. ). Pupils: Pupils are equal, round, and reactive to light. Skin: Warm and dry. Labs/Imaging/Diagnostics Labs: CBC: Recent Labs 05/27/2251905/28/2251605/29/22 0604 WBC 8.2 8.2 8.6 RBC 4.70 4.51* 4.47* HGB 11.4* 10.9* 10.6* HCT 35.4* 34.2* 33.9* MCV 75.2* 75.9* 75.8* RDW 14.6* 14.5 14.3 PLT 413* 372 347 CHEMISTRIES: Recent Labs 05/27/2251905/28/22 0505/29/22 0604 NA 139 137 140 K 4.7 4.0 4.1 CL 97 100 103 CO2 30 25 27 BUN 23 18 16 CREATININE 1.28* 0.84 0.82 GLUCOSE 107* 103* 102* MG 2.2 2.3 2.2 PT/INR:No results for input(s): PROTIME, INR in the last 72 hours. APTT:No results for input(s): APTT in the last 72 hours. LIVER PROFILE: No results for input(s): AST, ALT, BILIDIR, BILITOT, ALKPHOS in the last 72 hours. Imaging Last 24 Hours: XR FOOT LEFT (MIN 3 VIEWS) Result Date: 05/25/2022 EXAMINATION: THREE XRAY VIEWS OF THE LEFT FOOT 05/25/2022 4:33 pm COMPARISON: 04/18/2022 HISTORY: ORDERING SYSTEM PROVIDED HISTORY: r/o osteomyelitis. ulcer probes to bone to plantar foot and lateral 5th metatarsal TECHNOLOGIST PROVIDED HISTORY: Reason for exam:->r/o osteomyelitis. ulcer probes to bone to plantar foot and lateral 5th metatarsal What reading provider will be dictating this exam?->CRC FINDINGS: A large plantar foot ulcer is identified with soft tissue swelling. There is osteopenia of the 5th metatarsal head with loss of the cortical margin medially. No acute fracture is identified. Severe Charcot arthropathy of the midfoot is stable compared to the prior exam with rocker bottom foot deformity. Diffuse foot soft tissue swelling is seen. Findings suggestive of 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 Severe Charcot arthropathy with rocker bottom foot deformity. CTA Chest W WO (PE study) Result Date: 05/24/2022 EXAMINATION: CTA OF THE CHEST WITH AND WITHOUT CONTRAST 05/24/2022 7:34 pm TECHNIQUE: CTA of the chest was performed before and after the administration of intravenous contrast. Multiplanar reformatted images are provided for review. MIP images are provided for review. Automated exposure control, iterative reconstruction, and/or weight based adjustment of the mA/kV was utilized to reduce the radiation dose to as low as reasonably achievable. COMPARISON: None. HISTORY: ORDERING SYSTEM PROVIDED HISTORY: sob with hx unilateral leg edema TECHNOLOGIST PROVIDED HISTORY: Reason for exam:->sob with hx unilateral leg edema Decision Support Exception - unselect if not a suspected or confirmed emergency medical condition->Emergency Medical Condition (MA) What reading provider will be dictating this exam?->CRC FINDINGS: Pulmonary Arteries: Pulmonary arteries are adequately opacified for evaluation. No evidence of intraluminal filling defect to suggest pulmonary embolism. Main pulmonary artery is normal in caliber. Mediastinum: No evidence of mediastinal lymphadenopathy. The heart and pericardium demonstrate no acute abnormality. There is no acute abnormality of the thoracic aorta. Lungs/pleura: There are moderate bilateral pleural effusions with associated atelectasis. No focal consolidation or mitch edema. No pneumothorax. Upper Abdomen: Limited images of the upper abdomen are unremarkable. Soft Tissues/Bones: No acute bone or soft tissue abnormality. No evidence of pulmonary embolism. Moderate bilateral pleural effusions with associated atelectasis. US DUP LOWER EXTREMITY LEFT [place] Result Date: 05/24/2022 EXAMINATION: DUPLEX VENOUS ULTRASOUND OF THE LEFT LOWER EXTREMITY 05/24/2022 7:08 pm TECHNIQUE: Duplex ultrasound using B-mode/hewitt scaled imaging and Doppler spectral analysis and color flow was obtained of the deep venous structures of the left lower extremity. COMPARISON: None. HISTORY: ORDERING SYSTEM PROVIDED HISTORY: leg swelling with sob TECHNOLOGIST PROVIDED HISTORY: Reason for exam:->leg swelling with sob What reading provider will be dictating this exam?->CRC FINDINGS: The visualized veins of the left lower extremity are patent and free of echogenic thrombus. The veins demonstrate good compressibility with normal color flow study and spectral analysis. No evidence of DVT in the left lower extremity. RECOMMENDATIONS: Unavailable Assessment//Plan Hospital Problems Last Modified POA * (Principal) Acute respiratory failure with hypoxia ([facility]) 05/25/2022 Yes Dyspnea 05/25/2022 Yes Acute heart failure with preserved ejection fraction ([facility]) 05/25/2022 Yes Ulcer of left foot, with necrosis of muscle ([facility]) 05/25/2022 Yes Anemia 05/25/2022 Yes Elevated troponin 05/25/2022 Yes Peripheral edema 05/26/2022 Yes Acute osteomyelitis of ankle and foot, left ([facility]) 05/28/2022 Yes Osteomyelitis of left toe Acute HFPEF exacerbation Acute respiratory failure Renal insuffiency RBC in the urine Assessment & Plan 05/26: Change Keflex to IV Zosyn, ID evaluation for osteomyelitis of the left foot. Patient possibly will benefit from stress test inpatient. Lower extremity swelling is down. Spoke with the patient. Taper down oxygen as tolerated. 05/27: He upon entering the room patient states that he is getting discharged today. States that infectious disease told him that later on today he could be discharged. Spoke with patient that culture has not been back, MRI has not been done, vascular duplex that was done yesterday has not been reported. Patient has modest renal insufficiency. We will have to hold losartan and Lasix. Cardiology also wants to monitor patient till tomorrow. Pt states he will stay till tomorrow to get the test done, FU renal u/s. Pt needs repeat UA for RBC in the urine as outpt and if positive needs to see urology as outpt, no visible hematuria noted in gross examination of the urine 05/28: Confirmed OM, and confirmed [id number] abscess of left foot on MRI. Will needs Podiatry and ID recs regarding management, which may need surgery prior to DC, and will likely require IV antibiotics following DC. Not medically cleared for DC at this time. Podiatry planning for surgical intervention 05/29 or 05/30. Appreciate ID recommendations regarding antibiotic regimen. 05/29: Anticipate likely podiatric surgery today. Morning labs WNL. PICC placement per infectious disease service. Plan for outpatient IV ABX. [facility] Occupational Therapy Date: 05/29/2022 Patient Name: Macarena Coleman Account: [id number] : 1960 (62 y.o.) Room: [place] [address] Chart reviewed, attempted OT at 0910 for eval. Patient not seen 2 to: Other: Per chart review and pt report, plan today for 5th ray amputation today. Pt states he is to be NWB following surgery and requests evaluation after surgery. Will require new OT orders with updated activity and weight bearing restrictions post procedure. Spoke to PEDRITO Suggs RN aware. Will attempt again when able. Spiritual Care Services Summary of Visit: Follow up visit. Patient resting in bed. He expressed that he felt better about his pending procedure. When we spoke of his , patient became upset and emotional. He is very concerned for her. After he calms himself, he is able to proceed with conversation and expresses that his understands the procedure and the need but she is very concerned for him. His daughter has been able to support his during patient's hospitalization. Intensive Care Unit Registered Nurse to follow up later for prayer prior to procedure. Encounter Summary Encounter Overview/Reason : Spiritual/Emotional Needs Service Provided For:: Patient Referral/Consult From:: [facility] Support System: Spouse, Family members Last Encounter : 05/28/22 Complexity of Encounter: Moderate Begin Time: 929 End Time : 939 Total Time Calculated: 10 min Encounter Type: Follow up Spiritual/Emotional needs Type: Emotional Distress, Spiritual Support Spiritual Assessment/Intervention/Outcomes: Assessment: Anxious, Complicated grieving, Impaired resilience, Powerlessness Intervention: Active listening, Discussed relationship with God, Explored/Affirmed feelings, thoughts, concerns, Prayer (assurance of)/[place] Outcome: Expressed Gratitude, Engaged in conversation, Comfort Care Plan: Plan and Referrals Plan/Referrals: Continue to visit, (comment) Unfortunately, patient was taken for procedure prior to nailing machine operator automatic visit. Follow up with prayer and on going support. Spiritual Care Services . To reach a nailing machine operator automatic for emotional and spiritual support, place an [employer] consult request. If a nailing machine operator automatic is needed immediately, dial 0 and ask to page the on-call nailing machine operator automatic. Patient is alert and oriented he took control of his care this a.am He stated which medications he will take and will not take this am. He also stated he would like hands parter to follow up with his after his procedure. Patient has been NPO since midnight. Patient stated he has some discomfort in left foot and would like Zofran and pain medications. Will be administered per Dr. Cali. Staff will continue to monitor his progress. Bed lock low and call button within reach. Spiritual Care Services Summary of Visit: Follow up encounter. Nurse mentioned that the patient was in distress in his room. 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 Patient expressed that he understood the gravity of his situation but was overwhelmed by all that has happened to him so suddenly. Feels like he is enveloped in a cloud!! He has bills to pay and needs to set things for them for after his surgery. Patient is anxious because he feels like he is going to lose his means of support, his home, and possibly his ! His anxiety clouds everything for him and could affect his ongoing recovery. Patient is baptism. We discussed God's faithfulness. He confessed that God has been faithful to both he and his . He has provided for them on many occasions. We discussed that if God is faithful in the past he will be faithful in the present and the future. Prayer was offered and scripture passages shared to remind patient of God's faithfulness and presence. Encounter Summary Encounter Overview/Reason : Crisis, Spiritual/Emotional Needs Service Provided For:: Patient Referral/Consult From:: Nurse Support System: Spouse, Children, Family members Last Encounter : 05/25/22 Complexity of Encounter: Moderate Begin Time: 1420 End Time : 1440 Total Time Calculated: 20 min Encounter Type: Follow up Spiritual/Emotional needs Type: Emotional Distress, Spiritual Distress Spiritual Assessment/Intervention/Outcomes: Assessment: Anxious, Complicated grieving, Concerns with suffering, Decisional conflict, Moral distress Intervention: Active listening, Discussed belief system/baptism practices/preethi, Discussed illness injury and it s impact, Explored Coping Skills/Resources, Guided Imagery, Healing touch, etc., Prayer (assurance of)/[place], Read/Provided Scripture Outcome: Acceptance, Concerns relieved, Deescalated, Encouraged, Engaged in conversation, Expressed feelings, needs, and concerns, Expressed Gratitude, New perspective/awareness, Receptive Care Plan: Plan and Referrals Plan/Referrals: Continue Support (comment) Continue to visit and provide prayer support Spiritual Care Services . To reach a nailing machine operator automatic for emotional and spiritual support, place an [facility] consult request. If a nailing machine operator automatic is needed immediately, dial 0 and ask to page the on-call nailing machine operator automatic. Images from the original note were not included. Infectious Diseases Inpatient Progress Note HISTORY OF PRESENT ILLNESS: Follow up left foot acute osteomyelitis, L foot ulceration, Charcot deformity secondary to peripheral neuropathy on IV Zosyn, well tolerated. Patient is scheduled for foot surgery tomorrow. Is anxious to go home. Is agreeable to do IV antibiotics at home and to get a PICC line placed. He denies any pain. Positive left leg swelling. No fevers or chills. Current Medications: furosemide 20 mg Oral Daily spironolactone 25 mg Oral Daily [START ON 05/29/2022] metoprolol succinate 50 mg Oral Daily atorvastatin 10 mg Oral Nightly lidocaine 5 mL IntraDERmal Once sodium chloride flush 5-40 mL IntraVENous 2 times per day melatonin 5 mg Oral Nightly piperacillin-tazobactam 3,375 mg IntraVENous Q8H traZODone 100 mg Oral Nightly cyclobenzaprine 10 mg Oral Nightly [Held by provider] busPIRone 10 mg Oral TID sodium chloride flush 5-40 mL IntraVENous 2 times per day enoxaparin 40 mg SubCUTAneous Daily valsartan 80 mg Oral Daily lidocaine 1 patch Topical Daily sulfamethoxazole-trimethoprim 1 tablet Oral BID pantoprazole 40 mg Oral QAM AC gabapentin 300 mg Oral TID aspirin 81 mg Oral Daily Allergies: Avelox [moxifloxacin hcl in nacl] and Amoxicillin-pot clavulanate Review of Systems 14 system review is negative other than HPI Physical Exam Vitals: 05/28/22 0426 05/28/22 0614 05/28/22 0753 05/28/22 1456 BP: 136/85 (!) 141/83 (!) 141/97 Pulse: 90 97 97 Resp: 18 18 Temp: 98.8 F (37.1 C) 98.6 F (37 C) TempSrc: Oral Oral SpO2: 93% Weight: 209 lb (94.8 kg) Height: General Appearance: alert and oriented to person, place and time, well-developed and well-nourished, in no acute distress Skin: warm and dry, no rash. Head: normocephalic and atraumatic Eyes: anicteric sclerae ENT: oropharynx clear and moist with normal mucous membranes. No oral thrush Lungs: normal respiratory effort Abdomen: soft, no tenderness No leg edema, L leg swelling No erythema, no tenderness Left foot ulcers with intact dressing R scalp 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 shunt Photos from this admission were reviewed DATA: Lab Results Component Value Date WBC 8.2 05/28/2022 HGB 10.9 (L) 05/28/2022 HCT 34.2 (L) 05/28/2022 MCV 75.9 (L) 05/28/2022 PLT 372 05/28/2022 Lab Results Component Value Date CREATININE 0.84 05/28/2022 BUN 18 05/28/2022 NA 137 05/28/2022 K 4.0 05/28/2022 CL 100 05/28/2022 CO2 25 05/28/2022 Hepatic Function Panel: Lab Results Component Value Date/Time ALKPHOS 130 05/24/2022 06:30 PM ALT 21 05/24/2022 06:30 PM AST 23 05/24/2022 06:30 PM PROT 7.9 05/24/2022 06:30 PM BILITOT 0.3 05/24/2022 06:30 PM LABALBU 3.8 05/24/2022 06:30 PM LABALBU 4.7 01/11/2012 08:35 AM Component 05/25/22 1632 CULTURE WOUND Direct Exam: NO NEUTROPHILS SEEN Cult,Aerobe/Anaerobe: NORMAL SKIN ANITA Cult,Aerobe/Anaerobe: No anaerobic organisms isolated at 2 days Imaging: Left foot MRI Impression Osteomyelitis of the cuboid. 1.5 cm rim enhancing fluid collection along the plantar margin of the cuboid is concerning for developing abscess with surrounding phlegmon. 1 x 1 x 3 cm abscess within the plantar soft tissues at the level of the head of the 5th metatarsal. Mild bone marrow edema within the base of the 5th metacarpal without definitive hypointense T1 signal, findings compatible with osteitis with early osteomyelitis not excluded. Charcot arthropathy of the midfoot. IMPRESSION: Acute osteomyelitis of left foot Left foot abscess MSSA infection L foot ulcers, non pressure Patient Active Problem List Diagnosis HTN (hypertension) Obesity (BMI 30-39.9) 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 (ventriculoperitoneal) shunt status Lumbosacral spondylosis without myelopathy Chronic pain syndrome Lipoma of torso Exacerbation of osteoarthritis Hydrocephalus (HCC) Umbilical hernia Spinal stenosis of lumbar region with neurogenic claudication Acquired spondylolisthesis of lumbosacral region Paraparesis of both lower limbs (HCC) Chronic pain of right knee Charcot's joint of left foot Idiopathic peripheral neuropathy Ulcer of left foot, with necrosis of muscle (HCC) Acute respiratory failure with hypoxia (HCC) Heart failure (HCC) Anemia Elevated troponin Dyspnea Acute heart failure with preserved ejection fraction (HCC) Peripheral edema PLAN: Continue IV Zosyn Check Intra-Op cultures and accordingly make a decision regarding final antibiotics on discharge PICC line Arrange for home IV antibiotic Discussed with patient and keycase assembler Debbi Valera MD Progress Note Date:05/28/2022 Room:77/W177-01 Patient Name:Macarena Coleman Date of :1960 Age:62 y.o. Subjective Patient I have spoken with podiatry following MRI today, understands that they are recommending surgery Saturday or Saturday of this week for abscess and osteomyelitis of foot bone. 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 Is also very but worried about his , who has a history of TBI with some residual deficits, and for whom he is primary caregiver. Objective Vitals Last 24 Hours: TEMPERATURE: Temp Av.8 F (37.1 C) Min: 98.6 F (37 C) Max: 99.1 F (37.3 C) RESPIRATIONS RANGE: Resp Av.4 Min: 18 Max: 20 PULSE OXIMETRY RANGE: SpO2 Av % Min: 93 % Max: 97 % PULSE RANGE: Pulse Av Min: 90 Max: 97 BLOOD PRESSURE RANGE: Systolic (24hrs), Av , Min:115 , Max:141 ; Diastolic (24hrs), Av, Min:83, Max:98 I/O (24Hr): Intake/Output Summary (Last 24 hours) at 05/28/2022 1025 Last data filed at 05/28/2022 0527 Gross per 24 hour Intake 310 ml Output 1550 ml Net -1240 ml Objective: General Appearance: Comfortable, well-appearing and in no acute distress. Vital signs: (most recent): Blood pressure (!) 141/97, pulse 97, temperature 98.6 F (37 C), temperature source Oral, resp. rate 18, height 6' (1.829 m), weight 209 lb (94.8 kg), SpO2 93 %. HEENT: Normal HEENT exam. Lungs: Normal effort. Heart: Normal rate. S1 normal. Abdomen: Abdomen is soft. Bowel sounds are normal. There is no epigastric area or suprapubic area tenderness. Extremities: There is deformity (Bilateral baseline foot arch collapse. Left foot wrap in place overlying open lesion.). Pulses: (Palpable foot dorsalis pedis) Neurological: Patient is alert and oriented to person, place and time. (Grossly alert and oriented. Depressed affect. ). Pupils: Pupils are equal, round, and reactive to light. Skin: Warm and dry. Labs/Imaging/Diagnostics Labs: CBC: Recent Labs 05/26/2253505/27/2251905/28/22516 WBC 8.6 8.2 8.2 RBC 4.66* 4.70 4.51* HGB 11.1* 11.4* 10.9* HCT 35.1* 35.4* 34.2* MCV 75.4* 75.2* 75.9* RDW 14.5 14.6* 14.5 PLT 430* 413* 372 CHEMISTRIES: Recent Labs 05/26/2253505/27/2251905/28/22516 NA 137 139 137 K 4.0 4.7 4.0 CL 99 97 100 CO2 27 30 25 BUN 11 23 18 CREATININE 0.89 1.28* 0.84 GLUCOSE 102* 107* 103* MG 2.2 2.2 2.3 PT/INR:No results for input(s): PROTIME, INR in the last 72 hours. APTT:No results for input(s): APTT in the last 72 hours. LIVER PROFILE: No results for input(s): AST, ALT, BILIDIR, BILITOT, ALKPHOS in the last 72 hours. Imaging Last 24 Hours: XR FOOT LEFT (MIN 3 VIEWS) Result Date: 05/25/2022 EXAMINATION: THREE XRAY VIEWS OF THE LEFT FOOT 05/25/2022 4:33 pm COMPARISON: 04/18/2022 HISTORY: ORDERING SYSTEM PROVIDED HISTORY: r/o osteomyelitis. ulcer probes to bone to plantar foot and lateral 5th metatarsal TECHNOLOGIST PROVIDED HISTORY: Reason for exam:->r/o osteomyelitis. ulcer probes to bone to plantar foot and lateral 5th metatarsal What reading provider will be dictating this exam?->CRC FINDINGS: A large plantar foot ulcer is identified with soft tissue swelling. There is osteopenia of the 5th metatarsal head with loss of the cortical margin medially. No acute fracture is identified. Severe Charcot arthropathy of the midfoot is stable compared to the prior exam with rocker bottom foot deformity. Diffuse foot soft tissue swelling is seen. Findings suggestive of 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 Severe Charcot arthropathy with rocker bottom foot deformity. CTA Chest W WO (PE study) Result Date: 05/24/2022 EXAMINATION: CTA OF THE CHEST WITH AND WITHOUT CONTRAST 05/24/2022 7:34 pm TECHNIQUE: CTA of the chest was performed before and after the administration of intravenous contrast. Multiplanar reformatted images are provided for review. MIP images are provided for review. Automated exposure control, iterative reconstruction, and/or weight based adjustment of the mA/kV was utilized to reduce the radiation dose to as low as reasonably achievable. COMPARISON: None. HISTORY: ORDERING SYSTEM PROVIDED HISTORY: sob with hx unilateral leg edema TECHNOLOGIST PROVIDED HISTORY: Reason for exam:->sob with hx unilateral leg edema Decision Support Exception - unselect if not a suspected or confirmed emergency medical condition->Emergency Medical Condition (MA) What reading provider will be dictating this exam?->CRC FINDINGS: Pulmonary Arteries: Pulmonary arteries are adequately opacified for evaluation. No evidence of intraluminal filling defect to suggest pulmonary embolism. Main pulmonary artery is normal in caliber. Mediastinum: No evidence of mediastinal lymphadenopathy. The heart and pericardium demonstrate no acute abnormality. There is no acute abnormality of the thoracic aorta. Lungs/pleura: There are moderate bilateral pleural effusions with associated atelectasis. No focal consolidation or mitch edema. No pneumothorax. Upper Abdomen: Limited images of the upper abdomen are unremarkable. Soft Tissues/Bones: No acute bone or soft tissue abnormality. No evidence of pulmonary embolism. Moderate bilateral pleural effusions with associated atelectasis. US DUP LOWER EXTREMITY LEFT [place] Result Date: 05/24/2022 EXAMINATION: DUPLEX VENOUS ULTRASOUND OF THE LEFT LOWER EXTREMITY 05/24/2022 7:08 pm TECHNIQUE: Duplex ultrasound using B-mode/hewitt scaled imaging and Doppler spectral analysis and color flow was obtained of the deep venous structures of the left lower extremity. COMPARISON: None. HISTORY: ORDERING SYSTEM PROVIDED HISTORY: leg swelling with sob TECHNOLOGIST PROVIDED HISTORY: Reason for exam:->leg swelling with sob What reading provider will be dictating this exam?->CRC FINDINGS: The visualized veins of the left lower extremity are patent and free of echogenic thrombus. The veins demonstrate good compressibility with normal color flow study and spectral analysis. No evidence of DVT in the left lower extremity. RECOMMENDATIONS: Unavailable Assessment//Plan Hospital Problems Last Modified POA * (Principal) Acute respiratory failure with hypoxia (HCC) 05/25/2022 Yes Dyspnea 05/25/2022 Yes Acute heart failure with preserved ejection fraction (HCC) 05/25/2022 Yes Ulcer of left foot, with necrosis of muscle ([facility]) 05/25/2022 Yes Anemia 05/25/2022 Yes Elevated troponin 05/25/2022 Yes Peripheral edema 05/26/2022 Yes Osteomyelitis of left toe Acute HFPEF exacerbation Acute respiratory failure Renal insuffiency RBC in the urine Assessment & Plan 05/26: Change Keflex to IV Zosyn, ID evaluation for osteomyelitis of the left foot. Patient possibly will benefit from stress test inpatient. Lower extremity swelling is down. Spoke with the patient. Taper down oxygen as tolerated. 05/27: He upon entering the room patient states that he is getting discharged today. States that infectious disease told him that later on today he could be discharged. Spoke with patient that culture has not been back, MRI has not been done, vascular duplex that was done yesterday has not been reported. Patient has modest renal insufficiency. We will have to hold losartan and Lasix. Cardiology also wants to monitor patient till tomorrow. Pt states he will stay till tomorrow to get the test done, FU renal u/s. Pt needs repeat UA for RBC in the urine as outpt and if positive needs to see urology as outpt, no visible hematuria noted in gross examination of the urine 05/28: Confirmed OM, and confirmed [id number] abscess of left foot on MRI. Will needs Podiatry and ID recs regarding management, which may need surgery prior to DC, and will likely require IV antibiotics following DC. Not medically cleared for DC at this time. Podiatry planning for surgical intervention 05/29 or 05/30. Appreciate ID recommendations regarding antibiotic regimen. Progress Note Patient: Macarena Coleman Unit/Bed: W177/W177-01 Date of : 1960 Acct: [id number] Admitting Diagnosis: Peripheral edema [R60.9] Heart failure (HCC) [I50.9] Elevated troponin [R77.8] Acute respiratory failure with hypoxia (HCC) [J96.01] Dyspnea, unspecified type [R06.00] Ulcer of left foot, unspecified ulcer stage ([facility]) [L97.529] Date: 05/24/2022 Hospital Day: 3 Chief Complaint: Shortness of breath Subjective 05/28/22: Resting comfortably in bed in no acute distress. Denies any ongoing shortness of breath complaints. States he was able to bend over without any shortness of breath which he had not been able to do previously. No chest pain complaints. Has diuresed well during admission with approximately 6 L negative fluid balance. His IV Lasix and Diovan were placed on hold on 05/27/2022 due to mild ZAIRA. As renal function is normalized as of 05/28/2022, will resume diuretics as well as Diovan. He is hemodynamically stable. Currently on telemetry he is sinus tach with heart rate low 100s. Podiatry continues to follow regarding left foot ulceration/osteomyelitis of the cuboid bone and possible plantar soft tissue abscess per MRI of the left foot completed yesterday. Awaiting final decision regarding possible surgical intervention. Infectious disease following and managing IV antibiotics. 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 05/27/22: feels much better. Off O2. Leg edema improving. No CP no SOB. Walking in room. Diuresed -2.5 L overnight. Slight prerenal this am. EKG: SR 80-90 05/26/22: feels much better. Wants O2 stopped. No PC breathing is back to normal. LE edema gettign better. - 2.3L out EKG: SR 80-90 05/25/22: This is a pleasant 62-year-old male with past medical history significant for Charcot of left foot, ulcer on plantar aspect of left foot followed by podiatry as outpatient, hypertension, and remote tobacco abuse who presented to ER yesterday with complaints of worsening lower extremity edema and shortness of breath. Patient has been following with podiatry regarding Charcot joint of left foot and ulcer on plantar aspect of left foot and has been experiencing worsening lower extremity edema left greater than right over the past few months. Over the past 2 weeks, patient has started experiencing shortness of breath with exertion and when bending over. Also, he has been experiencing symptoms of orthopnea, PND and dry cough. He denies chest pain, palpitations, diaphoresis, dizziness, lightheadedness, syncope, fever or chills. He had reported these complaints to his PCP and was advised to present to ER for further evaluation. On presentation to the emergency room, blood pressure 151/52, heart rate tachycardic at 108, respiratory rate 20, pulse ox 92%, temperature 99 F. Sodium 136, potassium 4.3, chloride 100, total CO2 25, BUN 12, creatinine 0.96, GFR greater than 60, glucose 119. Troponin elevated 0.118. WBC elevated 12.1, hemoglobin low at 11.1, hematocrit low at 34.6, platelets 453. TSH 1.230. CTA of the chest revealed no evidence of pulmonary embolism, moderate bilateral pleural effusions with associated atelectasis. Left lower extremity venous duplex ultrasound was negative for DVT. He was admitted for further evaluation. At time of evaluation today, patient is resting comfortably and in no acute distress. He is maintaining adequate SPO2 on 2 L O2 per nasal cannula at this time. Shortness of breath improving. He is currently on Lasix 40 mg IV twice daily and is diuresing very well so far with almost 1 L negative fluid balance. Serial troponins have been mildly elevated in a flat pattern at 0.018, 0.105 and 0.115. proBNP checked this morning was elevated at 2475. Currently on telemetry he is sinus rhythm to sinus tach with heart rates 90s to 100s. Patient denies having any prior cardiac history including history myocardial infarction, congestive heart failure or arrhythmia. States he had a stress test approximately 7 years ago which was reportedly negative Review of Systems: Review of Systems Constitutional: Negative for activity change and fever. Respiratory: Negative for chest tightness and shortness of breath. Cardiovascular: Positive for leg swelling (much improved). Negative for chest pain and palpitations. Gastrointestinal: Negative for abdominal distention, nausea and vomiting. Genitourinary: Negative for difficulty urinating. Musculoskeletal: Negative for arthralgias. Skin: Positive for wound (left foot). Negative for color change. Neurological: Negative for dizziness and syncope. Psychiatric/Behavioral: Negative for agitation. Physical Examination: BP (!) 141/83 Pulse 97 Temp 98.6 F (37 C) (Oral) Resp 18 Ht 6' (1.829 m) Wt 209 lb (94.8 kg) SpO2 93% BMI 28.35 kg/m Physical Exam Constitutional: General: He is not in acute distress. Appearance: He is obese. HENT: Head: Normocephalic and atraumatic. Cardiovascular: Rate and Rhythm: Normal rate and regular rhythm. Pulmonary: Effort: Pulmonary effort is normal. No respiratory distress. Breath sounds: No wheezing, rhonchi or rales. Abdominal: Palpations: Abdomen is soft. Tenderness: There is no abdominal tenderness. Musculoskeletal: General: Normal range of motion. Cervical back: Normal range of motion and neck supple. Right lower leg: No edema. Left lower leg: Edema (2+ left ankle) present. Comments: Left foot dressing intact Skin: General: Skin is warm and dry. Neurological: General: No focal deficit present. Mental Status: He is alert and oriented to person, place, and time. Cranial Nerves: No cranial nerve deficit. Psychiatric: Mood and Affect: Mood normal. Behavior: Behavior normal. LABS: CBC: Lab Results Component Value Date/Time WBC 8.2 05/28/2022 05:17 AM RBC 4.51 05/28/2022 05:17 AM RBC 5.40 01/11/2012 08:35 AM HGB 10.9 05/28/2022 05:17 AM HCT 34.2 05/28/2022 05:17 AM MCV 75.9 05/28/2022 05:17 AM MCH 24.1 05/28/2022 05:17 AM MCHC 31.7 05/28/2022 05:17 AM RDW 14.5 05/28/2022 05:17 AM PLT 372 05/28/2022 05:17 AM MPV 8.7 10/01/2013 10:39 AM CBC with Differential: Lab Results Component Value Date/Time WBC 8.2 05/28/2022 05:17 AM RBC 4.51 05/28/2022 05:17 AM RBC 5.40 01/11/2012 08:35 AM HGB 10.9 05/28/2022 05:17 AM HCT 34.2 05/28/2022 05:17 AM PLT 372 05/28/2022 05:17 AM MCV 75.9 05/28/2022 05:17 AM MCH 24.1 05/28/2022 05:17 AM MCHC 31.7 05/28/2022 05:17 AM RDW 14.5 05/28/2022 05:17 AM LYMPHOPCT 17.4 05/28/2022 05:17 AM MONOPCT 11.8 05/28/2022 05:17 AM MYELOPCT 1 05/25/2022 05:36 AM BASOPCT 1.3 05/28/2022 05:17 AM MONOSABS 1.0 05/28/2022 05:17 AM LYMPHSABS 1.4 05/28/2022 05:17 AM EOSABS 0.4 05/28/2022 05:17 AM BASOSABS 0.1 05/28/2022 05:17 AM CMP: Lab Results Component Value Date/Time NA 137 05/28/2022 05:17 AM K 4.0 05/28/2022 05:17 AM K 3.6 01/14/2022 06:21 AM CL 100 05/28/2022 05:17 AM CO2 25 05/28/2022 05:17 AM BUN 18 05/28/2022 05:17 AM CREATININE 0.84 05/28/2022 05:17 AM GFRAA >60.0 05/28/2022 05:17 AM LABGLOM >60.0 05/28/2022 05:17 AM GLUCOSE 103 05/28/2022 05:17 AM GLUCOSE 99 01/11/2012 08:35 AM PROT 7.9 05/24/2022 06:30 PM LABALBU 3.8 05/24/2022 06:30 PM LABALBU 4.7 01/11/2012 08:35 AM CALCIUM 8.6 05/28/2022 05:17 AM BILITOT 0.3 05/24/2022 06:30 PM ALKPHOS 130 05/24/2022 06:30 PM AST 23 05/24/2022 06:30 PM ALT 21 05/24/2022 06:30 PM BMP: Lab Results Component Value Date/Time NA 137 05/28/2022 05:17 AM K 4.0 05/28/2022 05:17 AM K 3.6 01/14/2022 06:21 AM CL 100 05/28/2022 05:17 AM CO2 25 05/28/2022 05:17 AM BUN 18 05/28/2022 05:17 AM LABALBU 3.8 05/24/2022 06:30 PM LABALBU 4.7 01/11/2012 08:35 AM CREATININE 0.84 05/28/2022 05:17 AM CALCIUM 8.6 05/28/2022 05:17 AM GFRAA >60.0 05/28/2022 05:17 AM LABGLOM >60.0 05/28/2022 05:17 AM GLUCOSE 103 05/28/2022 05:17 AM GLUCOSE 99 01/11/2012 08:35 AM Magnesium: Lab Results Component Value Date/Time MG 2.3 05/28/2022 05:17 AM Troponin: Lab Results Component Value Date/Time TROPONINI 0.115 05/25/2022 05:36 AM Radiology: MRI FOOT LEFT W WO CONTRAST Result Date: 05/27/2022 EXAMINATION: MRI OF THE LEFT FOOT WITH AND WITHOUT CONTRAST, 05/27/2022 1:56 pm TECHNIQUE: Multiplanar multisequence MRI of the left foot was performed with and without the administration of intravenous contrast. COMPARISON: Foot radiographs May 25, 2022 HISTORY: ORDERING SYSTEM PROVIDED HISTORY: evaluate osteomyelitis versus charcot midfoot. plantar ulcer probing to bone. 5th met OM on xr TECHNOLOGIST PROVIDED HISTORY: Reason for exam:->evaluate osteomyelitis versus charcot midfoot. plantar ulcer probing to bone. 5th met OM on xr What reading provider will be dictating this exam?->CRC FINDINGS: The examination is degraded by motion artifact. There is osseous destruction and disorganization of the midfoot with edema throughout the mid bones of the foot. Hypointense T1 signal is present within the cuboid which is deep to a soft tissue ulcer of the plantar aspect of the foot that appears to extend to the inferior margin of the cuboid. A rim enhancing fluid collection along the plantar margin of the cuboid measures up to approximately 1 cm. There is mild edema within the base of the 5th metatarsal without definitive hypointense T1 signal. There is a rim enhancing soft tissue fluid collection within the plantar soft tissues at the level of the 5th metatarsal head measuring approximately 1 x 1 x 3 cm compatible with abscess. Diffuse subcutaneous soft tissue edema. Osteomyelitis of the cuboid. 1.5 cm rim enhancing fluid collection along the plantar margin of the cuboid is concerning for developing abscess with surrounding phlegmon. 1 x 1 x 3 cm abscess within the plantar soft tissues at the level of the head of the 5th metatarsal. Mild bone marrow edema within the base of the 5th metacarpal without definitive hypointense T1 signal, findings compatible with osteitis with early osteomyelitis not excluded. Charcot arthropathy of the midfoot. US DUP LOWER ART/BYPASS GRAFTS BILATERAL COMPLETE Result Date: 05/28/2022 EXAMINATION: BILATERAL LOWER EXTREMITY ARTERIAL DUPLEX ULTRASOUND CLINICAL HISTORY: PAD AND FOOT ULCER COMPARISONS: NONE AVAILABLE TECHNIQUE: B-mode, color flow and spectral Doppler FINDINGS: RIGHT LEFT Common Femoral 102 129 FA Prox 105 134 FA Mid 102 129 FA Dst 110 115 Popliteal Mid 70 74 Ant Tib Prx 60 47 Ant Tib Mid 85 59 Ant Tib Dst 109 46 Post Tib Prx 92 126 Post Tib Mid 119 96 Post Tib Dst 44 125 Peroneal Prx 80 49 Peroneal Mid 104 95 Peroneal Dst 91 96 PREDOMINANT WAVEFORM IS TRIPHASIC. THERE ARE SCATTERED AREAS OF BIPHASIC MORPHOLOGY HOWEVER NO DAMPENING. NO SIGNIFICANT STEPUP IN GRADIENT. DIFFUSE ATHEROSCLEROSIS HOWEVER, NO OBSTRUCTIVE LESIONS NOTED. US RETROPERITONEAL LIMITED Result Date: 05/27/2022 EXAMINATION: ULTRASOUND OF THE KIDNEYS 05/27/2022 1:22 pm COMPARISON: None. HISTORY: ORDERING SYSTEM PROVIDED HISTORY: ZAIRA TECHNOLOGIST PROVIDED HISTORY: Reason for exam:->ZAIRA What reading provider will be dictating this exam?->CRC FINDINGS: The right kidney measures 11.6 x 5.6 x 5.1 cm with a cortical thickness of 0.7 cm in the left kidney measures 13.3 x 5.2 x 5.7 cm with a cortex measuring 1.1 cm. Borderline mild left-sided hydronephrosis. No right-sided hydronephrosis. No shadowing calculi. No solid or cystic renal lesions identified by ultrasound. Borderline mild left hydronephrosis. If there is concern for obstructive uropathy, CT of the abdomen/pelvis without contrast is recommended. Echocardiogram 05/25/22: Conclusions Summary Left ventricular ejection fraction is visually estimated at 50-55%. Normal left ventricular size and function. Moderate concentric left ventricular hypertrophy. Moderate (2+) mitral regurgitation is present. Moderately dilated left atrium. Signature 05/24/22: ST 109, no acute ischemic changes, PVC, QTc 455ms Telemetry 05/25/22: ST/ST 90s-100s Telemetry 05/28/22: ST 100s Assessment: Active Hospital Problems Diagnosis Date Noted Dyspnea [R06.00] 05/25/2022 Priority: High Acute heart failure with preserved ejection fraction (HCC) [I50.31] 05/25/2022 Priority: High Peripheral edema [R60.9] 05/26/2022 Priority: Medium Acute respiratory failure with hypoxia (HCC) [J96.01] 05/25/2022 Priority: Medium Anemia [D64.9] 05/25/2022 Priority: Medium Elevated troponin [R77.8] 05/25/2022 Priority: Medium Ulcer of left foot, with necrosis of muscle (HCC) [L97.523] 05/14/2022 Priority: Medium Acute respiratory failure secondary to acute CHF Acute HFpEF--compensated now Normal LVF EF 50-55% per echo 05/25/22 Moderate concentric LVF Moderate MR Elevated troponin Left foot ulcer with osteomyelitis of cuboid bone, abscess within plantar soft tissues of 5th metatarsal, and possible early osteomyelitis of 5th metacarpal per MRI left foot on 05/27/22 Hx hydrocephalus s/p remote 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 shunt PAD--diffuse atherosclerosis without obstructive lesion noted on arterial duplex US on 05/26/22 Plan: Maximize medical therapy-aspirin 81 mg p.o. daily, increase Toprol-XL to 50 mg p.o. daily, decrease Lipitor to 10 mg p.o. nightly as lipid panel well controlled with LDL 63, resume Lasix at 20 mg p.o. daily, add Aldactone 25 mg p.o. daily, resume Diovan 80 mg p.o. daily, Zosyn 3375 mg IV every 8 hours, Bactrim DS 1 tablet p.o. twice daily, Protonix 40 mg p.o. daily, Neurontin 300 mg p.o. 3 times daily, Lovenox 40 mg subcu daily IV Lasix and Diovan were placed on hold on 05/27/2022 due to ZAIRA. As renal function has normalized, diuretics and Diovan will be resumed. Consider addition of SGLT2 inhibitor (Jardiance) in future to further optimize heart failure management Cardiac/less than 2 g sodium diet recommended Recommend 2000 mL daily fluid restriction Check daily weight and strict intake and output Monitor on telemetry for any tachycardia or bradycardia arrhythmias Maintain potassium greater than 4, magnesium greater than 2 GI/DVT prophylaxis Infectious disease recommendations regarding left foot ulcer and osteomyelitis of the cuboid bone Podiatry recommendations Will need to consider coronary/ischemic evaluation in future as outpatient Will need outpatient follow-up with CHF clinic upon discharge Further recommendations to follow NDUM 13:08: Contacted by podiatry, Dr. Ely to notify cardiology regarding plan for surgical intervention of left foot wound/osteomyelitis on 05/29/2022. Patient has diuresed well since admission and currently appears compensated from heart failure perspective. Echocardiogram completed on 05/25/2022 revealed normal LV systolic function with EF of 50 to 55%. Patient has no present anginal complaints. He had mild troponin elevation in a flat pattern on presentation likely related to demand ischemia. Patient is okay to proceed with left foot surgery tomorrow 05/29/22 and is considered to be at moderate risk of developing perioperative cardiovascular events. Associated attestation - Lawson Silva DO - 05/28/2022 5:18 PM EDT Patient seen and examined. I agree with note as detailed by INDIGO with the following modifications to the impression and plan: Mr. Coleman feeling much better from a cardiac standpoint. His breathing is significantly improved. His leg swelling is significantly improved. He has diuresed well on IV Lasix. Denies any chest pain. He is now being considered for possible surgery for left foot osteomyelitis with podiatry tomorrow. 50 to 55% on recent echo with moderate LVH. Mitral regurgitation. Vitals stable. Constitutional: alert, cooperative, in no distress Eyes: Conjunctiva clear; no scleral icterus. PERRLA Respiratory: clear to auscultation bilaterally Musculoskeletal: No chest wall tenderness. No clubbing or cyanosis. Cardiovascular: regular rate and rhythm, S1, S2 normal, no murmur, click, rub or gallop. No carotid bruit. No JVD. Pulses 2+ and symmetric. Mild edema left greater than right remedy. Left foot dressing intact. GI: soft, non-tender, non-distended. Bowel sounds normal. No masses, no organomegaly MSK: extremities normal, atraumatic, no clubbing. No chest wall pain. Neurologic: Grossly normal Skin: No rashes or lesions. No cyanosis. IMPRESSION: Acute decompensated HFPEF, possibly exacerbated by hypertension Low normal LV systolic function, EF 50-55% Hypertension with hypertensive heart disease Mild nonspecific troponin elevation Left foot ulcer /osteomyelitis Additional recommendations: He appears clinically euvolemic on exam. Agree with switching to oral Lasix. EKG repeated today with no significant ischemic abnormalities. Given urgent need for surgery, he can be cleared with moderately elevated but non preoperative cardiac risk. Advised to stress test to better evaluate for any underlying CAD however the patient prefers to do this as an outpatient. He has been offered inpatient stress testing on Saturday and again yesterday which he declined however he is now possibly interested in an inpatient stress test after his surgery if he is going to be staying longer. Otherwise he prefers to have the stress test done as an outpatient as he needs to be home to care for his ailing . I provided a substantial portion of the care of this patient. I personally performed the medical decision making needed support assigned E&M code. Thank you for allowing me to participate in your patient's cardiac care. Should you have questions, please do not hesitate to contact me. Losheyla Silva DO, FACC, FACOI [facility] Physical Therapy Med Surg Initial Assessment Facility/Department: [address] TELEMETRY Room: W177/W177-01 NAME: Macarena Coleman : 1960 (62 y.o.) CODE STATUS: Full Code Date of Service: 05/27/2022 Patient Diagnosis(es): Peripheral edema [R60.9] Heart failure (HCC) [I50.9] Elevated troponin [R77.8] Acute respiratory failure with hypoxia (HCC) [J96.01] Dyspnea, unspecified type [R06.00] Ulcer of left foot, unspecified ulcer stage (HCC) [L97.529] Chief Complaint Patient presents with Leg Pain Left leg below knee to ankle and states edema to leg and ankle. Pt has a boot in place due to ulcers. Pt is on a ATB for wounds and has home care. Sent by PCP for ultrasound of leg to R/O blood clot. Shortness of Breath Started last week and has seen Dr. Hand. Pt was given albuterol inhaler. Pt does not use O2 Patient Active Problem List Diagnosis Date Noted Dyspnea 05/25/2022 Acute heart failure with preserved ejection fraction (HCC) 05/25/2022 Peripheral edema 05/26/2022 Acute respiratory failure with hypoxia (HCC) 05/25/2022 Heart failure (HCC) 05/25/2022 Anemia 05/25/2022 Elevated troponin 05/25/2022 Idiopathic peripheral neuropathy 05/14/2022 Ulcer of left foot, with necrosis of muscle (HCC) 05/14/2022 Chronic pain of right knee 02/15/2022 Charcot's joint of left foot 02/15/2022 Spinal stenosis of lumbar region with neurogenic claudication 08/31/2021 Acquired spondylolisthesis of lumbosacral region 08/31/2021 Paraparesis of both lower limbs (HCC) 08/31/2021 Exacerbation of osteoarthritis 07/05/2021 Lipoma of torso 04/29/2018 Chronic pain syndrome 12/26/2016 Lumbosacral spondylosis without myelopathy 04/20/2015 HTN (hypertension) Obesity (BMI 30-39.9) 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 Past Surgical History: Procedure Laterality Date ENDOSCOPY, COLON, DIAGNOSTIC HERNIA REPAIR 2007 umbilical hernia (Dr Hall) INGUINAL HERNIA REPAIR Bilateral 1971 LUMBAR FUSION N/A 01/12/2022 BILATERAL L4-5 LAMINECTOMIES MICRODISSECTIONS DECOMPRESSIONS INTERBODY CAGE POSTEROLATERAL ALLOGRAFT AUTOGENOUS BONE PEDICLE SCREW FUSION performed by Viv Luis MD at [facility] [place] VENTRICULOPERITONEAL SHUNT 12/12 hydrocephalous Patient assessed for rehabilitation services?: Yes Family / Caregiver Present: No Restrictions: Restrictions/Precautions: Weight Bearing, Fall Risk (high santos score) Lower Extremity Weight Bearing Restrictions Left Lower Extremity Weight Bearing: Partial Weight Bearing Partial Weight Bearing Percentage Or Pounds: in boot SUBJECTIVE: Subjective: I have to get home to care for my . Pain 0/10 Prior Level of Function: Social/Functional History Lives With: Spouse (pt cares for due to had TBI) Type of Home: House Home Layout: One level, Laundry in basement Home Access: Stairs to enter without rails Entrance Stairs - Number of Steps: 4 Bathroom Shower/Tub: Tub/Shower unit Bathroom Equipment: Shower chair Home Equipment: Walker, standard, Cane Has the patient had two or more falls in the past year or any fall with injury in the past year?: No ADL Assistance: Independent Homemaking Assistance: Independent (assists with balance with bathing, making meals, grocery shopping) Homemaking Responsibilities: Yes (caregiver for ) Ambulation Assistance: Independent Transfer Assistance: Independent Active Electronics Engineer: Yes Additional Comments: pt has worn boot X 3 months OBJECTIVE: Vision Vision: Impaired Vision Exceptions: Wears glasses for distance;Wears glasses for reading Hearing: Within functional limits Cognition: Overall Orientation Status: Within Functional Limits Follows Commands: Within Functional Limits Observation/Palpation Posture: Good Observation: pt amb from cot to bedside chair upon arrival to pt room; pt with bandage to L foot; pt amb with heel weight bearing only- PT educated pt on current weight bearing precautions and boot wear ordered by podiatry- pt stated understanding of education Edema: L foot ROM: RLE AROM: WFL LLE AROM : WFL Strength: Strength RLE Strength RLE: WFL Strength LLE Strength LLE: WFL Neuro: Balance Sitting - Static: Good Sitting - Dynamic: Good Standing - Static: Good Standing - Dynamic: Good Sensation: Impaired (fingers numbness; L foot numbness) Bed mobility Supine to Sit: Independent Sit to Supine: Independent Transfers Sit to Stand: Modified independent Stand to Sit: Modified independent Comment: cues for current weight bearing precautions L LE; no AD used; no LOB Ambulation Surface: Level tile Device: No Device Assistance: Modified Independent Distance: 20ft Comments: cues for current weight bearing precautions L LE; no AD used; no LOB Stairs/Curb Stairs?: No Activity Tolerance Activity Tolerance: Patient tolerated evaluation without incident Patient Education Education Given To: Patient Education Provided: Role of Therapy;Plan of Care Education Method: Verbal Education Outcome: Verbalized understanding ASSESSMENT: Decision Making: Low Complexity History: high Exam: low Clinical Presentation: low Therapy Prognosis: Good DISCHARGE RECOMMENDATIONS: No Skilled PT: Independent with functional mobility Assessment: Pt indep without AD during all functional mobility. Pt only required cues for current weight bearing status and boot wear per podiatry orders. No continued PT indicated at this time. Requires PT Follow-Up: No PLAN OF CARE: Physcial Therapy Plan Additional Comments: pt indep; no continued PT indicated Safety Devices Type of Devices: Call light within reach, Nurse notified [facility] (6 CLICK) BASIC MOBILITY AM-PAC Inpatient Mobility Raw Score : 23 Therapy Time: Individual Time In 1431 Time Out 1444 Minutes 13 Eval X 13 min Celina Weathers PT, 05/27/22 at 2:50 PM Definitions for assistance levels Independent = pt does not require any physical supervision or assistance from another person for activity completion. Device may be needed. Stand by assistance = pt requires verbal cues or instructions from another person, close to but not touching, to perform the activity Minimal assistance= pt performs 75% or more of the activity; assistance is required to complete the activity Moderate assistance= pt performs 50% of the activity; assistance is required to complete the activity Maximal assistance = pt performs 25% of the activity; assistance is required to complete the activity Dependent = pt requires total physical assistance to accomplish the task Progress Note Date:05/27/2022 Room:[facility]/[place] [address] Patient Name:Macarena Coleman Date of :1960 Age:62 y.o. Subjective Subjective: Symptoms: No shortness of breath, malaise, cough, chest pain, weakness, headache, chest pressure, anorexia, diarrhea or anxiety. Diet: No nausea or vomiting. Review of Systems Respiratory: Negative for cough and shortness of breath. Cardiovascular: Negative for chest pain. Gastrointestinal: Negative for anorexia, diarrhea, nausea and vomiting. Neurological: Negative for weakness. Objective Vitals Last 24 Hours: TEMPERATURE: Temp Av.5 F (36.9 C) Min: 98.2 F (36.8 C) Max: 99 F (37.2 C) RESPIRATIONS RANGE: Resp Av Min: 18 Max: 18 PULSE OXIMETRY RANGE: SpO2 Av.3 % Min: 92 % Max: 96 % PULSE RANGE: Pulse Av.7 Min: 91 Max: 94 BLOOD PRESSURE RANGE: Systolic (24hrs), Av , Min:126 , Max:133 ; Diastolic (24hrs), Av, Min:72, Max:81 I/O (24Hr): Intake/Output Summary (Last 24 hours) at 05/27/2022 0945 Last data filed at 05/26/2022 2219 Gross per 24 hour Intake 415 ml Output 2950 ml Net -2535 ml Objective: General Appearance: Comfortable, well-appearing and in no acute distress. Vital signs: (most recent): Blood pressure 126/74, pulse 93, temperature 98.3 F (36.8 C), temperature source Oral, resp. rate 18, height 6' (1.829 m), weight 218 lb 5.8 oz (99 kg), SpO2 96 %. HEENT: Normal HEENT exam. Lungs: Normal effort. Heart: Normal rate. S1 normal. Abdomen: Abdomen is soft. Bowel sounds are normal. There is no epigastric area or suprapubic area tenderness. Extremities: There is no deformity. Neurological: Patient is alert. Pupils: Pupils are equal, round, and reactive to light. Skin: Warm and dry. Labs/Imaging/Diagnostics Labs: CBC: Recent Labs 10/14/22 0536 10/15/22 0536 05/27/22 05 WBC 7.8 8.6 8.2 RBC 4.37* 4.66* 4.70 HGB 10.7* 11.1* 11.4* HCT 32.4* 35.1* 35.4* MCV 74.2* 75.4* 75.2* RDW 14.6* 14.5 14.6* PLT 425* 430* 413* CHEMISTRIES: Recent Labs 05/25/2236 05/26/2236 05/27/22519 NA 137 137 139 K 4.1 4.0 4.7 CL 99 99 97 CO2 24 27 30 BUN 9 11 23 CREATININE 0.80 0.89 1.28* GLUCOSE 97 102* 107* MG 2.1 2.2 2.2 PT/INR:No results for input(s): PROTIME, INR in the last 72 hours. APTT:No results for input(s): APTT in the last 72 hours. LIVER PROFILE: Recent Labs 05/24/22 1830 AST 23 ALT 21 BILITOT 0.3 ALKPHOS 130* Imaging Last 24 Hours: XR FOOT LEFT (MIN 3 VIEWS) Result Date: 05/25/2022 EXAMINATION: THREE XRAY VIEWS OF THE LEFT FOOT 05/25/2022 4:33 pm COMPARISON: 04/18/2022 HISTORY: ORDERING SYSTEM PROVIDED HISTORY: r/o osteomyelitis. ulcer probes to bone to plantar foot and lateral 5th metatarsal TECHNOLOGIST PROVIDED HISTORY: Reason for exam:->r/o osteomyelitis. ulcer probes to bone to plantar foot and lateral 5th metatarsal What reading provider will be dictating this exam?->CRC FINDINGS: A large plantar foot ulcer is identified with soft tissue swelling. There is osteopenia of the 5th metatarsal head with loss of the cortical margin medially. No acute fracture is identified. Severe Charcot arthropathy of the midfoot is stable compared to the prior exam with rocker bottom foot deformity. Diffuse foot soft tissue swelling is seen. Findings suggestive of 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 Severe Charcot arthropathy with rocker bottom foot deformity. CTA Chest W WO (PE study) Result Date: 05/24/2022 EXAMINATION: CTA OF THE CHEST WITH AND WITHOUT CONTRAST 05/24/2022 7:34 pm TECHNIQUE: CTA of the chest was performed before and after the administration of intravenous contrast. Multiplanar reformatted images are provided for review. MIP images are provided for review. Automated exposure control, iterative reconstruction, and/or weight based adjustment of the mA/kV was utilized to reduce the radiation dose to as low as reasonably achievable. COMPARISON: None. HISTORY: ORDERING SYSTEM PROVIDED HISTORY: sob with hx unilateral leg edema TECHNOLOGIST PROVIDED HISTORY: Reason for exam:->sob with hx unilateral leg edema Decision Support Exception - unselect if not a suspected or confirmed emergency medical condition->Emergency Medical Condition (MA) What reading provider will be dictating this exam?->CRC FINDINGS: Pulmonary Arteries: Pulmonary arteries are adequately opacified for evaluation. No evidence of intraluminal filling defect to suggest pulmonary embolism. Main pulmonary artery is normal in caliber. Mediastinum: No evidence of mediastinal lymphadenopathy. The heart and pericardium demonstrate no acute abnormality. There is no acute abnormality of the thoracic aorta. Lungs/pleura: There are moderate bilateral pleural effusions with associated atelectasis. No focal consolidation or mitch edema. No pneumothorax. Upper Abdomen: Limited images of the upper abdomen are unremarkable. Soft Tissues/Bones: No acute bone or soft tissue abnormality. No evidence of pulmonary embolism. Moderate bilateral pleural effusions with associated atelectasis. US DUP LOWER EXTREMITY LEFT [place] Result Date: 05/24/2022 EXAMINATION: DUPLEX VENOUS ULTRASOUND OF THE LEFT LOWER EXTREMITY 05/24/2022 7:08 pm TECHNIQUE: Duplex ultrasound using B-mode/hewtit scaled imaging and Doppler spectral analysis and color flow was obtained of the deep venous structures of the left lower extremity. COMPARISON: None. HISTORY: ORDERING SYSTEM PROVIDED HISTORY: leg swelling with sob TECHNOLOGIST PROVIDED HISTORY: Reason for exam:->leg swelling with sob What reading provider will be dictating this exam?->CRC FINDINGS: The visualized veins of the left lower extremity are patent and free of echogenic thrombus. The veins demonstrate good compressibility with normal color flow study and spectral analysis. No evidence of DVT in the left lower extremity. RECOMMENDATIONS: Unavailable Assessment//Plan Hospital Problems Last Modified POA * (Principal) Acute respiratory failure with hypoxia (HCC) 05/25/2022 Yes Dyspnea 05/25/2022 Yes Acute heart failure with preserved ejection fraction (HCC) 05/25/2022 Yes Ulcer of left foot, with necrosis of muscle (HCC) 05/25/2022 Yes Anemia 05/25/2022 Yes Elevated troponin 05/25/2022 Yes Peripheral edema 05/26/2022 Yes Osteomyelitis of left toe Acute HFPEF exacerbation Acute respiratory failure Renal insuffiency RBC in the urine Assessment & Plan 05/26: Change Keflex to IV Zosyn, ID evaluation for osteomyelitis of the left foot. Patient possibly will benefit from stress test inpatient. Lower extremity swelling is down. Spoke with the patient. Taper down oxygen as tolerated. 05/27: He upon entering the room patient states that he is getting discharged today. States that infectious disease told him that later on today he could be discharged. Spoke with patient that culture has not been back, MRI has not been done, vascular duplex that was done yesterday has not been reported. Patient has modest renal insufficiency. We will have to hold losartan and Lasix. Cardiology also wants to monitor patient till tomorrow. Pt states he will stay till tomorrow to get the test done, FU renal u/s. Pt needs repeat UA for RBC in the urine as outpt and if positive needs to see urology as outpt, no visible hematuria noted in gross examination of the urine Progress Note Patient: Macarena Renteria [facility] Unit/Bed: W177/W177-01 Date of : 1960 Acct: [id number] Admitting Diagnosis: Peripheral edema [R60.9] Heart failure (HCC) [I50.9] Elevated troponin [R77.8] Acute respiratory failure with hypoxia (HCC) [J96.01] Dyspnea, unspecified type [R06.00] Ulcer of left foot, unspecified ulcer stage (HCC) [L97.529] Admit Date: 05/24/2022 Hospital Day: 2 Chief Complaint: Edema and NICHOLE Histories: Past Medical History: Diagnosis Date Arthritis spine HTN (hypertension) meds since age 41. 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 Past Surgical History: Procedure Laterality Date ENDOSCOPY, COLON, DIAGNOSTIC HERNIA REPAIR 2007 umbilical hernia (Dr Hall) INGUINAL HERNIA REPAIR Bilateral 1971 LUMBAR FUSION N/A 01/12/2022 BILATERAL L4-5 LAMINECTOMIES MICRODISSECTIONS DECOMPRESSIONS INTERBODY CAGE POSTEROLATERAL ALLOGRAFT AUTOGENOUS BONE PEDICLE SCREW FUSION performed by Viv Luis MD at [facility] [place] VENTRICULOPERITONEAL SHUNT 12/12 hydrocephalous Family History Problem Relation Age of Onset Cancer Mother lung cancer Cancer Father stomack cancer High Blood Pressure Father Coronary Art Dis Neg Hx Social History Socioeconomic History Marital status: Number of children: 0 Occupational History 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 Off O2. Leg edema improving. No CP no SOB. Walking in room. Diuresed -2.5 L overnight. Slight prerenal this am. EKG: SR 80-90 Review of Systems: Review of Systems Constitutional: Negative. Negative for diaphoresis and fatigue. HENT: Negative. Eyes: Negative. Respiratory: Negative. Negative for cough, chest tightness, shortness of breath, wheezing and stridor. Cardiovascular: Positive for leg swelling. Negative for chest pain and palpitations. Gastrointestinal: Negative. Negative for blood in stool and nausea. Genitourinary: Negative. Musculoskeletal: Negative. Skin: Negative. Neurological: Negative. Negative for dizziness, syncope, weakness and light-headedness. Hematological: Negative. Psychiatric/Behavioral: Negative. Physical Examination: BP 126/74 Pulse 93 Temp 98.3 F (36.8 C) (Oral) Resp 18 Ht 6' (1.829 m) Wt 218 lb 5.8 oz (99 kg) SpO2 96% BMI 29.61 kg/m Physical Exam Constitutional: He appears healthy. No distress. HENT: Normal cephalic and Atraumatic Eyes: Pupils are equal, round, and reactive to light. Neck: Thyroid normal. No JVD present. No neck adenopathy. No thyromegaly present. Cardiovascular: Normal rate, regular rhythm, intact distal pulses and normal pulses. Murmur heard. Pulmonary/Chest: Effort normal and breath sounds normal. He has no wheezes. He has no rales. He exhibits no tenderness. Abdominal: Soft. Bowel sounds are normal. There is no abdominal tenderness. Musculoskeletal: General: Edema present. No tenderness (2+). Normal range of motion. Cervical back: Normal range of motion and neck supple. Neurological: He is alert and oriented to person, place, and time. Skin: Skin is warm. No cyanosis. Nails show no clubbing. Left foot ulcer LABS: CBC: Lab Results Component Value Date/Time WBC 8.2 05/27/2022 05:20 AM RBC 4.70 05/27/2022 05:20 AM RBC 5.40 01/11/2012 08:35 AM HGB 11.4 05/27/2022 05:20 AM HCT 35.4 05/27/2022 05:20 AM MCV 75.2 05/27/2022 05:20 AM MCH 24.3 05/27/2022 05:20 AM MCHC 32.3 05/27/2022 05:20 AM RDW 14.6 05/27/2022 05:20 AM PLT 413 05/27/2022 05:20 AM MPV 8.7 10/01/2013 10:39 AM CBC with Differential: Lab Results Component Value Date/Time WBC 8.2 05/27/2022 05:20 AM RBC 4.70 05/27/2022 05:20 AM RBC 5.40 01/11/2012 08:35 AM HGB 11.4 05/27/2022 05:20 AM HCT 35.4 05/27/2022 05:20 AM PLT 413 05/27/2022 05:20 AM MCV 75.2 05/27/2022 05:20 AM MCH 24.3 05/27/2022 05:20 AM MCHC 32.3 05/27/2022 05:20 AM RDW 14.6 05/27/2022 05:20 AM LYMPHOPCT 18.8 05/27/2022 05:20 AM MONOPCT 12.4 05/27/2022 05:20 AM MYELOPCT 1 05/25/2022 05:36 AM BASOPCT 1.0 05/27/2022 05:20 AM MONOSABS 1.0 05/27/2022 05:20 AM LYMPHSABS 1.5 05/27/2022 05:20 AM EOSABS 0.4 05/27/2022 05:20 AM BASOSABS 0.1 05/27/2022 05:20 AM CMP: Lab Results Component Value Date/Time NA 139 05/27/2022 05:20 AM K 4.7 05/27/2022 05:20 AM K 3.6 01/14/2022 06:21 AM CL 97 05/27/2022 05:20 AM CO2 30 05/27/2022 05:20 AM BUN 23 05/27/2022 05:20 AM CREATININE 1.28 05/27/2022 05:20 AM GFRAA >60.0 05/27/2022 05:20 AM LABGLOM 57.1 05/27/2022 05:20 AM GLUCOSE 107 05/27/2022 05:20 AM GLUCOSE 99 01/11/2012 08:35 AM PROT 7.9 05/24/2022 06:30 PM LABALBU 3.8 05/24/2022 06:30 PM LABALBU 4.7 01/11/2012 08:35 AM CALCIUM 9.2 05/27/2022 05:20 AM BILITOT 0.3 05/24/2022 06:30 PM ALKPHOS 130 05/24/2022 06:30 PM AST 23 05/24/2022 06:30 PM ALT 21 05/24/2022 06:30 PM BMP: Lab Results Component Value Date/Time NA 139 05/27/2022 05:20 AM K 4.7 05/27/2022 05:20 AM K 3.6 01/14/2022 06:21 AM CL 97 05/27/2022 05:20 AM CO2 30 05/27/2022 05:20 AM BUN 23 05/27/2022 05:20 AM LABALBU 3.8 05/24/2022 06:30 PM LABALBU 4.7 01/11/2012 08:35 AM CREATININE 1.28 05/27/2022 05:20 AM CALCIUM 9.2 05/27/2022 05:20 AM GFRAA >60.0 05/27/2022 05:20 AM LABGLOM 57.1 05/27/2022 05:20 AM GLUCOSE 107 05/27/2022 05:20 AM GLUCOSE 99 01/11/2012 08:35 AM Magnesium: Lab Results Component Value Date/Time MG 2.2 05/27/2022 05:20 AM Troponin: Lab Results Component Value Date/Time TROPONINI 0.115 05/25/2022 05:36 AM Active Hospital Problems Diagnosis Date Noted Dyspnea [R06.00] 05/25/2022 Priority: High Acute heart failure with preserved ejection fraction (HCC) [I50.31] 05/25/2022 Priority: High Peripheral edema [R60.9] 05/26/2022 Priority: Medium Acute respiratory failure with hypoxia (HCC) [J96.01] 05/25/2022 Priority: Medium Anemia [D64.9] 05/25/2022 Priority: Medium Elevated troponin [R77.8] 05/25/2022 Priority: Medium Ulcer of left foot, with necrosis of muscle (HCC) [L97.523] 05/14/2022 Priority: Medium Assessment/Plan: SHF- responding to diuretics well. Follow labs. Fluid restrict. Lasix and ARB was held by Attending this am due to GFR. LLE wound - LE Arterial Duplex images reviewed. Mild atherosclerosis of Both LE but no significant obstructive lesion. (Full report to be dictated) On ABX. ID on case and concerned about OM. LVEF 50-55 Demand ischemia - no CP reported. We discussed stress test - pt wants to do it as out pt when his foot is better. 2+ MR - will need continued surveillance. 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 Clinical indicators include: rbc, hgb, hct, anemia Options provided: -- Anemia due to acute blood loss -- Anemia due to chronic blood loss -- Anemia due to iron deficiency -- Anemia due to postoperative blood loss -- Anemia due to chronic disease -- Other - I will add my own diagnosis -- Disagree - Not applicable / Not valid -- Disagree - Clinically Unable to determine / Unknown PROVIDER RESPONSE TEXT: The patient has anemia due to chronic disease. Electronically signed by: Mariza Danielle MD 05/26/2022 11:36 AM Progress Note Patient: Macarena Coleman Unit/Bed: W177/W177-01 Date of : 1960 Acct: [id number] Admitting Diagnosis: Peripheral edema [R60.9] Heart failure (HCC) [I50.9] Elevated troponin [R77.8] Acute respiratory failure with hypoxia (HCC) [J96.01] Dyspnea, unspecified type [R06.00] Ulcer of left foot, unspecified ulcer stage (HCC) [L97.529] Admit Date: 05/24/2022 Hospital Day: 1 Chief Complaint: Edema and NICHOLE Histories: Past Medical History: Diagnosis Date Arthritis spine HTN (hypertension) meds since age 41. 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 Past Surgical History: Procedure Laterality Date ENDOSCOPY, COLON, DIAGNOSTIC HERNIA REPAIR 2007 umbilical hernia (Dr Hall) INGUINAL HERNIA REPAIR Bilateral 1971 LUMBAR FUSION N/A 01/12/2022 BILATERAL L4-5 LAMINECTOMIES MICRODISSECTIONS DECOMPRESSIONS INTERBODY CAGE POSTEROLATERAL ALLOGRAFT AUTOGENOUS BONE PEDICLE SCREW FUSION performed by Viv Luis MD at [facility] [place] OR VENTRICULOPERITONEAL SHUNT 12/12 hydrocephalous Family History Problem Relation Age of Onset Cancer Mother lung cancer Cancer Father stomack cancer High Blood Pressure Father Coronary Art Dis Neg Hx Social History Socioeconomic History Marital status: Number of children: 0 Occupational History 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 Wants O2 stopped. No PC breathing is back to normal. LE edema gettign better. - 2.3L out EKG: SR 80-90 Review of Systems: Review of Systems Constitutional: Negative. Negative for diaphoresis and fatigue. HENT: Negative. Eyes: Negative. Respiratory: Negative. Negative for cough, chest tightness, shortness of breath, wheezing and stridor. Cardiovascular: Positive for leg swelling. Negative for chest pain and palpitations. Gastrointestinal: Negative. Negative for blood in stool and nausea. Genitourinary: Negative. Musculoskeletal: Negative. Skin: Negative. Neurological: Negative. Negative for dizziness, syncope, weakness and light-headedness. Hematological: Negative. Psychiatric/Behavioral: Negative. Physical Examination: BP (!) 150/77 Pulse 93 Temp 98.3 F (36.8 C) (Oral) Resp 18 Ht 6' (1.829 m) Wt 218 lb 5.8 oz (99 kg) SpO2 99% BMI 29.61 kg/m Physical Exam Constitutional: He appears healthy. No distress. HENT: Normal cephalic and Atraumatic Eyes: Pupils are equal, round, and reactive to light. Neck: Thyroid normal. No JVD present. No neck adenopathy. No thyromegaly present. Cardiovascular: Normal rate, regular rhythm, intact distal pulses and normal pulses. Murmur heard. Pulmonary/Chest: Effort normal and breath sounds normal. He has no wheezes. He has no rales. He exhibits no tenderness. Abdominal: Soft. Bowel sounds are normal. There is no abdominal tenderness. Musculoskeletal: General: Edema present. No tenderness (2+). Normal range of motion. Cervical back: Normal range of motion and neck supple. Neurological: He is alert and oriented to person, place, and time. Skin: Skin is warm. No cyanosis. Nails show no clubbing. Left foot ulcer LABS: CBC: Lab Results Component Value Date/Time WBC 8.6 05/26/2022 05:36 AM RBC 4.66 05/26/2022 05:36 AM RBC 5.40 01/11/2012 08:35 AM HGB 11.1 05/26/2022 05:36 AM HCT 35.1 05/26/2022 05:36 AM MCV 75.4 05/26/2022 05:36 AM MCH 23.9 05/26/2022 05:36 AM MCHC 31.7 05/26/2022 05:36 AM RDW 14.5 05/26/2022 05:36 AM PLT 430 05/26/2022 05:36 AM MPV 8.7 10/01/2013 10:39 AM CBC with Differential: Lab Results Component Value Date/Time WBC 8.6 05/26/2022 05:36 AM RBC 4.66 05/26/2022 05:36 AM RBC 5.40 01/11/2012 08:35 AM HGB 11.1 05/26/2022 05:36 AM HCT 35.1 05/26/2022 05:36 AM PLT 430 05/26/2022 05:36 AM MCV 75.4 05/26/2022 05:36 AM MCH 23.9 05/26/2022 05:36 AM MCHC 31.7 05/26/2022 05:36 AM RDW 14.5 05/26/2022 05:36 AM LYMPHOPCT 14.9 05/26/2022 05:36 AM MONOPCT 12.5 05/26/2022 05:36 AM MYELOPCT 1 05/25/2022 05:36 AM BASOPCT 1.2 05/26/2022 05:36 AM MONOSABS 1.1 05/26/2022 05:36 AM LYMPHSABS 1.3 05/26/2022 05:36 AM EOSABS 0.3 05/26/2022 05:36 AM BASOSABS 0.1 05/26/2022 05:36 AM CMP: Lab Results Component Value Date/Time NA 137 05/26/2022 05:36 AM K 4.0 05/26/2022 05:36 AM K 3.6 01/14/2022 06:21 AM CL 99 05/26/2022 05:36 AM CO2 27 05/26/2022 05:36 AM BUN 11 05/26/2022 05:36 AM CREATININE 0.89 05/26/2022 05:36 AM GFRAA >60.0 05/26/2022 05:36 AM LABGLOM >60.0 05/26/2022 05:36 AM GLUCOSE 102 05/26/2022 05:36 AM GLUCOSE 99 01/11/2012 08:35 AM PROT 7.9 05/24/2022 06:30 PM LABALBU 3.8 05/24/2022 06:30 PM LABALBU 4.7 01/11/2012 08:35 AM CALCIUM 8.9 05/26/2022 05:36 AM BILITOT 0.3 05/24/2022 06:30 PM ALKPHOS 130 05/24/2022 06:30 PM AST 23 05/24/2022 06:30 PM ALT 21 05/24/2022 06:30 PM BMP: Lab Results Component Value Date/Time NA 137 05/26/2022 05:36 AM K 4.0 05/26/2022 05:36 AM K 3.6 01/14/2022 06:21 AM CL 99 05/26/2022 05:36 AM CO2 27 05/26/2022 05:36 AM BUN 11 05/26/2022 05:36 AM LABALBU 3.8 05/24/2022 06:30 PM LABALBU 4.7 01/11/2012 08:35 AM CREATININE 0.89 05/26/2022 05:36 AM CALCIUM 8.9 05/26/2022 05:36 AM GFRAA >60.0 05/26/2022 05:36 AM LABGLOM >60.0 05/26/2022 05:36 AM GLUCOSE 102 05/26/2022 05:36 AM GLUCOSE 99 01/11/2012 08:35 AM Magnesium: Lab Results Component Value Date/Time MG 2.2 05/26/2022 05:36 AM Troponin: Lab Results Component Value Date/Time TROPONINI 0.115 05/25/2022 05:36 AM Active Hospital Problems Diagnosis Date Noted Dyspnea [R06.00] 05/25/2022 Priority: High Acute heart failure with preserved ejection fraction (HCC) [I50.31] 05/25/2022 Priority: High Acute respiratory failure with hypoxia (HCC) [J96.01] 05/25/2022 Priority: Medium Anemia [D64.9] 05/25/2022 Priority: Medium Elevated troponin [R77.8] 05/25/2022 Priority: Medium Ulcer of left foot, with necrosis of muscle (HCC) [L97.523] 05/14/2022 Priority: Medium Assessment/Plan: SHF- responding to diuretics well. Follow labs. Fluid restrict. LLE wound - ordered LE Arterial Duplex. On ABX LVEF 50-55 Demand ischemia - no CP reported. If stable consider out pt stress testing. 2+ MR - will need continued surveillance. 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 Subjective Subjective: Symptoms: No shortness of breath, malaise, cough, chest pain, weakness, headache, chest pressure, anorexia, diarrhea or anxiety. Diet: No nausea or vomiting. Review of Systems Respiratory: Negative for cough and shortness of breath. Cardiovascular: Negative for chest pain. Gastrointestinal: Negative for anorexia, diarrhea, nausea and vomiting. Neurological: Negative for weakness. Objective Vitals Last 24 Hours: TEMPERATURE: Temp Av.6 F (37 C) Min: 98.3 F (36.8 C) Max: 99 F (37.2 C) RESPIRATIONS RANGE: Resp Av Min: 18 Max: 18 PULSE OXIMETRY RANGE: SpO2 Av.3 % Min: 97 % Max: 99 % PULSE RANGE: Pulse Av.3 Min: 83 Max: 93 BLOOD PRESSURE RANGE: Systolic (24hrs), Av , Min:134 , Max:150 ; Diastolic (24hrs), Av, Min:44, Max:88 I/O (24Hr): Intake/Output Summary (Last 24 hours) at 05/26/2022 1046 Last data filed at 05/26/2022 0628 Gross per 24 hour Intake 560 ml Output 1900 ml Net -1340 ml Objective: General Appearance: Comfortable, well-appearing and in no acute distress. Vital signs: (most recent): Blood pressure (!) 150/77, pulse 93, temperature 98.3 F (36.8 C), temperature source Oral, resp. rate 18, height 6' (1.829 m), weight 218 lb 5.8 oz (99 kg), SpO2 99 %. HEENT: Normal HEENT exam. Lungs: Normal effort. Heart: Normal rate. S1 normal. Abdomen: Abdomen is soft. Bowel sounds are normal. There is no epigastric area or suprapubic area tenderness. Extremities: There is no deformity. Neurological: Patient is alert. Pupils: Pupils are equal, round, and reactive to light. Skin: Warm and dry. Labs/Imaging/Diagnostics Labs: CBC: Recent Labs 05/24/22182905/25/2253505/26/22 0536 WBC 12.1* 7.8 8.6 RBC 4.61* 4.37* 4.66* HGB 11.1* 10.7* 11.1* HCT 34.6* 32.4* 35.1* MCV 75.2* 74.2* 75.4* RDW 14.3 14.6* 14.5 PLT 453* 425* 430* CHEMISTRIES: Recent Labs 05/24/22182905/24/22 1901 05/25/2236 05/26/22 0536 NA 136 -- 137 137 K 4.3 -- 4.1 4.0 CL 100 -- 99 99 CO2 25 -- 24 27 BUN 12 -- 9 11 CREATININE 0.96 1.0 0.80 0.89 GLUCOSE 119* -- 97 102* MG 2.2 -- 2.1 2.2 PT/INR:No results for input(s): PROTIME, INR in the last 72 hours. APTT:No results for input(s): APTT in the last 72 hours. LIVER PROFILE: Recent Labs 05/24/221829 AST 23 ALT 21 BILITOT 0.3 ALKPHOS 130* Imaging Last 24 Hours: XR FOOT LEFT (MIN 3 VIEWS) Result Date: 05/25/2022 EXAMINATION: THREE XRAY VIEWS OF THE LEFT FOOT 05/25/2022 4:33 pm COMPARISON: 04/18/2022 HISTORY: ORDERING SYSTEM PROVIDED HISTORY: r/o osteomyelitis. ulcer probes to bone to plantar foot and lateral 5th metatarsal TECHNOLOGIST PROVIDED HISTORY: Reason for exam:->r/o osteomyelitis. ulcer probes to bone to plantar foot and lateral 5th metatarsal What reading provider will be dictating this exam?->CRC FINDINGS: A large plantar foot ulcer is identified with soft tissue swelling. There is osteopenia of the 5th metatarsal head with loss of the cortical margin medially. No acute fracture is identified. Severe Charcot arthropathy of the midfoot is stable compared to the prior exam with rocker bottom foot deformity. Diffuse foot soft tissue swelling is seen. Findings suggestive of 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 Severe Charcot arthropathy with rocker bottom foot deformity. CTA Chest W WO (PE study) Result Date: 05/24/2022 EXAMINATION: CTA OF THE CHEST WITH AND WITHOUT CONTRAST 05/24/2022 7:34 pm TECHNIQUE: CTA of the chest was performed before and after the administration of intravenous contrast. Multiplanar reformatted images are provided for review. MIP images are provided for review. Automated exposure control, iterative reconstruction, and/or weight based adjustment of the mA/kV was utilized to reduce the radiation dose to as low as reasonably achievable. COMPARISON: None. HISTORY: ORDERING SYSTEM PROVIDED HISTORY: sob with hx unilateral leg edema TECHNOLOGIST PROVIDED HISTORY: Reason for exam:->sob with hx unilateral leg edema Decision Support Exception - unselect if not a suspected or confirmed emergency medical condition->Emergency Medical Condition (MA) What reading provider will be dictating this exam?->CRC FINDINGS: Pulmonary Arteries: Pulmonary arteries are adequately opacified for evaluation. No evidence of intraluminal filling defect to suggest pulmonary embolism. Main pulmonary artery is normal in caliber. Mediastinum: No evidence of mediastinal lymphadenopathy. The heart and pericardium demonstrate no acute abnormality. There is no acute abnormality of the thoracic aorta. Lungs/pleura: There are moderate bilateral pleural effusions with associated atelectasis. No focal consolidation or mitch edema. No pneumothorax. Upper Abdomen: Limited images of the upper abdomen are unremarkable. Soft Tissues/Bones: No acute bone or soft tissue abnormality. No evidence of pulmonary embolism. Moderate bilateral pleural effusions with associated atelectasis. US DUP LOWER EXTREMITY LEFT [place] Result Date: 05/24/2022 EXAMINATION: DUPLEX VENOUS ULTRASOUND OF THE LEFT LOWER EXTREMITY 05/24/2022 7:08 pm TECHNIQUE: Duplex ultrasound using B-mode/hewitt scaled imaging and Doppler spectral analysis and color flow was obtained of the deep venous structures of the left lower extremity. COMPARISON: None. HISTORY: ORDERING SYSTEM PROVIDED HISTORY: leg swelling with sob TECHNOLOGIST PROVIDED HISTORY: Reason for exam:->leg swelling with sob What reading provider will be dictating this exam?->CRC FINDINGS: The visualized veins of the left lower extremity are patent and free of echogenic thrombus. The veins demonstrate good compressibility with normal color flow study and spectral analysis. No evidence of DVT in the left lower extremity. RECOMMENDATIONS: Unavailable Assessment//Plan Hospital Problems Last Modified POA * (Principal) Acute respiratory failure with hypoxia (HCC) 05/25/2022 Yes Dyspnea 05/25/2022 Yes Acute heart failure with preserved ejection fraction (HCC) 05/25/2022 Yes Ulcer of left foot, with necrosis of muscle (HCC) 05/25/2022 Yes Anemia 05/25/2022 Yes Elevated troponin 05/25/2022 Yes Osteomyelitis of left toe Acute HFPEF exacerbation Acute respiratory failure Assessment & Plan 05/26: Change Keflex to IV Zosyn, ID evaluation for osteomyelitis of the left foot. Patient possibly will benefit from stress test inpatient. Lower extremity swelling is down. Spoke with the patient. Taper down oxygen as tolerated. Nutrition Education CHF diet education completed per protocol. Reviewed high sodium foods to avoid and low sodium foods recommended. Utilizing food label information included as well as handout on alternative spices/seasonings provided. 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 EMILY WILDER RD, LD Nutrition Assessment Type and Reason for Visit: Initial, Positive Nutrition Screen, Wound (+ malnutrition screen) Nutrition Recommendations/Plan: Continue current plan of care Recommend daily MVI Malnutrition Assessment: Malnutrition Status: No malnutrition (05/25/22 1410) Nutrition Assessment: Nutritional staus adequate admission, consider addition of MVI , per diet history oral intake is adequate Nutrition Related Findings: shortness of breath for the last 10 days...also has a wound ( 05/02) on his left foot with muscle exposed, ankle is swollen with 3+ pitting edema and .. Patient lives at home with who he cares for... He is not diabetic but does have neuropathy. He also has Charcot foot. labs noted, meds reviewed ( lasix) Wound Type: Full Thickness, Diabetic Ulcer, Pressure Injury (? type, not described) Current Nutrition Intake & Therapies: Average Meal Intake: 76-100% ADULT DIET; Regular; Low Sodium (2 gm); 2000 ml Anthropometric Measures: Height: 6' (182.9 cm) [place] Body Weight (IBW): 178 lbs (81 kg) Admission Body Weight: 218 lb (98.9 kg) (stated) Current Body Weight: (* edema present), > 100% IBW. Current BMI (kg/m2): Usual Body Weight: 217 lb (98.4 kg) (( 01/31)) BMI Categories: Overweight (BMI 25.0-29.9) Nutrition Diagnosis: Increased nutrient needs related to increase demand for energy/nutrients as evidenced by wounds Nutrition Interventions: Food and/or Nutrient Delivery: Continue Current Diet Nutrition Education/Counseling: Education completed (2 g Na diet ed for CHF) Coordination of Nutrition Care: Continue to monitor while inpatient Goals: Goals: PO intake 75% or greater, by next RD assessment Nutrition Monitoring and Evaluation: Behavioral-Environmental Outcomes: None Identified Food/Nutrient Intake Outcomes: Food and Nutrient Intake Physical Signs/Symptoms Outcomes: Skin, Meal Time Behavior Discharge Planning: Too soon to determine EMILY WILDER RD, [place] Hospitalist Daily Progress Note Name: Macarena Coleman Age: 62 y.o. Gender: male CodeStatus: Full Code Allergies: Avelox [Moxifloxacin Hcl In Nacl] Amoxicillin-Pot Clavulanate Chief Complaint:Leg Pain (Left leg below knee to ankle and states edema to leg and ankle. Pt has a boot in place due to ulcers. Pt is on a ATB for wounds and has home care. Sent by PCP for ultrasound of leg to R/O blood clot. ) and Shortness of Breath (Started last week and has seen Dr. Hand. Pt was given albuterol inhaler. Pt does not use O2) Primary Care Provider: Allyson Hand MD InpatientTreatment Team: Treatment Team: Attending Provider: Waylon Del Valle DO; Consulting Physician: Lawson Silva DO; Consulting Physician: Daryn Gary DPM; Registered Nurse: Julio Cesar Thomson RN; Supervisory Historian: Manuela Rangel RN; Insurance Sales Producer: Marita Bill RN Admission Date: 05/24/2022 Subjective: patient is seen and evaluated at bedside. Pt has been urinating well, >1200ml since arrival to floor. LE edema dramatically improved, and pt feels breathing is improved as well. Troponin is elevated this AM. Cardiology following. Physical Exam Constitutional: Appearance: Normal appearance. He is not ill-appearing or diaphoretic. HENT: Head: Normocephalic. Nose: Nose normal. Mouth/Throat: Mouth: Mucous membranes are moist. Pharynx: Oropharynx is clear. Eyes: Conjunctiva/sclera: Conjunctivae normal. Pupils: Pupils are equal, round, and reactive to light. Cardiovascular: Rate and Rhythm: Normal rate. Heart sounds: No murmur heard. Pulmonary: Breath sounds: Rales present. No wheezing or rhonchi. Abdominal: General: There is no distension. Tenderness: There is no abdominal tenderness. There is no guarding. Musculoskeletal: General: Swelling present. Skin: Comments: Left plantar wound with purulent drainage. Neurological: General: No focal deficit present. Mental Status: He is alert and oriented to person, place, and time. Psychiatric: Mood and Affect: Mood normal. Thought Content: Thought content normal. Judgment: Judgment normal. Review of Systems 14 point ros is reviewed and negative except for as above. Medications: Reviewed Infusion Medications: sodium chloride Scheduled Medications: sodium chloride flush 5-40 mL IntraVENous 2 times per day enoxaparin 40 mg SubCUTAneous Daily furosemide 40 mg IntraVENous BID valsartan 80 mg Oral Daily lidocaine 1 patch Topical Daily sulfamethoxazole-trimethoprim 1 tablet Oral BID pantoprazole 40 mg Oral QAM AC gabapentin 300 mg Oral TID cephALEXin 500 mg Oral 4x Daily metoprolol succinate 25 mg Oral Daily aspirin 81 mg Oral Daily atorvastatin 20 mg Oral Nightly PRN Meds: sodium chloride flush, sodium chloride, ondansetron OR ondansetron, polyethylene glycol, acetaminophen OR acetaminophen, HYDROcodone 5 mg - acetaminophen Labs: Recent Labs 05/24/22 1830 05/25/22 0536 WBC 12.1* 7.8 HGB 11.1* 10.7* HCT 34.6* 32.4* PLT 453* 425* Recent Labs 05/24/22 1830 05/24/22 1901 05/25/22 0536 NA 136 -- 137 K 4.3 -- 4.1 CL 100 -- 99 CO2 25 -- 24 BUN 12 -- 9 CREATININE 0.96 1.0 0.80 CALCIUM 8.9 -- 8.8 Recent Labs 05/24/22 183 AST 23 ALT 21 BILITOT 0.3 ALKPHOS 130* No results for input(s): INR in the last 72 hours. Recent Labs 05/24/22 1830 05/25/22 0150 05/25/22 0536 TROPONINI 0.118* 0.105* 0.115* Urinalysis: Lab Results Component Value Date/Time NITRU Negative 05/25/2022 07:02 AM WBCUA 0-2 05/25/2022 07:02 AM BACTERIA Negative 05/25/2022 07:02 AM RBCUA >100 05/25/2022 07:02 AM BLOODU LARGE 05/25/2022 07:02 AM SPECGRAV 1.019 05/25/2022 07:02 AM GLUCOSEU Negative 05/25/2022 07:02 AM GLUCOSEU NEG 01/11/2012 08:35 AM Radiology: Most recent Chest CT WITH CONTRAST:No results found for this or any previous visit. WITHOUT CONTRAST: No results found for this or any previous visit. CXR 2-view: No results found for this or any previous visit. Portable: No results found for this or any previous visit. Echo No results found for this or any previous visit. Assessment/Plan: Active Hospital Problems Diagnosis Date Noted Acute respiratory failure with hypoxia (HCC) [J96.01] 05/25/2022 Priority: Medium Anemia [D64.9] 05/25/2022 Priority: Medium Elevated troponin [R77.8] 05/25/2022 Priority: Medium Ulcer of left foot, with necrosis of muscle (HCC) [L97.523] 05/14/2022 Priority: Medium Acute hypoxic respiratory failure due to exacerbation of unknown heart failure: cardio consult trend trop, intake/output. Daily weights. On asa, troprol xl 25 daily. Lipitor 20. Cont lasix. Sodium restriction with 2L fluid restriciton. Echo pending. Left foot ulcer: concern for poor vascular status. Podiatry consult for wound care vascular eval per cardio/podiatry. Microcytic anemia: iron QOD, check iron studies. Additional work up or/and treatment plan may be added today or then after based on clinical progression. I am managing a portion of pt care. Some medical issues are handled byother specialists. Additional work up and treatment should be done in out pt setting by pt PCP and other out pt providers. In addition to examining and evaluating pt, I spent additional time explaining care, normaland abnormal findings, and treatment plan. All of pt questions were answered. Counseling, diet and education were provided. Case will be discussed with nursing staff when appropriate. Family will be updated if and whenappropriate. CARDIOLOGY CONSULT CALLED TO DR SILVA [facility] ATRY CONSULT CALLED TO DR GARY [facility] Patient transferred to unit at this time. Patient oriented to room and safety calling system. Call light in reach, bed locked and in lowest position. Patient is refusing bed alarms. notified of patient's arrival. documented in this encounter [facility] Phone: 05-31-2022 Hospital course Narrative Discharge Summary Date: 05/31/2022 Patient Name: Macarena Coleman Date of : 1960 Age: 62 y.o. Admit Date: 05/24/2022 Discharge Date: 05/31/2022 Discharge Condition: Fair Admission Diagnosis Peripheral edema [R60.9];Heart failure (HCC) [I50.9];Elevated troponin [R77.8];Acute respiratory failure with hypoxia (HCC) [J96.01];Dyspnea, unspecified type [R06.00];Ulcer of left foot, unspecified ulcer stage (HCC) [L97.529] Discharge Diagnosis Principal Problem: Acute respiratory failure with hypoxia (HCC) Active Problems: Dyspnea Acute heart failure with preserved ejection fraction (HCC) Ulcer of left foot, with necrosis of muscle (HCC) Anemia Elevated troponin Peripheral edema Acute osteomyelitis of ankle and foot, left (HCC) Resolved Problems: * No resolved hospital problems. * Hospital Stay Narrative of Hospital Course: Patient is a 62-year-old male admitted 05/24/2022, initially with acute hypoxic respiratory failure requiring supplemental oxygen, for which he was treated with antibiotics and supplemental oxygen until improved, which she did within the first few days. He was however found to have an infected left foot which was further investigated and found to represent acute osteomyelitis, for which podiatry and infectious disease services were consulted. Patient underwent podiatric surgery with excision of left fifth toe and cuboid bone of left foot for source control. Initial blood and initial non-surgical wound cultures were negative after 5 days for any bacterial growth. Patient was placed on Invanz antibiotic therapy per infectious disease service. He was deemed sufficiently improved and appropriate for discharge home with home health care and outpatient IV infusion therapy for the next 6 weeks as of 05/31/2022. Will need outpatient follow-up with PCP, podiatry clinic, and infectious disease clinic. Consultants: IP CONSULT TO HEART FAILURE NURSE/COORDINATOR IP CONSULT TO DIETITIAN IP CONSULT TO CARDIOLOGY IP CONSULT TO SPIRITUAL SERVICES IP CONSULT TO PODIATRY IP CONSULT TO INFECTIOUS DISEASES IP CONSULT TO VASCULAR SURGERY IP CONSULT TO HOME CARE NEEDS Surgeries/procedures Performed: Treatments: Analgesia, Cardiac Medications, Antibiotics, Therapies, Respiratory Therapy and Surgery Discharge Plan/Disposition: Home Hospital/Incidental Findings Requiring Follow Up: Patient Instructions: Diet: Activity: For number of days (if applicable): Other Instructions: Provider Follow-Up: No follow-ups on file. Significant Diagnostic Studies: Recent Labs: Admission on 05/24/2022 No results displayed because visit has over 200 results. Radiology last 7 days: XR FOOT LEFT (MIN 3 VIEWS) Result Date: 05/25/2022 Findings suggestive of 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 Severe Charcot arthropathy with rocker bottom foot deformity. CTA Chest W WO (PE study) Result Date: 05/24/2022 No evidence of pulmonary embolism. Moderate bilateral pleural effusions with associated atelectasis. CTA ABDOMINAL AORTA W BILAT RUNOFF W WO CONTRAST Result Date: 05/30/2022 1.There is extensive soft tissue edema and swelling in the left foot and left calf. The osseous structures of the left foot including tarsals and metatarsals demonstrate some lysis with gas pockets, if there is no recent surgery, then this would be concerning for osteomyelitis. 2.Mild ectasia of the infrarenal abdominal aorta with a large plaque mixed calcified and soft plaque leading to 40% luminal stenosis of the distal aorta. 3.Mild ectasia of the right common iliac artery with 50% luminal stenosis due to plaque. 4.The right anterior tibial artery is occluded after the trifurcation in the proximal calf and reconstitutes at the level of the foot through collateral arteries. 5.The right posterior tibial artery becomes diminutive at the level of the ankle and reconstitutes at the calcaneus. 6.The left anterior tibial artery is occluded shortly after the trifurcation. The left posterior tibial artery and peroneal arteries are patent. COMPARISON: No prior studies available for comparison. DIAGNOSIS: Peripheral edema COMMENTS: R60.9 Peripheral edema ICD10 TECHNIQUE: Spiral scanning of the abdomen and pelvis was performed after administration of oral and intravenous contrast. CT Dose-Length Product (estimate related to radiation exposure from this exam): 1711.16 mGy*cm. CTA ABDOMEN, PELVIS AND RUNOFF: The abdominal aorta demonstrates ectasia in the infrarenal region measuring 1.9 cm in diameter. At this level there is a large plaque which is mixed calcified and soft leading to 40% luminal stenosis of the distal aorta. Right lower extremity: The right common iliac artery demonstrates mild ectasia measuring approximately 1.5 cm in diameter. At this location there is a mixed calcified and soft plaque causing approximately 50% luminal stenosis of the right common iliac artery and short segment. The right common femoral artery is patent. The right superficial femoral artery is patent. The right popliteal artery is patent. The right anterior tibial artery becomes occluded shortly after the trifurcation in the proximal calf. The right anterior tibial artery reconstitutes at the level of the foot through collaterals and continues into the dorsum of the foot with the dorsalis pedis widely patent. The right peroneal artery is patent. The right posterior tibial artery becomes diminutive at the level of the ankle with calcifications and reconstitutes at the level of the calcaneus in the heel from collateral arteries. Left lower extremity: There is an extensive amount of soft tissue edema in the left calf and particularly in the left foot. There is extensive degenerative disease and soft tissue and osseous gas seen near the tarsals and metatarsals, findings concerning for osteomyelitis. The left common iliac artery demonstrates mild plaque, though the lumen remains grossly patent. The left external iliac, common femoral artery, and superficial femoral artery are patent. The left anterior tibial artery becomes occluded shortly after the trifurcation. The left posterior tibial artery and peroneal arteries are patent. CT ABDOMEN: The visualized portions of lung bases are clear. The liver is of normal size and attenuation without focal lesions. The spleen is of normal size and attenuation without focal lesions. Pancreas shows no signs of focal mass or peripancreatic fluid collection. Kidneys are normal in size. There is no hydronephrosis. No renal mass is identified. Adrenal glands are unremarkable. No significant retroperitoneal adenopathy or ascites is identified. The visualized bowel loops are unremarkable. Osseous structures demonstrate degenerative change of the visualized spine with fixation screws at the L5 and S1. CT PELVIS: Scanning of the pelvis shows no signs of pelvic mass or pelvic fluid collection. Pelvic bowel loops are unremarkable. A lower pelvic peritoneal shunt is seen, the upper portion of this shunt is not visualized as to the origin. MRI FOOT LEFT W WO CONTRAST Result Date: 05/27/2022 Osteomyelitis of the cuboid. 1.5 cm rim enhancing fluid collection along the plantar margin of the cuboid is concerning for developing abscess with surrounding phlegmon. 1 x 1 x 3 cm abscess within the plantar soft tissues at the level of the head of the 5th metatarsal. Mild bone marrow edema within the base of the 5th metacarpal without definitive hypointense T1 signal, findings compatible with osteitis with early osteomyelitis not excluded. Charcot arthropathy of the midfoot. US DUP LOWER EXTREMITY LEFT [place] Result Date: 05/24/2022 No evidence of DVT in the left lower extremity. RECOMMENDATIONS: Unavailable US DUP LOWER ART/BYPASS GRAFTS BILATERAL COMPLETE Result Date: 05/28/2022 PREDOMINANT WAVEFORM IS TRIPHASIC. THERE ARE SCATTERED AREAS OF BIPHASIC MORPHOLOGY HOWEVER NO DAMPENING. NO SIGNIFICANT STEPUP IN GRADIENT. DIFFUSE ATHEROSCLEROSIS HOWEVER, NO OBSTRUCTIVE LESIONS NOTED. US RETROPERITONEAL LIMITED Result Date: 05/27/2022 Borderline mild left hydronephrosis. If there is concern for obstructive uropathy, CT of the abdomen/pelvis without contrast is recommended. Pending Labs Order Current Status Surgical Pathology Collected (05/29/22 1343) Surgical Pathology In process Discharge Medications Current Discharge Medication List START taking these medications ertapenem (INVANZ) infusion Infuse 1,000 mg intravenously every 24 hours Compound per protocol. Qty: 40 g Refills: 0 oxyCODONE-acetaminophen (PERCOCET) 5-325 MG per tablet Take 1 tablet by mouth every 6 hours as needed for Pain for up to 3 days. Intended supply: 3 days. Take lowest dose possible to manage pain Qty: 12 tablet Refills: 0 Comments: Reduce doses taken as pain becomes manageable Associated Diagnoses:Ulcer of left foot, with necrosis of muscle (HCC) metoprolol succinate (TOPROL XL) 50 MG extended release tablet Take 1 tablet by mouth daily Qty: 30 tablet Refills: 0 Current Discharge Medication List Current Discharge Medication List CONTINUE these medications which have NOT CHANGED cyclobenzaprine (FLEXERIL) 10 MG tablet Take 1 tablet by mouth daily as needed for Muscle spasms Qty: 30 tablet Refills: 0 Associated Diagnoses:Chronic pain syndrome gabapentin (NEURONTIN) 300 MG capsule Take 1 capsule by mouth 3 times daily for 30 days. Qty: 90 capsule Refills: 0 Comments: Take 1 tab QPM, then after 3 days can increase to 2 tabs daily PRN pain, then after 3 days can increase to TID prn pain. Associated Diagnoses:Lumbar radiculopathy lidocaine (LIDODERM) 5 % Place 2 patches onto the skin daily 12 hours on, 12 hours off. Qty: 60 patch Refills: 2 Associated Diagnoses:Lumbar radiculopathy omeprazole (PRILOSEC) 20 MG delayed release capsule Take 20 mg by mouth daily amLODIPine (NORVASC) 5 MG tablet Indications: takes with elevated BP reading -- with sx headache & flushed feeling traZODone (DESYREL) 100 MG tablet Take 100 mg by mouth nightly candesartan (ATACAND) 32 MG tablet Take 32 mg by mouth every evening Current Discharge Medication List STOP taking these medications HYDROcodone-acetaminophen (NORCO) 7.5-325 MG per tablet Comments: Reason for Stopping: sulfamethoxazole-trimethoprim (BACTRIM DS;SEPTRA DS) 800-160 MG per tablet Comments: Reason for Stopping: cephALEXin (KEFLEX) 500 MG capsule Comments: Reason for Stopping: naproxen (NAPRELAN) 500 MG extended release tablet Comments: Reason for Stopping: Time Spent on Discharge: 45 minutes were spent in patient examination, evaluation, counseling as well as medication reconciliation, prescriptions for required medications, discharge plan, and follow up. documented in this encounter [facility] Phone: 05-31-2022 Hospital Discharge instructions Sarthak Naik DPM - 05/31/2022 4:33 PM EDT Keep podiatry dressing clean, dry, and intact. NWB to RLE with knee scooter,wheelchair. Follow up with Dr. Ely within 1 week. JAYCOB Dobbs CNP - 05/30/2022 5:28 PM EDT Continue Aspirin and Statin until you see Dr. Cano after discharge. Sarthak Naik DPM - 05/31/2022 11:38 AM EDT NWB to Left foot with knee scooter/wheelchair. Jeannie Mcmanus RN - 05/31/2022 6:41 PM EDT Good nutrition is important when healing from an illness, injury, or surgery. Follow any nutrition recommendations given to you during your hospital stay. If you were given an oral nutrition supplement while in the hospital, continue to take this supplement at home. You can take it with meals, in-between meals, and/or before bedtime. These supplements can be purchased at most local grocery stores, pharmacies, and [employer]-stores. If you have any questions about your diet or nutrition, call the hospital and ask for the dietitian. LOW SODIUM DIET Jeannie Mcmanus RN - 05/31/2022 11:25 AM EDT Images from the original note were not included. Continuity of Care Form Patient Name: Macarena Coleman : 1960 Admit date: 05/24/2022 Discharge date: 05/31/2022 Code Status Order: Full Code Advance Directives: Advance Care Flowsheet Documentation Date/Time Healthcare Directive Type of Healthcare Directive Copy in Chart Healthcare Agent Appointed Healthcare Agent's Name Healthcare Agent's Phone Number 05/29/22 1116 Yes, patient has an advance directive for healthcare treatment Durable power of claim attorney for health care;Health care treatment directive;Living will No, copy requested from family Spouse Mirian [phone] Admitting Physician: Waylon Del Valle DO PCP: Allyson Hand MD Discharging Nurse: Discharging Hospital Unit/Room#: W177/W177-01 Discharging Unit Phone Number: jeannie mcmanus rn Emergency Contact: Extended Emergency Contact Information Primary Emergency Contact: Mirian Coleman [address]: [address] [place] [address] States of [place] Relation: Spouse Past Surgical History: Past Surgical History: Procedure Laterality Date ENDOSCOPY, COLON, DIAGNOSTIC FOOT DEBRIDEMENT Left 05/29/2022 INCISION AND DRAINAGE LEFT FOOT performed by Marielos Ely DPM at [facility] [place] HERNIA REPAIR 2007 umbilical hernia (Dr Hall) INGUINAL HERNIA REPAIR Bilateral 1971 LUMBAR FUSION N/A 01/12/2022 BILATERAL L4-5 LAMINECTOMIES MICRODISSECTIONS DECOMPRESSIONS INTERBODY CAGE POSTEROLATERAL ALLOGRAFT AUTOGENOUS BONE PEDICLE SCREW FUSION performed by Viv Luis MD at [facility] [place] TOE AMPUTATION Left 05/29/2022 LEFT FOOT PARTIAL 5TH RAY AMPUTATION AND MIDFOOT BONE EXCISION LEFT FOOT performed by Marielos Ely DPM at [facility] [place] VENTRICULOPERITONEAL SHUNT 12/12 hydrocephalous Immunization History: There is no immunization history on file for this patient. 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) G91.9 Umbilical hernia K42.9 Spinal stenosis of lumbar region with neurogenic claudication M48.062 Acquired spondylolisthesis of lumbosacral region M43.17 Paraparesis of both lower limbs ([facility]) G82.20 Chronic pain of right knee M25.561, G89.29 Charcot's joint of left foot M14.672 Idiopathic peripheral neuropathy G60.9 Ulcer of left foot, with necrosis of muscle ([facility]) L97.523 Acute respiratory failure with hypoxia ([facility]) J96.01 Heart failure ([facility]) I50.9 Anemia D64.9 Elevated troponin R77.8 Dyspnea R06.00 Acute heart failure with preserved ejection fraction ([facility]) I50.31 Peripheral edema R60.9 Acute osteomyelitis of ankle and foot, left ([facility]) M86.172 Isolation/Infection: Isolation No Isolation Patient Infection Status None to display Nurse Assessment: Last Vital Signs: BP (!) 122/100 Pulse 96 Temp 98.8 F (37.1 C) (Oral) Resp 16 Ht 6' (1.829 m) Wt 209 lb (94.8 kg) SpO2 98% BMI 28.35 kg/m Last documented pain score (0-10 scale): Pain Level: 8 Last Weight: Wt Readings from Last 1 Encounters: 05/28/22 209 lb (94.8 kg) Mental Status: {IP PT MENTAL STATUS:} IV Access: {MH LEONIE IV ACCESS:074145458} Nursing Mobility/ADLs: Walking {CHP DME ADLs:922470169} Transfer {CHP DME ADLs:945018161} Bathing {CHP DME ADLs:773429743} Dressing {CHP DME ADLs:801029593} Toileting {CHP DME ADLs:533068720} Feeding {CHP DME ADLs:314452502} Sound System Installer {CHP DME ADLs:920366007} Med Delivery { LEONIE MED Delivery:089319355} Wound Care Documentation and Therapy: Wound 05/14/22 Foot Left;Plantar #1 (Active) Wound Image 05/14/22 1104 Wound Etiology Diabetic Mccain 3 05/27/22 0800 Dressing Status Intact 05/30/22 162 Wound Cleansed Cleansed with saline 05/14/221103 Dressing/Treatment Dry dressing;Drew wrap 05/30/222234 Offloading for Diabetic Foot Ulcers Offloading ordered 05/29/222052 Wound Length (cm) 1.6 cm 05/14/22 1104 Wound Width (cm) 1.5 cm 05/14/22 1104 Wound Depth (cm) 3 cm 05/14/22 1104 Wound Surface Area (cm^2) 2.4 cm^2 05/14/22 1104 Wound Volume (cm^3) 7.2 cm^3 05/14/22 1104 Post-Procedure Length (cm) 1.6 cm 05/14/22 1146 Post-Procedure Width (cm) 1.5 cm 05/14/22 1146 Post-Procedure Depth (cm) 3 cm 05/14/22 1146 Post-Procedure Surface Area (cm^2) 2.4 cm^2 05/14/22 1146 Post-Procedure Volume (cm^3) 7.2 cm^3 05/14/22 1146 Wound Assessment Other (Comment) 05/30/222234 Drainage Amount None 05/30/222234 Drainage Description Yellow 05/14/22 1104 Odor None 05/30/222234 Brisa-wound Assessment Other (Comment) 05/30/222234 Margins Defined edges 05/14/22 110 Wound Thickness Description not for Pressure Injury Full thickness 05/14/22 110 Number of days: 17 Wound 05/14/22 Foot Left;Lateral #2 (Active) Wound Image 05/14/22 1104 Wound Etiology Diabetic Mccain 3 05/27/22 0800 Dressing Status Clean;Dry;Intact 05/29/222052 Wound Cleansed Cleansed with saline 05/14/221103 Dressing/Treatment Dry dressing;Drew wrap 05/30/222234 Offloading for Diabetic Foot Ulcers Offloading ordered;Offloading boot 05/14/22 1150 Wound Length (cm) 1.5 cm 05/14/22 1104 Wound Width (cm) 1 cm 05/14/22 1104 Wound Depth (cm) 1 cm 05/14/22 1104 Wound Surface Area (cm^2) 1.5 cm^2 05/14/22 1104 Wound Volume (cm^3) 1.5 cm^3 05/14/22 1104 Wound Assessment Other (Comment) 05/30/222234 Drainage Amount None 05/30/222234 Drainage Description Yellow 05/30/222234 Odor None 05/30/222234 Brisa-wound Assessment Other (Comment) 05/30/222234 Margins Defined edges 05/30/222234 Wound Thickness Description not for Pressure Injury Full thickness 05/30/222234 Number of days: 17 Incision 01/12/22 Back Medial (Active) Number of days: 139 Incision 05/29/22 Toe (Comment which one) Anterior;Left (Active) Dressing Status Intact 05/30/222234 Dressing/Treatment Dry dressing;Drew wrap 05/30/222234 Closure Sutures 05/29/22 1349 Margins Approximated 05/29/22 1349 Drainage Amount None 05/30/222234 Odor None 05/30/222234 Number of days: 2 Elimination: Continence: Bowel: {YES / NO:} Bladder: {YES / NO:} Urinary Catheter: {Urinary Catheter:589530945} Colostomy/Ileostomy/Ileal Conduit: {YES / NO:} Date of Last BM: 05/31/2022 Intake/Output Summary (Last 24 hours) at 05/31/2022 1125 Last data filed at 05/31/2022 0901 Gross per 24 hour Intake 660 ml Output -- Net 660 ml I/O last 3 completed shifts: In: 440 [P.O.:420; I.V.:20] Out: 775 [Urine:775] Safety Concerns: { LEONIE Safety Concerns:957236716} Impairments/Disabilities: { LEONIE Impairments/Disabilities:903809208} Nutrition Therapy: Current Nutrition Therapy: { LEONIE Diet List:774061150} Routes of Feeding: {CHP DME Other Feedings:024368180} Liquids: {Tissue Coordinator liquid thickness:99800} Daily Fluid Restriction: {CHP DME Yes amt example:140757438} Last Modified Barium Swallow with Video (Video Swallowing Test): {Done Not Done Date:} Treatments at the Time of Hospital Discharge: Respiratory Treatments: Oxygen Therapy: {Therapy; copd oxygen:27606} Ventilator: { CC Vent List:961140700} Rehab Therapies: {THERAPEUTIC INTERVENTION:3540641231} Weight Bearing Status/Restrictions: Non-weight bearing on {Right/Left:16} leg Other Medical Equipment (for information only, NOT a DME order): {EQUIPMENT:302321198} Other Treatments: Patient's personal belongings (please select all that are sent with patient): {P DME Belongings:518921547} RN SIGNATURE: CASE MANAGEMENT/SOCIAL WORK SECTION Inpatient Status Date: Readmission Risk Assessment Score: Readmission Risk Risk of Unplanned Readmission: 13 Discharging to Facility/ Agency Name: [facility] Address: Fax: Supervisory Historian/[employer] Supervisor signature: {Esignature:747695869} PHYSICIAN SECTION Prognosis: {Prognosis:7402534641} Condition at Discharge: { Patient Condition:719145964} Rehab Potential (if transferring to Rehab): {Prognosis:2427155992} Recommended Labs or Other Treatments After Discharge: Physician Certification: I certify the above information and transfer of Macarena Coleman is necessary for the continuing treatment of the diagnosis listed and that he requires {Admit to Appropriate Level of Care:20574} for {GREATER/LESS:449173286} 30 days. Update Admission H&P: {CHP DME Changes in HandP:002556820} PHYSICIAN SIGNATURE: {Esignature:742035635} documented in this encounter [facility] [employer] Work Phone: 05-14-2022 Hospital Discharge instructions Marielos Ely DPM - 05/14/2022 11:18 AM EDT [facility] Physician Orders and Discharge Instructions [place] [id number] FAX [phone] NAME: Macarena Coleman DATE OF : 1960 Your Supervisory Historian is: [facility]/Facility: [facility] New referral Wound Location:Left plantar foot, Left lateral foot. Dressing orders:1.Cleanse wound(s) with normal saline. 2. Apply dry SILVERCEL OR CALCIUM ALGINATE WITH Ag or eqivalent to wound bed. 3. Cover withdrawtex and wrap with gauze (mary or kerlix) 4. Change Every other day or Saturday, Saturday, and Saturday Compression:Apply medium compression 10-20 mm hg hose to left lower leg(s), may remove at bedtime, reapply first thing in the morning, avoid prolonged standing, elevate legs when sitting. Offloading Device: Ortho Boot Use your knee scooter as much as you can Other Instructions: finish your bactrim as ordered we will call if your antibiotic needs changed based on the results of your culture Keep all dressings clean, dry and intact. Keep pressure off the wound(s) at all times. Follow up visit 2 Weeks SaturdayMay 28 at 9:30 AM Please give 24 hour notice if unable to keep appointment. [phone] If you experience any of the following, please call the Wound Care Service at [phone] or go to the nearest emergency room. *Increase in pain *Temperature over 101 *Increase in drainage from your wound or a foul odor *Uncontrolled swelling *Need for compression bandage changes due to slippage, breakthrough drainage PLEASE NOTE: IF YOU ARE UNABLE TO OBTAIN WOUND SUPPLIES, CONTINUE TO USE THE SUPPLIES YOU HAVE AVAILABLE UNTIL YOU ARE ABLE TO REACH US. IT IS MOST IMPORTANT TO KEEP THE WOUND COVERED AT ALL TIMES documented in this encounter MADINA SCOTT [employer] Work Phone: 05-14-2022 History of Present illness Narrative Images from the original note were not included. [facility] Progress Note and Procedure Note Macarena Coleman AGE: 62 y.o. GENDER: male : 1960 EPISODE DATE: 05/14/2022 Subjective: Chief Complaint Patient presents with Wound Check Left foot wounds HISTORY of PRESENT ILLNESS HPI Macarena Coleman is a 62 y.o. male who presents today for wound/ulcer evaluation. 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 He has a new lateral foot wound. Admits he has been walking on it. States his is having difficulty with the dressing changes. Denies nausea, vomiting, fevers, or chills. Wound/Ulcer Pain Timing/Severity: intermittent Quality of pain: shooting Severity: 2 / 10 Modifying Factors: Pain is relieved/improved with rest Associated Signs/Symptoms: edema, drainage, numbness, and pain Ulcer Identification: Ulcer Type: neuropathic Contributing Factors: edema, shear force, and non-adherence Wound: N/A PAST MEDICAL HISTORY Diagnosis Date Arthritis spine HTN (hypertension) meds since age 41. 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 PAST SURGICAL HISTORY Past Surgical History: Procedure Laterality Date ENDOSCOPY, COLON, DIAGNOSTIC HERNIA REPAIR 2007 umbilical hernia (Dr Hall) INGUINAL HERNIA REPAIR Bilateral 1971 LUMBAR FUSION N/A 01/12/2022 BILATERAL L4-5 LAMINECTOMIES MICRODISSECTIONS DECOMPRESSIONS INTERBODY CAGE POSTEROLATERAL ALLOGRAFT AUTOGENOUS BONE PEDICLE SCREW FUSION performed by Viv Luis MD at [facility] [place] VENTRICULOPERITONEAL SHUNT 12/12 hydrocephalous FAMILY HISTORY Family History Problem Relation Age of Onset Cancer Mother lung cancer Cancer Father stomack cancer High Blood Pressure Father SOCIAL HISTORY Social History Tobacco Use Smoking status: Former Packs/day: 1.00 Years: 4.00 Pack years: 4.00 Types: Cigarettes Start date: 01/05/1977 Quit date: 01/05/1981 Years since quittin.3 Smokeless tobacco: Never Vaping Use Vaping Use: Never used Substance Use Topics Alcohol use: Yes Comment: social Drug use: No ALLERGIES Allergies Allergen Reactions Avelox [Moxifloxacin Hcl In Nacl] Other (See Comments) Altered heart rate Amoxicillin-Pot Clavulanate Nausea And Vomiting MEDICATIONS Current Outpatient Medications on File Prior to Encounter Medication Sig Dispense Refill gabapentin (NEURONTIN) 300 MG capsule Take 1 capsule by mouth 3 times daily for 30 days. 90 capsule 0 lidocaine (LIDODERM) 5 % Place 2 patches onto the skin daily 12 hours on, 12 hours off. 60 patch 2 cyclobenzaprine (FLEXERIL) 10 MG tablet Take 1 tablet by mouth daily as needed for Muscle spasms 30 tablet 0 HYDROcodone-acetaminophen (NORCO) 7.5-325 MG per tablet Take 1 tablet by mouth every 6 hours as needed for Pain for up to 30 days. Intended supply: 30 days 120 tablet 0 naproxen (NAPRELAN) 500 MG extended release tablet Take 1 tablet by mouth 2 times daily as needed for Pain 60 tablet 3 omeprazole (PRILOSEC) 20 MG delayed release capsule Take 20 mg by mouth daily amLODIPine (NORVASC) 5 MG tablet Indications: takes with elevated BP reading -- with sx headache & flushed feeling traZODone (DESYREL) 100 MG tablet Take 100 mg by mouth nightly candesartan (ATACAND) 32 MG tablet Take 32 mg by mouth every evening No current facility-administered medications on file prior to encounter. REVIEW OF SYSTEMS Pertinent items are noted in HPI. Objective: BP (!) 151/76 Pulse 100 Temp 97.2 F (36.2 C) (Temporal) Resp 18 Wt Readings from Last 3 Encounters: 04/23/22 220 lb (99.8 kg) 03/22/22 220 lb (99.8 kg) 03/12/22 227 lb (103 kg) PHYSICAL EXAM General Appearance: alert and oriented to person, place and time, well-developed and well-nourished, in no acute distress Cardiovascular: normal rate and intact distal pulses Extremities: no cyanosis and no clubbing Musculoskeletal: charcot foot left with prominent plantar midfoot. Neurologic: speech normal and protective sensation is absent to the left foot. Assessment: Active Hospital Problems Diagnosis Date Noted Idiopathic peripheral neuropathy [G60.9] 05/14/2022 Priority: Medium Ulcer of left foot, with necrosis of muscle (HCC) [L97.523] 05/14/2022 Priority: Medium Charcot's joint of left foot [M14.672] 02/15/2022 Priority: Medium Procedure Note Indications: Based on my examination of this patient's wound(s)/ulcer(s) today, debridement is required to promote healing and evaluate the wound base. Performed by: Marielos Ely DPM Consent obtained: Yes Time out taken: Yes Pain Control: Debridement:Excisional Debridement Using tissue nippers the wound(s)/ulcer(s) was/were sharply debrided down through and including the removal of epidermis, dermis, subcutaneous tissue, and muscle/fascia. Devitalized Tissue Debrided: fibrin, biofilm, slough, and muscle/fascia. Pre Debridement Measurements: Are located in the Wound/Ulcer Documentation Flow Sheet Wound/Ulcer #: 1 Post Debridement Measurements: Wound/Ulcer Descriptions are Pre Debridement except measurements: Wound 05/14/22 Foot Left;Plantar #1 (Active) Wound Image 05/14/22 1104 Wound Etiology Diabetic Mccain 3 05/14/221103 Wound Cleansed Cleansed with saline 05/14/22 1104 Wound Length (cm) 1.6 cm 05/14/22 110 Wound Width (cm) 1.5 cm 05/14/22 110 Wound Depth (cm) 3 cm 05/14/221103 Wound Surface Area (cm^2) 2.4 cm^2 05/14/22 1104 Wound Volume (cm^3) 7.2 cm^3 05/14/22 1104 Wound Assessment [place]/red;Slough 05/14/22 110 Drainage Amount Moderate 05/14/221103 Drainage Description Yellow 05/14/221103 Odor None 05/14/224 Brisa-wound Assessment Intact 05/14/221103 Margins Defined edges 05/14/221103 Wound Thickness Description not for Pressure Injury Full thickness 05/14/22 110 Number of days: 0 Wound 05/14/22 Foot Left;Lateral #2 (Active) Wound Image 05/14/22 1104 Wound Etiology Diabetic Mccain 2 05/14/22 1104 Wound Cleansed Cleansed with saline 05/14/22 110 Wound Length (cm) 1.5 cm 05/14/22 110 Wound Width (cm) 1 cm 05/14/22 1104 Wound Depth (cm) 1 cm 05/14/22 110 Wound Surface Area (cm^2) 1.5 cm^2 05/14/22 1104 Wound Volume (cm^3) 1.5 cm^3 05/14/22 110 Wound Assessment [place]/red;Slough 05/14/221103 Drainage Amount Moderate 05/14/221103 Drainage Description Yellow 05/14/22 110 Odor None 05/14/221103 Brisa-wound Assessment Intact 05/14/221103 Margins Defined edges 05/14/221103 Wound Thickness Description not for Pressure Injury Full thickness 05/14/221103 Number of days: 0 Incision 01/12/22 Back Medial (Active) Number of days: 122 Percent of Wound/Ulcer Debrided: 100% Total Surface Area Debrided: 2.4 sq cm Diabetic/Pressure/Non Pressure Ulcers: Ulcer: Non-Pressure ulcer, muscle necrosis , Bleeding: Estimated amount of blood loss is 3ml. Hemostasis Achieved: by pressure Procedural Pain: 2 / 10 Post Procedural Pain: 2 / 10 Response to treatment: Well tolerated by patient., With complaints of pain. Plan: Wound culture taken. Emphasized the importance of compliance with staying off his foot and using the knee scooter at all times when going places. Plan of care was discussed with patient and he is in agreement. Treatment Note please see attached Discharge Instructions In my professional opinion this patient would benefit from HBO Therapy: No Written patient dismissal instructions given to patient and signed by patient or POA. Discharge Instructions [facility] Medicine Physician Orders and Discharge Instructions [place] [id number] [place] [id number] FAX [phone] NAME: Macarena Coleman DATE OF : 1960 Your Supervisory Historian is: [facility]/Facility: [facility] New referral Wound Location:Left plantar foot, Left lateral foot. Dressing orders:1.Cleanse wound(s) with normal saline. 2. Apply dry SILVERCEL OR CALCIUM ALGINATE WITH Ag or eqivalent to wound bed. 3. Cover withdrawtex and wrap with gauze (mary or kerlix) 4. Change Every other day or Saturday, Saturday, and Saturday Compression:Apply medium compression 10-20 mm hg hose to left lower leg(s), may remove at bedtime, reapply first thing in the morning, avoid prolonged standing, elevate legs when sitting. Offloading Device: Ortho Boot Use your knee scooter as much as you can Other Instructions: finish your bactrim as ordered we will call if your antibiotic needs changed based on the results of your culture Keep all dressings clean, dry and intact. Keep pressure off the wound(s) at all times. Follow up visit 2 Weeks SaturdayMay 28 at 9:30 AM Please give 24 hour notice if unable to keep appointment. [phone] If you experience any of the following, please call the Wound Care Service at [phone] or go to the nearest emergency room. *Increase in pain *Temperature over 101 *Increase in drainage from your wound or a foul odor *Uncontrolled swelling *Need for compression bandage changes due to slippage, breakthrough drainage PLEASE NOTE: IF YOU ARE UNABLE TO OBTAIN WOUND SUPPLIES, CONTINUE TO USE THE SUPPLIES YOU HAVE AVAILABLE UNTIL YOU ARE ABLE TO REACH US. IT IS MOST IMPORTANT TO KEEP THE WOUND COVERED AT ALL TIMES documented in this encounter [facility] Phone: 09-21-2021 Note Degenerative changes of the lumbar spine have progressed since prior radiographs August 06, 2012 [facility] Evaluation note Diagnosis Spinal stenosis of lumbar region with neurogenic claudication Spinal stenosis, lumbar region, with neurogenic claudication Acquired spondylolisthesis of lumbosacral region Acquired spondylolisthesis Paraparesis of both lower limbs (HCC) Paraplegia documented in this encounter [employer] Phone: evaluation note* Diagnosis Spinal stenosis of lumbar region with neurogenic claudication- Primary Spinal stenosis, lumbar region, with neurogenic claudication Acquired spondylolisthesis of lumbosacral region Acquired spondylolisthesis Lumbar spondylolysis Acquired spondylolisthesis documented in this encounter [employer] Phone: [email or web address] note* Diagnosis Acquired spondylolisthesis of lumbosacral region Acquired spondylolisthesis documented in this encounter [employer] Phone: [email or web address] note* Diagnosis Ulcer of left foot, unspecified ulcer stage (HCC) documented in this encounter [employer] Phone: evaluation note* Diagnosis Idiopathic peripheral neuropathy- Primary Unspecified hereditary and idiopathic peripheral neuropathy Ulcer of left foot, with necrosis of muscle (HCC) Charcot's joint of left foot documented in this encounter [employer] Phone: evaluation note* Diagnosis Acute respiratory failure with hypoxia (HCC)- Primary Acute respiratory failure Dyspnea, unspecified type Elevated troponin Other abnormal blood chemistry Peripheral edema Edema Ulcer of left foot, unspecified ulcer stage (HCC) Anemia Anemia, unspecified Acute heart failure with preserved ejection fraction (HCC) Acute osteomyelitis of ankle and foot, left (HCC) documented in this encounter [employer] Phone: [email or web address] note* Diagnosis Ulcer of left foot, with necrosis of muscle (HCC)- Primary Ulcer of midfoot, left, with necrosis of bone (HCC) Idiopathic peripheral neuropathy Unspecified hereditary and idiopathic peripheral neuropathy documented in this encounter [employer] Phone: [email or web address] note* Diagnosis Ulcer of midfoot, left, 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, left, with necrosis of bone (HCC) Idiopathic peripheral neuropathy Unspecified hereditary and idiopathic peripheral neuropathy Charcot's joint of left foot documented in this encounter [employer] Phone: [email or web address] note* Diagnosis Ulcer of midfoot, left, 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, left, with necrosis of bone (HCC) Idiopathic peripheral neuropathy Unspecified hereditary and idiopathic peripheral neuropathy Charcot's joint of left foot documented in this encounter [employer] Phone: evaluation note* Diagnosis Ulcer of midfoot, left, 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, left, with necrosis of bone (HCC) Idiopathic peripheral neuropathy Unspecified hereditary and idiopathic peripheral neuropathy Charcot's joint of left foot documented in this encounter [employer] Phone: [email or web address] note* Diagnosis Ulcer of midfoot, left, 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, left, with necrosis of bone (HCC) Idiopathic peripheral neuropathy Unspecified hereditary and idiopathic peripheral neuropathy Charcot's joint of left foot Idiopathic peripheral neuropathy Unspecified hereditary and idiopathic peripheral neuropathy Charcot's joint of left foot documented in this encounter [employer] Phone: [email or web address] note* Diagnosis Ulcer of midfoot, left, 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, left, with necrosis of bone (HCC) Idiopathic peripheral neuropathy Unspecified hereditary and idiopathic peripheral neuropathy Charcot's joint of left foot documented in this encounter [employer] Phone: [email or web address] note* Diagnosis Ulcer of midfoot, left, 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, left, with necrosis of bone (HCC) Idiopathic peripheral neuropathy Unspecified hereditary and idiopathic peripheral neuropathy documented in this encounter [employer] Phone: [email or web address] note* Diagnosis Ulcer of midfoot, left, 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, left, with necrosis of bone (HCC) Idiopathic peripheral neuropathy Unspecified hereditary and idiopathic peripheral neuropathy documented in this encounter [employer] Phone: [email or web address] note* Diagnosis Ulcer of midfoot, left, 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, left, with necrosis of bone (HCC) Idiopathic peripheral neuropathy Unspecified hereditary and idiopathic peripheral neuropathy Peripheral venous insufficiency Unspecified venous (peripheral) insufficiency documented in this encounter [employer] Phone: evaluation note* Diagnosis Ulcer of midfoot, left, 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, left, with necrosis of bone (HCC) Peripheral venous insufficiency Unspecified venous (peripheral) insufficiency Idiopathic peripheral neuropathy Unspecified hereditary and idiopathic peripheral neuropathy Charcot's joint of left foot documented in this encounter [employer] Work Phone: evalpuyibt note* Diagnosis Ulcer of midfoot, left, 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, left, with necrosis of bone (HCC) Charcot's joint of left foot Idiopathic peripheral neuropathy Unspecified hereditary and idiopathic peripheral neuropathy Peripheral venous insufficiency Unspecified venous (peripheral) insufficiency Lymphedema Other lymphedema documented in this encounter [employer] Phone: evaluation note* Diagnosis Ulcer of midfoot, left, 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, left, with necrosis of bone (HCC) Charcot's joint of left foot Idiopathic peripheral neuropathy Unspecified hereditary and idiopathic peripheral neuropathy documented in this encounter [employer]History of Present illness Narrative* History of Present Illness * The patient is here for his first Euflexxa injection to the right knee * Review of Systems * GENERAL: Negative for malaise, significant weight loss, fever * MUSCULOSKELETAL: see HPI * NEURO: Negative * Physical Exam * This is a male in no acute distress * Right knee: * The skin is intact, there is no erythema or warmth * Imaging * None today * Assessment * Osteoarthrosis right knee * Plan * First Euflexxa injection, follow-up next week for the second * Procedure: Right knee Euflexxa injection * Timeout performed. Patient identified and site confirmed. Allergies reviewed. Potential risks including but not limited to infection,pseudoseptic response, injection site pain and/or local reaction were discussed with the patient and they consented to the procedure. * After sterilely prepping, using the sterile, no touch technique I aspirated 0 cc of normal-appearing joint fluid from the right knee then injected Euflexxa, (20 mg/ 2 mL) into the right knee. The patient tolerated the procedure well. There were no apparent complications. * Postinjection instructions were given to the patient to ice the injection site as needed and to avoid strenuous activities for the rest of the day. The patient was instructed to call if any problems arise * . [facility] [place] Phone: History of Present illness Narrative* History of Present Illness * Right knee Euflexxa injection 2 of 3 * Review of Systems * GENERAL: Negative for malaise, significant weight loss, fever * MUSCULOSKELETAL: see HPI * NEURO: Negative * Physical Exam * Right knee * Skin is intact without any evidence of erythema ecchymosis or effusion * Imaging * None today * Assessment * Right knee osteoarthritis * Plan * Procedure note: Right knee Euflexxa injection * Timeout performed. Patient identified and site confirmed. Allergies reviewed. Potential risks including but not limited to infection,pseudoseptic response, injection site pain and/or local reaction were discussed with the patient and they consented to the procedure. * After sterilely prepping, using the sterile, no touch technique I aspirated 0 cc of normal-appearing joint fluid from the right knee then injected Euflexxa, (10 mg/mL) into the left knee. The patienttolerated the procedure well. There were no apparent complications. * Postinjection instructions were given to the patient to ice the injection site as needed and to avoid strenuous activities for the rest of the day. The patient was instructed to call if any problems arise * Follow-up next week for injection 3 of 3. All questions answered. [facility] [place] Work Phone: History of Present illness Narrative* History of Present Illness * The patient is here for the third Euflexxa on the right, he is tolerated the first 2 * Review of Systems * GENERAL: Negative for malaise, significant weight loss, fever * MUSCULOSKELETAL: see HPI * NEURO: Negative * Physical Exam * This is a male in no acute distress * Right knee: * The skin is intact, there is no erythema or warmth * Imaging * None today * Assessment * Osteoarthrosis right knee * Plan * Third Euflexxa injection * Follow-up in 2 months for recheck, sooner if there is any problems * Questions answered * Procedure: Right knee Euflexxa injection * Timeout performed. Patient identified and site confirmed. Allergies reviewed. Potential risks including but not limited to infection,pseudoseptic response, injection site pain and/or local reaction were discussed with the patient and they consented to the procedure. * After sterilely prepping, using the sterile, no touch technique I aspirated 0 cc of normal-appearing joint fluid from the right knee then injected Euflexxa, (20 mg/ 2 mL) into the right knee. The patient tolerated the procedure well. There were no apparent complications. * Postinjection instructions were given to the patient to ice the injection site as needed and to avoid strenuous activities for the rest of the day. The patient was instructed to call if any problems arise * . [facility] [facility] [place] [facility]: Summary Purpose Family History No Family History Records Found Mother Name Dates Details No pertinent family history( V49.89, Z78.9) Status:Active Unknown Family Member Name Dates Details No pertinent family history: Mother(V49.89, Z78.9) Status:Active Unknown Family Member Name Dates Details No pertinent family history: Mother(V49.89, Z78.9) Status:Active Unknown Family Member Name Dates Details No pertinent family history: Mother(V49.89, Z78.9) Status:Active Unknown Family Member Name Dates Details No pertinent family history: Mother(V49.89, Z78.9) Status:Active Advance Directives No Advanced Directives Records FoundDocuments on File Type Date Recorded Patient General Farm Hand Expl anation ACP-Advance Directive ACP-Power of Sales Assoc Healthcare Agents on File Name Relationship Healthcare Agent Relationshi p Communication Mirian Mis Spouse Primary Decision Maker Documents on File Type Date Recorded Patient General Farm Hand Expl anation ACP-Advance Directive ACP-Power of Sales Assoc Healthcare Agents on File Name Relationship Healthcare Agent Relationshi p Communication Mirian Mis Spouse Primary Decision Maker Healthcare Agents on File Name Relationship Healthcare Agent Relationshi p Communication Mirian Mis Spouse Primary Decision Maker Latest Code Status on File Code Status Date Activated Date Inactivated Comments Full Code 01/12/2022 3:49 PM 01/14/2022 4:06 PM Healthcare Agents on File Name Relationship Healthcare Agent Relationshi p Communication Mirian Mis Spouse Primary Decision Maker Healthcare Agents on File Name Relationship Healthcare Agent Relationshi p Communication Mirian Mis Spouse Primary Decision Maker [phone] (Home) Latest Code Status on File Code Status Date Activated Date Inactivated Comments Full Code 01/12/2022 3:49 PM 01/14/2022 4:06 PM Healthcare Agents on File Name Relationship Healthcare Agent Relationshi p Communication Mirian Mis Spouse Primary Decision Maker Latest Code Status on File Code Status Date Activated Date Inactivated Comments Full Code 05/25/2022 1:28 AM Full Code 01/12/2022 3:49 PM 01/14/2022 4:06 PM Healthcare Agents on File Name Relationship Healthcare Agent Relationshi p Communication Mirian Mis Spouse Primary Decision Maker Latest Code Status on File Code Status Date Activated Date Inactivated Comments Full Code 05/25/2022 1:28 AM 06/01/2022 8:17 AM Full Code 01/12/2022 3:49 PM 01/14/2022 4:06 PM Healthcare Agents on File Name Relationship Healthcare Agent Relationshi p Communication Mirian Mis Spouse Primary Decision Maker Healthcare Agents on File Name Relationship Healthcare Agent Relationshi p Communication Mirian Mis Spouse Primary Decision Maker Healthcare Agents on File Name Relationship Healthcare Agent Relationshi p Communication Mirian Mis Spouse Primary Decision Maker Healthcare Agents on File Name Relationship Healthcare Agent Relationshi p Communication Mirian Mis Spouse Primary Decision Maker Latest Code Status on File Code Status Date Activated Date Inactivated Comments Full Code 05/25/2022 1:28 AM 06/01/2022 8:17 AM Healthcare Agents on File Name Relationship Healthcare Agent Relationshi p Communication Mirian Mis Spouse Primary Decision Maker Healthcare Agents on File Name Relationship Healthcare Agent Relationshi p Communication Mirian Mis Spouse Primary Decision Maker Healthcare Agents on File Name Relationship Healthcare Agent Relationshi p Communication Mirian Mis Spouse Primary Decision Maker Healthcare Agents on File Name Relationship Healthcare Agent Relationshi p Communication Mirian Mis Spouse Primary Decision Maker [phone] (Home) Latest Code Status on File Code Status Date Activated Date Inactivated Comments Full Code 05/25/2022 1:28 AM 06/01/2022 8:17 AM Code Status History Code Status Date Activated Date Inactivated Comments Full Code 01/12/2022 3:49 PM 01/14/2022 4:06 PM Healthcare Agents on File Name Relationship Healthcare Agent Relationshi p Communication Mirian Mis Spouse Primary Decision Maker Healthcare Agents on File Name Relationship Healthcare Agent Relationshi p Communication Mirian Mis Spouse Primary Decision Maker Latest Code Status on File Code Status Date Activated Date Inactivated Comments Full Code 05/25/2022 1:28 AM 06/01/2022 8:17 AM Code Status History Code Status Date Activated Date Inactivated Comments Full Code 01/12/2022 3:49 PM 01/14/2022 4:06 PM Healthcare Agents on File Name Relationship Healthcare Agent Relationshi p Communication Mirian Mis Spouse Primary Decision Maker Healthcare Agents on File Name Relationship Healthcare Agent Relationshi p Communication Mirian Mis Spouse Primary Decision Maker Healthcare Agents on File Name Relationship Healthcare Agent Relationshi p Communication Mirian Mis Spouse Primary Decision Maker Healthcare Agents on File Name Relationship Healthcare Agent Relationshi p Communication Mirian Mis Spouse Primary Decision Maker Reason for Referral Status Reason Specialty Diagnoses / Procedures Referre d By Contact Referred To Contact Closed Radiology Diagnoses Swelling of limb Procedures US DUP LOWER EXTREMITY LEFT [place] Allyson Hand MD [address] [address] Specialty Diagnoses / Procedures Referred By Contac t Referred To Contact Diagnoses Ulcer of left foot, with necrosis of muscle (HCC) Marielos Ely DPM [address] [address] Referral ID Status Reason Start Date Expiration Date V isits Requested Visits Authorized [id number] Open Specialty Services Required 05/14/2022 05/14/2023 1 1 Question Answer I certify that I, or a nurse practitioner or physician visitor service assistant working with me, had an in-person encounter with the patient and the reason for the home care services is documented in the clinical note on: 05/14/2022 Will the referring provider be the attending provider for home health? Yes The patient is confined to home: Due to illness or injury that necessitates supportive device aid, use of special transportation, or assistance of another person to leave home, AND there is a normal inability to leave home, AND leaving home requires considerable taxing effort Patient requires the following home health services Group Home Comments Certification and medical necessity: I certify that, based on my findings, the following services are medically necessary home health services for Van A Mis for the following reasons: - Wound care as follows: see instructions. Specialty Diagnoses / Procedures Referred By Ayana t Referred To Contact Podiatry / Wound Ostomy Diagnoses Ulcer of left foot, unspecified ulcer stage (HCC) Sarthak Naik DPM [address] [place] [address] Marielos Ely DPM [address] [address] Referral ID Status Reason Start Date Expiration Date V isits Requested Visits Authorized [id number] Open Specialty Services Required 05/31/2022 05/31/2023 1 1 Scheduling Instructions [facility] [address] [place] [id number] PH: [phone] Comments To be scheduled with Dr. Ely within 1 week. Specialty Diagnoses / Procedures Referred By Contmindi t Referred To Contact Vascular Surgery / Hyperbaric Medicine Diagnoses Ulcer of midfoot, left, with necrosis of bone (HCC) Idiopathic peripheral neuropathy Charcot's joint of left foot Marielos Ely, ALLAM [address] [facility] [address] [place] [address] [place] [address] [place] [address] Referral ID Status Reason Start Date Expiration Date V isits Requested Visits Authorized [id number] Open Specialty Services Required 09/17/2022 09/17/2023 1 1 Scheduling Instructions [facility] Referral to Hyperbaric Chamber - HBO HBOT [address] [place], [place] [address] Comments The patient can be scheduled with any member of the group, including the provider with the first available appointments. Assessments Diagnosis Swelling of limb Chief Complaint New pt right knee pain, xrays todayRight knee - #1 EuflexxaRight knee Euflexxa 2 of 3Right knee Euflexxa injection #3 Additional Source Comments (unrecognized sect ion and content) No Status Records FoundNo Status Records FoundNo Status Records FoundNo Status Records FoundNo Status Records FoundNo Status Records Found INFORMATION SOURCE (unrecogn ized section and content) DATE CREATED AUTHOR 07/20/2018 [facility] DATE CREATED AUTHOR AUTHOR'S ORGANIZ ATION 10/28/2018 [facility] DATE CREATED AUTHOR AUTHOR'S ORGANIZ ATION 04/26/2023 [employer] DATE CREATED AUTHOR AUTHOR'S ORGANIZ ATION 04/29/2023 [facility] DATE CREATED AUTHOR AUTHOR'S ORGANIZ ATION 08/02/2023 [facility] [place] DATE CREATED AUTHOR AUTHOR'S ORGANIZ ATION [facility] [place] Reason for Visit (unrecogniz ed section and content) Status Reason Specialty Diagnoses / Procedures Referre d By Contact Referred To Contact Closed Radiology Diagnoses Swelling of limb Procedures US DUP LOWER EXTREMITY LEFT Allyson Preston MD [address] [facility] [address] [place] [address] Reason Comments Wound Check Left foot wounds Reason Comments Leg Pain Left leg below knee to ankle and states edema to leg and ankle. Pt has a boot in place due to ulcers. Pt is on a ATB for wounds and has home care. Sent by PCP for ultrasound of leg to R/O blood clot. Shortness of Breath Started last week an d has seen Dr. Hand. Pt was given albuterol inhaler. Pt does not use O2 Specialty Diagnoses / Procedures Referred By Contac t Referred To Contact Diagnoses Peripheral edema Heart failure (HCC) Elevated troponin Acute respiratory failure with hypoxia (HCC) Dyspnea, unspecified type Ulcer of left foot, unspecified ulcer stage (HCC) [place] [address] [place] [address] [facility] [address] [place] [address] Referral ID Status Reason Start Date Expiration Date Visits Re quested Visits Authorized [id number] 1 1 Reason Comments Wound Check Left foot wounds Specialty Diagnoses / Procedures Referred By Contmindi t Referred To Contact Podiatry / Wound Ostomy Diagnoses Ulcer of left foot, unspecified ulcer stage (HCC) Sarthak Naik, DPM [address] [place] [address] Marielos Ely, DPM [address] [address] Referral ID Status Reason Start Date Expiration Date V isits Requested Visits Authorized [id number] Open Specialty Services Required 05/31/2022 05/31/2023 1 1 Reason Comments Wound Check LEFT FOOT WOUNDS Reason Comments Wound Check Left foot wound Reason Comments Wound Check Left foot wound Reason Comments Wound Check Left plantar foot Reason Comments Wound Check Left foot Reason Comments Wound Check Left Plantar foot Reason Comments Wound Check Left plantar Specialty Diagnoses / Procedures Referred By Ayana t Referred To Contact Physical Therapist / Physical Therapy Diagnoses Paraparesis of both lower limbs (HCC) Hydrocephalus, unspecified type (HCC) Charcot's joint of left foot History of lumbar fusion Chronic pain of right knee Chronic pain of left knee Idiopathic peripheral neuropathy Ulcer of midfoot, left, 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 40 Visits Combined PT/OT - 0 Used 80% Coverage after deductible met. Deductible $1,200.00 / Met 0 OOP $2,350.00 / Applied 0 3:00 pm Selin Ref#[id number] Sierra Miranda. 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) Procedures Nuclear stress test with myocardial perfusion Rochelle Mccollum MD [address] [address] Referral ID Status Reason Start Date Expiration Date Visits Re quested Visits Authorized [id number] Closed 03/11/2023 04/25/2023 3 3 Reason Comments Wound Check Care Teams (unrecognized sec tion and content) Hide Handler Relationship Specialty Start Date End Date Allyson Hand MD [address] [address] PCP - General Internal Medicine 04/28/18 Hide Handler Relationship Specialty Start Date End Date Allyson Hand MD [address] [address] PCP - General Internal Medicine 04/28/18 Hide Handler Relationship Specialty Start Date End Date Allyson Hand MD [address] [place] [address] PCP - General Internal Medicine 04/28/18 Hide Handler Relationship Specialty Start Date End Date Allyson Hand MD [address] [place] [address] PCP - General Internal Medicine 04/28/18 Hide Handler Relationship Specialty Start Date End Date Allyson Hand MD [address] [place] [address] PCP - General Internal Medicine 04/28/18 Hide Handler Relationship Specialty Start Date End Date Allyson Hand MD [address] [place] [address] PCP - General Internal Medicine 04/28/18 Hide Handler Relationship Specialty Start Date End Date Allyson Hand MD [address] [place] [address] PCP - General Internal Medicine 04/28/18 Hide Handler Relationship Specialty Start Date End Date Allyson Hand MD [address] [place] [address] PCP - General Internal Medicine 04/28/18 Hide Handler Relationship Specialty Start Date End Date Allyson Hand MD [address] [place] [address] PCP - General Internal Medicine 04/28/18 Hide Handler Relationship Specialty Start Date End Date Allyson Hand MD [address] [place] [address] PCP - General Internal Medicine 04/28/18 Hide Handler Relationship Specialty Start Date End Date Allyson Hand MD [address] [address] PCP - General Internal Medicine 04/28/18 Hide Handler Relationship Specialty Start Date End Date Allyson Hand MD [address] [address] PCP - General Internal Medicine 04/28/18 Hide Handler Relationship Specialty Start Date End Date Allyson Hand MD [address] [address] PCP - General Internal Medicine 04/28/18 Hide Handler Relationship Specialty Start Date End Date Allyson Hand MD [address] [place] [address] PCP - General Internal Medicine 04/28/18 Hide Handler Relationship Specialty Start Date End Date Allyson Hand MD [address] [address] PCP - General Internal Medicine 04/28/18 Hide Handler Relationship Specialty Start Date End Date Allyson Hand MD [address] [address] PCP - General Internal Medicine 04/28/18 Hide Handler Relationship Specialty Start Date End Date Allyson Hand MD [address] [address] PCP - General Internal Medicine 04/28/18 Hide Handler Relationship Specialty Start Date End Date Allyson Hand MD [address] [address] PCP - General Internal Medicine 04/28/18 Hide Handler Relationship Specialty Start Date End Date Allyson Hand MD [address] [address] PCP - General Internal Medicine 04/28/18 Hide Handler Relationship Specialty Start Date End Date Allyson Hand MD [address] [address] PCP - General Internal Medicine 04/28/18 Ordered Prescriptions (unrec ognized section and content) Prescription Sig Dispensed Refills Start Date End Da te metoprolol succinate (TOPROL XL) 50 MG extended release tablet Take 1 tablet by mouth daily 30 tablet 0 06/01/2022 oxyCODONE-acetaminoph en (PERCOCET) 5-325 MG per tabletIndications:Ulc er of left foot, with necrosis of muscle (HCC) Take 1 tablet by mouth every 6 hours as needed for Pain for up to 3 days. Intended supply: 3 days. Take lowest dose possible to manage pain 12 tablet 0 05/31/2022 06/03/2022 ertapenem (INVANZ) infusion Infuse 1,000 mg intravenously every 24 hours Compound per protocol. 40 g 0 05/31/2022 07/10/2022 Prescription Sig Dispensed Refills Start Date End Da te Sodium Hypochlorite 0.0125 % SOLN Apply 10 mLs topically as needed (Cleanse with each dressing change.) 1000 mL 5 10/22/2022 cephALEXin (KEFLEX) 500 MG capsule Take 1 capsule by mouth 4 times daily for 14 days 56 capsule 0 10/22/2022 11/05/2022 Scheduled Active and Recently Administ ered Medications (unrecognized section and content) Medication Order 05/29/2022 05/30/2022 05/31/2022 aspirin chewable tablet 81 mg 81 mg, Oral, DAILY, First dose on Sat05/25/22 at 1100, Until Discontinued 0807 (Held - Provider: Es Gay RN - Reason: Other - Comment: surgery today) 0816 (Given - Provider: Emily Weber, PEDRITO) 0935 (Given - Provider: Jeannie Mcmanus, PEDRITO) atorvastatin (LIPITOR) tablet 10 mg 10 mg, Oral, NIGHTLY, First dose (after last modification) on Sat05/28/22 at 2100, Until Discontinued 2054 (Given - Provider: Viola Cross RN) 2224 (Given - Provider: Ghazal Isabel RN) 2099 (Due) busPIRone (BUSPAR) tablet 10 mg 10 mg, Oral, 3 TIMES DAILY, First dose on 05/26/22 at 0930, Until Discontinued 0900 (Automatically Held - Provider: Mariza Danielle MD)1400 (Automatically Held - Provider: Mariza Danielle MD)2099 (Automatically Held - Provider: Mariza Danielle MD) 0900 (Automatically Held)1400 (Automatically Held)2100 (Automatically Held) 0900 (Automatically Held)1400 (Automatically Held)2100 (Automatically Held) cyclobenzaprine (FLEXERIL) tablet 10 mg 10 mg, Oral, NIGHTLY, First dose on 05/26/22 at 2100, Until Discontinued 2054 (Given - Provider: Viola Cross RN) 2224 (Given - Provider: Ghazal Isabel RN) 2099 (Due) enoxaparin (LOVENOX) injection 40 mg 40 mg, SubCUTAneous, DAILY, First dose on Sat05/25/22 at 0900, Until Discontinued, Indication of Use: Prophylaxis-DVT/PE 0807 (Held - Provider: Es Gay RN - Reason: Other - Comment: surgery today) 0816 (Not Given - Provider: Emily Weber RN - Reason: Patient/family refused) 0934 (Not Given - Provider: Jeannie Mcmanus, PEDRITO - Reason: Patient/family refused) ertapenem (INVanz) 1000 mg IVPB minibag (COMPLETED) 1,000 mg, IntraVENous, ONCE, 1 dose, On Nadya 05/31/22 at 1630, Incompatible with dextrose containing solutions. 1640 (New Bag - Provider: Jeannie Mcmanus, RN)1846 (Stopped - Provider: Jeannie Mcmanus, RN) furosemide (LASIX) tablet 20 mg 20 mg, Oral, DAILY, First dose on Sat05/28/22 at 1015, Until Discontinued 0808 (Not Given - Provider: Es Gay RN - Reason: Patient/family refused - Comment: Patient stated not to bring this medication in this morning he stated he will not take it today) 0816 (Given - Provider: Emily Weber RN) 0935 (Given - Provider: Jeannie Mcmanus RN) gabapentin (NEURONTIN) capsule 300 mg 300 mg, Oral, 3 TIMES DAILY, First dose on Sat05/25/22 at 0900, Until Discontinued 0858 (Given - Provider: Es Gay RN)1618 (Not Given - Provider: Emily Weber RN - Reason: Patient not available)2054 (Given - Provider: Viola Cross RN) 0816 (Given - Provider: Emily Weber RN)1359 (Given - Provider: Emily Weber RN)222 (Given - Provider: Ghazal Isabel RN) 0936 (Given - Provider: Jeannie Mcmanus RN)1504 (Given - Provider: Jeannie Mcmanus RN)2100 (Due) lidocaine 4 % external patch 1 patch 1 patch, Topical, Administer over 12 Hours, DAILY, First dose on Sat05/25/22 at 0900, Substituted for Lidocaine 5% Patch. 0906 (Not Given - Provider: Es Gay RN - Reason: Patient/family refused) 0816 (Not Given - Provider: Emily Weber RN - Reason: Patient/family refused) 0940 (Not Given - Provider: Jeannie Mcmanus RN - Reason: Patient/family refused) melatonin disintegrating tablet 5 mg 5 mg, Oral, NIGHTLY, First dose on Sat05/26/22 at 2100, Until Discontinued 2053 (Given - Provider: Viola Cross RN) 222 (Given - Provider: Ghazal Isabel RN) 2100 (Due) metoprolol succinate (TOPROL XL) extended release tablet 50 mg 50 mg, Oral, DAILY, First dose (after last modification) on Sat05/29/22 at 0900, Until Discontinued, Do not crush or chew. 0857 (Given - Provider: Es Gay RN) 0816 (Given - Provider: Emily Weber RN) 0934 (Given - Provider: Jeannie Mcmanus RN) pantoprazole (PROTONIX) tablet 40 mg 40 mg, Oral, DAILY BEFORE BREAKFAST, First dose on Sat05/25/22 at 0700, Until Discontinued, Do not crush or break. Substituted for Omeprazole (PRILOSEC). 05 (Not Given - Provider: Viola Cross RN - Reason: Pt NPO) 0510 (Given - Provider: Viola Cross RN) 0656 (Given - Provider: Ghazal Isabel RN) piperacillin-tazobactam (ZOSYN) 3,375 mg in dextrose 5 % 50 mL IVPB extended infusion (mini-bag) (CANCELED) 3,375 mg, IntraVENous, EVERY 8 HOURS, 21 doses, First dose on Sat05/26/22 at 0915, Last dose on Sat06/02/22 at 0115, Antimicrobial Indications: Skin and Soft Tissue Infection, Skin duration of therapy: 7 days 0133 (New Bag - Provider: Viola Cross RN)0527 (Stopped - Provider: Viola Cross RN)0906 (New Bag - Provider: Es Gay RN)1306 (Due: Stopped - Provider: Es Gay RN)1705 (New Bag - Provider: Emily Weber RN)2053 (Stopped - Provider: Viola Cross RN) 0055 (New Bag - Provider: Viola Cross RN)0543 (Stopped - Provider: Viola Cross RN)0823 (New Bag - Provider: Emily Weber RN)1229 (Stopped - Provider: Emily Weber RN)1833 (New Bag - Provider: Emily Weber RN)2224 (Stopped - Provider: Ghazal Isabel RN) 0145 (New Bag - Provider: Ghazal Isabel RN)0555 (Stopped - Provider: Ghazal Isabel RN)0946 (New Bag - Provider: Jenanie Mcmanus RN)1401 (Stopped - Provider: Jeannie Mcmanus RN) sodium chloride flush 0.9 % injection 5-40 mL 5-40 mL, IntraVENous, EVERY 12 HOURS SCHEDULED (2 times per day), First dose on Sat05/25/22 at 0900, Until Discontinued, For Line Patency: Peripheral IV = 5 mL; Midline or Central Line = 10 mL/lumen. If following IV push medication, administer flush at same rate as the IV push. Flush volume is determined by type of infusion therapy being given. For non-viscous solutions use: Peripheral IV = 5 mL Midline or Central Line = 10 mL/lumen For viscous solutions (i.e. blood components, parenteral nutrition, contrast media, or after obtaining blood sample) use: Peripheral IV = 10 mL Midline or Central Line = 20 mL/lumen 0906 (Given - Provider: Es Gay RN)2055 (Not Given - Provider: Viola Cross RN - Reason: Other - Comment: duplicate) 08 (Given - Provider: Emily Weber RN)224 (Given - Provider: Ghazal Isabel RN) 0939 (Given - Provider: Jeannie Mcmanus RN)2100 (Due) sodium chloride flush 0.9 % injection 5-40 mL 5-40 mL, IntraVENous, EVERY 12 HOURS SCHEDULED (2 times per day), First dose on Sat05/28/22 at 2100, Until Discontinued, For Line Patency: Peripheral IV = 5 mL; Midline or Central Line = 10 mL/lumen. If following IV push medication, administer flush at same rate as the IV push. Flush volume is determined by type of infusion therapy being given. For non-viscous solutions use: Peripheral IV = 5 mL Midline or Central Line = 10 mL/lumen For viscous solutions (i.e. blood components, parenteral nutrition, contrast media, or after obtaining blood sample) use: Peripheral IV = 10 mL Midline or Central Line = 20 mL/lumen 0858 (Given - Provider: Es Gay RN)2055 (Given - Provider: Viola Cross RN) 08 (Given - Provider: Emily Weber RN)224 (Given - Provider: Ghazal Isabel RN) 0938 (Given - Provider: Jeannie Mcmanus RN)2100 (Due) spironolactone (ALDACTONE) tablet 25 mg 25 mg, Oral, DAILY, First dose on Sat05/28/22 at 1015, Until Discontinued 0857 (Given - Provider: Es Gay RN) 0816 (Given - Provider: Emily Weber RN) 0935 (Given - Provider: Jeannie Mcmanus, PEDRITO) sulfamethoxazole-trimetho prim (BACTRIM DS;SEPTRA DS) 800-160 MG per tablet 1 tablet 1 tablet, Oral, 2 TIMES DAILY, 14 doses, First dose on Sat05/25/22 at 0900, Last dose on Sat05/31/22 at 2100, Antimicrobial Indications: Skin and Soft Tissue Infection, Skin duration of therapy: 7 days 0858 (Given - Provider: Es Gay RN)2054 (Given - Provider: Viola Cross RN) 0816 (Given - Provider: Emily Weber, PEDRITO)2224 (Given - Provider: Ghazal Isabel RN) 0935 (Given - Provider: Jeannie Mcmanus RN)2099 (Due) traZODone (DESYREL) tablet 100 mg 100 mg, Oral, NIGHTLY, First dose on Sat05/26/22 at 2100, Until Discontinued 2053 (Given - Provider: Viola Cross RN) 2224 (Given - Provider: Ghazal Isabel RN) 2099 (Due) valsartan (DIOVAN) tablet 80 mg 80 mg, Oral, DAILY, First dose on Sat05/25/22 at 0900, Until Discontinued, Substituted for Candesartan (ATACAND) 0858 (Given - Provider: Es Gay RN) 0816 (Given - Provider: Emily Weber RN) 0934 (Given - Provider: Jeannie Mcmanus, PEDRITO) Continuous Medication Order 05/29/2022 05/30/2022 05/31/2022 0.9 % sodium chloride infusion IntraVENous, at 100 mL/hr, CONTINUOUS, Starting on Sat05/30/22 at 1530 1556 (New Bag - Provider: Nathaniel Bello) PRN Medication Order 05/29/2022 05/30/2022 05/31/2022 0.9 % sodium chloride infusion IntraVENous, at 5-250 mL/hr, PRN, if patient receiving piggyback infusions and maintenance fluids are not ordered OR KVO fluids to protect IV site / prevent frequent line interruptions/ long duration, Starting on Sat05/25/22 at 0128, For piggyback infusion, administer at same rate as piggyback for a total of 25 mL. Enter 25 mL into dose field and piggyback rate into rate field of order. If piggyback is infusing at a rate less than 100 mL/hr, enter 25 mL into dose field and 100 mL/hr into rate field of order. For KVO fluids, enter rate of 20 mL/hr or less into rate field of order. 0.9 % sodium chloride infusion IntraVENous, at 5-250 mL/hr, PRN, if patient receiving piggyback infusions and maintenance fluids are not ordered OR KVO fluids to protect IV site / prevent frequent line interruptions/ long duration, Starting on Sat05/28/22 at 1603, For piggyback infusion, administer at same rate as piggyback for a total of 25 mL. Enter 25 mL into dose field and piggyback rate into rate field of order. If piggyback is infusing at a rate less than 100 mL/hr, enter 25 mL into dose field and 100 mL/hr into rate field of order. For KVO fluids, enter rate of 20 mL/hr or less into rate field of order. acetaminophen (TYLENOL) suppository 650 mg(Linked Group 1) 650 mg, Rectal, EVERY 6 HOURS PRN, Starting on Sat05/25/22 at 0128, Until Discontinued, Pain Mild (1-3), Fever, For temp greater than 100.4 F (38 C), Administer if oral route cannot be used. 0053 (See Alternative - Provider: Viola Cross RN) acetaminophen (TYLENOL) tablet 650 mg(Linked Group 1) 650 mg, Oral, EVERY 6 HOURS PRN, Starting on Sat05/25/22 at 0128, Until Discontinued, Pain Mild (1-3), Fever, For temp greater than 100.4 F (38 C), Maximum dose of acetaminophen is 4000 mg from all sources in 24 hours. 0053 (Given - Provider: Viola Cross RN) bupivacaine (MARCAINE) 1 mL, lidocaine 2 % 1 mL (CANCELED) PRN, Starting on Sat05/29/22 at 1305, Intra-op 1305 (Given - Provider: Marielos Ely DPM) fentaNYL (SUBLIMAZE) injection 50 mcg (CANCELED) 50 mcg, IntraVENous, EVERY 10 MIN PRN, 4 doses, Starting on Sat05/29/22 at 1457, Until Sat05/29/22 at 1631, Pain Moderate (4-6), Phase I - Initial therapy for moderate pain., PACU only 1531 (Given - Provider: Chase Christianson, PEDRITO)1542 (Given - Provider: Chase Christianson RN) HYDROcodone-acetaminophen (NORCO) 7.5-325 MG per tablet 1 tablet 1 tablet, Oral, EVERY 6 HOURS PRN, Starting on 05/26/22 at 0859, Until Discontinued, Pain Severe (7-10), Pain Moderate (4-6), Maximum dose of acetaminophen is 4000 mg from all sources in 24 hours. 0857 (Given - Provider: Es Gay RN)1658 (Given - Provider: Emily Weber RN)2055 (Given - Provider: Viola Cross, PEDRITO) 0510 (Given - Provider: Viola Cross, PEDRITO)1222 (Given - Provider: Emily Weber, PEDRITO)1829 (Given - Provider: Emily Weber, PEDRITO) 0935 (Given - Provider: Jeannie Mcmanus RN) HYDROmorphone (DILAUDID) injection 0.5 mg (CANCELED) HYDROmorphone (DILAUDID) 1.5mg IV is equivalent to morphine 10mg IV, 0.5 mg, IntraVENous, EVERY 10 MIN PRN, 4 doses, Starting on Sat05/29/22 at 1457, Until Sat05/29/22 at 1631, Pain Severe (7-10), Phase I - Initial therapy for severe pain., PACU only 1503 (Given - Provider: Chase Christianson RN)1516 (Given - Provider: Chase Christianson, PEDRITO) HYDROmorphone (DILAUDID) injection 0.5 mg HYDROmorphone (DILAUDID) 1.5mg IV is equivalent to morphine 10mg IV, 0.5 mg, IntraVENous, EVERY 4 HOURS PRN, Starting on Sat05/29/22 at 1912, Until Discontinued, Pain Severe (7-10), If oral and IV narcotics ordered, use oral first and only use IV if oral is ineffective or cannot take oral. Do Not give oral and IV within 1 hour of each other unless specifically ordered. 2052 (Given - Provider: Viola Cross RN) 004 (Given - Provider: Viola Cross RN)0828 (Given - Provider: Emily Weber, RN)1359 (Given - Provider: Emily Weber, RN)2226 (Given - Provider: Ghazal Isabel RN) 0656 (Given - Provider: Ghazal Isabel RN)1504 (Given - Provider: Jeannie Mcmanus, RN)1942 (Given - Provider: Jeannie Mcmanus, RN) iopamidol (ISOVUE-300) 61 % injection 125 mL (COMPLETED) 125 mL, IntraVENous, IMG ONCE PRN, 1 dose, Starting on Sat05/30/22 at 1512, Until Sat05/30/22 at 1555, Other 1555 (Given - Provider: Javier Bello) ketorolac (TORADOL) injection 30 mg Ketorolac is contraindicated in patients with advanced renal impairment and in patients at risk of renal failure due to volume depletion. For 65 years of age and older OR weight less than 50 kg, use 15 mg IV every 6 hours; MAX dose: 60 mg/day. Dose greater than 30 mg must be administered via intramuscular route. Do not administer for more than 5 days., 30 mg, IntraVENous, EVERY 6 HOURS PRN, 3 doses, Starting on Sat05/30/22 at 0111, Until Sat06/01/22 at 2359, Pain Severe (7-10), Do not administer for more than 5 days. 0137 (Given - Provider: Viola Cross RN) ondansetron (ZOFRAN) injection 4 mg(Linked Group 2) 4 mg, IntraVENous, EVERY 6 HOURS PRN, Starting on Sat05/25/22 at 0128, Until Discontinued, Nausea, Vomiting, Administer if oral route cannot be used. 0858 (Given - Provider: Es Gay, PEDRITO) ondansetron (ZOFRAN-ODT) disintegrating tablet 4 mg(Linked Group 2) 4 mg, Oral, EVERY 8 HOURS PRN, Starting on Sat05/25/22 at 0128, Until Discontinued, Nausea, Vomiting 0858 (See Alternative - Provider: Es Gay, PEDRITO) polyethylene glycol (GLYCOLAX) packet 17 g 17 g, Oral, DAILY PRN, Starting on Sat05/25/22 at 0128, Until Discontinued, Constipation, First line therapy for constipation sodium chloride 0.9 % irrigation (CANCELED) CONTINUOUS PRN, Starting on Sat05/29/22 at 1320, Intra-op 1320 (New Bag - Provider: Marielos Ely DPM)1322 (New Bag - Provider: Marielos Ely DPM - Comment: MISONIX BAG) sodium chloride flush 0.9 % injection 10 mL 10 mL, IntraVENous, PRN, Starting on Sat05/27/22 at 1417, Until Discontinued, Line Care sodium chloride flush 0.9 % injection 5-40 mL 5-40 mL, IntraVENous, PRN, Starting on Sat05/25/22 at 0128, Until Discontinued, Line Care, After every IV line use, For Line Patency: Peripheral IV = 5 mL; Midline or Central Line = 10 mL/lumen. If following IV push medication, administer flush at same rate as the IV push. Flush volume is determined by type of infusion therapy being given. For non-viscous solutions use: Peripheral IV = 5 mL Midline or Central Line = 10 mL/lumen For viscous solutions (i.e. blood components, parenteral nutrition, contrast media, or after obtaining blood sample) use: Peripheral IV = 10 mL Midline or Central Line = 20 mL/lumen sodium chloride flush 0.9 % injection 5-40 mL 5-40 mL, IntraVENous, PRN, Starting on Sat05/28/22 at 1603, Until Discontinued, Line Care, After every IV line use, For Line Patency: Peripheral IV = 5 mL; Midline or Central Line = 10 mL/lumen. If following IV push medication, administer flush at same rate as the IV push. Flush volume is determined by type of infusion therapy being given. For non-viscous solutions use: Peripheral IV = 5 mL Midline or Central Line = 10 mL/lumen For viscous solutions (i.e. blood components, parenteral nutrition, contrast media, or after obtaining blood sample) use: Peripheral IV = 10 mL Midline or Central Line = 20 mL/lumen traZODone (DESYREL) tablet 100 mg 100 mg, Oral, NIGHTLY PRN, Starting on Sat05/25/22 at 2100, Until Discontinued, Sleep Linked Groups Order Group 1: acetaminophen (TYLENOL) tablet 650 mgJump to med 650 mg, Oral, EVERY 6 HOURS PRN, Starting on Sat05/25/22 at 0128, Until Discontinued, Pain Mild (1-3), Fever, For temp greater than 100.4 F (38 C)
Maximum dose of acetaminophen is 4000 mg from all sources in 24 hours.
Or acetaminophen (TYLENOL) suppository 650 mgJump to med 650 mg, Rectal, EVERY 6 HOURS PRN, Starting on Sat05/25/22 at 0128, Until Discontinued, Pain Mild (1-3), Fever, For temp greater than 100.4 F (38 C)
Administer if oral route cannot be used.
Group 2: ondansetron (ZOFRAN-ODT) disintegrating tablet 4 mgJump to med 4 mg, Oral, EVERY 8 HOURS PRN, Starting on Sat05/25/22 at 0128, Until Discontinued, Nausea, Vomiting Or ondansetron (ZOFRAN) injection 4 mgJump to med 4 mg, IntraVENous, EVERY 6 HOURS PRN, Starting on Sat05/25/22 at 0128, Until Discontinued, Nausea, Vomiting
Administer if oral route cannot be used.
FOR RECORDS PERTAINING TO PATIENTS WHO ARE OR HAVE BEEN ENROLLED IN A CHEMICAL DEPENDENCY/SUBSTANCEABUSE PROGRAM, SOME INFORMATION MAY BE OMITTED. This clinical summary was aggregated from multiple sources. Caution should be exercised in using it in the provision of clinical care. This summary normalizes information from multiple sources, and as a consequence, information in this document may materially change the coding, format and clinical context of patient data. In addition, data may be omitted in some cases. CLINICAL DECISIONS SHOULD BE BASED ON THE PRIMARY CLINICAL RECORDS. [facility]. provides no warranty or guarantee of the accuracy or completeness of information in this document.
--- NOTE | 2023-08-28 08:14 | CT_ITS ---
[facility] [place] [address] Patient Name: MACARENA MEYERS MRN: [id number] date: 1960 Sex: M Assigned Patient Location: CT Current Patient Location: CT Accession/Order Number: [id number] Exam Date: 08/28/2023 08:20 Report Date: 08/28/2023 09:00 At the request of: AMILCAR GUERRA Procedure: CT ankle LT wo con EXAMINATION: CT ankle LT wo con HISTORY: Left Foot Charcot Neuropathy, Chronic Ulcer COMPARISON: 08/14/2023 TECHNIQUE: Multi-planar CT images were created without IV contrast. Dose reduction techniques were achieved by using automated exposure control and/or adjustment of mA and/or kV according to patient size and/or use of iterative reconstruction technique. FINDINGS: BONES: Severe degenerative changes of the midfoot with marked bony remodeling, bony destruction, foci of subcutaneous emphysema. There is marked plantar rotation of the hindfoot and navicular in relation to the midfoot. Enthesopathic spurring at the quadriceps insertion of the patella. Osteoarthropathy of the knee with moderate narrowing of medial joint space. Moderate enthesopathic spurring calcaneus at the Achilles and plantar insertions SOFT TISSUES: Plantar soft tissue swelling. 2.1 x 2 cm ulcer plantar midfoot hindfoot extending to the cuboid EFFUSION: None visible. OTHER: Findings were relayed to Dr. Guerra 8:[address]/CT ankle LT wo con IMPRESSION: Plantar midfoot hindfoot ulceration extending to the cuboid with subcutaneous emphysema extending to the bones. 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
[2023-08-28 08:15] LABS: Basophils Absolute Auto 0.1 10^3/uL (0.0-0.1); Basophils Percent Auto 1.3 % (0.2-2.0); Eosinophils Absolute Auto 0.4 10^3/uL (0.0-0.7); Eosinophils Percent Auto 6.7 % (0.9-7.0); Hematocrit 44.8 % (42.0-54.0); Hemoglobin 14.5 g/dL (14.0-18.0); Lymphocytes Percent Auto 16.5 % (20.5-60.0); Mean Corpuscular HGB Conc 32.4 g/dL (29.9-35.2); Mean Corpuscular Volume 83.4 fL (80.0-94.0); Mean Platelet Volume 9.3 fL (9.5-13.5); Monocytes Absolute Auto 0.4 10^3/uL (0.3-0.8); Monocytes Percent Auto 7.1 % (1.7-12.0); Neutrophils Absolute Auto 4.1 10^3/uL (1.4-6.5); Neutrophils Percent Auto 68.4 % (43.0-75.0); Platelet Count 254 10^3/uL (150-450); Red Blood Count 5.37 10^6/uL (4.70-6.10); Red Cell Distribution Width 12.9 % (11.0-15.0); White Blood Count 5.9 10^3/uL (4.0-11.0)
[2023-08-28 08:40] LABS: Anion Gap 12.8; BUN Creatinine Ratio 11.2; Calcium 9.1 mg/dL (8.5-10.1); Carbon Dioxide 31.6 mmol/L (21.0-32.0); Chloride 101 mmol/L (98-107); Estimated GFR (African America >60 (>=60); Estimated GFR (Non-African Ame >60 (>=60); Glucose 149 mg/dL (74-106); Potassium 3.4 mmol/L (3.5-5.1); Sodium 142 mmol/L (136-145)
[2023-08-28 08:41] LABS: C Reactive Protein 3.07 mg/dL (<=0.50)
[2023-08-28 09:35] LABS: Erythrocyte Sedimentation Rate 62 mm/hr (<=20)
--- NOTE | 2023-08-28 10:00 | CA_ITS ---
[facility] Test Date: 2023-08-28 Pat Name: MACARENA MEYERS Department: Room: - Gender: Male Chick Sexer: Gabrielle Finch : 1960 Requested By: AMILCAR ART Order Number: [id number] Reading MD: TRUNG CHAWLA Interpretive Statements Biphasic doppler waveforms PVR waveforms with normal upstroke, amplitude and dicrotic notch Right: - significant pressure gradient between the thigh and calf cuff - significant pressure gradient between the DP and PT cuff - normal PENELOPE and TBI Left: - no significant pressure gradient between cuffs - normal PENELOPE and TBI Impression: - normal arterial evaluation of the lower extremities without significant hemodynamic impairment of the B/L lower extremities at rest. (right PENELOPE 1.27, left PENELOPE 1.14) Electronically Signed On 08-29-2023 7:04:11 EST by TRUNG CHAWLA
== END 2023-08-28 07:56 | disposition home or self-care (01) ==
LOC: CT 07:55
PROVIDERS: Visit Provider Podiatrist Foot & Ankle Surgery
DX: M14.672 Charcot's joint, left ankle and foot (principal); R09.89 Other specified symptoms and signs involving the circulatory and respiratory systems; L98.499 Non-pressure chronic ulcer of skin of other sites with unspecified severity; M86.9 Osteomyelitis, unspecified
CPT/HCPCS: 36415; 73700; 80048; 85025; 85652; 86140; 93923